=== PATIENT | female | born 1965 | race Caucasian/White ===

== ENCOUNTER → 2020-01-20 09:56 | Outpatient (BNVA) | payer OTHER, SELFPAY | PROVIDERS: PCP Internal Medicine; Referring Provider Internal Medicine; Visit Provider Internal Medicine | DX: Z86.73 Personal history of transient ischemic attack (TIA), and cerebral infarction without residual deficits (principal); Z51.81 Encounter for therapeutic drug level monitoring; Z79.01 Long term (current) use of anticoagulants | CPT/HCPCS: 85610 ==

== ENCOUNTER → 2020-02-17 09:45 | Outpatient (BNVA) | payer OTHER, SELFPAY | PROVIDERS: PCP Internal Medicine; Visit Provider Internal Medicine | DX: Z86.73 Personal history of transient ischemic attack (TIA), and cerebral infarction without residual deficits (principal); Z51.81 Encounter for therapeutic drug level monitoring; Z79.01 Long term (current) use of anticoagulants | CPT/HCPCS: 85610; 99211 ==

== ENCOUNTER → 2020-02-24 14:13 | Outpatient (BNVA) | payer OTHER, SELFPAY | PROVIDERS: PCP Internal Medicine; Referring Provider Internal Medicine; Visit Provider Orthopaedic Surgery | DX: M17.32 Unilateral post-traumatic osteoarthritis, left knee (principal) | CPT/HCPCS: 20610; 99202; J1100 ==

== ENCOUNTER → 2020-03-15 14:08 | Outpatient (BNVA) | payer OTHER, SELFPAY | PROVIDERS: PCP Internal Medicine; Visit Provider Internal Medicine | DX: Z86.73 Personal history of transient ischemic attack (TIA), and cerebral infarction without residual deficits (principal); Z51.81 Encounter for therapeutic drug level monitoring; Z79.01 Long term (current) use of anticoagulants | CPT/HCPCS: 85610; 99211 ==

== ENCOUNTER → 2020-04-12 10:18 | Outpatient (BNVA) | payer OTHER, SELFPAY | PROVIDERS: PCP Internal Medicine; Visit Provider Internal Medicine | DX: Z86.73 Personal history of transient ischemic attack (TIA), and cerebral infarction without residual deficits (principal); Z79.01 Long term (current) use of anticoagulants; Z51.81 Encounter for therapeutic drug level monitoring | CPT/HCPCS: 85610; 99211 ==

== ENCOUNTER → 2020-05-11 10:25 | Outpatient (BNVA) | payer OTHER, SELFPAY | PROVIDERS: PCP Internal Medicine; Visit Provider Internal Medicine | DX: Z86.73 Personal history of transient ischemic attack (TIA), and cerebral infarction without residual deficits (principal); Z51.81 Encounter for therapeutic drug level monitoring; Z79.01 Long term (current) use of anticoagulants | CPT/HCPCS: 85610; 99211 ==

== ENCOUNTER → 2020-06-08 10:47 | Outpatient (BNVA) | payer OTHER, SELFPAY | PROVIDERS: PCP Internal Medicine; Visit Provider Internal Medicine | DX: Z86.73 Personal history of transient ischemic attack (TIA), and cerebral infarction without residual deficits (principal); Z51.81 Encounter for therapeutic drug level monitoring; Z79.01 Long term (current) use of anticoagulants | CPT/HCPCS: 85610; 99211 ==

== ENCOUNTER 2020-06-28 09:39 | Outpatient (REF) | payer OTHER, SELFPAY ==
[2020-06-28 11:42] LABS: Estimated Average Glucose 120 mg/dL; Hemoglobin A1c % 5.8 %
[2020-06-28 12:02] LABS: Free T4 (Free Thyroxine) 1.04 ng/dL (0.71-1.85); Thyroid Stimulating Hormone 3.57 uIU/mL (0.32-4.0)
== END 2020-06-28 09:40 | disposition home or self-care (01) ==
LOC: HO.HMGCLDS 09:39
PROVIDERS: PCP Internal Medicine; Visit Provider Physician Assistant
DX: E03.9 Hypothyroidism, unspecified (principal); R73.01 Impaired fasting glucose
CPT/HCPCS: 36415; 83036; 84439; 84443

== ENCOUNTER → 2020-07-06 09:46 | Outpatient (BNVA) | payer OTHER, SELFPAY | PROVIDERS: PCP Internal Medicine; Visit Provider Internal Medicine | DX: Z86.73 Personal history of transient ischemic attack (TIA), and cerebral infarction without residual deficits (principal); Z51.81 Encounter for therapeutic drug level monitoring; Z79.01 Long term (current) use of anticoagulants | CPT/HCPCS: 85610; 99211 ==

== ENCOUNTER 2020-08-04 14:24 | Outpatient (REF) | payer OTHER, SELFPAY ==
--- NOTE | ~2020-08-04 | MM_ITS ---
EXAMINATION: MM SCREENING DIGITAL BREAST TOMOSYNTHESIS, BILATERAL CLINICAL INFORMATION: Screening. Asymptomatic. The lifetime risk of breast cancer based on the Tyrer-Cuzick Model is 10%. COMPARISON: Mammography: 07/01/2019, 05/08/2018, 08/03/2015 TECHNIQUE: Digital breast tomosynthesis is performed in both the craniocaudal and mediolateral oblique views along with computer-aided detection (CAD). Synthesized 2D images are generated from the tomosynthesis. FINDINGS: There are scattered areas of fibroglandular density (ACR BI-RADS breast composition Category b). There are no significant masses, abnormal calcifications, or other abnormalities. Parenchymal pattern is similar to prior studies. The axilla are unremarkable. Small dermal lesion again seen overlying posterior medial left breast. MM/MM tomosynthesis screening BI IMPRESSION: No mammographic evidence of malignancy. ASSESSMENT: BI-RADS 2: Benign RECOMMENDATION: Routine annual mammography screening. This patient's information was entered into a reminder system with a target due date for their next mammogram.
== END 2020-08-04 14:25 | disposition home or self-care (01) ==
LOC: HO.MAMMO 14:24
PROVIDERS: Visit Provider Internal Medicine
DX: Z12.31 Encounter for screening mammogram for malignant neoplasm of breast (principal); Z86.73 Personal history of transient ischemic attack (TIA), and cerebral infarction without residual deficits; Z51.81 Encounter for therapeutic drug level monitoring; Z79.01 Long term (current) use of anticoagulants
CPT/HCPCS: 77063; 77067; 85610; 99211

== ENCOUNTER → 2020-08-17 09:48 | Outpatient (BNVA) | payer OTHER, SELFPAY | PROVIDERS: PCP Internal Medicine; Visit Provider Internal Medicine | DX: Z86.73 Personal history of transient ischemic attack (TIA), and cerebral infarction without residual deficits (principal); Z51.81 Encounter for therapeutic drug level monitoring; Z79.01 Long term (current) use of anticoagulants | CPT/HCPCS: 85610; 99211 ==

== ENCOUNTER → 2020-08-24 09:58 | Outpatient (BNVA) | payer OTHER, SELFPAY | PROVIDERS: PCP Internal Medicine; Visit Provider Internal Medicine | DX: Z86.73 Personal history of transient ischemic attack (TIA), and cerebral infarction without residual deficits (principal); Z79.01 Long term (current) use of anticoagulants; Z51.81 Encounter for therapeutic drug level monitoring | CPT/HCPCS: 85610; 99211 ==

== ENCOUNTER → 2020-09-21 09:59 | Outpatient (BNVA) | payer OTHER, SELFPAY | PROVIDERS: PCP Internal Medicine; Visit Provider Internal Medicine | DX: Z86.73 Personal history of transient ischemic attack (TIA), and cerebral infarction without residual deficits (principal); Z51.81 Encounter for therapeutic drug level monitoring; Z79.01 Long term (current) use of anticoagulants | CPT/HCPCS: 85610; 99211 ==

== ENCOUNTER → 2020-10-19 09:51 | Outpatient (BNVA) | payer OTHER, SELFPAY | PROVIDERS: PCP Internal Medicine; Visit Provider Internal Medicine | DX: Z86.73 Personal history of transient ischemic attack (TIA), and cerebral infarction without residual deficits (principal); Z51.81 Encounter for therapeutic drug level monitoring; Z79.01 Long term (current) use of anticoagulants | CPT/HCPCS: 85610; 99211 ==

== ENCOUNTER → 2020-11-16 09:50 | Outpatient (BNVA) | payer OTHER, SELFPAY | PROVIDERS: PCP Internal Medicine; Visit Provider Internal Medicine | DX: Z86.73 Personal history of transient ischemic attack (TIA), and cerebral infarction without residual deficits (principal); Z51.81 Encounter for therapeutic drug level monitoring; Z79.01 Long term (current) use of anticoagulants | CPT/HCPCS: 85610; 99211 ==

== ENCOUNTER 2020-12-14 09:49 | Outpatient (REF) | payer OTHER, SELFPAY ==
[2020-12-14 12:39] LABS: Blood Urea Nitrogen 14 mg/dL (9-16); Estimated Glomerular Filt Rate > 60
== END 2020-12-14 09:50 | disposition home or self-care (01) ==
LOC: HO.LAB 09:49
PROVIDERS: Absent Provider Radiology Vascular & Interventional Radiology; PCP Internal Medicine; Visit Provider Internal Medicine
DX: R79.89 Other specified abnormal findings of blood chemistry (principal); R94.4 Abnormal results of kidney function studies; Z86.73 Personal history of transient ischemic attack (TIA), and cerebral infarction without residual deficits; Z51.81 Encounter for therapeutic drug level monitoring; Z79.01 Long term (current) use of anticoagulants
CPT/HCPCS: 36415; 82565; 84520; 85610; 99211

== ENCOUNTER → 2020-12-26 10:36 | Outpatient (BNVA) | payer OTHER, SELFPAY | PROVIDERS: PCP Internal Medicine; Visit Provider Internal Medicine | DX: Z86.73 Personal history of transient ischemic attack (TIA), and cerebral infarction without residual deficits (principal); Z51.81 Encounter for therapeutic drug level monitoring; Z79.01 Long term (current) use of anticoagulants | CPT/HCPCS: 85610; 99212 ==

== ENCOUNTER → 2020-12-28 10:04 | Outpatient (BNVA) | payer OTHER, SELFPAY | PROVIDERS: PCP Internal Medicine; Visit Provider Internal Medicine | DX: Z86.73 Personal history of transient ischemic attack (TIA), and cerebral infarction without residual deficits (principal); Z51.81 Encounter for therapeutic drug level monitoring; Z79.01 Long term (current) use of anticoagulants | CPT/HCPCS: 85610; 99211 ==

== ENCOUNTER → 2021-01-05 09:57 | Outpatient (BNVA) | payer OTHER, SELFPAY | PROVIDERS: PCP Internal Medicine; Visit Provider Internal Medicine | DX: Z86.73 Personal history of transient ischemic attack (TIA), and cerebral infarction without residual deficits (principal); Z51.81 Encounter for therapeutic drug level monitoring; Z79.01 Long term (current) use of anticoagulants | CPT/HCPCS: 85610; 99211 ==

== ENCOUNTER → 2021-01-18 10:03 | Outpatient (BNVA) | payer OTHER, SELFPAY | PROVIDERS: PCP Internal Medicine; Visit Provider Internal Medicine | DX: Z86.73 Personal history of transient ischemic attack (TIA), and cerebral infarction without residual deficits (principal); Z51.81 Encounter for therapeutic drug level monitoring; Z79.01 Long term (current) use of anticoagulants | CPT/HCPCS: 85610; 99211 ==

== ENCOUNTER → 2021-01-25 09:36 | Outpatient (BNVA) | payer OTHER, SELFPAY | PROVIDERS: PCP Internal Medicine; Visit Provider Internal Medicine | DX: Z86.73 Personal history of transient ischemic attack (TIA), and cerebral infarction without residual deficits (principal); Z51.81 Encounter for therapeutic drug level monitoring; Z79.01 Long term (current) use of anticoagulants | CPT/HCPCS: 85610; 99211 ==

== ENCOUNTER → 2021-02-01 09:57 | Outpatient (BNVA) | payer OTHER, SELFPAY | PROVIDERS: PCP Internal Medicine; Visit Provider Internal Medicine | DX: Z86.73 Personal history of transient ischemic attack (TIA), and cerebral infarction without residual deficits (principal); Z51.81 Encounter for therapeutic drug level monitoring; Z79.01 Long term (current) use of anticoagulants | CPT/HCPCS: 85610; 99211 ==

== ENCOUNTER → 2021-02-15 10:04 | Outpatient (BNVA) | payer OTHER, SELFPAY | PROVIDERS: PCP Internal Medicine; Visit Provider Internal Medicine | DX: Z86.73 Personal history of transient ischemic attack (TIA), and cerebral infarction without residual deficits (principal); Z51.81 Encounter for therapeutic drug level monitoring; Z79.01 Long term (current) use of anticoagulants | CPT/HCPCS: 85610; 99211 ==

== ENCOUNTER → 2021-02-22 10:19 | Outpatient (BNVA) | payer OTHER, SELFPAY | PROVIDERS: PCP Internal Medicine; Visit Provider Internal Medicine | DX: Z86.73 Personal history of transient ischemic attack (TIA), and cerebral infarction without residual deficits (principal); Z51.81 Encounter for therapeutic drug level monitoring; Z79.01 Long term (current) use of anticoagulants | CPT/HCPCS: 85610; 99211 ==

== ENCOUNTER → 2021-03-08 10:37 | Outpatient (BNVA) | payer OTHER, SELFPAY | PROVIDERS: PCP Internal Medicine; Visit Provider Internal Medicine | DX: Z86.73 Personal history of transient ischemic attack (TIA), and cerebral infarction without residual deficits (principal); Z51.81 Encounter for therapeutic drug level monitoring; Z79.01 Long term (current) use of anticoagulants | CPT/HCPCS: 85610; 99211 ==

== ENCOUNTER → 2021-03-29 09:48 | Outpatient (BNVA) | payer OTHER, SELFPAY | PROVIDERS: PCP Internal Medicine; Visit Provider Internal Medicine | DX: Z86.73 Personal history of transient ischemic attack (TIA), and cerebral infarction without residual deficits (principal); Z51.81 Encounter for therapeutic drug level monitoring; Z79.01 Long term (current) use of anticoagulants | CPT/HCPCS: 85610; 99211 ==

== ENCOUNTER → 2021-04-26 13:36 | Outpatient (BNVA) | payer OTHER, SELFPAY | PROVIDERS: PCP Internal Medicine; Visit Provider Internal Medicine | DX: Z86.73 Personal history of transient ischemic attack (TIA), and cerebral infarction without residual deficits (principal); Z51.81 Encounter for therapeutic drug level monitoring; Z79.01 Long term (current) use of anticoagulants | CPT/HCPCS: 85610; 99211 ==

== ENCOUNTER → 2021-05-24 09:50 | Outpatient (BNVA) | payer OTHER, SELFPAY | PROVIDERS: PCP Internal Medicine; Visit Provider Internal Medicine | DX: Z86.73 Personal history of transient ischemic attack (TIA), and cerebral infarction without residual deficits (principal); Z51.81 Encounter for therapeutic drug level monitoring; Z79.01 Long term (current) use of anticoagulants | CPT/HCPCS: 85610; 99211 ==

== ENCOUNTER 2021-05-24 11:21 | Emergency (ER) | payer OTHER, SELFPAY ==
--- NOTE | ~2021-05-24 | CT_ITS ---
EXAM: Noncontrast CT scan of the head and cervical spine. INDICATION: Pain with head injury and neck pain. Patient on warfarin. COMPARISON: Head CT 10/22/2015 TECHNIQUE: Axial slices were obtained from skull base to vertex and displayed. This was followed by helical, multislice, multidetector axial images from the occiput to the upper thorax. Coronal and sagittal reformats of the cervical spine in addition to coronal reformats of the head were obtained at the technologist workstation. DLP: 1276 mGy-cm FINDINGS: HEAD: There is no evidence of acute intracranial hemorrhage or territorial infarction. Evidence of old right MCA infarct appears stable. No abnormal mass effect or midline shift is appreciated. Chaves-white differentiation is well preserved. No extra-axial fluid collections. The ventricular system and cortical sulci are prominent, consistent with age-appropriate volume loss. There are areas of low density in the periventricular and subcortical white matter, most consistent with sequelae of microvascular ischemic change. The osseous structures and soft tissues are normal. There is mild to moderate calcifications of the cavernous internal carotid arteries. The visualized paranasal sinuses and mastoid air cells are well aerated. SPINE: The cervical spine is visualized in its entirety. There is straightening of the normal cervical lordosis. Alignment is otherwise unremarkable. Normal C1/C2 articulation. Cervical vertebral body heights and disc spaces are well-maintained. There are no significant degenerative changes of the cervical spine. Visualized lung apices are well aerated. CT/CT cervical spine wo con IMPRESSION: 1. No acute intracranial pathology. 2. Evidence of old right MCA infarct. 3. No fractures or dislocations of the cervical spine. This CT examination was performed using dose optimization techniques as appropriate, variously including the following: *Automated exposure control *Adjustment of mA and/or kV according to patient size (this includes techniques or standardized protocols for targeted exams where dose is matched to indication/reason for exam; i.e. extremities or head) *Use of iterative reconstruction technique
[2021-05-24 11:23] VITALS: BP 141/58; PULSE 77; RESP 16; TEMP 36.3; O2SAT 94; BMI 38.8
--- NOTE | 2021-05-24 12:27 | ED_ITS ---
HPI - Fall General Chief Complaint: Fall Stated Complaint: Fall/headache Time Seen by Provider: 05/24/21 12:06 Source: patient Mode of arrival: ambulatory Limitations: no limitations History of Present Illness HPI Narrative: 55-year-old female who presents emergency department for evaluation of a fall with headache, neck pain an on warfarin. Patient states that around 830 a.m. this morning she was taking shower. She got out of the shower and wrapped a towel around her. She states the towel fell over her legs and caused her to trip and fall. The patient does not remember if she hit her head or lost consciousness. The patient takes warfarin daily for stroke prevention. She went to her warfarin clinic today and her INR was 2.1. She told the provider at the clinic that she hit her head, had a headache, and she was referred to the emergency department for evaluation. Here in the emergency department she is complaining of a headache and neck pain. She states the headache is located in the front of her head, the headache is constant, throbbing, and 10/10. She denied nausea, vomiting, weakness. She has had no trouble thinking or speaking. She denied loss of bowel or bladder control. Patient also states that she tore the toenail off her right great toe and this was bleeding at home. The patient has been vaccinated for COVID-19 and she has received 3 Moderna vaccines. Related Data Home Medications Medication Instructions Recorded Confirmed citalopram PO 02/11/20 05/24/21 levothyroxine 50 mcg tablet 50 mcg PO DAILY 02/11/20 05/24/21 lisinopril 20 mg tablet 20 mg PO DAILY 02/11/20 05/24/21 simvastatin 40 mg tablet 40 mg PO DAILY 02/11/20 05/24/21 citalopram 40 mg tablet 40 mg PO DAILY 05/11/20 05/24/21 flu vac [id number] 36mos up(PF) ml IM 05/11/20 04/26/21 gabapentin 100 mg capsule 200 mg PO DAILY 05/11/20 05/24/21 simvastatin 20 mg tablet 20 mg PO DAILY 05/11/20 05/24/21 capsaicin 0.25 % topical cream appl TOPICAL 12/28/20 05/24/21 Previous Rx's Medication Instructions Recorded warfarin 2.5 mg tablet 2.5 mg PO DAILY #90 tab 01/21/20 Allergies Allergy/AdvReac Type Severity Reaction Status Date / Time Erythromycin Allergy Unknown UNKNOWN Verified 05/24/21 09:55 erythromycin base Allergy Unknown NAUSEA & Verified 05/24/21 09:55 [ERYTHROMYCIN BASE] VOMITING Review of Systems Verdana 4l Review of Systems: Yes all other systems are reviewed and Verdana 4d are negative [facility] Past Medical History [facility] Narrative: Past medical history: Depression, anxiety, stroke x2 with the last stroke when she was 42 years old (13 years prior). Social history: She denies tobacco, al cohol and drug use. She states that she lives with her sister Andree who is here in the emergency department with the patient. Medical History (Updated 05/24/21 @ 15:21 by Scottie Hernández MD) Post-traumatic osteoarthritis of left knee Unilateral primary osteoarthritis, left knee (~2014) Family History Family History Father No problems noted. Mother No problems noted. 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 Physical Exam Verdana 4l Vital Signs: Verdana 4d Verdana 4d Vital Signs: Verdana 4d Verdana 4Bd Last Vital Signs Verdana 4d [employer] Operator New 4d [employer] Operator New 4d Temp 97.3 F 05/24/21 11:23 Hob [employer] Operator New 4d Pulse 59 05/24/21 14:05 [employer] Operator New 4d Resp 18 05/24/21 14:05 BP 106/56 L 05/24/21 14:05 Pulse Ox 97 05/24/21 14:05 BMI result Body Mass Index 38.8 Const: Other: Awake, alert, female patient, very pleasant and cooperative, BMI of 38.9, does not appear to be in distress, answers all questions appropriately HENMT: Other: Head is normal cephalic and atraumatic, patient does have tenderness palpation of her samaritan areas bilaterally and along her frontal area of her scalp, there are no hematomas or other palpable tenderness on the rest of her scalp Ears: external ears normal General nose exam: Normal external nose present Face and sinus: Yes normal facial exam Mouth: Normal oral and palatal mucosa present Throat: Yes posterior oropharynx normal Eyes: General: appearance normal, both eyes and all related structures Pupils: Equal, round and reactive pupils present Neck: Other: Patient has tenderness palpation of her cervical spine and trapezius muscles bilaterally Neck: Yes normal visual inspection, Yes no lymphadenopathy and Yes trachea midline Chest: Chest palpation & inspection: normal inspection of the chest and normal palpation of entire chest wall Resp: Effort & Inspection: normal respiratory effort and able to speak in complete s entences Auscultation: clear to auscultation bilaterally Cardio: Rate: regular rate Rhythm: regular rhythm Heart sounds: S1 normal heart sound present, S2 normal heart sound present and no murmurs GI: Inspection: Yes normal to inspection Palpation (GI): Soft to palpation, nontender and no guarding Auscultation: normal bowel sounds : General: Yes no CVA tenderness Back/Spine/Pelvis: Back: no CVA tenderness Skin: General skin exam: no rashes or lesions noted Neuro: Cranial nerves: Yes CN's II-XII intact bilaterally and Yes Equal, round and reactive pupils present Cognition (Neuro): normal cognition Motor exam (neuro): 5/5 motor strength present throughout Extrem: Other: Patient has a C-shaped skin avulsion to the tip of the right great toe, the nail is intact, she has no tenderness palpation over her toes or her foot. Psych: Appearance: grossly normal Speech and movement: Normal speech and movement present Affect: normal affect Attitude: cooperative Thought process: Normal thought process present Thought content: Normal thought content present Course Course Course Narrative: 55-year-old female who takes warfarin for CVA prevention who presents emergency department for evaluation of headache and neck pain after trip and fall this morning. She did go to her warfarin clinic today and her INR was 2.1 and she was advised to go to the emergency department for evaluation of possible injuries from her fall pain. Initial vital signs revealed a blood pressure of 141/58 otherwise were unremarkable. Patient does have tenderness palpation of her frontal region of her scalp and temporal areas bilaterally. She also has cervical spine and trapezius muscle tenderness. I ordered a CBC, CMP, PT/INR, PTT, ESR, CT of the head and cervical spine. Cap patient's is headache will be treated Benadryl 50 mg IV, Reglan 10 mg IV and normal saline x1 L. the patient's right great toe was cleaned by the nursing staff and dressed with bacitracin and a sterile dressing was applied 1517: The patient's CT scan of the head and cervical spine revealed no acute abnormalities. The patient does have evidence an old right MCA stroke on a CT scan of the brain. The patient's laboratory evaluation was unremarkable, the patient's INR is therapeutic at 2.3. COVID-19 test was negative. The patient did get some improvement of her headache. The headache went from 10/10 to 4/10. She was ordered to get Tylenol 975 mg orally. Patient will be discharged home. She was advised to take Tylenol 975 mg every 4-6 hours as needed for pain and to follow-up with her PCP for re-evaluation. - Fall Lab Data Result diagrams: 05/24/21 12:52 05/24/21 12:53 Labs: Lab Results 05/24/21 05/24/21 05/24/21 Range/Units 12:52 12:52 12:53 WBC 10.8 (4.8-10.8) X10*3/uL RBC 4.63 (4.20-5.50) X10*6/uL Hgb 13.2 (12.0-16.0) g/dl Hct 42.5 (37.0-47.0) % MCV 91.8 (80.0-98.0) fL MCH 28.5 (27.0-33.0) pg MCHC 31.1 (31.0-35.0) g/dl RDW 15.0 (11.0-16.0) % Plt Count 303 (160-400) X10*3/uL MPV 10.3 (9.4-12.3) fL Immature Gran % (Auto) 0.4 (0.0-0.4) % Neut % (Auto) 72.6 (45-73) % Lymph % (Auto) 18.4 L (20-40) % [place] % (Auto) 7.2 (2-11) % Eos % (Auto) 1.2 (0-4) % Baso % (Auto) 0.2 (0-2) % Lymph # (Auto) 2.0 (1.2-4.9) X10*3/uL [place] # (Auto) 0.8 (0.1-1.2) X10*3/uL Eos # (Auto) 0.1 (0.0-0.4) X10*3/uL Baso # (Auto) 0.0 (0.0-0.2) X10*3/uL Abs Immat Gran (auto) 0.04 H (0.00-0.03) X10*3/uL Absolute Neuts (auto) 7.8 (2.0-8.3) x10*3/uL Absolute Nucleated RBC 0.000 (0.0-0.012) X10*3/uL Nucleated RBC % (auto) 0.0 (0.0-0.2) /100WBC ESR (0-20) MM/HR PT 26.3 H (9.9-13.0) SEC INR 2.3 H (0.9-1.1) APTT 47.7 H (24.1-38.0) SEC Sodium (135-145) mmol/L Potassium (3.3-5.1) mmol/L Chloride (96-108) mmol/L Carbon Dioxide (22-29) mmol/L Anion Gap (12-20) BUN (9-16) mg/dL Creatinine (0.5-1.4) mg/dL Estim Creat Clear Calc Estimated GFR Random Glucose (60-115) mg/dL Calcium (8.4-10.2) mg/dL Total Bilirubin (0.0-1.0) mg/dL AST (5-31) U/L ALT (0-31) U/L Alkaline Phosphatase (39-117) U/L Total Protein (6.5-8.0) g/dL Albumin (3.5-5.0) g/dL COVID-19 (CECILE) Negative (Negative) COVID-19 Clin Com See Note 05/24/21 05/24/21 Range/Units 12:53 12:53 WBC (4.8-10.8) X10*3/uL RBC (4.20-5.50) X10*6/uL Hgb (12.0-16.0) g/dl Hct (37.0-47.0) % MCV (80.0-98.0) fL MCH (27.0-33.0) pg MCHC (31.0-35.0) g/dl RDW (11.0-16.0) % Plt Count (160-400) X10*3/uL MPV (9.4-12.3) fL Immature Gran % (Auto) (0.0-0.4) % Neut % (Auto) (45-73) % Lymph % (Auto) (20-40) % [place] % (Auto) (2-11) % Eos % (Auto) (0-4) % Baso % (Auto) (0-2) % Lymph # (Auto) (1.2-4.9) X10*3/uL [place] # (Auto) (0.1-1.2) X10*3/uL Eos # (Auto) (0.0-0.4) X10*3/uL Baso # (Auto) (0.0-0.2) X10*3/uL Abs Immat Gran (auto) (0.00-0.03) X10*3/uL Absolute Neuts (auto) (2.0-8.3) x10*3/uL Absolute Nucleated RBC (0.0-0.012) X10*3/uL Nucleated RBC % (auto) (0.0-0.2) /100WBC ESR 31 H (0-20) MM/HR PT (9.9-13.0) SEC INR (0.9-1.1) APTT (24.1-38.0) SEC Sodium 142 (135-145) mmol/L Potassium 5.5 H (3.3-5.1) mmol/L Chloride 106 (96-108) mmol/L Carbon Dioxide 30 H (22-29) mmol/L Anion Gap 12 (12-20) BUN 17 H (9-16) mg/dL Creatinine 0.89 (0.5-1.4) mg/dL Estim Creat Clear Calc 72.3 Estimated GFR > 60 Random Glucose 104 (60-115) mg/dL Calcium 10.3 H (8.4-10.2) mg/dL Total Bilirubin 0.4 (0.0-1.0) mg/dL AST 18 (5-31) U/L ALT 23 (0-31) U/L Alkaline Phosphatase 105 (39-117) U/L Total Protein 7.2 (6.5-8.0) g/dL Albumin 4.2 (3.5-5.0) g/dL COVID-19 (CECILE) (Negative) COVID-19 Clin Com Discharge Plan Discharge Clinical Impression: Closed fracture of head, Abrasion of skin of right great toe Fall Qualifiers: Encounter type: initial encounter Qualified Code(s): W19.XXXA - Unspecified fall, initial encounter Headache Qualifiers: Headache type: unspecified Headache chronicity pattern: acute headache Intractability: not intractable Qualified Code(s): R51.9 - Headache, unspecified Patient Disposition: Home, Self-Care Instructions: Head Injury (ED) Additional Instructions: The CT scans of your head and neck were unremarkable. Your blood work was normal and your INR was therapeutic at 2.3. Your COVID-19 test was negative. Your headache may have been caused by your fall. Follow the head injury instructions. Take Tylenol (acetaminophen) 500 mg pills, 2 pills every 4 to 6 hours as needed for pain. Follow-up with your doctor in 2 days. Please return to the emergency department if your symptoms get worse or if you develop any symptoms that are concerning to you. Prescriptions: No Action Afluria Qd 2020-(3yr up)(PF) 60 mcg (15 mcg x 4)/0.5 mL syringe IM 0RF gabapentin 100 mg capsule 200 mg PO DAILY 0RF simvastatin 20 mg tablet 20 mg PO DAILY 0RF citalopram 40 mg tablet 40 mg PO DAILY 0RF warfarin 2.5 mg tablet 2.5 mg PO DAILY Qty: 90 0RF Protocol: Dose Management Condition: Friday (Week One) Dose/Route: 1.25 mg Instruction: 0.5 x 2.5 mg tablets Condition: Friday Dose/Route: 2.5 mg Instruction: 1 x 2.5 mg tablet Condition: Friday Dose/Route: 2.5 mg Instruction: 1 x 2.5 mg tablet Condition: Friday Dose/Route: 2.5 mg Instruction: 1 x 2.5 mg tablet Condition: Dose/Route: 2.5 mg Instruction: 1 x 2.5 mg tablet Condition: Friday Dose/Route: 2.5 mg Instruction: 1 x 2.5 mg tablet Condition: Friday Dose/Route: 2.5 mg Instruction: 1 x 2.5 mg tablet Condition: Friday (Week Two) Dose/Route: 1.25 mg Instruction: 0.5 x 2.5 mg tablets Condition: Friday Dose/Route: 2.5 mg Instruction: 1 x 2.5 mg tablet Condition: Friday Dose/Route: 2.5 mg Instruction: 1 x 2.5 mg tablet Condition: Friday Dose/Route: 2.5 mg Instruction: 1 x 2.5 mg tablet Condition: Dose/Route: 2.5 mg Instruction: 1 x 2.5 mg tablet Condition: Friday Dose/Route: 2.5 mg Instruction: 1 x 2.5 mg tablet Condition: Friday Dose/Route: 2.5 mg Instruction: 1 x 2.5 mg tablet Protocol Text: Adjustment Start Date: 05/24/21 INR Value: 2.1 INR Date: 05/24/21 Additional Instructions: INR is in low end of range no greens today then balance greens and reds in diet continue same dosing citalopram PO 0RF levothyroxine 50 mcg tablet 50 mcg PO DAILY 0RF lisinopril 20 mg tablet 20 mg PO DAILY 0RF simvastatin 40 mg tablet 40 mg PO DAILY 0RF capsaicin 0.25 % cream topical 0RF
[2021-05-24 12:58] LABS: MANUAL DIFF FLAG NO
[2021-05-24 13:03] LABS: Basophils Percent Auto 0.2 % (0-2); Eosinophils Absolute Auto 0.1 X10*3/uL (0.0-0.4); Eosinophils Percent Auto 1.2 % (0-4); Hematocrit 42.5 % (37.0-47.0); Hemoglobin 13.2 g/dl (12.0-16.0); Imm Gran Abs Auto 0.04 X10*3/uL (0.00-0.03); Imm Gran Pct Auto 0.4 % (0.0-0.4); Lymphocytes Percent Auto 18.4 % (20-40); Mean Corpuscular HGB Conc 31.1 g/dl (31.0-35.0); Mean Corpuscular Hemoglobin 28.5 pg (27.0-33.0); Mean Corpuscular Volume 91.8 fL (80.0-98.0); Mean Platelet Volume 10.3 fL (9.4-12.3); Monocytes Absolute Auto 0.8 X10*3/uL (0.1-1.2); Monocytes Percent Auto 7.2 % (2-11); Neutrophils Absolute Auto 7.8 x10*3/uL (2.0-8.3); Neutrophils Percent Auto 72.6 % (45-73); Platelet Count 303 X10*3/uL (160-400); Red Blood Count 4.63 X10*6/uL (4.20-5.50); White Blood Count 10.8 X10*3/uL (4.8-10.8)
[2021-05-24] MEDS: Metoclopramide HCl 10 MG/2 ML VIAL IVPUSH (13:03)
[2021-05-24] MEDS: diphenhydrAMINE HCL 50 MG/ML VIAL IVPUSH (13:03)
[2021-05-24] MEDS: 0.9 % Sodium Chloride 1,000 ML 999 ML IV (13:03)
[2021-05-24 13:09] VITALS: BP 119/59; PULSE 52; RESP 18; O2SAT 98
--- NOTE | 2021-05-24 13:10 | PC.NURSE ---
small avulsion left great toe cleansed and dressed
[2021-05-24 13:11] LABS: INTERNATIONAL NORM RATIO 2.3 (0.9-1.1); Prothrombin Time 26.3 SEC (9.9-13.0)
[2021-05-24 13:13] LABS: Partial Thromboplastin Time 47.7 SEC (24.1-38.0)
[2021-05-24 13:21] LABS: Alanine Aminotransferase 23 U/L (0-31); Albumin Level 4.2 g/dL (3.5-5.0); Alkaline Phosphatase 105 U/L (39-117); Anion Gap 12 (12-20); Aspartate Amino Transferase 18 U/L (5-31); Bilirubin Total 0.4 mg/dL (0.0-1.0); Blood Urea Nitrogen 17 mg/dL (9-16); Calcium 10.3 mg/dL (8.4-10.2); Carbon Dioxide 30 mmol/L (22-29); Chloride 106 mmol/L (96-108); Creatinine Clr Calc Pharmacy 72.3; Estimated Glomerular Filt Rate > 60; Glucose Random 104 mg/dL (60-115); Potassium 5.5 mmol/L (3.3-5.1); Sodium 142 mmol/L (135-145); Total Protein 7.2 g/dL (6.5-8.0)
[2021-05-24 13:40] LABS: Erythrocyte Sedimentation Rate 31 MM/HR (0-20)
[2021-05-24 13:45] LABS: COVID-19 Test Negative (Negative); IDNOW Serial# 55D5AD1C
[2021-05-24 14:05] VITALS: BP 106/56; PULSE 59; RESP 18; O2SAT 97
[2021-05-24 15:19] VITALS: BP 112/55; PULSE 55; RESP 18; TEMP 36.8; O2SAT 94
[2021-05-24] MEDS: Acetaminophen 325 MG TABLET 975 MG PO (15:27)
== END 2021-05-24 15:40 | disposition home or self-care (01) ==
PROVIDERS: Emergency Provider Emergency Medicine Emergency Medical Services; PCP Internal Medicine
DX: R51.9 Headache, unspecified (principal); S90.411A Abrasion, right great toe, initial encounter; W01.0XXA Fall on same level from slipping, tripping and stumbling without subsequent striking against object, initial encounter; Y93.E1 Activity, personal bathing and showering; Y92.031 Bathroom in apartment as the place of occurrence of the external cause; Y99.9 Unspecified external cause status; Z86.73 Personal history of transient ischemic attack (TIA), and cerebral infarction without residual deficits; Z79.01 Long term (current) use of anticoagulants; Z20.822 Contact with and (suspected) exposure to COVID-19
CPT/HCPCS: 36415; 70450; 72125; 80053; 85025; 85610; 85652; 85730; 87635; 96361; 96374; 96375; 99284; J1200; J2765

== ENCOUNTER → 2021-06-21 09:43 | Outpatient (BNVA) | payer OTHER, SELFPAY | PROVIDERS: PCP Internal Medicine; Visit Provider Internal Medicine | DX: Z86.73 Personal history of transient ischemic attack (TIA), and cerebral infarction without residual deficits (principal); Z51.81 Encounter for therapeutic drug level monitoring; Z79.01 Long term (current) use of anticoagulants | CPT/HCPCS: 85610; 99211 ==

== ENCOUNTER → 2021-07-19 09:05 | Outpatient (BNVA) | payer OTHER, SELFPAY | PROVIDERS: PCP Internal Medicine; Visit Provider Internal Medicine | DX: Z86.73 Personal history of transient ischemic attack (TIA), and cerebral infarction without residual deficits (principal); Z51.81 Encounter for therapeutic drug level monitoring; Z79.01 Long term (current) use of anticoagulants | CPT/HCPCS: 85610; 99211 ==

== ENCOUNTER 2021-08-07 09:12 | Outpatient (REF) | payer OTHER, SELFPAY ==
--- NOTE | ~2021-08-07 | MM_ITS ---
EXAMINATION: MM SCREENING DIGITAL BREAST TOMOSYNTHESIS, BILATERAL CLINICAL INFORMATION: Screening. Asymptomatic. The lifetime risk of breast cancer based on the Tyrer-Cuzick Model is 9%. COMPARISON: Mammography: 08/04/2020, 07/01/2019, 05/08/2018 TECHNIQUE: Digital breast tomosynthesis is performed in both the craniocaudal and mediolateral oblique views along with computer-aided detection (CAD). Synthesized 2D images are generated from the tomosynthesis. Additional right CC view is provided. FINDINGS: There are scattered areas of fibroglandular density (ACR BI-RADS breast composition Category b). There are no significant masses, abnormal calcifications, or other abnormalities. There is no developing density or architectural abnormality. Parenchymal pattern is similar to prior exams. The axilla are unremarkable. No significant changes. MM/MM tomosynthesis screening BI IMPRESSION: No mammographic evidence of malignancy. ASSESSMENT: BI-RADS 1: Negative RECOMMENDATION: Routine annual mammography screening. This patient's information was entered into a reminder system with a target due date for their next mammogram.
== END 2021-08-07 09:13 | disposition home or self-care (01) ==
LOC: HO.MAMMO 09:12
PROVIDERS: PCP Internal Medicine; Visit Provider Internal Medicine
DX: Z12.31 Encounter for screening mammogram for malignant neoplasm of breast (principal)
CPT/HCPCS: 77063; 77067

== ENCOUNTER → 2021-08-16 09:50 | Outpatient (BNVA) | payer OTHER, SELFPAY | PROVIDERS: PCP Internal Medicine; Visit Provider Internal Medicine | DX: Z86.73 Personal history of transient ischemic attack (TIA), and cerebral infarction without residual deficits (principal); Z79.01 Long term (current) use of anticoagulants; Z51.81 Encounter for therapeutic drug level monitoring | CPT/HCPCS: 85610; 99211 ==

== ENCOUNTER → 2021-09-07 10:40 | Outpatient (BNVA) | payer OTHER, SELFPAY | PROVIDERS: PCP Internal Medicine; Visit Provider Internal Medicine | DX: Z86.73 Personal history of transient ischemic attack (TIA), and cerebral infarction without residual deficits (principal); Z79.01 Long term (current) use of anticoagulants; Z51.81 Encounter for therapeutic drug level monitoring | CPT/HCPCS: 85610; 99211 ==

== ENCOUNTER 2021-09-14 07:43 | Day surgery (SDC) | payer OTHER, SELFPAY ==
[2021-09-10 14:09] VITALS: BMI 37.1
[2021-09-14 07:59] VITALS: BP 154/87; PULSE 81; RESP 18; TEMP 36.6; O2SAT 96
[2021-09-14] MEDS: Lactated Ringers 1,000 ML 50 ML IVCONT (08:43)
[2021-09-14 08:55] LABS: INTERNATIONAL NORM RATIO 1.1 (0.9-1.1); Prothrombin Time 12.6 SEC (9.9-13.0)
--- NOTE | 2021-09-14 09:11 | P.CONAN_ITS ---
[facility] Active Problems Active Problems: All Active Problems (Updated 09/10/21 @ 13:56 by Ashleigh Gonzalez RN) Current use of anticoagulant therapy (Acute) Past Medical History Medical History Anxiety and depression Arthritis Elevated cholesterol History of CVA (cerebrovascular accident) HTN (hypertension) Hypothyroidism On anticoagulant therapy KRYSTAL on CPAP Post-traumatic osteoarthritis of left knee Unilateral primary osteoarthritis, left knee (~2014) Family History Family History Father No problems noted. Mother No problems noted. 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 Allergies Allergy/AdvReac Type Severity Reaction Status Date / Time erythromycin base Allergy Unknown NAUSEA & Verified 09/10/21 13:57 [ERYTHROMYCIN BASE] VOMITING Active Medications: Current Medications Lactated Ringer's (Lr) 1,000 mls @ 50 mls/hr IVCONT .Q20H DOROTHY Last Admin: 09/14/21 08:43 Dose: 50 mls/hr Documented by: Home Medications Medication Instructions Recorded Confirmed Last Taken Type citalopram PO 02/11/20 09/07/21 Unknown History levothyroxine 50 mcg tablet 50 mcg PO DAILY 02/11/20 09/10/21 09/14/21 History lisinopril 20 mg tablet 20 mg PO DAILY 02/11/20 09/10/21 Unknown History citalopram 40 mg tablet 40 mg PO DAILY 05/11/20 09/10/21 09/14/21 History gabapentin 100 mg capsule 200 mg PO DAILY 05/11/20 09/10/21 Unknown History simvastatin 20 mg tablet 20 mg PO DAILY 05/11/20 09/10/21 Unknown History capsaicin 0.25 % topical cream appl TOPICAL 12/28/20 09/07/21 Unknown History alclometasone 0.05 % topical TOPICAL BID PRN 08/16/21 09/07/21 Unknown History ointment clotrimazole-betamethasone 1 appl TOPICAL 08/16/21 09/07/21 Unknown History %-0.05 % topical cream ketoconazole 2 % topical cream appl TOPICAL 08/16/21 09/07/21 Unknown History lorazepam 1 mg tablet 1 mg PO 08/16/21 09/07/21 Unknown History scopolamine base 1 mg over 3 days 1 patch TOPICAL Q3D 08/16/21 09/10/21 Unknown History transdermal patch cholecalciferol (vitamin D3) 25 25 mcg PO DAILY 09/10/21 09/10/21 Unknown History mcg (1,000 unit) tablet (Vitamin D3) Exam Exam Date and Time: September 14, 2021 0911 Height,Weight and Vital Signs: Height 5 ft 0.75 in Weight 88.451 kg Last Vital Signs Temp 98 F 09/14/21 07:59 Pulse 81 09/14/21 07:59 Resp 18 09/14/21 07:59 BP 154/87 H 09/14/21 07:59 Pulse Ox 96 09/14/21 07:59 Pertinent Lab Results Pertinent Lab Results: Laboratory Tests 09/14/21 08:44 PT 12.6 INR 1.1 Airway Mallampati Class: II Neck ROM: Full Loose/Missing/Broken Teeth: No Heart: RRR Lungs: CTA Assessment and Plan Assessment Anesthesia Assessment: Anesthesia Plan Discussed and Chart Reviewed Final Anesthetic Review History of Problems with Anesthesia: No NPO: Yes ASA Class: III Final Preanesthetic Review: Meds/Allgs Chart Reviewed, Consent Obtained/Reviewed and Anes Risks/Benef Reviewed Patient Risk: Intermediate Procedure Risk: Low Anesthetic Plan Anesthetic Plan: MAC: Disposition: Standard PACU
--- NOTE | 2021-09-14 09:52 | MHC.SHP ---
Pre-Procedural Eval Section A Date of Service: 09/14/21 Section B Chief Complaint: screening Details of Present Illness: see H&P no changes Relevant Family History (Specify if Yes): Yes Relevant Social History: None Present Medications: see Short Stay Collaborative assessment Medical History: No relevant PMH History of Previous Operations: No relevant previous surgery Allergies: Allergies Allergy/AdvReac Type Severity Reaction Status Date / Time erythromycin base Allergy Unknown NAUSEA & Verified 09/10/21 13:57 [ERYTHROMYCIN BASE] VOMITING Review of Systems Sugical H&P ROS: Negative: Constitution, Cardiovascular, Respiratory, Neurological, Psychiatric, Hem-Onc, Allergic/Immunologic, Gastrointestinal, Genitourinary, Musculoskeletal, Integumentary, Endocrine and Eyes/Ears/Nose/Throat Exam Surgical H&P Exam: Normal: HEENT, Normal: Heart, Normal: Lungs, Normal: Extremities, Normal: Abdomen, Normal: Skin and Normal: Neurological Plan I have reviewed the history and physical and performed a pertinent physical examination on my patient. No changes have occurred unless specified.
--- NOTE | 2021-09-14 09:53 | PM.OP ---
Brief Operative Note Date of Service: 09/14/21 Pre-op diagnosis: screening Post-op diagnosis: same Surgeon: Bran Melvin Anesthesia: MAC Was an Delivery Of Shopping News used for this Procedure?: No Estimated blood loss (mL): 0 Pathology: none sent Condition: stable Disposition: PACU
[2021-09-14 09:58] VITALS: BP 153/86; PULSE 102; RESP 22; TEMP 36.3; O2SAT 97
[2021-09-14 10:15] VITALS: BP 137/56; PULSE 88; RESP 16; O2SAT 95
--- NOTE | 2021-09-14 21:14 | OP_ITS ---
SURGEON: Bran Melvin MD INDICATIONS: Colon cancer screening and family history of colon polyps. PREOPERATIVE DIAGNOSIS: POSTOPERATIVE DIAGNOSIS: PROCEDURE PERFORMED: ESTIMATED BLOOD LOSS: COMPLICATIONS: ANESTHESIA: ASSISTANTS: SPECIMENS: PROCEDURE: Colonoscopy to the terminal ileum. MEDICATIONS: Monitored anesthesia care. DESCRIPTION OF PROCEDURE: History and physical performed. The risks, benefits of the procedure were explained to the patient. Informed consent was obtained. The patient was placed in left lateral decubitus position. A digital rectal exam was performed and was found to be normal. The Olympus pediatric video colonoscope was introduced into the rectum and advanced to the cecum without difficulty. The cecum was identified by transillumination, palpation, and identification of ileocecal valve. Examination was performed. The scope was removed. She tolerated the procedure well and was taken to recovery area in stable condition. FINDINGS: The terminal ileum was normal. The visualized colonic mucosa was within normal limits without evidence of masses or ulcers. The quality of prep was good. There was mild sigmoid diverticulosis. Retroflexed examination was normal. IMPRESSION: Normal screening colonoscopy. RECOMMENDATIONS: 1. Follow up as needed. 2. Repeat colonoscopy could be considered in 5 years because of family history of colon polyps. MD DAINA Tavares/KODY / [id number]
== END 2021-09-14 11:00 | disposition home or self-care (01) ==
PROVIDERS: Anesthesiology; PCP Internal Medicine; Visit Provider Internal Medicine Gastroenterology
PROC: 0DJD8ZZ Inspection of Lower Intestinal Tract, Via Natural or Artificial Opening Endoscopic (ICD-10-PCS; CPT 45378; principal; 2021-09-14 09:40)
DX: Z12.11 Encounter for screening for malignant neoplasm of colon (principal); Z83.71 Family history of colonic polyps; K57.30 Diverticulosis of large intestine without perforation or abscess without bleeding; E03.9 Hypothyroidism, unspecified; E78.00 Pure hypercholesterolemia, unspecified; K52.9 Noninfective gastroenteritis and colitis, unspecified; I10 Essential (primary) hypertension; I69.811 Memory deficit following other cerebrovascular disease; G47.33 Obstructive sleep apnea (adult) (pediatric); F32.A Depression, unspecified; Z99.89 Dependence on other enabling machines and devices; Z79.899 Other long term (current) drug therapy; Z79.01 Long term (current) use of anticoagulants; Z88.1 Allergy status to other antibiotic agents
CPT/HCPCS: G0105; 36415; 85610; J2765

== ENCOUNTER → 2021-09-18 08:30 | Outpatient (BNVA) | payer OTHER, SELFPAY | PROVIDERS: PCP Internal Medicine; Visit Provider Internal Medicine | DX: Z86.73 Personal history of transient ischemic attack (TIA), and cerebral infarction without residual deficits (principal); Z79.01 Long term (current) use of anticoagulants; Z51.81 Encounter for therapeutic drug level monitoring | CPT/HCPCS: 85610; 99211 ==

== ENCOUNTER → 2021-09-21 10:01 | Outpatient (BNVA) | payer OTHER, SELFPAY | PROVIDERS: PCP Internal Medicine; Visit Provider Internal Medicine | DX: Z86.73 Personal history of transient ischemic attack (TIA), and cerebral infarction without residual deficits (principal); Z79.01 Long term (current) use of anticoagulants; Z51.81 Encounter for therapeutic drug level monitoring | CPT/HCPCS: 85610; 99211 ==

== ENCOUNTER → 2021-10-11 08:30 | Outpatient (BNVA) | payer OTHER, SELFPAY | PROVIDERS: PCP Internal Medicine; Visit Provider Internal Medicine | DX: Z86.718 Personal history of other venous thrombosis and embolism (principal); Z79.01 Long term (current) use of anticoagulants; Z51.81 Encounter for therapeutic drug level monitoring | CPT/HCPCS: 85610; 99211 ==

== ENCOUNTER → 2021-11-08 09:20 | Outpatient (BNVA) | payer OTHER, SELFPAY | PROVIDERS: PCP Internal Medicine; Visit Provider Internal Medicine | DX: Z86.73 Personal history of transient ischemic attack (TIA), and cerebral infarction without residual deficits (principal); Z51.81 Encounter for therapeutic drug level monitoring; Z79.01 Long term (current) use of anticoagulants | CPT/HCPCS: 85610; 99211 ==

== ENCOUNTER 2021-11-14 17:31 | Emergency (ER) | payer OTHER, SELFPAY ==
--- NOTE | ~2021-11-14 | CT_ITS ---
EXAMINATION: CT HEAD WITHOUT CONTRAST CLINICAL INFORMATION: Evaluate for intracranial hemorrhage. COMPARISON: 05/24/2021 TECHNIQUE: Contiguous axial imaging was performed from the skull base to vertex without intravenous administration of contrast. This CT examination was performed using dose optimization techniques as appropriate, variously including the following: *Automated exposure control *Adjustment of mA and/or kV according to patient size (this includes techniques or standardized protocols for targeted exams where dose is matched to indication/reason for exam; i.e. extremities or head) *Use of iterative reconstruction technique DLP: 678 mGy-cm FINDINGS: There is no evidence of acute intracranial hemorrhage or territorial infarction. No abnormal mass effect or midline shift is seen. Chaves to white matter differentiation is well preserved. No extra-axial fluid collections are identified. The ventricles are normal in size. Chronic right frontal, parietal and temporal lobe infarcts redemonstrated, as is a small left parietal lobe infarct, and a small left cerebellar infarct. Patchy subcortical and periventricular white matter low-attenuation changes are stable and statistically related to chronic white matter small vessel ischemic disease. Cavernous carotid calcifications. The osseous structures and soft tissues are normal. The mastoid air cells and visualized portions of the paranasal sinuses are well aerated. CT/CT head/brain wo con IMPRESSION: No acute intracranial pathology. Chronic infarcts and moderate white matter small vessel ischemic changes redemonstrated.
[2021-11-14 17:45] VITALS: BP 126/58; PULSE 67; RESP 18; TEMP 36.7; O2SAT 95; BMI 38.2
[2021-11-15 02:52] VITALS: BP 116/60; PULSE 66; RESP 18; O2SAT 95
[2021-11-15 03:33] LABS: MANUAL DIFF FLAG NO
[2021-11-15 03:35] LABS: Basophils Percent Auto 0.3 % (0-2); Eosinophils Absolute Auto 0.2 X10*3/uL (0.0-0.4); Eosinophils Percent Auto 2.2 % (0-4); Hemoglobin 13.1 g/dl (12.0-16.0); Imm Gran Abs Auto 0.02 X10*3/uL (0.00-0.03); Imm Gran Pct Auto 0.2 % (0.0-0.4); Lymphocytes Absolute Auto 2.7 X10*3/uL (1.2-4.9); Lymphocytes Percent Auto 26.1 % (20-40); Mean Corpuscular Hemoglobin 28.1 pg (27.0-33.0); Mean Platelet Volume 10.3 fL (9.4-12.3); Monocytes Absolute Auto 0.9 X10*3/uL (0.1-1.2); Monocytes Percent Auto 8.3 % (2-11); Neutrophils Absolute Auto 6.6 x10*3/uL (2.0-8.3); Neutrophils Percent Auto 62.9 % (45-73); Platelet Count 288 X10*3/uL (160-400); Red Blood Count 4.66 X10*6/uL (4.20-5.50); Red Cell Distribution Width 15.1 % (11.0-16.0); White Blood Count 10.4 X10*3/uL (4.8-10.8)
[2021-11-15 03:48] LABS: COVID-19 Test Negative (Negative)
[2021-11-15 03:59] LABS: Anion Gap 13 (12-20); Blood Urea Nitrogen 16 mg/dL (9-16); Calcium 10.2 mg/dL (8.4-10.2); Carbon Dioxide 27 mmol/L (22-29); Chloride 103 mmol/L (96-108); Creatinine Clr Calc Pharmacy 71.6; Estimated Glomerular Filt Rate > 60; Glucose Random 117 mg/dL (60-115); Potassium 4.7 mmol/L (3.3-5.1); Sodium 138 mmol/L (135-145)
[2021-11-15] MEDS: 0.9 % Sodium Chloride 1,000 ML 999 ML IV (04:46)
[2021-11-15] MEDS: Metoclopramide HCl 10 MG/2 ML VIAL IVPUSH (04:47)
[2021-11-15] MEDS: diphenhydrAMINE HCL 50 MG/ML VIAL IVPUSH (04:47)
[2021-11-15] MEDS: Morphine Sulfate 4 MG/ML CARTRIDGE 2 MG IVPUSH (04:47)
--- NOTE | 2021-11-15 07:05 | ED.HA ---
HPI - Headache General Chief Complaint: Headache Stated Complaint: headaches Time Seen by Provider: 11/15/21 04:22 Source: patient Mode of arrival: ambulatory Limitations: no limitations History of Present Illness HPI Narrative: 56-year-old female who presents emergency department for evaluation headache, nausea and vomiting. Patient states that she developed a headache yesterday at 17:30 hours. The headache came on gradually. She describes the headache as a constant, throbbing sensation which is 10/10. The headache is located throughout her entire head. The patient had associated nausea with no vomiting. She states that she has weakness in her lower extremities secondary to her peripheral neuropathy she states this is unchanged she has no new weakness. Patient states that she has had at least 2 strokes in the past and she is currently taking warfarin for stroke prevention. She was concerned that her headache may be caused by a stroke therefore she came to the emergency department for evaluation. She denied fever, chills, rhinorrhea, sore throat, cough or chest pain, shortness of breath, abdominal pain. MD elicited complaint: headache Pertinent past history: coagulopathy (Warfarin) Onset (ago): day(s) (1) Time: 17:30 Onset description: gradually Location: diffuse Severity: severe Pain scale (0-10): 10 Quality & Timing: throbbing and constant Exacerbating factors: none Relieving factors: nothing Context: occurred at rest Associated symptoms: nausea Treatments prior to arrival: acetaminophen Related Data Home Medications Medication Instructions Recorded Confirmed levothyroxine 50 mcg tablet 50 mcg PO DAILY 02/11/20 09/18/21 lisinopril 20 mg tablet 20 mg PO DAILY 02/11/20 09/18/21 citalopram 40 mg tablet 40 mg PO DAILY 05/11/20 09/18/21 gabapentin 100 mg capsule 200 mg PO DAILY 05/11/20 09/18/21 simvastatin 20 mg tablet 20 mg PO DAILY 05/11/20 09/18/21 capsaicin 0.25 % topical cream appl topical 12/28/20 09/18/21 alclometasone 0.05 % topical topical BID PRN 08/16/21 09/18/21 ointment clotrimazole-betamethasone 1 appl topical 08/16/21 09/18/21 %-0.05 % topical cream ketoconazole 2 % topical cream appl topical 08/16/21 09/18/21 scopolamine base 1 mg over 3 days 1 patch topical Q3D 08/16/21 09/18/21 transdermal patch cholecalciferol (vitamin D3) 25 25 mcg PO DAILY 09/10/21 09/18/21 mcg (1,000 unit) tablet (Vitamin D3) simvastatin PO 09/18/21 09/18/21 Previous Rx's Medication Instructions Recorded warfarin 2.5 mg tablet 2.5 mg PO DAILY #90 tabs 01/21/20 metoclopramide HCl 10 mg tablet 10 mg PO Q6H PRN nausea and 11/15/21 (Reglan) vomiting #14 tabs Allergies Allergy/AdvReac Type Severity Reaction Status Date / Time erythromycin base Allergy Unknown NAUSEA & Verified 11/14/21 17:45 [ERYTHROMYCIN BASE] VOMITING Review of Systems Review of Systems: Yes all other systems are reviewed and are negative FOR[facility]LY [facility] Past Medical History Medical History Anxiety and depression Arthritis Elevated cholesterol History of CVA (cerebrovascular accident) HTN (hypertension) Hypothyroidism On anticoagulant therapy KRYSTAL on CPAP Post-traumatic osteoarthritis of left knee Unilateral primary osteoarthritis, left knee (~2014) Surgical History History of repair of anterior cruciate ligament of left knee Hx of colonoscopy Hx of left knee surgery Family History Family History Father No problems noted. Mother No problems noted. 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 Physical Exam Vital Signs: Vital Signs: Last Vital Signs Temp 98.0 F 11/14/21 17:45 Pulse 66 11/15/21 02:52 Resp 18 11/15/21 02:52 BP 116/60 11/15/21 02:52 Pulse Ox 95 11/15/21 02:52 O2 Del Method 11/15/21 02:52 BMI result Body Mass Index 38.2 Const: General: cooperative and no acute distress Orientation/consciousness: oriented to person and oriented to place Limitations: no limitations HEENT: Head: Yes normal to inspection, Yes normocephalic and Yes atraumatic Ears: external ears normal General nose exam: Normal external nose present Face and sinus: Yes normal facial exam Mouth: Normal oral and palatal mucosa present Throat: Yes posterior oropharynx normal Eyes: General: appearance normal, both eyes and all related structures Pupils: Equal, round and reactive pupils present Neck: Neck: Yes normal visual inspection, Yes no lymphadenopathy, Yes trachea midline and Yes supple Chest: Chest palpation & inspection: normal inspection of the chest and normal palpation of entire chest wall Resp: Effort & Inspection: normal respiratory effort and able to speak in complete sentences Auscultation: clear to auscultation bilaterally Cardio: Rate: regular rate Rhythm: regular rhythm Heart sounds: S1 normal heart sound present, S2 normal heart sound present and no murmurs GI: Inspection: Yes normal to inspection Palpation (GI): Soft to palpation, nontender and no guarding Auscultation: normal bowel sounds : General: Yes no CVA tenderness Back/Spine/Pelvis: Back: no CVA tenderness Skin: General skin exam: no rashes or lesions noted Neuro: General: oriented to person and oriented to place Cranial nerves: Yes CN's II-XII intact bilaterally and Yes Equal, round and reactive pupils present Cognition (Neuro): normal cognition Motor exam (neuro): 5/5 motor strength present throughout Extrem: General: Yes normal to inspection Psych: Appearance: grossly normal Speech and movement: Normal speech and movement present Affect: normal affect Attitude: cooperative Thought process: Normal thought process present Thought content: Normal thought content present Course Course Course Narrative: 56-year-old female who presents emergency department for evaluation of gradual onset diffuse headache which started yesterday at 17:30 hours. The patient's headache was severe and was 10/10. Patient has had several strokes in the past and she is on warfarin for stroke prevention. The patient's vital signs were unremarkable. Patient's neurologic exam was normal. Patient's laboratory evaluation included a CBC and BMP which were normal. CT scan of the brain without IV contrast is consistent with her old strokes, there is no acute bleeder acute stroke seen by the radiologist. The patient was treated with Reglan 10 mg, Benadryl 50 mg and morphine 2 mg IV. She also received normal saline IV x1 L. the patient states she had complete resolution of her headache. The patient was started on following regimen every 6 hours as needed for headache: Reglan 10 mg, Benadryl 50 mg, Tylenol 1000 mg. She was given printed and verbal instructions and discharged. MDM - Headache Lab Data Result diagrams: 11/15/21 03:29 11/15/21 03:29 Labs: Lab Results 11/15/21 11/15/21 11/15/21 Range/Units 03:29 03:29 03:29 WBC 10.4 (4.8-10.8) X10*3/uL RBC 4.66 (4.20-5.50) X10*6/uL Hgb 13.1 (12.0-16.0) g/dl Hct 41.0 (37.0-47.0) % MCV 88.0 (80.0-98.0) fL MCH 28.1 (27.0-33.0) pg MCHC 32.0 (31.0-35.0) g/dl RDW 15.1 (11.0-16.0) % Plt Count 288 (160-400) X10*3/uL MPV 10.3 (9.4-12.3) fL Immature Gran % (Auto) 0.2 (0.0-0.4) % Neut % (Auto) 62.9 (45-73) % Lymph % (Auto) 26.1 (20-40) % [place] % (Auto) 8.3 (2-11) % Eos % (Auto) 2.2 (0-4) % Baso % (Auto) 0.3 (0-2) % Lymph # (Auto) 2.7 (1.2-4.9) X10*3/uL [place] # (Auto) 0.9 (0.1-1.2) X10*3/uL Eos # (Auto) 0.2 (0.0-0.4) X10*3/uL Baso # (Auto) 0.0 (0.0-0.2) X10*3/uL Abs Immat Gran (auto) 0.02 (0.00-0.03) X10*3/uL Absolute Neuts (auto) 6.6 (2.0-8.3) x10*3/uL Absolute Nucleated RBC 0.000 (0.0-0.012) X10*3/uL Nucleated RBC % (auto) 0.0 (0.0-0.2) /100WBC Sodium 138 (135-145) mmol/L Potassium 4.7 (3.3-5.1) mmol/L Chloride 103 (96-108) mmol/L Carbon Dioxide 27 (22-29) mmol/L Anion Gap 13 (12-20) BUN 16 (9-16) mg/dL Creatinine 0.88 (0.5-1.4) mg/dL Estim Creat Clear Calc 71.6 Estimated GFR > 60 Random Glucose 117 H (60-115) mg/dL Calcium 10.2 (8.4-10.2) mg/dL COVID-19 (CECILE) Negative (Negative) COVID-19 Clin Com See Note Discharge Plan Discharge Clinical Impression: Headache Patient Disposition: Home, Self-Care Instructions: Acute Headache (ED) Additional Instructions: Your blood work was unremarkable. Your COVID-[address] The [address] scan of your brain without IV contrast is consistent with your old strokes. The radiologist did not see any new strokes or any bleeding in your brain which is reassuring. I want you to take the following 3 medications together every 6 hours as needed for headache, nausea or vomiting. Reglan (metoclopramide) in 10 mg, 1 pill Benadryl 25 mg, 2 pills Extra-strength Tylenol 500 mg pills, 2 pills After you take these medications, lie down in a dark quiet room and try to fall asleep. These medications will make you sleepy, do not drive or work after taking these medications. Follow-up with your doctor in 2 days. Please return to the emergency department if your symptoms get worse or if you develop any symptoms that are concerning to you. Prescriptions: New metoclopramide HCl [Reglan] 10 mg tablet 10 mg PO Q6H PRN (Reason: nausea and vomiting) Qty: 14 0RF No Action cholecalciferol (vitamin D3) [Vitamin D3] 25 mcg (1,000 unit) Tablet 25 mcg PO DAILY gabapentin 100 mg capsule 200 mg PO DAILY simvastatin 20 mg tablet 20 mg PO DAILY citalopram 40 mg tablet 40 mg PO DAILY warfarin 2.5 mg tablet 2.5 mg PO DAILY Qty: 90 0RF Protocol: Dose Management Condition: Friday (Week One) Dose/Route: 1.25 mg Instruction: 0.5 x 2.5 mg tablets Condition: Friday Dose/Route: 2.5 mg Instruction: 1 x 2.5 mg tablet Condition: Friday Dose/Route: 2.5 mg Instruction: 1 x 2.5 mg tablet Condition: Friday Dose/Route: 2.5 mg Instruction: 1 x 2.5 mg tablet Condition: Dose/Route: 2.5 mg Instruction: 1 x 2.5 mg tablet Condition: Friday Dose/Route: 2.5 mg Instruction: 1 x 2.5 mg tablet Condition: Friday Dose/Route: 2.5 mg Instruction: 1 x 2.5 mg tablet Condition: Friday (Week Two) Dose/Route: 1.25 mg Instruction: 0.5 x 2.5 mg tablets Condition: Friday Dose/Route: 2.5 mg Instruction: 1 x 2.5 mg tablet Condition: Friday Dose/Route: 2.5 mg Instruction: 1 x 2.5 mg tablet Condition: Friday Dose/Route: 2.5 mg Instruction: 1 x 2.5 mg tablet Condition: Dose/Route: 2.5 mg Instruction: 1 x 2.5 mg tablet Condition: Friday Dose/Route: 2.5 mg Instruction: 1 x 2.5 mg tablet Condition: Friday Dose/Route: 2.5 mg Instruction: 1 x 2.5 mg tablet Protocol Text: Adjustment Start Date: 11/08/21 INR Value: 2.4 INR Date: 11/08/21 Recheck Date: 12/06/21 Additional Instructions: cont reg dosing levothyroxine 50 mcg tablet 50 mcg PO DAILY lisinopril 20 mg tablet 20 mg PO DAILY capsaicin 0.25 % cream topical clotrimazole-betamethasone 1-0.05 % cream topical ketoconazole 2 % cream topical alclometasone 0.05 % ointment topical BID PRN scopolamine base 1 mg over 3 days patch 3 day 1 patch topical Q3D simvastatin PO Label Comments: pt states she takes 60mg daily
[2021-11-15 07:26] VITALS: BP 111/52; PULSE 66; RESP 18; O2SAT 98
== END 2021-11-15 07:29 | disposition home or self-care (01) ==
PROVIDERS: Emergency Provider Emergency Medicine Emergency Medical Services; PCP Internal Medicine
DX: R51.9 Headache, unspecified (principal); R06.02 Shortness of breath; Z79.899 Other long term (current) drug therapy; Z79.4 Long term (current) use of insulin; Z20.822 Contact with and (suspected) exposure to COVID-19
CPT/HCPCS: 70450; 80048; 85025; 87635; 96361; 96374; 96375; 99283; 99284; J1200; J2270; J2765

== ENCOUNTER → 2021-12-06 09:52 | Outpatient (BNVA) | payer OTHER, SELFPAY | PROVIDERS: PCP Internal Medicine; Visit Provider Internal Medicine | DX: Z86.73 Personal history of transient ischemic attack (TIA), and cerebral infarction without residual deficits (principal); Z79.01 Long term (current) use of anticoagulants | CPT/HCPCS: 85610; 99211 ==

== ENCOUNTER 2022-01-03 09:53 | Outpatient (REF) | payer OTHER, SELFPAY ==
[2022-01-03 10:40] LABS: Basophils Percent Auto 0.3 % (0-2); Eosinophils Absolute Auto 0.2 X10*3/uL (0.0-0.4); Eosinophils Percent Auto 1.9 % (0-4); Hematocrit 45.3 % (37.0-47.0); Hemoglobin 14.2 g/dl (12.0-16.0); Imm Gran Abs Auto 0.02 X10*3/uL (0.00-0.03); Imm Gran Pct Auto 0.2 % (0.0-0.4); Lymphocytes Absolute Auto 2.7 X10*3/uL (1.2-4.9); Lymphocytes Percent Auto 25.2 % (20-40); MANUAL DIFF FLAG SCAN; Mean Corpuscular HGB Conc 31.3 g/dl (31.0-35.0); Mean Corpuscular Hemoglobin 27.8 pg (27.0-33.0); Mean Corpuscular Volume 88.6 fL (80.0-98.0); Monocytes Absolute Auto 0.9 X10*3/uL (0.1-1.2); Monocytes Percent Auto 8.6 % (2-11); Neutrophils Absolute Auto 6.8 x10*3/uL (2.0-8.3); Neutrophils Percent Auto 63.8 % (45-73); PLT CLUMP 1; Red Blood Count 5.11 X10*6/uL (4.20-5.50); Red Cell Distribution Width 14.7 % (11.0-16.0); SCAN SMEAR FLAG 1
[2022-01-03 10:42] LABS: White Blood Count 10.7 X10*3/uL (4.8-10.8)
[2022-01-03 10:55] LABS: Estimated Average Glucose 120 mg/dL; Hemoglobin A1c % 5.8 %
[2022-01-03 11:24] LABS: Alanine Aminotransferase 21 U/L (0-31); Albumin Level 4.4 g/dL (3.5-5.0); Alkaline Phosphatase 129 U/L (39-117); Anion Gap 19 (12-20); Aspartate Amino Transferase 17 U/L (5-31); Bilirubin Total 0.4 mg/dL (0.0-1.0); Blood Urea Nitrogen 16 mg/dL (9-16); C Reactive Protein 0.63 mg/dL (< or = 0.50); Calcium 10.5 mg/dL (8.4-10.2); Carbon Dioxide 23 mmol/L (22-29); Chloride 105 mmol/L (96-108); Estimated Glomerular Filt Rate > 60; Glucose Random 118 mg/dL (60-115); Iron 63 mcg/dL (30-160); Percent Iron Saturation 17 % (15-50); Potassium 4.7 mmol/L (3.3-5.1); Sodium 142 mmol/L (135-145); Total Iron Binding Capacity 373 mcg/dL (228-428); Total Protein 7.8 g/dL (6.5-8.0); Unsaturated Iron Binding 310 ug/dL
[2022-01-03 11:28] LABS: Erythrocyte Sedimentation Rate 32 MM/HR (0-20)
[2022-01-03 11:39] LABS: Free T4 (Free Thyroxine) 1.21 ng/dL (0.71-1.85); Thyroid Stimulating Hormone 3.18 uIU/mL (0.32-4.0); Vitamin D 25-OH Total 63.5 ng/mL (>30)
[2022-01-03 12:14] LABS: Vitamin B12 1817 pg/mL (200-900)
[2022-01-03 12:20] LABS: Platelet Count 294 X10*3/uL (160-400); SLIDE REVIEW VERIFIED
== END 2022-01-03 09:54 | disposition home or self-care (01) ==
LOC: HO.LAB 09:53
PROVIDERS: PCP Internal Medicine; Visit Provider Physician Assistant
DX: Z86.73 Personal history of transient ischemic attack (TIA), and cerebral infarction without residual deficits (principal); R53.83 Other fatigue; Z51.81 Encounter for therapeutic drug level monitoring; Z79.01 Long term (current) use of anticoagulants
CPT/HCPCS: 36415; 80053; 82306; 82607; 82746; 83036; 83540; 84439; 84443; 85025; 85610; 85652; 86140; 99211

== ENCOUNTER 2022-01-13 13:51 | Emergency (ER) | payer OTHER, SELFPAY ==
[2022-01-13 16:31] VITALS: BP 133/58; PULSE 66; RESP 18; TEMP 35.8; O2SAT 99; BMI 38.8
[2022-01-13 16:57] LABS: Appearance Urine Cloudy; Color Urine Yellow; Glucose Urine UA Negative (Negative); Leukocyte Esterase Urine Large (3+) (Negative); Nitrite Urine Negative (Negative); PH 7.5 (5.0-9.0); UMIC TRIGGER UACC YES; Urine Blood Negative (Negative); Urine Ketones Negative (Negative); Urine Protein Negative (Neg-Trace)
[2022-01-13 17:12] LABS: Bacteria Urine 4+ (None Seen); Hyaline Casts Urine 0-2 /LPF (0-2); RBC Urine 0-2 /HPF (0-2); Squamous Epithelial Cell Urine 0-2 /HPF (0-2); UACC Culture Trigger YES; WBC Urine >50 /HPF (0-5)
--- NOTE | 2022-01-13 17:55 | ED_ITS ---
HPI - Female Genitourinary General Chief complaint: Urogenital-Female Stated complaint: Pain when urinating Time Seen by Provider: 01/13/22 17:52 Source: patient Mode of arrival: ambulatory History of Present Illness HPI Narrative: 56-year-old female with and presentation for pain in burning on urination without associated fever, chills. Patient is otherwise denying any shortness of breath, nausea, vomiting, diarrhea. Related Data Home Medications Medication Instructions Recorded Confirmed levothyroxine 50 mcg tablet 50 mcg PO DAILY 02/11/20 12/06/21 lisinopril 20 mg tablet 20 mg PO DAILY 02/11/20 12/06/21 citalopram 40 mg tablet 40 mg PO DAILY 05/11/20 12/06/21 gabapentin 100 mg capsule 200 mg PO DAILY 05/11/20 12/06/21 simvastatin 20 mg tablet 20 mg PO DAILY 05/11/20 12/06/21 capsaicin 0.25 % topical cream appl topical 12/28/20 12/06/21 alclometasone 0.05 % topical topical BID PRN 08/16/21 12/06/21 ointment clotrimazole-betamethasone 1 appl topical 08/16/21 12/06/21 %-0.05 % topical cream ketoconazole 2 % topical cream appl topical 08/16/21 12/06/21 scopolamine base 1 mg over 3 days 1 patch topical Q3D 08/16/21 12/06/21 transdermal patch cholecalciferol (vitamin D3) 25 25 mcg PO DAILY 09/10/21 12/06/21 mcg (1,000 unit) tablet (Vitamin D3) simvastatin 40 mg tablet 40 mg PO DAILY 12/06/21 12/06/21 Previous Rx's Medication Instructions Recorded warfarin 2.5 mg tablet 2.5 mg PO DAILY #90 tabs 01/21/20 metoclopramide HCl 10 mg tablet 10 mg PO Q6H PRN nausea and 11/15/21 (Reglan) vomiting #14 tabs cefdinir 300 mg capsule 300 mg PO Q12H 5 days #10 caps 01/13/22 Allergies Allergy/AdvReac Type Severity Reaction Status Date / Time erythromycin base Allergy Unknown NAUSEA & Verified 01/13/22 16:31 [ERYTHROMYCIN BASE] VOMITING Review of Systems Review of Systems: Pertinent positives and negatives as stated in HPI 10 point review of systems is otherwise negative. [facility] Past Medical History Source: nursing notes reviewed Medical History Anxiety and depression Arthritis Elevated cholesterol History of CVA (cerebrovascular accident) HTN (hypertension) Hypothyroidism On anticoagulant therapy KRYSTAL on CPAP Post-traumatic osteoarthritis of left knee Unilateral primary osteoarthritis, left knee (~2014) Surgical History History of repair of anterior cruciate ligament of left knee Hx of colonoscopy Hx of left knee surgery Family History Family History Father No problems noted. Mother No problems noted. 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 GENERAL: Well developed, well nourished, in no acute distress. HEAD: Normocephalic/atraumatic EYES: PERRLA, EOMI EARS: Ext canals without abnormality OROPHARYNX: no oral lesions noted, posterior pharynx clear LUNGS: Normal breath sounds. No adventitious sounds or accessory muscle use. SpO2<99> CARDIOVASCULAR: Regular rate and rhythm without noted murmurs ABDOMEN: Soft, non-tender, non-distended with bowel sounds. MUSCULOSKELETAL: No tenderness, deformities, or effusions noted on gross inspection. EXTREMITIES: No cyanosis, clubbing or edema. SKIN: Inspection of the skin reveals no rashes NEUROLOGIC: Alert and oriented x 4. Strength and sensation to light touch were grossly intact x 4. Course Course Course Narrative: 56-year-old female with history and clinical presentation consistent with UTI and on review of investigations is patient has findings consistent with cystitis. [facility] - Female Genitourinary Lab Data Labs: Lab Results 01/13/22 Range/Units 16:47 Urine Color Yellow Urine Appearance Cloudy Urine pH 7.5 (5.0-9.0) Ur Specific [place] 1.020 (1.005-1.025) Urine Protein Negative (Neg-Trace) mg/dL Urine Glucose (UA) Negative (Negative) mg/dL Urine Ketones Negative (Negative) mg/dL Urine Blood Negative (Negative) Urine Nitrite Negative (Negative) Ur Leukocyte Esterase Large (3+) H (Negative) Urine RBC 0-2 (0-2) /HPF Urine WBC >50 H (0-5) /HPF Ur Squamous Epith Cells 0-2 (0-2) /HPF Urine Bacteria 4+ (None Seen) Hyaline Casts 0-2 (0-2) /LPF Discharge Plan Discharge Clinical Impression: Cystitis Patient Disposition: Home, Self-Care Instructions: Urinary Tract Infection in Women (ED) Additional Instructions: 1. Resume all home medications. 2. Complete the entire course of antibiotics as ordered. 3. Follow-up with your primary care provider. Return to the ER for worsening symptoms. Prescriptions: New cefdinir 300 mg capsule 300 mg PO Q12H 5 Days Qty: 10 0RF No Action cholecalciferol (vitamin D3) [Vitamin D3] 25 mcg (1,000 unit) Tablet 25 mcg PO DAILY metoclopramide HCl [Reglan] 10 mg tablet 10 mg PO Q6H PRN (Reason: nausea and vomiting) Qty: 14 0RF gabapentin 100 mg capsule 200 mg PO DAILY simvastatin 20 mg tablet 20 mg PO DAILY citalopram 40 mg tablet 40 mg PO DAILY warfarin 2.5 mg tablet 2.5 mg PO DAILY Qty: 90 0RF Protocol: Dose Management Condition: Friday (Week One) Dose/Route: 1.25 mg Instruction: 0.5 x 2.5 mg tablets Condition: Friday Dose/Route: 2.5 mg Instruction: 1 x 2.5 mg tablet Condition: Friday Dose/Route: 2.5 mg Instruction: 1 x 2.5 mg tablet Condition: Friday Dose/Route: 2.5 mg Instruction: 1 x 2.5 mg tablet Condition: Dose/Route: 2.5 mg Instruction: 1 x 2.5 mg tablet Condition: Friday Dose/Route: 2.5 mg Instruction: 1 x 2.5 mg tablet Condition: Friday Dose/Route: 2.5 mg Instruction: 1 x 2.5 mg tablet Condition: Friday (Week Two) Dose/Route: 1.25 mg Instruction: 0.5 x 2.5 mg tablets Condition: Friday Dose/Route: 2.5 mg Instruction: 1 x 2.5 mg tablet Condition: Friday Dose/Route: 2.5 mg Instruction: 1 x 2.5 mg tablet Condition: Friday Dose/Route: 2.5 mg Instruction: 1 x 2.5 mg tablet Condition: Dose/Route: 2.5 mg Instruction: 1 x 2.5 mg tablet Condition: Friday Dose/Route: 2.5 mg Instruction: 1 x 2.5 mg tablet Condition: Friday Dose/Route: 2.5 mg Instruction: 1 x 2.5 mg tablet Protocol Text: Adjustment Start Date: 01/03/22 INR Value: 3.1 INR Date: 01/03/22 Recheck Date: 01/24/22 Additional Instructions: cont reg dosing eat dark greens to lower inr levothyroxine 50 mcg tablet 50 mcg PO DAILY lisinopril 20 mg tablet 20 mg PO DAILY capsaicin 0.25 % cream topical clotrimazole-betamethasone 1-0.05 % cream topical ketoconazole 2 % cream topical alclometasone 0.05 % ointment topical BID PRN scopolamine base 1 mg over 3 days patch 3 day 1 patch topical Q3D simvastatin 40 mg tablet 40 mg PO DAILY Referrals: Mustapha Bustos MD [Primary Care Provider] -
[2022-01-13] MEDS: Acetaminophen 325 MG TABLET 975 MG PO (18:10)
[2022-01-13] MEDS: Nitrofurantoin Monohyd/M-Cryst 100 MG CAPSULE PO (18:10)
== END 2022-01-13 19:31 | disposition home or self-care (01) ==
PROVIDERS: Emergency Provider Student in an Organized Health Care Education/Training Program; PCP Internal Medicine
DX: N30.90 Cystitis, unspecified without hematuria (principal); R30.0 Dysuria; Z79.899 Other long term (current) drug therapy
CPT/HCPCS: 81001; 87086; 99283

== ENCOUNTER 2022-01-24 10:05 | Outpatient (REF) | payer OTHER, SELFPAY ==
[2022-01-24 12:51] LABS: C Reactive Protein 0.32 mg/dL (< or = 0.50)
[2022-01-24 13:02] LABS: Erythrocyte Sedimentation Rate 27 MM/HR (0-20)
== END 2022-01-24 10:06 | disposition home or self-care (01) ==
LOC: HO.LAB 10:05
PROVIDERS: Absent Provider Physician Assistant; PCP Internal Medicine; Visit Provider Internal Medicine
DX: Z86.73 Personal history of transient ischemic attack (TIA), and cerebral infarction without residual deficits (principal); R53.83 Other fatigue; Z51.81 Encounter for therapeutic drug level monitoring; Z79.01 Long term (current) use of anticoagulants
CPT/HCPCS: 36415; 85610; 85652; 86140; 99211

== ENCOUNTER 2022-02-16 20:51 | Emergency (ER) | payer OTHER, SELFPAY ==
[2022-02-16 20:56] VITALS: BP 128/80; PULSE 87; RESP 20; TEMP 36.9; O2SAT 95; BMI 38.8
--- NOTE | 2022-02-16 21:40 | ED_ITS ---
HPI - URI/Sore Throat General Chief Complaint: Upper Respiratory Symptoms Stated Complaint: Covid + with Cough Time Seen by Provider: 02/16/22 20:52 Source: patient Mode of arrival: EMS Limitations: no limitations History of Present Illness HPI Narrative: 56-year-old female who presents emergency department for evaluation of cough and shortness of breath. Patient states that she became ill on 02/14/20 (4 days prior to evaluation). She states she developed a cough in was very fatigued. She took a home COVID test which was positive. She states that her sister also tested positive. The patient states that had 2 Moderna COVID vaccinations and a Moderna COVID booster vaccination. She did not get her 4th vaccination or her flu shot. She states that she has had hot and cold feelings at home but did not take her temperature. She has also had sweats. She states she has a cough which is nonproductive. She complains of chest tightness and points to her sternum when asked to localize the pain. States the pain is constant is 6/10 but is worse with movement and worse with coughing and breathing. She denied dyspnea on exertion. She states that this morning she had a coughing fit which did not stop. She states that she felt like she had to vomit and went into the bathroom but did not vomit. She continued to cough and her sister was worried about her coughing fit and called an ambulance. The patient states that a coughing fit resolved prior to the ambulance getting to her house. Patient's O2 saturation was 96% on room air and paramedics placed her on 2 L of oxygen via nasal cannula. Here in the emergency department patient's O2 saturation is 95% on room air. Patient's provider started on Zithromax Z-Wilian and Tessalon Perles. elicited complaint: cough and other (COVID-19 positive x4 days, home test) Onset (ago): day(s) (4) Consistency: intermittent Severity: moderate Description of mucous: other (Nonproductive) Able to tolerate fluids by mouth: Yes Exacerbating factors: nothing Relieving factors: nothing Context: sick contacts (Sisters positive for COVID-19) Associated symptoms: fever, chills and cough Treatments prior to arrival: acetaminophen Related Data Home Medications Medication Instructions Recorded Confirmed levothyroxine 50 mcg tablet 50 mcg PO DAILY 02/11/20 12/06/21 lisinopril 20 mg tablet 20 mg PO DAILY 02/11/20 12/06/21 citalopram 40 mg tablet 40 mg PO DAILY 05/11/20 12/06/21 gabapentin 100 mg capsule 200 mg PO DAILY 05/11/20 12/06/21 simvastatin 20 mg tablet 20 mg PO DAILY 05/11/20 12/06/21 capsaicin 0.25 % topical cream appl topical 12/28/20 12/06/21 alclometasone 0.05 % topical topical BID PRN 08/16/21 12/06/21 ointment clotrimazole-betamethasone 1 appl topical 08/16/21 12/06/21 %-0.05 % topical cream ketoconazole 2 % topical cream appl topical 08/16/21 12/06/21 scopolamine base 1 mg over 3 days 1 patch topical Q3D 08/16/21 12/06/21 transdermal patch cholecalciferol (vitamin D3) 25 25 mcg PO DAILY 09/10/21 12/06/21 mcg (1,000 unit) tablet (Vitamin D3) simvastatin 40 mg tablet 40 mg PO DAILY 12/06/21 12/06/21 Previous Rx's Medication Instructions Recorded warfarin 2.5 mg tablet 2.5 mg PO DAILY #90 tabs 01/21/20 metoclopramide HCl 10 mg tablet 10 mg PO Q6H PRN nausea and 11/15/21 (Reglan) vomiting #14 tabs cefdinir 300 mg capsule 300 mg PO Q12H 5 days #10 caps 01/13/22 Allergies Allergy/AdvReac Type Severity Reaction Status Date / Time erythromycin base Allergy Unknown NAUSEA & Verified 01/24/22 10:17 [ERYTHROMYCIN BASE] VOMITING Review of Systems Review of Systems: Yes all other systems are reviewed and are negative [facility] Past Medical History [facility] Narrative: Social history: She lives with her sister. She denies tobacco, alcohol and drug use. Medical History Anxiety and depression Arthritis Elevated cholesterol History of CVA (cerebrovascular accident) HTN (hypertension) Hypothyroidism On anticoagulant therapy KRYSTAL on CPAP Post-traumatic osteoarthritis of left knee Unilateral primary osteoarthritis, left knee (~2014) Surgical History History of repair of anterior cruciate ligament of left knee Hx of colonoscopy Hx of left knee surgery Family History Family History Father No problems noted. Mother No problems noted. 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 Physical Exam Vital Signs: Vital Signs: Last Vital Signs Temp 98.4 F 02/16/22 20:56 Pulse 87 02/16/22 20:56 Resp 20 02/16/22 20:56 BP 128/80 02/16/22 20:56 Pulse Ox 95 02/16/22 20:56 O2 Del Method 02/16/22 20:56 BMI result Body Mass Index 38.8 Const: General: cooperative and no acute distress Orientation/consciousness: oriented to person and oriented to place Limit ations: no limitations HEENT: Head: Yes normal to inspection, Yes normocephalic and Yes atraumatic Ears: external ears normal General nose exam: Normal external nose present Face and sinus: Yes normal facial exam Mouth: Normal oral and palatal mucosa present Throat: Yes posterior oropharynx normal Eyes: General: appearance normal, both eyes and all related structures Pupils: Equal, round and reactive pupils present Neck: Neck: Yes normal visual inspection, Yes no lymphadenopathy, Yes trachea midline and Yes supple Chest: Chest palpation & inspection: normal inspection of the chest and normal palpation of entire chest wall Resp: Effort & Inspection: normal respiratory effort and able to speak in complete sentences Auscultation: clear to auscultation bilaterally Cardio: Rate: regular rate Rhythm: regular rhythm Heart sounds: S1 normal heart sound present, S2 normal heart sound present and Murmur heart sound present systolic holo, II/ and at the right sternal border GI: Inspection: Yes normal to inspection Palpation (GI): Soft to palpation, nontender and no guarding Auscultation: normal bowel sounds : General: Yes no CVA tenderness Back/Spine/Pelvis: Back: no CVA tenderness Skin: General skin exam: no rashes or lesions noted Neuro: General: oriented to person and oriented to place Cranial nerves: Yes CN's II-XII intact bilaterally and Yes Equal, round and reactive pupils present Cognition (Neuro): normal cognition Motor exam (neuro): 5/5 motor strength present throughout Extrem: General: Yes normal to inspection Psych: Appearance: grossly normal Speech and movement: Normal speech and movement present Affect: normal affect Attitude: cooperative Thought process: Normal thought process present Thought content: Normal thought content present Course Course Course Narrative: 56-year-old female who presents emergency department for evaluation of severe coughing fit that occurred this evening prior to coming to the emergency department. The patient has been sick for approximately 4 days and tested positive for COVID-19 at home 4 days prior. On presentation to the emergency department her coughing fit is resolved and she states she is feeling better. She did complain of pleuritic chest pain but otherwise had no other complaints. The patient's vital signs were normal with an O2 saturation of 95% on room air. Lung exam was clear. The patient does have a heart murmur which is not new the patient states that she gets echocardiograms yearly. The patient has received 2 Moderna COVID-19 vaccinations and 1 booster shot. At this time given the medications that she is on and the fact that she has been sick for approximately 4 days, I do not think that Paxlovid would be appropriate for her. I did discuss this with her. This time I do not think that she has COVID pneumonia and she was discharged home. Discharge Plan Discharge Clinical Impression: COVID-19 virus infection, Cough Patient Disposition: Home, Self-Care Instructions: COVID-19 (Coronavirus Disease 2019) (ED) Additional Instructions: Your O2 saturation (the amount of oxygen your blood) was 95% on room air which is very reassuring. When you developed COVID 19 pneumonia we do not admit you to the hospital unless your O2 saturation is less than 88%. Continue taking medications as prescribed by your doctor. Follow-up with your doctor in 2 days. Please return to the emergency department if your symptoms get worse or if you develop any symptoms that are concerning to you. Prescriptions: No Action cholecalciferol (vitamin D3) [Vitamin D3] 25 mcg (1,000 unit) Tablet 25 mcg PO DAILY metoclopramide HCl [Reglan] 10 mg tablet 10 mg PO Q6H PRN (Reason: nausea and vomiting) Qty: 14 0RF cefdinir 300 mg capsule 300 mg PO Q12H 5 Days Qty: 10 0RF gabapentin 100 mg capsule 200 mg PO DAILY simvastatin 20 mg tablet 20 mg PO DAILY citalopram 40 mg tablet 40 mg PO DAILY warfarin 2.5 mg tablet 2.5 mg PO DAILY Qty: 90 0RF Protocol: Dose Management Condition: Friday (Week One) Dose/Route: 1.25 mg Instruction: 0.5 x 2.5 mg tablets Condition: Friday Dose/Route: 2.5 mg Instruction: 1 x 2.5 mg tablet Condition: Friday Dose/Route: 2.5 mg Instruction: 1 x 2.5 mg tablet Condition: Friday Dose/Route: 2.5 mg Instruction: 1 x 2.5 mg tablet Condition: Dose/Route: 2.5 mg Instruction: 1 x 2.5 mg tablet Condition: Friday Dose/Route: 2.5 mg Instruction: 1 x 2.5 mg tablet Condition: Friday Dose/Route: 2.5 mg Instruction: 1 x 2.5 mg tablet Condition: Friday (Week Two) Dose/Route: 1.25 mg Instruction: 0.5 x 2.5 mg tablets Condition: Friday Dose/Route: 2.5 mg Instruction: 1 x 2.5 mg tablet Condition: Friday Dose/Route: 2.5 mg Instruction: 1 x 2.5 mg tablet Condition: Friday Dose/Route: 2.5 mg Instruction: 1 x 2.5 mg tablet Condition: Dose/Route: 2.5 mg Instruction: 1 x 2.5 mg tablet Condition: Friday Dose/Route: 2.5 mg Instruction: 1 x 2.5 mg tablet Condition: Friday Dose/Route: 2.5 mg Instruction: 1 x 2.5 mg tablet Protocol Text: Adjustment Start Date: 01/24/22 INR Value: 2.2 INR Date: 01/24/22 Recheck Date: 02/21/22 Additional Instructions: cont reg dosing balance reds and greens call with any medication changes levothyroxine 50 mcg tablet 50 mcg PO DAILY lisinopril 20 mg tablet 20 mg PO DAILY capsaicin 0.25 % cream topical clotrimazole-betamethasone 1-0.05 % cream topical ketoconazole 2 % cream topical alclometasone 0.05 % ointment topical BID PRN scopolamine base 1 mg over 3 days patch 3 day 1 patch topical Q3D simvastatin 40 mg tablet 40 mg PO DAILY
--- OUTSIDE RECORDS SUMMARY | 2022-02-16 21:46 | XMS_ITS ---
:1965 Author Name Mustapha Bustos Care Team Providers Name Role Phone Mustapha Bustos Unavailable Unavailable PROBLEMS Type Condition ICD9-CM [id number] Onset Condition SNOMED Cod e Code Code Dates Status Problem Atherosclerosis of I70.203 Active 1 [id number] artery of both lower extremities Problem Neuropathy G62.9 Active 546749844 ALLERGIES Substance Reaction Event Type Date Status Tylenol Unknown Drug Allergy Sep, Active Biaxin pt gets sick Drug Allergy Sep, Active Azithromycin pt gets sick Drug Allergy Sep, Active Cortisone Unknown Drug Allergy Sep, Active Erythromycin pt gets sick Drug Allergy Sep, Active ENCOUNTERS Encounter Location Date [facility], [place] [address] Nov, [place] [address] Sep, [place] erosclerosis of artery [place] of both lower e xtremities [id number] I70.203 ; Tinea unguium B35.1 and Pain i n left toe(s) M79.[address] Jun, Gen eralized edema R60.1 ; [facility] [place] [facility]ros[facility] [place] artery [address] of both lower ex tremities I70.203 ; Tinea unguium B35.1 ; Pain in left toe(s) M79.675 ; Neurop athy G62.9 and Xerosis cuti s L85.[address] Dec, 2020 [place] [address] [facility] [address] Oct, [place] [address] [facility] Sep, 2020 Gen eralized edema R60.1 ; Jul[place] Atherosclerosis of artery [address] of both lower ex tremities I70.203 ; Tinea unguium B35.1 ; Pain in left toe(s) M79.675 and Neur opathy G62.9 IMMUNIZATIONS Vaccine Route Administration Date Status COVID-19 Moderna Vaccine Unknown August 17, 2020 Adminis tered SOCIAL HISTORY Qualifiers Date Never Smoker REASON FOR REFERRAL FUNCTIONAL STATUS PLAN OF CARE VITAL SIGNS Height 5 ft 1 in in 2021-09-26 Weight 189 lbs 2021-09-26 BMI 35.71 kg/m2 2021-09-26 Blood pressure systolic 120 mm Hg 2021-09-26 Blood pressure diastolic 84 mm Hg 2021-09-26 MEDICATIONS Medication Instructions Dosage Frequency Start End Duration Statu s Date Date Levothyroxine Orally Once a 1 tablet 24h 30 day(s) A ctive Sodium 50 MCG day in the morning on an empty stomach Warfarin Sodium Orally Once a 1 tablet 24h 30 day(s) Active 2.5 MG day Vitamin D3 Active zzzCompression . . . . Active Stockings 20-30mm Hg Citalopram Orally Once a 0.5 tablet 24h 30 day(s) Ac tive Hydrobromide 40 MG day Gabapentin 100 MG Orally Once a 1 capsule 24h 30 day (s) Active day Lisinopril 20 MG Orally Once a 1 tablet 24h 30 day(s ) Active day Simvastatin 20 MG Orally Once a 1 tablet 24h 30 day( s) Active day in the evening PROCEDURES Procedure Date Ordered Result Body Site TRIM SKIN LESIONS, TO September 26, 2021 TRIM SKIN LESIONS, TO July 18, 2021 DEBRIDE NAIL, -July 18, 2021 TRIM SKIN LESIONS, TO October 18, 2020 DEBRIDE NAIL, -October 18, 2020 TRIMMING DYSTROPHIC NAILS ANY # July 18, 2021 DEBRIDE NAIL, -September 26, 2021 TRIMMING DYSTROPHIC NAILS ANY # September 26, 2021 TRIMMING DYSTROPHIC NAILS ANY # October 18, 2020 RESULTS No Results REASON FOR VISIT Insurance Providers [facility] Patient Patient Patient Patient Patient Subscriber Subscriber Subscriber Group Insurance Plan Plan Plan Plan ID Relationship Address Phone Name Date of ID Name Date of No Type Insurance Insurance Insurance Coverage to Subscriber Address Phone Name Dates Medicare National [phone] Medicare self Yadira [id number] 15 [id number] Gov[facility] [address] [facility] [address] [place] [address] [facility] [phone] [employer] self [place] [id number] th Care Claims [address] th Care [facility] [address] [facility] [address] MEDICAL (GENERAL) HISTORY Type Description Date Medical History Anxiety Medical History Depression Medical History Headaches/Migraines Medical History High blood pressure Medical History Neuropathy Medical History Stroke Medical History thyroid Medical History Chicken pox Surgical History No know Surgical history
--- OUTSIDE RECORDS SUMMARY | 2022-02-16 21:46 | XMS_ITS ---
:1965 Author Care Team Providers Name Role Phone Mustapha Bustos Primary Care Provider Unavailable Allergies Code Code System Name Reaction Severity Status Onset RxNorm Azithromycin ? ? Active ? Medications Name Status Start Date Stop Date ? ? amoxicillin 875 mg-potassium clavulanate 125 mg tablet Active ? Not available Take 1 tablet every 12 hours by oral route for 7 days. benzonatate 200 mg capsule Active ? Not a vailable Take 1 capsule 3 times a day by oral route for 7 days. citalopram 20 mg tablet Completed ? 08/02/19 20 TAKE 1 TABLET BY MOUTH DAILY citalopram 40 mg tablet Active ? Not avai lable TAKE 1 TABLET BY MOUTH EVERY DAY clotrimazole-betamethasone 1 %-0.05 % topical cream Active ? Not available Coumadin Active ? Not available enoxaparin 80 mg/0.8 mL subcutaneous syringe Active ? Not available INJECT 1 PEN SUBCUTANEOUSLY TWICE A DAY FOR 5 DAYS gabapentin 100 mg capsule Active ? Not av ailable TAKE 2 CAPSULES BY MOUTH EVERY DAY gabapentin 300 mg capsule Completed ? 2019 Take 1 capsule every 24 hours by oral route. levothyroxine 25 mcg tablet Completed ? 01/19 1 po daily levothyroxine 50 mcg tablet Active ? Not available TAKE 1 TABLET BY MOUTH EVERY OTHER DAY, ALTERNATE WITH 1 + 1/2 TABLETS EVERY OTHER DAY NEEDS APPT & BLOODWORK FOR FURTHER REFILLS. lisinopril 20 mg tablet Active ? Not avai lable TAKE 1 TABLET BY MOUTH EVERY DAY NEEDS APPT FOR FURTHER REFILLS . CALL OFFICE lorazepam 1 mg tablet Active ? Not availa ble TAKE 1 TABLET BY MOUTH 1 HOUR BEFORE YOUR PROCEDURE ON 12/21/20 Medrol (Wilian) 4 mg tablets in a dose pack Active ? Not available Take 1 dose pk by oral route. neuropathy 1.0 (diclofenac 3 + doxepin 2.5 + gabapentin 3 + lidocaine 5) Active ? Not available APPLY 1-2 PUMPS (1-2 GRAMS) TO BOTH FEET TWICE DAILY scopolamine 1 mg over 3 days transdermal patch Active ? Not available simvastatin 20 mg tablet Active ? Not valerie ilable TAKE 1 TABLET BY MOUTH EVERY DAY simvastatin 40 mg tablet Active ? Not valerie ilable TAKE 1 TABLET BY MOUTH EVERY DAY warfarin 2.5 mg tablet Active ? Not avail able TAKE 1 TABLET BY MOUTH EVERY DAY AND TAKE 1/2 TABLET ON FRIDAY AND FRIDAY Notes: Some medications listed in Docu ment: #[id number] could not be added to this patient's chart. Please review this docu ment and add these medications to the patient's chart manually as needed. Problems Name Status Onset Date Source ? Hypothyroidism Active 12/29/2017 ? Anxiety Active 12/29/2017 ? Depressive Disorder Active 12/29/2017 ? Migraine Active 12/29/2017 ? Essential Hypertension Active 12/29/2017 ? Aortic Valve Stenosis Active 12/29/2017 ? Osteoarthritis of Knee Active 12/29/2017 ? Sleep Apnea Active 12/29/2017 ? Edema Active 12/29/2017 ? History of Cerebrovascular Accident Active 12/29/2017 ? Hypercholesterolemia Active 04/07/2018 ? Idiopathic Peripheral Neuropathy Active 07/08/2018 ? Impaired Fasting Glycemia Active 04/27/2019 ? Fatigue Active 11/13/2021 ? Covid-19 Active 02/15/2022 ? Procedures Date Name Performed by ? 04/25/2018 MAMMO, Screening, Digital, Bilateral [facility] [address] [place] [address] (Work Place) 07/08/2018 [place], Echocardiogram [facility] [address] [place] [address] (Work Place) Results Lab Results Date Name Specimen Result Interpretation Description Value Range Status Address ? 01/24/2022 ESR (Erythrocyte ? No observation ? ? ? [facility] Sedimentation Rate), recorded. Center (Medical Blood Records): [address] [facility] 01/03/2022 Hemoglobin a1C, QN, ? No observation ? ? ? [facility] Blood recorded. Center (Medical Records): [address] [facility] 06/28/2020 HbA1C (Hemoglobin ? No observation ? ? ? [facility] a1C), Blood recorded. Ce nter (Medical Records): [address] [facility] 06/28/2020 TSH + Free T4, Serum ? No observation ? ? ? [facility] recorded. [facility] (Medical Records): [address], [place] 07/02/2018 TSH + Free T4, Serum ? No observation ? ? ? [facility] recorded. [facility] : [address], [place] 01/29/2018 Vitamin B12, Quant, ? No observation ? ? ? [facility] Blood recorded. [facility] : [address], [place] 01/29/2018 Cbc ? No observation ? ? ? [facility] recorded. [facility] : [address], [place] 01/29/2018 TSH + Free T4, Serum ? No observation ? ? ? [facility] recorded. [facility] : [address], [place] 01/29/2018 Lipid Panel, Serum ? No observation ? ? ? [facility] recorded. [facility] : [address], [place] 01/29/2018 CMP, Serum or Plasma ? No observation ? ? ? [facility] recorded. [facility] : [address], [place] Past Encounters 05/23/2021 Depressive Disorder; Anxiety; Aortic Pamela ve Stenosis; Essential Hypertension; Hypercholesterolemia; Hypothyroidism; Atopic Dermatitis; Motion Sickness PEGGY [place]: [address] [place] [address], Ph. Social History Tobacco Smoking Status Never Smoker Vaccine List Vaccine Type COVID-19, mRNA, LNP-S, PF, 100 mcg/0.5 m L dose (Moderna) 08/17/2020 09/14/2020 04/16/2021 influenza, injectable, quadrivalent 02/02/2018?0.5 mL 03/16/2019 05/01/2020 04/16/2021 Tdap 0.5 mL 0.5 mL Plan of Care Reminders Provider Appointments None recorded. ? ? Lab None recorded. ? ? Referral None recorded. ? ? Procedures None recorded. ? ? Surgeries None recorded. ? ? Imaging None recorded. ? ? Vitals 06/19/2020 11:15AM FOLLOW UP 15 Height Weight BMI Blood Pressure 5 ft 0.75 in 186.9 lbs 35.6 kg/m2 120/82 mm[Hg] 08/02/2019 11:30AM FOLLOW UP 15 Height Weight BMI Blood Pressure 5 ft 0.75 in 191.1 lbs 36.4 kg/m2 130/80 mm[Hg] 04/28/2019 11:15AM FOLLOW UP 15 Height Weight BMI Blood Pressure 5 ft 0.75 in 196.7 lbs 37.5 kg/m2 120/80 mm[Hg] 07/08/2018 09:45AM ANNUAL EXAM Height Weight BMI Blood Pressure 5 ft 0.75 in 197.7 lbs 37.7 kg/m2 114/76 mm[Hg] 04/07/2018 09:30AM FOLLOW UP 15 Height Weight BMI Blood Pressure 5 ft 0.5 in 196.6 lbs 37.8 kg/m2 114/72 mm[Hg] 02/02/2018 10:15AM FOLLOW UP 15 Height Weight BMI Blood Pressure 5 ft 0.5 in 198.4 lbs 38.1 kg/m2 116/80 mm[Hg] 12/29/2017 11:45AM FOLLOW UP 15 Height Weight BMI Blood Pressure 5 ft 0.5 in 197 lbs 37.8 kg/m2 126/70 mm[Hg]
--- OUTSIDE RECORDS SUMMARY | 2022-02-16 21:46 | XMS_ITS ---
:1965 Author Organization [facility] Address [address] [place] [address] Care Team Providers Name Role Phone Bran Melvin Jr Unavailable Unavailable PROBLEMS Type Condition ICD9-CM Code [id number] Onset Condition SNOMED Code Code Dates Status Problem skilled nursing (current) Z79.01 Active 100475615 use of anticoagulants Problem Colon cancer Z12.11 Active 9964110 04 screening ALLERGIES Substance Reaction Event Type Date Status Erythromycin Unknown Drug Allergy August, Active ENCOUNTERS Encounter [place] Date Diagnosis [facility] [place] [facility] [place] [facility] August, Colon cancer sc reening RAJ Steven [id number] Z12.11 and FH: colon polyps Z83.71 [place] [address] August, [facility] [address] [place] [address] August, Colon ca ncer screening [facility] [address] RAJ Steven Z12.11 and skilled nursing [phone] (current) use of anticoagulants Z 79.01 [facility] [place] [address] [facility] Feb, RAJ Steven [phone] [place] [address] Dec, [facility] [address] [place] [address] Nov, Long ter m (current) use of [facility] [address] RAJ Steven anticoagul ants Z79.01 and [phone] Colon cancer scr eening Z12.[address] [place] [address] August, [facility] [address] [place] [address] [facility], [facility] [address] [place] [address] IMMUNIZATIONS Vaccine Route Administration Date Status Influenza Unknown Mar 07, 2021 Administered SOCIAL HISTORY Qualifiers Date Never Smoker REASON FOR REFERRAL FUNCTIONAL STATUS PLAN OF CARE Activity Details Future/Pending Procedure COLONOSCOPY 20210820 Future/Pending Procedure COLONOSCOPY [id number] VITAL SIGNS Weight 195 lbs 2021-08-20 Weight 187 lbs 2016-12-18 Height 60.75 in 2021-08-20 Height 60.75 in 2016-12-18 BMI 37.14 kg/m2 2021-08-20 BMI 35.62 kg/m2 2016-12-18 Heart Rate 64 /min 2016-12-18 Temperature 96.8 degrees Fahrenheit 2021-08-20 Blood pressure systolic 000 mm Hg 2021-08-20 Blood pressure diastolic 00 mm Hg 2021-08-20 MEDICATIONS Medication Instructions Dosage Frequency Start End Duration Statu s Date Date Simvastatin 40 MG Orally Once a 1 tablet 24h Active day in the evening Vitamin D-3 25 Orally Once a 1 capsule 24h 30 day(s) Active MCG (1000 UT) day Warfarin Sodium Orally Once a 1 tablet 24h A ctive 2.5 MG day Lisinopril 20 MG Orally Once a 1 tablet 24h Active day Levothyroxine Orally Once a 1 tablet 24h Act melody Sodium 50 MCG day on an empty stomach in the morning Citalopram Orally Once a 1 tablet 24h Active Hydrobromide 40 day MG PROCEDURES Procedure Date Ordered Result Body Site PATIENT NOT ELIG D/T ACTIVE DX HTN August 20, 2021 Pt scrn tbco id as non user August 20, 2021 DOC MEDS VERIFIED W/PT OR RE August 20, 2021 COLORECTAL CA SCREEN DOC REV August 20, 2021 DIAGNOSTIC COLONOSCOPY September 14, 2021 RESULTS Name Result Date Reference Range Prothrombin Time INR 2021-09-14 Prothrombin Time 12.6 9.9-13.0 INTERNATIONAL NORM RATIO 1.1 0.9-1.1 GI BIOPSY 2017-02-28 G.I. BIOPSY PROTHROMBIN TIME (PT, INR) 2017-02-28 INTERNATIONAL NORM. RATIO 1.2 SEE NO TE PROTHROMBIN TIME 14.0 10.2-12.9 REASON FOR VISIT screening, warfarin , Patient presents today for consultation, screening colonoscopy, COUMADIN REPLACEMENT, PATIENT PRESENTS TODAY FOR PRE-COLON, PRE- COLON, PRE-COLON, R/S OV, r/s o/v Insurance Providers [facility] Member Patient Patient Patient Patient Patient Subscriber Subscriber Subscriber Group Insurance Plan Plan Plan Plan ID Relationship Address Phone Name Date of ID Name Date of No Type Insurance Insurance Insurance Coverage to Subscriber Address Phone Name Dates MEDICARE [address] MEDICARE self MARJAN [id number] [place] [id number] [facility] [id number] [employer] [address] 866610-22 [employer] self MARJAN [id number] CARE [place] [address] CARE [facility] [address] [employer] [address] [employer] self MARJAN [id number] [facility] [id number] [facility] Plan [id number] MEDICAID [address] MEDICAID self MARJAN [id number] OF [facility] [id number] [address] [employer] [address] 866610-22 [employer] self MARJAN [id number] CARE [place] [address] [facility]ANCE [address]
--- OUTSIDE RECORDS SUMMARY | 2022-02-16 21:46 | XMS_ITS | Continuity of Care Document ---
:1965 Author Organization [facility] Address [address] [place] [address]- Care Team Providers Name Role Phone Juli QUAN Mustapha Nguyễn Primary Care Physician [place] [facility] [place] Date(s): 05/05/20 - 05/05/[address] [address]- Discharge Disposition: A-D/C Home Attending Physician: Oskar Garcia DO Admitting Physician: Oskar Garcia DO Referring Physician: Not on Staff, Referring MD Allergies, Adverse Reactions, Alerts Substance Reaction Severity Status erythromycin Active Results Radiology Reports Exam Date Time Procedure Performing Provider Status 05/05/20 3:01 PM Chest Portable Daphney Driver; Trini (Verif ied) Notes:(Chest Portable) Reason For Exam: Shortness of BreathRESULT: Chest Portable Chest Portable Hx of Present Illness: pt yelling out I need Andree; Reason: Shortness of Breath; Clinical Question(s): CHF COMPARISON: None. FINDINGS: LINES AND TUBES: None. LUNGS AND PLEURA: No pneumothorax. No pleural effusion. The lungs are clear. Pulmonary vascularity is normal. HEART, MEDIASTINUM AND PAKO: Heart is normal in size. Normal mediastinal silhouette. BONES AND SOFT TISSUES: Multilevel degenerative changes involve the spine. No acute osseous abnormality. IMPRESSION: No acute abnormality. WSN: [id number] Ordering Physician: Yusra Alford Dictated By: Alli Olmedo MD Dictated Date/Time: 05/05/20 3:05 pm Reviewed By: Alli Olmedo MD Signed By: Alli Olmedo MD Signed Date/Time: 05/05/20 3:05 pm Transcribed By: ASHANTI Transcribed Date/Time: 05/05/20 3:04 pm Vital Signs Most recent to oldest 1 2 3 [Reference Range]: Oxygen Saturation [94-100 %] 98 % 96 % 97 % (05/05/20 5:17 PM) (05/05/20 4:32 PM) (05/05/20 2:2 9 PM) Pulse Rate [55-90 bpm] 67 bpm 63 bpm 90 bpm (05/05/20 5:17 PM) (05/05/20 4:32 PM) (05/05/20 1:3 0 PM) Blood Pressure [90-138/55-84 mm 112/54 mm Hg 119/63 mm Hg 147/69 mm Hg Hg] (05/05/20 5:17 PM) (05/05/20 4:32 PM) *H* (05/05/20 1:30 PM ) Respiratory Rate [16-30 br/min] 18 br/min 21 br/min 20 br/min (05/05/20 5:17 PM) (05/05/20 4:32 PM) (05/05/20 1:3 0 PM) Temperature [96.8-100.4 DegF] 97.3 DegF 98.0 DegF (05/05/20 4:32 PM) (05/05/20 1:30 PM) Mode of Delivery (Oxygen) Room air Room air Room a ir (05/05/20 5:17 PM) (05/05/20 4:32 PM) (05/05/20 1:3 0 PM) Blood pressure sites Arm, left (05/05/20 4:32 PM) Temperature Route Oral Oral (05/05/20 4:32 PM) (05/05/20 1:30 PM)
[2022-02-16 21:58] VITALS: O2SAT 98
--- NOTE | 2022-02-16 22:01 | PC.NURSE ---
Discharge instructions provided to pt. Pt verbalizes understanding.
== END 2022-02-16 22:06 | disposition home or self-care (01) ==
PROVIDERS: Emergency Provider Emergency Medicine Emergency Medical Services; PCP Internal Medicine
DX: U07.1 COVID-19 (principal); R05.9 Cough, unspecified; R50.9 Fever, unspecified
CPT/HCPCS: 99282; 99284

== ENCOUNTER 2022-02-21 09:43 | Outpatient (REF) | payer OTHER, SELFPAY ==
[2022-02-21 10:30] LABS: MANUAL DIFF FLAG NO
[2022-02-21 10:56] LABS: Basophils Percent Auto 0.2 % (0-2); Eosinophils Absolute Auto 0.1 X10*3/uL (0.0-0.4); Eosinophils Percent Auto 0.5 % (0-4); Hematocrit 44.6 % (37.0-47.0); Imm Gran Abs Auto 0.06 X10*3/uL (0.00-0.03); Imm Gran Pct Auto 0.6 % (0.0-0.4); Lymphocytes Absolute Auto 2.4 X10*3/uL (1.2-4.9); Lymphocytes Percent Auto 26.3 % (20-40); Mean Corpuscular HGB Conc 31.4 g/dl (31.0-35.0); Mean Corpuscular Hemoglobin 28.2 pg (27.0-33.0); Mean Corpuscular Volume 89.7 fL (80.0-98.0); Mean Platelet Volume 10.5 fL (9.4-12.3); Monocytes Absolute Auto 0.7 X10*3/uL (0.1-1.2); Monocytes Percent Auto 7.2 % (2-11); Neutrophils Percent Auto 65.2 % (45-73); Platelet Count 407 X10*3/uL (160-400); Red Blood Count 4.97 X10*6/uL (4.20-5.50); Red Cell Distribution Width 14.5 % (11.0-16.0); White Blood Count 9.3 X10*3/uL (4.8-10.8)
== END 2022-02-21 09:44 | disposition home or self-care (01) ==
LOC: HO.LAB 09:43
PROVIDERS: PCP Internal Medicine; Visit Provider Internal Medicine
DX: Z86.73 Personal history of transient ischemic attack (TIA), and cerebral infarction without residual deficits (principal); N39.3 Stress incontinence (female) (male); U07.1 COVID-19; Z51.81 Encounter for therapeutic drug level monitoring; Z79.01 Long term (current) use of anticoagulants
CPT/HCPCS: 36415; 85025; 85610; 99211

== ENCOUNTER → 2022-03-04 09:28 | Outpatient (BNVA) | payer OTHER, SELFPAY | PROVIDERS: PCP Internal Medicine; Visit Provider Internal Medicine | DX: Z86.73 Personal history of transient ischemic attack (TIA), and cerebral infarction without residual deficits (principal); Z79.01 Long term (current) use of anticoagulants; Z51.81 Encounter for therapeutic drug level monitoring | CPT/HCPCS: 85610; 99211 ==

== ENCOUNTER → 2022-04-01 09:14 | Outpatient (BNVA) | payer OTHER, SELFPAY | PROVIDERS: PCP Internal Medicine; Visit Provider Internal Medicine | DX: Z86.73 Personal history of transient ischemic attack (TIA), and cerebral infarction without residual deficits (principal); Z79.01 Long term (current) use of anticoagulants; Z51.81 Encounter for therapeutic drug level monitoring | CPT/HCPCS: 85610; 99211 ==

== ENCOUNTER → 2022-04-29 09:44 | Outpatient (BNVA) | payer OTHER, SELFPAY | PROVIDERS: PCP Internal Medicine; Visit Provider Internal Medicine | DX: Z86.73 Personal history of transient ischemic attack (TIA), and cerebral infarction without residual deficits (principal); Z79.01 Long term (current) use of anticoagulants; Z51.81 Encounter for therapeutic drug level monitoring | CPT/HCPCS: 85610; 99211 ==

== ENCOUNTER 2022-05-12 19:58 | Emergency (ER) | payer OTHER, SELFPAY ==
--- NOTE | ~2022-05-12 | XR_ITS ---
EXAMINATION: XR CHEST CLINICAL INFORMATION: Shortness of breath COMPARISON: Chest x-ray 05/18/2012 TECHNIQUE: Frontal portable view of the chest was obtained. 2036 hours FINDINGS: No significant abnormality is noted involving the heart, lungs, mediastinum, bony thorax or soft tissues. XR/XR chest 1V IMPRESSION: Unremarkable examination.
[2022-05-12 20:06] VITALS: BP 112/55; BP 130/92; PULSE 100; PULSE 130; RESP 16; TEMP 37.1; O2SAT 95; BMI 37.8
--- NOTE | 2022-05-12 20:11 | ED.SOB ---
HPI - SOB/Dyspnea General Chief Complaint: Upper Respiratory Symptoms Stated Complaint: SOB Time Seen by Provider: 05/12/22 20:07 Source: patient Mode of arrival: ambulatory Limitations: no limitations History of Present Illness HPI Narrative: Patient with history of CVA on Coumadin came by ambulance for increased shortness of breath and cough for last 5 days on arrival patient was saturating 95% at room air patient's sister had cold symptoms few days ago COVID test was negative patient feel tired and weak no nausea no vomiting no chest pain feels short of breath and congested. Patient had stroke years ago had dysarthria which is back to normal now patient is on Coumadin for factor 5 laden deficiency no chest pain no palpitation Related Data Home Medications Medication Instructions Recorded Confirmed levothyroxine 50 mcg tablet 50 mcg PO DAILY 02/11/20 04/29/22 lisinopril 20 mg tablet 20 mg PO DAILY 02/11/20 04/29/22 citalopram 40 mg tablet 40 mg PO DAILY 05/11/20 04/29/22 gabapentin 100 mg capsule 200 mg PO DAILY 05/11/20 04/29/22 simvastatin 20 mg tablet 20 mg PO DAILY 05/11/20 04/29/22 scopolamine base 1 mg over 3 days 1 patch topical Q3D 08/16/21 04/29/22 transdermal patch cholecalciferol (vitamin D3) 25 25 mcg PO DAILY 09/10/21 04/29/22 mcg (1,000 unit) tablet (Vitamin D3) simvastatin 40 mg tablet 40 mg PO DAILY 12/06/21 04/29/22 benzonatate 200 mg capsule 200 mg PO TID 02/21/22 04/29/22 Previous Rx's Medication Instructions Recorded warfarin 2.5 mg tablet 2.5 mg PO DAILY #90 tabs 01/21/20 metoclopramide HCl 10 mg tablet 10 mg PO Q6H PRN nausea and 11/15/21 (Reglan) vomiting #14 tabs benzonatate 200 mg capsule 200 mg PO TID PRN cough #30 caps 05/12/22 Allergies Allergy/AdvReac Type Severity Reaction Status Date / Time erythromycin base Allergy Unknown NAUSEA & Verified 04/29/22 10:01 [ERYTHROMYCIN BASE] VOMITING Review of Systems Review of Systems: Yes all other systems are reviewed and are negative [facility] Past Medical History Medical History (Updated 05/13/22 @ 00:01 by Background Dathomas) Anxiety and depression Arthritis Elevated cholesterol Factor 5 Leiden mutation, heterozygous History of CVA (cerebrovascular accident) HTN (hypertension) Hypothyroidism On anticoagulant therapy KRYSTAL on CPAP Post-traumatic osteoarthritis of left knee Unilateral primary osteoarthritis, left knee (~2014) Surgical History History of repair of anterior cruciate ligament of left knee Hx of colonoscopy Hx of left knee surgery Family History Family History Father No problems noted. Mother No problems noted. 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 Oriented X3. No acute distress. Eyes: PERRLA, No Nystagmus ENT: Pharynx normal. Oral Mucosa moist Neck: Normal inspection. Neck supple. CVS: Normal heart rate and rhythm. Pulses normal. Respiratory: No respiratory distress. Equal air entry bilateral, no wheezing/rales/rhonchi Abdomen: Soft and nontender. Bowel sounds are present, no mass palpable, no CVA tenderness Skin: Skin warm and dry. Normal skin color. Normal skin turgor. Extremities: No lower extremity edema. No calf tenderness Neuro: Oriented X 3. No motor deficit. No sensory deficit.No cerebellar signs , cranial nerves II-XII intact Medications Administered Discontinued Medications Generic Name Dose Route Start Last Admin Trade Name Freq PRN Reason Stop Dose Admin Benzonatate 200 mg 05/12/22 22:23 05/12/22 22:26 Benzonatate 100 Mg Capsule PO 05/12/22 22:24 200 mg ONCE ONE Administration Medical Decision Making Medical Decision Making MDM Narrative: Patient with dry cough likely viral URI chest x-ray negative lethargic for last 2 days on gabapentin likely the cause for lethargy no signs of sepsis discharge patient home on symptomatic treatment advised to drink plenty of fluids have Iva Mccoy patient is alert awake at the time of discharge Lab Data [facility] Lab Attestation statement: I reviewed the patient's lab results. 05/12/22 20:25 05/12/22 20:25 Labs: Lab Results 05/12/22 05/12/22 05/12/22 Range/Units 20:25 20:25 20:25 WBC 11.9 H (4.8-10.8) X10*3/uL RBC 4.67 (4.20-5.50) X10*6/uL Hgb 13.1 (12.0-16.0) g/dl Hct 41.1 (37.0-47.0) % MCV 88.0 (80.0-98.0) fL MCH 28.1 (27.0-33.0) pg MCHC 31.9 (31.0-35.0) g/dl RDW 14.4 (11.0-16.0) % Plt Count 289 D (160-400) X10*3/uL MPV 9.7 (9.4-12.3) fL Immature Gran % (Auto) 0.3 (0.0-0.4) % Neut % (Auto) 75.0 H (45-73) % Lymph % (Auto) 16.3 L (20-40) % [place] % (Auto) 7.2 (2-11) % Eos % (Auto) 0.9 (0-4) % Baso % (Auto) 0.3 (0-2) % Lymph # (Auto) 2.0 (1.2-4.9) X10*3/uL [place] # (Auto) 0.9 (0.1-1.2) X10*3/uL Eos # (Auto) 0.1 (0.0-0.4) X10*3/uL Baso # (Auto) 0.0 (0.0-0.2) X10*3/uL Abs Immat Gran (auto) 0.04 H (0.00-0.03) X10*3/uL Absolute Neuts (auto) 8.9 H (2.0-8.3) x10*3/uL Absolute Nucleated RBC 0.000 (0.0-0.012) X10*3/uL Nucleated RBC % (auto) 0.0 (0.0-0.2) /100WBC PT (10.0-13.1) SEC INR (0.9-1.1) VBG pH (7.32-7.43) VBG pCO2 mmHg VBG pO2 mmHg VBG HCO3 (22-26) mmol/L VBG O2 Saturation % VBG Base Excess mmol/L Sodium 137 (135-145) mmol/L Potassium 4.3 (3.3-5.1) mmol/L Chloride 102 (96-108) mmol/L Carbon Dioxide 23 (22-29) mmol/L Anion Gap 16 (12-20) BUN 14 (9-16) mg/dL Creatinine 1.01 (0.5-1.4) mg/dL Estim Creat Clear Calc 62.1 Estimated GFR 57 Random Glucose 229 H (60-115) mg/dL Lactic Acid (0.5-2.0) mmol/L Calcium 9.9 (8.4-10.2) mg/dL Total Bilirubin 0.3 (0.0-1.0) mg/dL AST 19 (5-31) U/L ALT 17 (0-31) U/L Alkaline Phosphatase 87 (39-117) U/L Troponin I High Sens (<3.5-17.0) ng/L B-Natriuretic Peptide (<100) pg/mL Total Protein 6.7 (6.5-8.0) g/dL Albumin 3.8 (3.5-5.0) g/dL TSH 2.01 (0.32-4.0) uIU/mL Influenza Type A (PCR) NEGATIVE (Negative) Influenza Type B (PCR) NEGATIVE (Negative) RSV RNA Qual (PCR) NEGATIVE (Negative) SARS-CoV-2 RNA (RT-PCR) NEGATIVE (Negative) 05/12/22 05/12/22 05/12/22 Range/Units 20:25 20:25 20:28 WBC (4.8-10.8) X10*3/uL RBC (4.20-5.50) X10*6/uL Hgb (12.0-16.0) g/dl Hct (37.0-47.0) % MCV (80.0-98.0) fL MCH (27.0-33.0) pg MCHC (31.0-35.0) g/dl RDW (11.0-16.0) % Plt Count (160-400) X10*3/uL MPV (9.4-12.3) fL Immature Gran % (Auto) (0.0-0.4) % Neut % (Auto) (45-73) % Lymph % (Auto) (20-40) % [place] % (Auto) (2-11) % Eos % (Auto) (0-4) % Baso % (Auto) (0-2) % Lymph # (Auto) (1.2-4.9) X10*3/uL [place] # (Auto) (0.1-1.2) X10*3/uL Eos # (Auto) (0.0-0.4) X10*3/uL Baso # (Auto) (0.0-0.2) X10*3/uL Abs Immat Gran (auto) (0.00-0.03) X10*3/uL Absolute Neuts (auto) (2.0-8.3) x10*3/uL Absolute Nucleated RBC (0.0-0.012) X10*3/uL Nucleated RBC % (auto) (0.0-0.2) /100WBC PT (10.0-13.1) SEC INR (0.9-1.1) VBG pH (7.32-7.43) VBG pCO2 mmHg VBG pO2 mmHg VBG HCO3 (22-26) mmol/L VBG O2 Saturation % VBG Base Excess mmol/L Sodium (135-145) mmol/L Potassium (3.3-5.1) mmol/L Chloride (96-108) mmol/L Carbon Dioxide (22-29) mmol/L Anion Gap (12-20) BUN (9-16) mg/dL Creatinine (0.5-1.4) mg/dL Estim Creat Clear Calc Estimated GFR Random Glucose (60-115) mg/dL Lactic Acid 1.6 (0.5-2.0) mmol/L Calcium (8.4-10.2) mg/dL Total Bilirubin (0.0-1.0) mg/dL AST (5-31) U/L ALT (0-31) U/L Alkaline Phosphatase (39-117) U/L Troponin I High Sens 4.5 (<3.5-17.0) ng/L B-Natriuretic Peptide < 10 (<100) pg/mL Total Protein (6.5-8.0) g/dL Albumin (3.5-5.0) g/dL TSH (0.32-4.0) uIU/mL Influenza Type A (PCR) (Negative) Influenza Type B (PCR) (Negative) RSV RNA Qual (PCR) (Negative) SARS-CoV-2 RNA (RT-PCR) (Negative) 05/12/22 05/12/22 Range/Units 21:56 22:00 WBC (4.8-10.8) X10*3/uL RBC (4.20-5.50) X10*6/uL Hgb (12.0-16.0) g/dl Hct (37.0-47.0) % MCV (80.0-98.0) fL MCH (27.0-33.0) pg MCHC (31.0-35.0) g/dl RDW (11.0-16.0) % Plt Count (160-400) X10*3/uL MPV (9.4-12.3) fL Immature Gran % (Auto) (0.0-0.4) % Neut % (Auto) (45-73) % Lymph % (Auto) (20-40) % [place] % (Auto) (2-11) % Eos % (Auto) (0-4) % Baso % (Auto) (0-2) % Lymph # (Auto) (1.2-4.9) X10*3/uL [place] # (Auto) (0.1-1.2) X10*3/uL Eos # (Auto) (0.0-0.4) X10*3/uL Baso # (Auto) (0.0-0.2) X10*3/uL Abs Immat Gran (auto) (0.00-0.03) X10*3/uL Absolute Neuts (auto) (2.0-8.3) x10*3/uL Absolute Nucleated RBC (0.0-0.012) X10*3/uL Nucleated RBC % (auto) (0.0-0.2) /100WBC PT 33.3 H (10.0-13.1) SEC INR 2.8 H (0.9-1.1) VBG pH 7.43 (7.32-7.43) VBG pCO2 43 mmHg VBG pO2 41 mmHg VBG HCO3 29 H (22-26) mmol/L VBG O2 Saturation 66.0 % VBG Base Excess 4.5 mmol/L Sodium (135-145) mmol/L Potassium (3.3-5.1) mmol/L Chloride (96-108) mmol/L Carbon Dioxide (22-29) mmol/L Anion Gap (12-20) BUN (9-16) mg/dL Creatinine (0.5-1.4) mg/dL Estim Creat Clear Calc Estimated GFR Random Glucose (60-115) mg/dL Lactic Acid (0.5-2.0) mmol/L Calcium (8.4-10.2) mg/dL Total Bilirubin (0.0-1.0) mg/dL AST (5-31) U/L ALT (0-31) U/L Alkaline Phosphatase (39-117) U/L Troponin I High Sens (<3.5-17.0) ng/L B-Natriuretic Peptide (<100) pg/mL Total Protein (6.5-8.0) g/dL Albumin (3.5-5.0) g/dL TSH (0.32-4.0) uIU/mL Influenza Type A (PCR) (Negative) Influenza Type B (PCR) (Negative) RSV RNA Qual (PCR) (Negative) SARS-CoV-2 RNA (RT-PCR) (Negative) Independent Interpretation I performed an independent interpretation of an: EKG Interpretation: Normal sinus rhythm heart rate 93 beats per minute normal interval normal axis no acute ST wave changes no acute ischemia Discharge Plan Discharge Clinical Impression: Upper respiratory infection Patient Disposition: Home, Self-Care Instructions: Upper Respiratory Infection (ED) Additional Instructions: Drink plenty of fluids Hold gabapentin if you too sleepy Follow-up with PCP if not better Cough drops as prescribed Prescriptions: New benzonatate 200 mg capsule 200 mg PO TID PRN (Reason: cough) Qty: 30 0RF No Action cholecalciferol (vitamin D3) [Vitamin D3] 25 mcg (1,000 unit) Tablet 25 mcg PO DAILY metoclopramide HCl [Reglan] 10 mg tablet 10 mg PO Q6H PRN (Reason: nausea and vomiting) Qty: 14 0RF gabapentin 100 mg capsule 200 mg PO DAILY simvastatin 20 mg tablet 20 mg PO DAILY citalopram 40 mg tablet 40 mg PO DAILY warfarin 2.5 mg tablet 2.5 mg PO DAILY Qty: 90 0RF Protocol: Dose Management Condition: Friday (Week One) Dose/Route: 1.25 mg Instruction: 0.5 x 2.5 mg tablets Condition: Friday Dose/Route: 2.5 mg Instruction: 1 x 2.5 mg tablet Condition: Friday Dose/Route: 2.5 mg Instruction: 1 x 2.5 mg tablet Condition: Friday Dose/Route: 2.5 mg Instruction: 1 x 2.5 mg tablet Condition: Dose/Route: 2.5 mg Instruction: 1 x 2.5 mg tablet Condition: Friday Dose/Route: 2.5 mg Instruction: 1 x 2.5 mg tablet Condition: Friday Dose/Route: 2.5 mg Instruction: 1 x 2.5 mg tablet Condition: Friday (Week Two) Dose/Route: 1.25 mg Instruction: 0.5 x 2.5 mg tablets Condition: Friday Dose/Route: 2.5 mg Instruction: 1 x 2.5 mg tablet Condition: Friday Dose/Route: 2.5 mg Instruction: 1 x 2.5 mg tablet Condition: Friday Dose/Route: 2.5 mg Instruction: 1 x 2.5 mg tablet Condition: Dose/Route: 2.5 mg Instruction: 1 x 2.5 mg tablet Condition: Friday Dose/Route: 2.5 mg Instruction: 1 x 2.5 mg tablet Condition: Friday Dose/Route: 2.5 mg Instruction: 1 x 2.5 mg tablet Protocol Text: Adjustment Start Date: Friday04/29/22 INR Value: Pending INR Date: 04/29/22 Recheck Date: 05/27/22 Additional Instructions: INR is in range continue same dosing balance greens and reds in diet levothyroxine 50 mcg tablet 50 mcg PO DAILY lisinopril 20 mg tablet 20 mg PO DAILY scopolamine base 1 mg over 3 days patch 3 day 1 patch topical Q3D simvastatin 40 mg tablet 40 mg PO DAILY benzonatate 200 mg capsule 200 mg PO TID Interventions: ED Discharge Assessment Last Done: 05/12/22 23:04 Discharge Date/Time: 05/12/22 23:05
[2022-05-12 20:12] VITALS: PULSE 98
--- NOTE | 2022-05-12 20:13 | ECG_ITS ---
Test Reason : SOB Blood Pressure : / mmHG Vent. Rate : 093 BPM Atrial Rate : 093 BPM P-R Int : 136 ms QRS Dur : 084 ms QT Int : 350 ms P-R-T Axes : 035 080 016 degrees QTc Int : 435 ms Artifact in tracing Normal sinus rhythm Likely Normal ECG When compared with ECG of 26-JAN-2014 07:11, Vent. rate has increased BY 35 BPM Referred By: Dionicio Bhatia Electronically Signed By:JERI BOSE
[2022-05-12 20:33] LABS: Basophils Percent Auto 0.3 % (0-2); Eosinophils Absolute Auto 0.1 X10*3/uL (0.0-0.4); Eosinophils Percent Auto 0.9 % (0-4); Hematocrit 41.1 % (37.0-47.0); Hemoglobin 13.1 g/dl (12.0-16.0); Imm Gran Abs Auto 0.04 X10*3/uL (0.00-0.03); Imm Gran Pct Auto 0.3 % (0.0-0.4); Lymphocytes Percent Auto 16.3 % (20-40); MANUAL DIFF FLAG NO; Mean Corpuscular HGB Conc 31.9 g/dl (31.0-35.0); Mean Corpuscular Hemoglobin 28.1 pg (27.0-33.0); Mean Platelet Volume 9.7 fL (9.4-12.3); Monocytes Absolute Auto 0.9 X10*3/uL (0.1-1.2); Monocytes Percent Auto 7.2 % (2-11); Neutrophils Absolute Auto 8.9 x10*3/uL (2.0-8.3); Platelet Count 289 X10*3/uL (160-400); Red Blood Count 4.67 X10*6/uL (4.20-5.50); Red Cell Distribution Width 14.4 % (11.0-16.0); White Blood Count 11.9 X10*3/uL (4.8-10.8)
--- OUTSIDE RECORDS SUMMARY | 2022-05-12 20:40 | XMS_ITS ---
:1965 Author Name Mustapha Bustos Care Team Providers Name Role Phone Mustapha Bustos Unavailable Unavailable PROBLEMS Type Condition ICD9-CM SSN52-KA Onset Condition SNOMED Cod e Code Code Dates Status Problem Atherosclerosis of I70.203 Active 1 [id number] artery of both lower extremities Problem Neuropathy G62.9 Active 256992021 ALLERGIES Substance Reaction Event Type Date Status Tylenol Unknown Drug Allergy Sep, Active Biaxin pt gets sick Drug Allergy Sep, Active Azithromycin pt gets sick Drug Allergy Sep, Active Cortisone Unknown Drug Allergy Sep, Active Erythromycin pt gets sick Drug Allergy Sep, Active ENCOUNTERS Encounter [facility] [address] [facility], [place] [address] Nov, [place] [address] Sep, [place] erosclerosis of artery [place] of both lower e xtremities [address] I70.203 ; Tinea unguium B35.1 and Pain i n left toe(s) M79.[address] Jun, Gen eralized edema R60.1 ; [facility] [place] Atheros[facility] [place] artery [address] of both lower ex tremities I70.203 ; Tinea unguium B35.1 ; Pain in left toe(s) M79.675 ; Neurop athy G62.9 and Xerosis cuti s L85.[address] Dec, 2020 [place] [address] [facility] [address] Oct, [place] [address] [facility] Sep, 2020 Gen eralized edema R60.1 ; Julio [place] Atherosclerosis of artery [address] of both lower ex tremities I70.203 ; [...] No Results REASON FOR VISIT Insurance Providers [facility] Patient Patient Patient Patient Patient Subscriber Subscriber Subscriber Group Insurance Plan Plan Plan Plan ID Relationship Address Phone Name Date of ID Name Date of No Type Insurance Insurance Insurance Coverage to Subscriber Address Phone Name Dates Medicare National [id number] Medicare self Yad[place] [id number] [facility] [address] [place] [address] [employer] [facility] [phone] [employer] self [place] [id number] th Care Claims [address] th Care [facility] [address] [facility] [address] MEDICAL (GENERAL) HISTORY Type Description Date Medical History Anxiety Medical History Depression Medical History Headaches/Migraines Medical History High blood pressure Medical History Neuropathy Medical History Stroke Medical History thyroid Medical History Chicken pox Surgical History No know Surgical history
--- OUTSIDE RECORDS SUMMARY | 2022-05-12 20:40 | XMS_ITS ---
:1965 Author Organization [facility] Address [address] [place] [address] Care Team Providers Name Role Phone Bran Melvin Jr Unavailable Unavailable PROBLEMS ALLERGIES ENCOUNTERS IMMUNIZATIONS SOCIAL HISTORY REASON FOR REFERRAL FUNCTIONAL STATUS PLAN OF CARE VITAL SIGNS MEDICATIONS PROCEDURES RESULTS REASON FOR VISIT Insurance Providers
[2022-05-12 20:48] LABS: Lactic Acid 1.6 mmol/L (0.5-2.0)
[2022-05-12 20:52] LABS: Alanine Aminotransferase 17 U/L (0-31); Albumin Level 3.8 g/dL (3.5-5.0); Alkaline Phosphatase 87 U/L (39-117); Anion Gap 16 (12-20); Aspartate Amino Transferase 19 U/L (5-31); Bilirubin Total 0.3 mg/dL (0.0-1.0); Blood Urea Nitrogen 14 mg/dL (9-16); Calcium 9.9 mg/dL (8.4-10.2); Carbon Dioxide 23 mmol/L (22-29); Chloride 102 mmol/L (96-108); Creatinine Clr Calc Pharmacy 62.1; Estimated Glomerular Filt Rate 57; Glucose Random 229 mg/dL (60-115); Potassium 4.3 mmol/L (3.3-5.1); Sodium 137 mmol/L (135-145); Total Protein 6.7 g/dL (6.5-8.0)
[2022-05-12 21:00] LABS: Troponin-I High Sensitivity 4.5 ng/L (<3.5-17.0)
[2022-05-12 21:06] LABS: B Type Natriuretic Peptide < 10 pg/mL (<100)
[2022-05-12 21:20] LABS: Influenza A PCR NEGATIVE (Negative); Influenza B PCR NEGATIVE (Negative); Resp Syncy Virus RNA Qual PCR NEGATIVE (Negative); SARS COV2 PCR INHOUSE NEGATIVE (Negative)
[2022-05-12 21:43] VITALS: O2SAT 94
[2022-05-12 22:10] LABS: INTERNATIONAL NORM RATIO 2.8 (0.9-1.1); Prothrombin Time 33.3 SEC (10.0-13.1)
[2022-05-12 22:22] LABS: VBG Base Excess 4.5 mmol/L; VBG HCO3 29 mmol/L (22-26); VBG pCO2 43 mmHg; VBG pH 7.43 (7.32-7.43); VBG pO2 41 mmHg
[2022-05-12 22:24] LABS: Venous Blood Gas Refer to POC result
[2022-05-12] MEDS: Benzonatate 100 MG CAPSULE 200 MG PO (22:26)
[2022-05-12 22:42] LABS: Thyroid Stimulating Hormone 2.01 uIU/mL (0.32-4.0)
== END 2022-05-12 23:05 | disposition home or self-care (01) ==
PROVIDERS: Emergency Provider Internal Medicine; PCP Internal Medicine
DX: J06.9 Acute upper respiratory infection, unspecified (principal); R06.02 Shortness of breath; Z20.822 Contact with and (suspected) exposure to COVID-19; Z20.828 Contact with and (suspected) exposure to other viral communicable diseases; Z79.899 Other long term (current) drug therapy
CPT/HCPCS: 0241U; 36415; 71045; 80053; 82803; 83605; 83880; 84443; 84484; 85025; 85610; 93005; 99285

== ENCOUNTER → 2022-05-27 09:32 | Outpatient (BNVA) | payer OTHER, SELFPAY | PROVIDERS: PCP Internal Medicine; Visit Provider Internal Medicine | DX: Z86.73 Personal history of transient ischemic attack (TIA), and cerebral infarction without residual deficits (principal); Z79.01 Long term (current) use of anticoagulants; Z51.81 Encounter for therapeutic drug level monitoring | CPT/HCPCS: 85610; 99211 ==

== ENCOUNTER → 2022-06-24 10:22 | Outpatient (BNVA) | payer OTHER, SELFPAY | PROVIDERS: PCP Internal Medicine; Visit Provider Internal Medicine | DX: Z86.73 Personal history of transient ischemic attack (TIA), and cerebral infarction without residual deficits (principal); Z79.01 Long term (current) use of anticoagulants; Z51.81 Encounter for therapeutic drug level monitoring | CPT/HCPCS: 85610; 99211 ==

== ENCOUNTER → 2022-07-22 09:45 | Outpatient (BNVA) | payer OTHER, SELFPAY | PROVIDERS: PCP Internal Medicine; Visit Provider Internal Medicine | DX: Z86.73 Personal history of transient ischemic attack (TIA), and cerebral infarction without residual deficits (principal); Z79.01 Long term (current) use of anticoagulants; Z51.81 Encounter for therapeutic drug level monitoring | CPT/HCPCS: 85610; 99211 ==

== ENCOUNTER 2022-08-19 09:41 | Outpatient (REF) | payer OTHER, SELFPAY ==
[2022-08-19 10:28] LABS: MANUAL DIFF FLAG NO
[2022-08-19 10:39] LABS: Basophils Percent Auto 0.2 % (0-2); Eosinophils Absolute Auto 0.5 X10*3/uL (0.0-0.4); Eosinophils Percent Auto 5.4 % (0-4); Hematocrit 43.9 % (37.0-47.0); Hemoglobin 13.9 g/dl (12.0-16.0); Imm Gran Abs Auto 0.02 X10*3/uL (0.00-0.03); Imm Gran Pct Auto 0.2 % (0.0-0.4); Lymphocytes Absolute Auto 2.1 X10*3/uL (1.2-4.9); Lymphocytes Percent Auto 24.3 % (20-40); Mean Corpuscular HGB Conc 31.7 g/dl (31.0-35.0); Mean Corpuscular Volume 91.6 fL (80.0-98.0); Mean Platelet Volume 10.9 fL (9.4-12.3); Monocytes Absolute Auto 0.9 X10*3/uL (0.1-1.2); Monocytes Percent Auto 9.8 % (2-11); Neutrophils Absolute Auto 5.2 x10*3/uL (2.0-8.3); Neutrophils Percent Auto 60.1 % (45-73); Platelet Count 311 X10*3/uL (160-400); Red Blood Count 4.79 X10*6/uL (4.20-5.50); Red Cell Distribution Width 14.8 % (11.0-16.0); White Blood Count 8.7 X10*3/uL (4.8-10.8)
[2022-08-19 12:43] LABS: Estimated Average Glucose 123 mg/dL; Hemoglobin A1c % 5.9 %
[2022-08-19 12:59] LABS: Alanine Aminotransferase 20 U/L (0-31); Albumin Level 4.2 g/dL (3.5-5.0); Alkaline Phosphatase 112 U/L (39-117); Anion Gap 11 (12-20); Aspartate Amino Transferase 16 U/L (5-31); Bilirubin Total 0.3 mg/dL (0.0-1.0); Blood Urea Nitrogen 17 mg/dL (9-16); Calcium 10.6 mg/dL (8.4-10.2); Carbon Dioxide 28 mmol/L (22-29); Chloride 107 mmol/L (96-108); Estimated Glomerular Filt Rate > 60; Glucose Random 91 mg/dL (60-115); Iron 74 mcg/dL (30-160); Percent Iron Saturation 25 % (15-50); Sodium 142 mmol/L (135-145); Total Iron Binding Capacity 291 mcg/dL (228-428); Unsaturated Iron Binding 217 ug/dL
[2022-08-19 13:03] LABS: Ferritin 45 ng/mL (10-250); Folate 7.2 ng/mL (> or = 4.0); TSH reflex Free T4 1.67 uIU/mL (0.32-4.0); Vitamin B12 1663 pg/mL (200-900)
== END 2022-08-19 09:42 | disposition home or self-care (01) ==
LOC: HO.LAB 09:41
PROVIDERS: Visit Provider Physician Assistant
DX: R53.83 Other fatigue (principal); Z20.2 Contact with and (suspected) exposure to infections with a predominantly sexual mode of transmission; Z86.73 Personal history of transient ischemic attack (TIA), and cerebral infarction without residual deficits; Z51.81 Encounter for therapeutic drug level monitoring; Z79.01 Long term (current) use of anticoagulants
CPT/HCPCS: 36415; 80053; 82306; 82607; 82728; 82746; 83036; 83540; 84443; 85025; 85610; 99211

== ENCOUNTER 2022-09-05 14:49 | Outpatient (REF) | payer OTHER, SELFPAY ==
--- NOTE | ~2022-09-05 | MM_ITS ---
EXAMINATION: MM SCREENING DIGITAL BREAST TOMOSYNTHESIS, BILATERAL CLINICAL INFORMATION: Screening. Asymptomatic. The lifetime risk of breast cancer based on the Tyrer-Cuzick Model is 9.4%. COMPARISON: Mammography: August 07, 2021 and studies dating back to August 03, 2015 TECHNIQUE: Digital breast tomosynthesis is performed in both the craniocaudal and mediolateral oblique views along with computer-aided detection (CAD). Synthesized 2D images are generated from the tomosynthesis. FINDINGS: There are scattered areas of fibroglandular density (ACR BI-RADS breast composition Category b). There are no significant masses, abnormal calcifications, or other abnormalities. MM/MM tomosynthesis screening BI IMPRESSION: No significant changes from prior exam. ASSESSMENT: BI-RADS 1: Negative RECOMMENDATION: Routine annual mammography screening. This patient's information was entered into a reminder system with a target due date for their next mammogram.
== END 2022-09-05 14:50 | disposition home or self-care (01) ==
LOC: HO.MAMMO 14:49
PROVIDERS: PCP Internal Medicine; Visit Provider Internal Medicine
DX: Z12.31 Encounter for screening mammogram for malignant neoplasm of breast (principal)
CPT/HCPCS: 77063; 77067

== ENCOUNTER → 2022-09-09 09:38 | Outpatient (BNVA) | payer OTHER, SELFPAY | PROVIDERS: PCP Internal Medicine; Visit Provider Internal Medicine | DX: Z86.73 Personal history of transient ischemic attack (TIA), and cerebral infarction without residual deficits (principal); Z79.01 Long term (current) use of anticoagulants; Z51.81 Encounter for therapeutic drug level monitoring | CPT/HCPCS: 85610; 99211 ==

== ENCOUNTER 2022-09-26 20:50 | Emergency (ER) | payer OTHER, SELFPAY ==
--- NOTE | ~2022-09-26 | CT_ITS ---
EXAMINATION: CT HEAD WITHOUT CONTRAST CLINICAL INFORMATION: New onset severe headache. On blood thinners. COMPARISON: 11/07/2021 TECHNIQUE: Contiguous axial imaging was performed from the skull base to vertex without intravenous contrast. This CT examination was performed using dose optimization techniques as appropriate, variously including the following: * Automated exposure control * Adjustment of mA and/or kV according to patient size (this includes techniques or standardized protocols for targeted exams where dose is matched to indication/reason for exam; i.e. extremities or head) Use of iterative reconstruction technique DLP: 624 mGy-cm. FINDINGS: There is no evidence of acute intracranial hemorrhage or territorial infarction. No abnormal mass effect or midline shift is seen. Chaves to white matter differentiation is well preserved. No extra-axial fluid collections are identified. No hydrocephalus. Proportional prominence of the ventricles and sulcal spaces is consistent with mild volume loss. Patchy periventricular and deep white matter hypoattenuation is consistent with mild small vessel ischemic changes. Chronic right-sided encephalomalacia. The osseous structures and soft tissues are normal. The mastoid air cells and visualized portions of the paranasal sinuses are well aerated. CT/CT head/brain wo IV con IMPRESSION: No acute intracranial pathology. Chronic volume loss with small vessel ischemic change.
[2022-09-26 21:43] VITALS: BP 104/53; PULSE 58; RESP 16; TEMP 36.6; O2SAT 96; BMI 37.3
[2022-09-26 23:30] VITALS: BP 98/51; PULSE 57; RESP 16; TEMP 36.6; O2SAT 95
--- NOTE | 2022-09-26 23:55 | ED_ITS ---
HPI - Headache General Chief Complaint: Headache Stated Complaint: Severe Migraine Time Seen by Provider: 09/26/22 23:43 Source: patient Mode of arrival: ambulatory Limitations: no limitations History of Present Illness HPI Narrative: Patient comes to the emergency room complaining of a headache.. Patient states that she has had history of migraines in the past but this time it is a bit different, the migraine is more in the front and the back. Patient takes warfarin. She denies any trauma. Related Data Home Medications Medication Instructions Recorded Confirmed levothyroxine 50 mcg tablet 50 mcg PO DAILY 02/11/20 06/24/22 lisinopril 20 mg tablet 20 mg PO DAILY 02/11/20 06/24/22 citalopram 40 mg tablet 40 mg PO DAILY 05/11/20 06/24/22 gabapentin 100 mg capsule 200 mg PO DAILY 05/11/20 06/24/22 simvastatin 20 mg tablet 20 mg PO DAILY 05/11/20 06/24/22 scopolamine base 1 mg over 3 days 1 patch topical Q3D 08/16/21 06/24/22 transdermal patch cholecalciferol (vitamin D3) 25 25 mcg PO DAILY 09/10/21 06/24/22 mcg (1,000 unit) tablet (Vitamin D3) simvastatin 40 mg tablet 40 mg PO DAILY 12/06/21 06/24/22 clobetasol 0.05 % topical cream g topical 05/27/22 06/24/22 Previous Rx's Medication Instructions Recorded warfarin 2.5 mg tablet 2.5 mg PO DAILY #90 tabs 01/21/20 metoclopramide HCl 10 mg tablet 10 mg PO Q6H PRN nausea and 11/15/21 (Reglan) vomiting #14 tabs sumatriptan succinate 50 mg tablet 50 mg PO Q2-4H PRN migraine 09/27/22 headache #7 tabs Allergies Allergy/AdvReac Type Severity Reaction Status Date / Time erythromycin base Allergy Unknown Nausea and Verified 09/09/22 09:38 [ERYTHROMYCIN BASE] Vomiting Review of Systems Review of Systems: Constitutional : No Weight loss, No Fever, No Chills, No Night Sweats, No Fatig ue, No Malaise ENT/Mouth : No Hearing loss, No Ear Pain, No Nasal Congestion, No Sinus Pain, No Hoarseness, No sore throat, No Rhinorrhea, No Swallowing Difficulty Eyes: No Eye Pain, No Swelling, No Redness, No Foreign Body, No Discharge, No Vision Changes Cardiovascular : No Chest Pain, No SOB, No Dyspnea on Exertion, No Orthopnea, No Edema, No Palpitations Respiratory : No Cough, No Sputum, No Wheezing, No Smoke Exposure, No Dyspnea Gastrointestinal : No Nausea, No Vomiting, No Diarrhea, No Constipation, No abdominal Pain, No Hematochezia, No Melena Genitourinary : no irregular bleeding, No Dysuria, No Urinary Frequency, No Hematuria, No Urinary Incontinence, No Urgency, No Flank Pain, No Urinary Flow Changes, No Hesitancy Musculoskeletal : No joint pain, No Myalgias, No Joint Swelling Skin : No Skin Lesions, No rash Neuro : No Weakness, No Numbness, No Paresthesias, No Loss of Consciousness, No Dizziness, complaining of Headache Psych : No Anxiety/Panic, No Depression, No SI/HI/AH/VH, No Social Issues, Heme/Lymph: No Bruising, No Bleeding,No Lymphadenopathy Endocrine : No Polyuria, No Polydipsia, No Temperature Intolerance [facility] Past Medical History Medical History Anxiety and depression Arthritis Elevated cholesterol Factor 5 Leiden mutation, heterozygous History of CVA (cerebrovascular accident) HTN (hypertension) Hypothyroidism On anticoagulant therapy KRYSTAL on CPAP Post-traumatic osteoarthritis of left knee Unilateral primary osteoarthritis, left knee (~2014) Surgical History History of repair of anterior cruciate ligament of left knee Hx of colonoscopy Hx of left knee surgery Family History Family History Father No problems noted. Mother No problems noted. 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 Oriented X3. No acute distress. Eyes: Pupils equal, round and reactive to light. ENT: Pharynx normal. Neck: Normal inspection. Neck supple. No lymph nodes noted. No crepitus CVS: Normal heart rate and rhythm. Pulses normal. Normal S1 and S2 Respiratory: No respiratory distress. Breath sounds normal. No Wheezing. No rales Abdomen: Soft and nontender. No rigidity. No distention. Skin: Skin warm and dry. Normal skin color. Normal skin turgor. Extremities: No lower extremity edema. No Lacerations. No Rash Neuro: Oriented X 3. No motor deficit. No sensory deficit. Moving all extremities. No slurred speech. CN 2 through 12 grossly intact Psych: calm, cooperative, normal affect Medications Administered Discontinued Medications Generic Name Dose Route Start Last Admin Trade Name Freq PRN Reason Stop Dose Admin Diphenhydramine HCl 25 mg 09/26/22 23:49 09/27/22 00:31 Diphenhydramine Hcl 50 Mg/Ml Vial IVPUSH 09/26/22 23:50 25 mg ONCE ONE Administration Sodium Chloride 1,000 mls @ 999 mls/hr 09/26/22 23:49 09/27/22 01:51 Ns IVCONT 09/27/22 00:49 Infused .Q1H1M ONE Infusion Metoclopramide HCl 10 mg 09/26/22 23:49 09/27/22 00:31 Metoclopramide Hcl 10 Mg/2 Ml Vial IVPUSH 09/26/22 23:50 10 mg ONCE ONE Administration Morphine Sulfate 4 mg 09/26/22 23:49 09/27/22 00:31 Morphine Sulfate 4 Mg/Ml Cartridge IVPUSH 09/26/22 23:50 4 mg ONCE ONE Administration Protocol Medical Decision Making Medical Decision Making [facility] Narrative: My interpretation of CT scan, no intracranial bleed -patient feeling much better, headache nearly resolved Radiology Impression Discussion of test interpretation with radiology: I have reviewed the radiologist's reading. Radiologist Impression: FINDINGS: There is no evidence of acute intracranial hemorrhage or territorial infarction. No abnormal mass effect or midline shift is seen. Chaves to white matter differentiation is well preserved. No extra-axial fluid collections are identified. No hydrocephalus. Proportional prominence of the ventricles and sulcal spaces is consistent with mild volume loss. Patchy periventricular and deep white matter hypoattenuation is consistent with mild small vessel ischemic changes. Chronic right-sided encephalomalacia. The osseous structures and soft tissues are normal. The mastoid air cells and visualized portions of the paranasal sinuses are well aerated. ? CT/CT head/brain wo IV con IMPRESSION: No acute intracranial pathology. Chronic volume loss with small vessel ischemic change. Discharge Plan Discharge Clinical Impression: Migraine Patient Disposition: Home, Self-Care Instructions: Migraine Headache (ED) Additional Instructions: Please follow-up with your primary care physician tomorrow. If you have any worsening or new symptoms, please return to the emergency room or call 911 Prescriptions: New sumatriptan succinate 50 mg tablet 50 mg PO Q2-4H PRN (Reason: migraine headache) Qty: 7 0RF Rx Instructions: do not exceed 4 doses per 24 hrs No Action cholecalciferol (vitamin D3) [Vitamin D3] 25 mcg (1,000 unit) Tablet 25 mcg PO DAILY metoclopramide HCl [Reglan] 10 mg tablet 10 mg PO Q6H PRN (Reason: nausea and vomiting) Qty: 14 0RF gabapentin 100 mg capsule 200 mg PO DAILY simvastatin 20 mg tablet 20 mg PO DAILY citalopram 40 mg tablet 40 mg PO DAILY warfarin 2.5 mg tablet 2.5 mg PO DAILY Qty: 90 0RF Protocol: Dose Management Condition: Friday (Week One) Dose/Route: 1.25 mg Instruction: 0.5 x 2.5 mg tablets Condition: Friday Dose/Route: 2.5 mg Instruction: 1 x 2.5 mg tablet Condition: Friday Dose/Route: 2.5 mg Instruction: 1 x 2.5 mg tablet Condition: Friday Dose/Route: 2.5 mg Instruction: 1 x 2.5 mg tablet Condition: Dose/Route: 2.5 mg Instruction: 1 x 2.5 mg tablet Condition: Friday Dose/Route: 2.5 mg Instruction: 1 x 2.5 mg tablet Condition: Friday Dose/Route: 2.5 mg Instruction: 1 x 2.5 mg tablet Condition: Friday (Week Two) Dose/Route: 1.25 mg Instruction: 0.5 x 2.5 mg tablets Condition: Friday Dose/Route: 2.5 mg Instruction: 1 x 2.5 mg tablet Condition: Friday Dose/Route: 2.5 mg Instruction: 1 x 2.5 mg tablet Condition: Friday Dose/Route: 2.5 mg Instruction: 1 x 2.5 mg tablet Condition: Dose/Route: 2.5 mg Instruction: 1 x 2.5 mg tablet Condition: Friday Dose/Route: 2.5 mg Instruction: 1 x 2.5 mg tablet Condition: Friday Dose/Route: 2.5 mg Instruction: 1 x 2.5 mg tablet Protocol Text: Adjustment Start Date: Friday09/09/22 INR Value: 2.6 INR Date: 09/09/22 Recheck Date: 10/07/22 levothyroxine 50 mcg tablet 50 mcg PO DAILY lisinopril 20 mg tablet 20 mg PO DAILY scopolamine base 1 mg over 3 days patch 3 day 1 patch topical Q3D simvastatin 40 mg tablet 40 mg PO DAILY clobetasol 0.05 % cream topical
[2022-09-27] MEDS: diphenhydrAMINE HCL 50 MG/ML VIAL 25 MG IVPUSH (00:31)
[2022-09-27] MEDS: 0.9 % Sodium Chloride 1,000 ML 999 ML IVCONT (00:31)
[2022-09-27] MEDS: Morphine Sulfate 4 MG/ML CARTRIDGE IVPUSH (00:31)
[2022-09-27] MEDS: Metoclopramide HCl 10 MG/2 ML VIAL IVPUSH (00:31)
[2022-09-27 00:41] VITALS: BP 119/56; PULSE 62; RESP 17; O2SAT 96
== END 2022-09-27 02:54 | disposition home or self-care (01) ==
PROVIDERS: Emergency Provider Emergency Medicine; PCP Internal Medicine
DX: G43.909 Migraine, unspecified, not intractable, without status migrainosus (principal); I10 Essential (primary) hypertension; E78.5 Hyperlipidemia, unspecified; Z79.01 Long term (current) use of anticoagulants; Z79.899 Other long term (current) drug therapy
CPT/HCPCS: 70450; 96361; 96374; 96375; 99283; 99284; J1200; J2270; J2765

== ENCOUNTER → 2022-10-07 09:39 | Outpatient (BNVA) | payer OTHER, SELFPAY | PROVIDERS: PCP Internal Medicine; Visit Provider Internal Medicine | DX: Z86.73 Personal history of transient ischemic attack (TIA), and cerebral infarction without residual deficits (principal); Z79.01 Long term (current) use of anticoagulants; Z51.81 Encounter for therapeutic drug level monitoring | CPT/HCPCS: 85610; 99211 ==

== ENCOUNTER → 2022-10-21 10:11 | Outpatient (BNVA) | payer OTHER, SELFPAY | PROVIDERS: PCP Internal Medicine; Visit Provider Internal Medicine | DX: Z86.73 Personal history of transient ischemic attack (TIA), and cerebral infarction without residual deficits (principal); Z79.01 Long term (current) use of anticoagulants; Z51.81 Encounter for therapeutic drug level monitoring | CPT/HCPCS: 85610; 99211 ==

== ENCOUNTER 2022-11-05 09:56 | Outpatient (AMB) | payer OTHER, SELFPAY ==
--- NOTE | 2022-11-05 10:02 | MHC.OFFVISCO ---
Intake Intake Visit Reasons: Anticoagulation Allergies erythromycin base [ERYTHROMYCIN BASE] Allergy (Unknown, Verified 11/05/22 09:58) Nausea and Vomiting Medication List - Last Reconciled 11/05/22 by Clemencia Morales RN cholecalciferol (vitamin D3) (Vitamin D3) 25 mcg PO DAILY citalopram 40 mg PO DAILY clobetasol 0.05% grams topical gabapentin 200 mg PO DAILY levothyroxine 50 mcg PO DAILY lisinopril 20 mg PO DAILY metoclopramide HCl (Reglan) 10 mg PO Q6H PRN simvastatin 20 mg PO DAILY simvastatin 40 mg PO DAILY sumatriptan succinate 50 mg PO Q2-4H PRN warfarin 2.5 mg See Protocol PO DAILY Nursing Note INR: 2.3- in therapeutic range Medications and supplements reviewed- no changes No changes in health, diet, medications, or supplements, Denies any signs and symptoms of bleeding or bruising or clotting. Bleeding, bruising, clotting discussed Nutritional guidance given Dose: 2.5mg x 6, 1.25mg x 1 F/U INR: pt req 4 weeks Patient verbalizes understanding of instructions given Anti-Coag Initial Assessment Social Hx Patient Tobacco Use Status: Never used Tobacco alcohol intake: never Alcohol intake frequency: does not drink Coding Level of Care Code Est Patient Level 1 Diagnoses Current use of anticoagulant therapy Z79.01 Results AMB INR Fingerstick AMB INR Fingerstick 2.3 Last Edit by Clemencia Morales RN on 11/05/22 10:03 Assessment & Plan Assessment & Plan (1) Current use of anticoagulant therapy: Code(s): Z79.01 - intermission 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
[2022-11-05 10:03] LABS: ~PT, ~INR - Anti Coag Clinic 2.3 (0.9-1.1)
== END 2022-11-05 10:06 | disposition home or self-care (01) ==
LOC: HO.ACS 09:56
PROVIDERS: PCP Internal Medicine; Visit Provider Internal Medicine
DX: Z79.01 Long term (current) use of anticoagulants (principal)

== ENCOUNTER → 2022-11-05 09:56 | Outpatient (BNVA) | payer OTHER, SELFPAY | PROVIDERS: PCP Internal Medicine; Visit Provider Internal Medicine | DX: Z86.73 Personal history of transient ischemic attack (TIA), and cerebral infarction without residual deficits (principal); Z79.01 Long term (current) use of anticoagulants; Z51.81 Encounter for therapeutic drug level monitoring | CPT/HCPCS: 85610; 99211 ==

== ENCOUNTER 2022-12-02 10:05 | Outpatient (AMB) | payer OTHER, SELFPAY ==
--- NOTE | 2022-12-02 10:18 | MHC.OFFVISCO ---
Intake Intake Visit Reasons: Anticoagulation Allergies erythromycin base [ERYTHROMYCIN BASE] Allergy (Unknown, Verified 12/02/22 10:06) Nausea and Vomiting Medication List - Last Reconciled 12/02/22 by Alexsandra Brar RN cholecalciferol (vitamin D3) (Vitamin D3) 25 mcg PO DAILY citalopram 40 mg PO DAILY clobetasol 0.05% grams topical gabapentin 200 mg PO DAILY levothyroxine 50 mcg PO DAILY lisinopril 20 mg PO DAILY metoclopramide HCl (Reglan) 10 mg PO Q6H PRN simvastatin 20 mg PO DAILY simvastatin 40 mg PO DAILY sumatriptan succinate 50 mg PO Q2-4H PRN warfarin 2.5 mg See Protocol PO DAILY Nursing Note INR: 2.5 in therapeutic range Medications and supplements reviewed No changes in health, diet, medications, or supplements, Denies any signs and symptoms of bleeding or bruising or clotting. Bleeding, bruising, clotting discussed Nutritional guidance given Dose: 1.25MG X 1 DAY/ 2.5MG X 6 DAYS F/U INR: 1 MONTH Patient verbalizes understanding of instructions given Anti-Coag Initial Assessment Social Hx Patient Tobacco Use Status: Never used Tobacco alcohol intake: never Alcohol intake frequency: does not drink Coding Level of Care Code Est Patient Level 1 Diagnoses Current use of anticoagulant therapy Z79.01 Results AMB INR Fingerstick AMB INR Fingerstick 2.5 Last Edit by Alexsandra Brar RN on 12/02/22 10:14 MANUAL ENTRY INTERFACE FAILURE Assessment & Plan Assessment & Plan (1) Current use of anticoagulant therapy: Code(s): Z79.01 - [facility] (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
[2022-12-02 10:21] LABS: Prothrombin Time Whole Bld POC 29.6 sec (11.1-13.5); ~PT, ~INR - Anti Coag Clinic 2.5 (0.9-1.1)
== END 2022-12-02 10:28 | disposition home or self-care (01) ==
LOC: HO.ACS 10:05
PROVIDERS: PCP Internal Medicine; Visit Provider Internal Medicine
DX: Z79.01 Long term (current) use of anticoagulants (principal)

== ENCOUNTER → 2022-12-02 10:05 | Outpatient (BNVA) | payer OTHER, SELFPAY | PROVIDERS: PCP Internal Medicine; Visit Provider Internal Medicine | DX: I69.30 Unspecified sequelae of cerebral infarction (principal); Z79.01 Long term (current) use of anticoagulants; Z51.81 Encounter for therapeutic drug level monitoring | CPT/HCPCS: 85610; 99211 ==

== ENCOUNTER 2022-12-30 09:42 | Outpatient (AMB) | payer OTHER, SELFPAY ==
--- NOTE | 2022-12-30 10:09 | MHC.OFFVISCO ---
Intake Intake Visit Reasons: Anticoagulation Allergies erythromycin base [ERYTHROMYCIN BASE] Allergy (Unknown, Verified 12/30/22 10:04) Nausea and Vomiting Medication List - Last Reconciled 12/30/22 by Clemencia Morales RN cholecalciferol (vitamin D3) (Vitamin D3) 25 mcg PO DAILY citalopram 40 mg PO DAILY clobetasol 0.05% grams topical gabapentin 200 mg PO DAILY levothyroxine 50 mcg PO DAILY lisinopril 20 mg PO DAILY metoclopramide HCl (Reglan) 10 mg PO Q6H PRN simvastatin 20 mg PO DAILY simvastatin 40 mg PO DAILY sumatriptan succinate 50 mg PO Q2-4H PRN warfarin 2.5 mg See Protocol PO DAILY Nursing Note INR: 2.4- in therapeutic range Medications and supplements reviewed- no changes No changes in health, diet, medications, or supplements, Denies any signs and symptoms of bleeding or bruising or clotting. Bleeding, bruising, clotting discussed Nutritional guidance given Dose: 2.5mg x 6, 1.25mg x 1 F/U INR: 4 weeks Patient verbalizes understanding of instructions given pt wearing mask- states exposed to covid over day weekend, asymptomatic at present Anti-Coag Initial Assessment Social Hx Patient Tobacco Use Status: Never used Tobacco alcohol intake: never Alcohol intake frequency: does not drink Coding Level of Care Code Est Patient Level 1 Diagnoses Current use of anticoagulant therapy Z79.01 Results AMB INR Fingerstick AMB INR Fingerstick 2.4 Last Edit by Clemencia Morales RN on 12/30/22 10:11 Assessment & Plan Assessment & Plan (1) Current use of anticoagulant therapy: Code(s): Z79.01 - manager long term care (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
[2022-12-30 10:19] LABS: Prothrombin Time Whole Bld POC 29.3 sec (11.1-13.5); ~PT, ~INR - Anti Coag Clinic 2.4 (0.9-1.1)
== END 2022-12-30 10:23 | disposition home or self-care (01) ==
LOC: HO.ACS 09:42
PROVIDERS: PCP Internal Medicine; Visit Provider Internal Medicine
DX: Z79.01 Long term (current) use of anticoagulants (principal)

== ENCOUNTER → 2022-12-30 09:42 | Outpatient (BNVA) | payer OTHER, SELFPAY | PROVIDERS: PCP Internal Medicine; Visit Provider Internal Medicine | DX: Z86.73 Personal history of transient ischemic attack (TIA), and cerebral infarction without residual deficits (principal); Z79.01 Long term (current) use of anticoagulants; Z51.81 Encounter for therapeutic drug level monitoring | CPT/HCPCS: 85610; 99211 ==

== ENCOUNTER 2023-01-28 09:28 | Outpatient (AMB) | payer OTHER, SELFPAY ==
--- NOTE | 2023-01-28 09:59 | MHC.OFFVISCO ---
Intake Intake Visit Reasons: Anticoagulation Allergies erythromycin base [ERYTHROMYCIN BASE] Allergy (Unknown, Verified 01/28/23 09:50) Nausea and Vomiting Medication List - Last Reconciled 01/28/23 by Daniela Valenzuela RN cholecalciferol (vitamin D3) (Vitamin D3) 25 mcg PO DAILY citalopram 40 mg PO DAILY clobetasol 0.05% grams topical gabapentin 200 mg PO DAILY levothyroxine 50 mcg PO DAILY lisinopril 20 mg PO DAILY metoclopramide HCl (Reglan) 10 mg PO Q6H PRN simvastatin 20 mg PO DAILY simvastatin 40 mg PO DAILY sumatriptan succinate 50 mg PO Q2-4H PRN warfarin 2.5 mg See Protocol PO DAILY Nursing Note Amb to ACS slowly using cane amb very slowly, sts left knee really hurting sts she had a cortisone injection about a month ago it has been swollen since denies any bruising to the area, sts she is seeing ortho today pain 10/10 and not taking tylenol a lot, sts it only feels better when she is off it Medications and supplements reviewed No other changes in health, diet, medications, or supplements Denies any unusual signs and symptoms of bruising, bleeding Denies any new Chest pain, SOB, or clotting INR: 1.9 below therapeutic range Nutritional guidance given: no greens today then balance greens and reds in diet Dose: increase dose today to 3.75mg then resume usual dosing; 1.25mg on Sundays and 2.5mg all other days F/U INR: 2 weeks Patient verbalizes understanding of instructions given with accurate read back/ teach back of dosing, gentle reminder to keep us informed of med changes, injections and immunizations Anti-Coag Initial Assessment Social Hx Patient Tobacco Use Status: Never used Tobacco alcohol intake: never Alcohol intake frequency: does not drink Questionnaires HAS-BLED Does the patient had uncontrolled Hypertension?: No Does the patient have renal disease?: No Does the patient have liver disease?: No Does the patient have a history of stroke?: Yes Has the patient had major bleeding or predisposition to bleeding?: No Does the patient have labile INRs?: No Is the patient on medications that gives them a predisposition to bleeding?: Yes Does the patient use alcohol?: No HAS-BLED Score: 2 CHADSVASC Age: <65 Gender: Female Does the patient have a history of CHF?: No Does the patient have a history of Hypertension?: Yes Does the patient have a history of Stroke/TIA/Thromboembolism?: Yes Does the patient have a history of Vascular Disease (prior VA, PAD or aortic plaque)?: Yes Does the patient have a history of Diabetes?: No CHADS VACS Score: 5 Yuan Prediction Score Rsk VTE Active Cancer: No Previous VTE, excluding superficial vein thrombosis: No Reduced mobility: Yes Already known Thrombophilic Condition: Yes With-in last month Trauma and/or Surgery: No Elderly 70 year or older: No Heart and/or Respiratory Failure: Yes Acute Myocardial infarction and/or Ischemic Stroke: Yes Acute Infection and/or Rheumatologic Disorder: No Obesity (BMI 30 or greater): Yes Ongoing Hormonal Treatment: No Score: 9 Yuan Score less than 4; Low Risk of VTE Yuan Score 4 or greater; High Risk of VTE Coding Level of Care Code Est Patient Level 1 Diagnoses Current use of anticoagulant therapy Z79.01 Time Spent (min) 15 Results AMB INR Fingerstick AMB INR Fingerstick 1.9 Last Edit by Daniela Valenzuela RN on 01/28/23 09:57 interface failure Assessment & Plan Assessment & Plan (1) Current use of anticoagulant therapy: Code(s): 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
== END 2023-01-28 10:16 | disposition home or self-care (01) ==
LOC: HO.ACS 09:28
PROVIDERS: PCP Internal Medicine; Visit Provider Internal Medicine
DX: Z79.01 Long term (current) use of anticoagulants (principal)

== ENCOUNTER → 2023-01-28 09:28 | Outpatient (BNVA) | payer OTHER, SELFPAY | PROVIDERS: PCP Internal Medicine; Visit Provider Internal Medicine | DX: Z86.73 Personal history of transient ischemic attack (TIA), and cerebral infarction without residual deficits (principal); Z79.01 Long term (current) use of anticoagulants; Z51.81 Encounter for therapeutic drug level monitoring | CPT/HCPCS: 85610; 99211 ==

== ENCOUNTER 2023-01-28 15:39 | Emergency (ER) | payer OTHER, SELFPAY ==
[2023-01-28 15:57] VITALS: BP 132/60; PULSE 68; RESP 18; TEMP 36.7; O2SAT 92
[2023-01-28 16:02] VITALS: BP 130/90; PULSE 76; O2SAT 94; BMI 38.8
--- NOTE | 2023-01-28 16:10 | PC.NURSE ---
a&ox3, vss. pt biba after trying to get out of car and falling on pavement. +headstrike, +thinners, -LOC. pt verbalizes no headache/dizziness/lightheadedness prior to fall. only complaint from pt at this time is 5/10 bilateral knee pain d/t pt falling on knees onto pavement. pt has hx of anxiety and states she is feeling anxious at this time. pt has sister bedside for support. pt currently resting comfortably in stretcher in no apparent distress.
--- NOTE | 2023-01-28 16:21 | ED_ITS ---
HPI - Fall General Chief Complaint: Fall Stated Complaint: Fall from standing,+thinners, hit face, lac on lip Time Seen by Provider: 01/28/23 16:00 Source: patient and EMS Mode of arrival: EMS Limitations: no limitations History of Present Illness HPI Narrative: Patient is a 57-year-old female who presents to the emergency department via EMS for evaluation after mechanical trip and fall. She states while getting out of the car today she was utilizing her cane but her foot caught the door frame and she subsequently fell forward striking her face onto the pavement. She denies loss of consciousness. Her sister was nearby going to unlock the house and she turned around immediately when she heard the fall and patient was stating ?call 911?. She is anticoagulated with Coumadin due to history of stroke, she reports outpatient INR today of 1.9. She has lacerations to the upper lip, bleeding currently controlled. Reporting left lateral neck pain. Endorsing acute on chronic left knee pain. Denies any precipitating symptoms, headache, dizziness, lightheadedness, vision changes, facial pain, loose dentition, chest pain, shortness of breath, abdominal pain, numbness or tingling of the extremities Related Data Home Medications Medication Instructions Recorded Confirmed levothyroxine 50 mcg tablet 50 mcg PO DAILY 02/11/20 01/29/23 lisinopril 20 mg tablet 20 mg PO DAILY 02/11/20 01/29/23 citalopram 40 mg tablet 40 mg PO DAILY 05/11/20 01/29/23 gabapentin 100 mg capsule 200 mg PO BEDTIME 05/11/20 01/29/23 simvastatin 20 mg tablet 20 mg PO BEDTIME 05/11/20 01/29/23 cholecalciferol (vitamin D3) 25 25 mcg PO DAILY 09/10/21 01/29/23 mcg (1,000 unit) tablet (Vitamin D3) simvastatin 40 mg tablet 40 mg PO BEDTIME 12/06/21 01/29/23 clotrimazole-betamethasone 1 1 appl topical BID 01/28/23 01/29/23 %-0.05 % topical cream warfarin 2.5 mg tablet 2.5 mg PO .COMPLEX 01/29/23 01/29/23 Previous Rx's Medication Instructions Recorded sumatriptan succinate 50 mg tablet 50 mg PO Q2-4H PRN migraine 09/27/22 headache #7 tabs walker #1 ea 01/29/23 Allergies Allergy/AdvReac Type Severity Reaction Status Date / Time erythromycin base Allergy Unknown Nausea and Verified 01/29/23 13:31 [ERYTHROMYCIN BASE] Vomiting Review of Systems 2 Review of Systems: Yes all other systems are reviewed and are negative [facility] Past Medical History Attestation statement: The following information was validated with the patient. Source: old records reviewed Medical History Factor 5 Leiden mutation, heterozygous Arthritis KRYSTAL on CPAP Anxiety and depression History of CVA (cerebrovascular accident) Hypothyroidism Elevated cholesterol HTN (hypertension) On anticoagulant therapy Post-traumatic osteoarthritis of left knee Unilateral primary osteoarthritis, left knee (~2014) Surgical History Hx of left knee surgery History of repair of anterior cruciate ligament of left knee Hx of colonoscopy Family History Family History Father No problems noted. Mother No problems noted. 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 No acute distress.?Normal affect. Head: Normocephalic, atraumatic Eyes: Pupils equal, round and reactive to light.? EOMI. No nystagmus. ENT: Pharynx normal.??Dentition normal. Neck: Normal inspection.? Neck supple.? No midline cervical spine tenderness, step-offs, deformities. Mild tenderness upon palpation of the left SCM.? CVS: Heart sounds normal. Normal heart rate and rhythm.? Pulses normal.?? Respiratory: No respiratory distress.? Lung sounds clear to auscultation bilaterally?? Abdomen: Soft and non-tender. Normoactive bowel sounds. No pulsatile mass.?? Skin: Skin warm and dry.? Normal skin color.? Superficial abrasions to the bilateral knees, no active bleeding. 2 ).5cm linear lacerations beneath the right knee there, edges well approximated, no active bleeding. To abrasions to the vermilion border of the upper lip no active bleeding Extremities: Chronic left lower extremity 2+ pitting edema. Bilateral knee effusions. Decreased AROM to the left knee. Full AROM to the right knee. 2+ DP/PT pulse bilaterally.? No calf ttp? Neuro: Moves all extremities spontaneously. Sensation intact bilaterally. CN II- XII intact. No focal neuro deficits. Course Reevaluation(s) Reevaluation #1: CT of the head without acute intracranial pathology, CT of the cervical spine and facial bones without acute fracture, dislocation, subluxation. Lacerations to the upper lip were extensively cleansed and irrigated with saline, repaired with Steri-Strips in tolerated procedure well. CBC reveals a mild leukocytosis of 12.2 with left shift, she is without any infectious symptoms; URI, cough, shortness of breath, GI/ symptoms. Will obtain urinalysis to exclude. INR below goal, she already has orders from outpatient Coumadin clinic for dosage titration and follow-up. BMP is overall unremarkable. Time: 18:58 Reevaluation #2: Urinalysis with 1+ leukocyte esterase, WBC, 2+ urine bacteria with squamous epithelial cell also present, she is asymptomatic, suspect likely urogenital contamination. Culture was sent, at this time do not recommend treatment with antibiotic. She was able to ambulate to the bathroom with staff assistance. Both her and her sister who provides care for her expressed their concerns about her to be able to go home safely getting in and out of the car and in and out of the house with just a cane. I discussed with them case management/physical therapy evaluation to which they are both agreeable. Med reconciliation will be completed. And she is placed under physician observation at this time so that assessment can occur. She is in no apparent distress. Respirations are regular even nonlabored. Time: 20:05 Reevaluation #3: At this time observation will be continued, patient common cooperative no acute distress uneventful night. Pending PT and case management. Medications Administered Generic Name Dose Route Start Last Admin Trade Name Alia PRN Reason Stop Dose Admin Atorvastatin Calcium 10 mg 01/28/23 22:45 01/28/23 22:56 Atorvastatin Calcium 10 Mg Tablet PO 10 mg BEDTIME DOROTHY Administration Atorvastatin Calcium 20 mg 01/28/23 22:45 01/28/23 22:56 Atorvastatin Calcium 20 Mg Tablet PO 20 mg BEDTIME DOROTHY Administration Escitalopram Oxalate 20 mg 01/29/23 09:00 01/29/23 08:01 Escitalopram Oxalate 20 Mg Tablet PO 20 mg DAILY DOROTHY Administration Gabapentin 200 mg 01/28/23 22:45 01/28/23 22:56 Gabapentin 100 Mg Capsule PO 200 mg BEDTIME DOROTHY Administration Levothyroxine Sodium 50 mcg 01/29/23 06:00 01/29/23 06:10 Levothyroxine Sodium 50 Mcg Tablet PO 50 mcg DAILY@0600 DOROTHY Administration Lisinopril 20 mg 01/29/23 09:00 01/29/23 08:01 Lisinopril 20 Mg Tablet PO 20 mg DAILY DOROTHY Administration Protocol Nystatin/Triamcinolone Acetonide 1 appl 01/29/23 09:00 01/29/23 09:46 Nystatin/Triamcinolone Cream 15 Gm Tube TOPICAL 1 appl BID DOROTHY Administration Vitamin D 25 mcg 01/29/23 09:00 01/29/23 08:01 Cholecalciferol (Vitamin D3) 25 Mcg Tablet PO 25 mcg DAILY DOROTHY Administration Discontinued Medications Generic Name Dose Route Start Last Admin Trade Name Alia PRN Reason Stop Dose Admin Acetaminophen 975 mg 01/28/23 18:03 01/28/23 18:24 Acetaminophen 325 Mg Tablet PO 01/28/23 18:04 975 mg ONCE ONE Administration Warfarin Sodium 3.75 mg 01/28/23 22:45 01/28/23 22:55 Warfarin Sodium 1.25 Mg Halftab PO 01/28/23 22:46 3.75 mg ONCE ONE Administration Medical Decision Making Medical Decision Making [facility] Narrative: Patient is a 57-year-old female past medical history of factor 5 mutation, arthritis, obstructive sleep apnea on CPAP, anxiety, depression, history of CVA on Coumadin, hypothyroidism, hyperlipidemia, hypertension presenting to emergency department via EMS for evaluation after mechanical fall from standing with head strike no loss of consciousness. She has no focal neurological deficits upon examination. Lacerations as per physical exam will require additional cleansing, discussed repair of upper lip, may be amenable to repair with Steri-Strips as per patient's preference, should she not have any active bleeding. Abrasions to the vermilion border left be amenable to any suture repair. Plan to obtain CT of the head and cervical spine to exclude ICH, SDH, fracture, or traumatic subluxation. In addition will obtain XR of the left knee to exclude fracture dislocation. All extremities are neurovascularly intact distally. Basic labs to be obtained. Case management and physical therapy evaluated the patient, recommendations: Home with VNA services and a walker, patient being discharged home with family Differential Diagnosis Differential Diagnoses: The differential diagnosis associated with the presentation includes (As noted above) Admission/Observation Consideration of admission/observation: Escalation of care including admission/observation considered (See course narrative for further detail) Lab Data MDM Lab Attestation statement: I reviewed the patient's lab results. 01/28/23 18:12 01/28/23 18:12 Labs: Lab Results 01/28/23 01/28/23 01/29/23 Range/Units 18:12 19:21 07:47 WBC 12.2 H (4.8-10.8) X10*3/uL RBC 4.95 (4.20-5.50) X10*6/uL Hgb 13.9 (12.0-16.0) g/dl Hct 44.1 (37.0-47.0) % MCV 89.1 (80.0-98.0) fL MCH 28.1 (27.0-33.0) pg MCHC 31.5 (31.0-35.0) g/dl RDW 14.8 (11.0-16.0) % Plt Count 310 (160-400) X10*3/uL MPV 10.4 (9.4-12.3) fL Immature Gran % (Auto) 0.2 (0.0-0.4) % Neut % (Auto) 80.9 H (45-73) % Lymph % (Auto) 12.5 L (20-40) % Faulk % (Auto) 5.6 (2-11) % Eos % (Auto) 0.6 (0-4) % Baso % (Auto) 0.2 (0-2) % Lymph # (Auto) 1.5 (1.2-4.9) X10*3/uL Faulk # (Auto) 0.7 (0.1-1.2) X10*3/uL Eos # (Auto) 0.1 (0.0-0.4) X10*3/uL Baso # (Auto) 0.0 (0.0-0.2) X10*3/uL Abs Immat Gran (auto) 0.03 (0.00-0.03) X10*3/uL Absolute Neuts (auto) 9.8 H (2.0-8.3) x10*3/uL Absolute Nucleated RBC 0.000 (0.0-0.012) X10*3/uL Nucleated RBC % (auto) 0.0 (0.0-0.2) /100WBC PT 23.3 H 26.8 H (11.1-13.3) SEC INR 1.9 H 2.2 H (0.9-1.1) Sodium 140 (135-145) mmol/L Potassium 4.9 D (3.3-5.1) mmol/L Chloride 103 (96-108) mmol/L Carbon Dioxide 24 (22-29) mmol/L Anion Gap 18 (12-20) BUN 14 (9-16) mg/dL Creatinine 0.84 (0.5-1.4) mg/dL Estim Creat Clear Calc 74.8 Estimated GFR > 60 Random Glucose 110 (60-115) mg/dL Calcium 11.2 H (8.4-10.2) mg/dL Urine Color Yellow Urine Appearance Clear Urine pH 6.0 (5.0-9.0) Ur Specific Moore 1.020 (1.005-1.025) Urine Protein Negative (Neg-Trace) mg/dL Urine Glucose (UA) Negative (Negative) mg/dL Urine Ketones Trace (Negative) mg/dL Urine Blood Negative (Negative) Urine Nitrite Negative (Negative) Ur Leukocyte Esterase Small (1+) H (Negative) Urine RBC 3-5 H (0-2) /HPF Urine WBC 0-5 (0-5) /HPF Ur Squamous Epith Cells 6-10 (0-2) /HPF Urine Bacteria 2+ (None Seen) Hyaline Casts 0-2 (0-2) /LPF Independent Interpretation I performed an independent interpretation of an: Plain X-Ray (I personally interpreted x-ray imaging of the left knee, agree with radiologist impression, no acute fracture/ dislocation.) Radiology Impression Discussion of test interpretation with radiology: I have reviewed the radiologist's reading. Radiologist Impression: XR/XR knee LT 4V IMPRESSION: Tricompartment arthritis and small joint effusion. No fracture or dislocation. Postsurgical changes from ACL repair. CT/CT head/brain wo IV con IMPRESSION: No acute intracranial findings. Old infarcts similar to previous exams. CT/CT facial bones wo IV con IMPRESSION: No nasal bone fracture seen. CT/CT cervical spine wo IV con IMPRESSION: No fracture or dislocation. Fleischner guidelines were followed. Independent Historian Clinical information obtained from an independent historian. History obtained from or confirmed by: EMS and Other (Sister present at bedside who confirms history) External Record Review External record reviewed: Outpatient record and Prior outpatient labs Discharge Plan Discharge Clinical Impression: Acute head injury without loss of consciousness, Fall Patient Disposition: Home, Self-Care Instructions: Fall Prevention (ED) Prescriptions: New (DME) walker Misc See Rx Instructions .Route Qty: 1 0RF Rx Instructions: As directed No Action cholecalciferol (vitamin D3) [Vitamin D3] 25 mcg (1,000 unit) Tablet 25 mcg PO DAILY sumatriptan succinate 50 mg tablet 50 mg PO Q2-4H PRN (Reason: migraine headache) Qty: 7 0RF Rx Instructions: do not exceed 4 doses per 24 hrs clotrimazole-betamethasone 1-0.05 % cream 1 appl topical BID warfarin 2.5 mg tablet 2.5 mg PO .COMPLEX Protocol: Dose Management Condition: Friday (Week One) Dose/Route: 1.25 mg Instruction: 0.5 x 2.5 mg tablets Condition: Friday Dose/Route: 2.5 mg Instruction: 1 x 2.5 mg tablet Condition: Friday Dose/Route: 3.75 mg Instruction: 1.5 x 2.5 mg tablets Condition: Friday Dose/Route: 2.5 mg Instruction: 1 x 2.5 mg tablet Condition: Dose/Route: 2.5 mg Instruction: 1 x 2.5 mg tablet Condition: Friday Dose/Route: 2.5 mg Instruction: 1 x 2.5 mg tablet Condition: Friday Dose/Route: 2.5 mg Instruction: 1 x 2.5 mg tablet Condition: Friday (Week Two) Dose/Route: 1.25 mg Instruction: 0.5 x 2.5 mg tablets Condition: Friday Dose/Route: 2.5 mg Instruction: 1 x 2.5 mg tablet Condition: Friday Dose/Route: 2.5 mg Instruction: 1 x 2.5 mg tablet Condition: Friday Dose/Route: 2.5 mg Instruction: 1 x 2.5 mg tablet Condition: Dose/Route: 2.5 mg Instruction: 1 x 2.5 mg tablet Condition: Friday Dose/Route: 2.5 mg Instruction: 1 x 2.5 mg tablet Condition: Friday Dose/Route: 2.5 mg Instruction: 1 x 2.5 mg tablet Protocol Text: Adjustment Start Date: Friday01/29/23 INR Value: 2.2 INR Date: 01/29/23 Recheck Date: 02/05/23 Additional Instructions: KEEP EATING A MIX OF FRUITS AND VEGETABLES, IF YOUR TAKING MORE TYLENOL THAN USUAL MAKE SURE TO EAT A FEW EXTRA GREENS DURING THE WEEK Rx Instructions: 2.5 mg orally 1.25 NG SUN/ 2.5MG X 6 DAYS; gabapentin 100 mg capsule 200 mg PO BEDTIME simvastatin 20 mg tablet 20 mg PO BEDTIME citalopram 40 mg tablet 40 mg PO DAILY levothyroxine 50 mcg tablet 50 mcg PO DAILY lisinopril 20 mg tablet 20 mg PO DAILY simvastatin 40 mg tablet 40 mg PO BEDTIME Referrals: Maurizio NGUYEN [Outside]
--- NOTE | 2023-01-28 16:42 | PC.NURSE ---
pt currently being taken to xray.
--- NOTE | 2023-01-28 18:25 | PC.NURSE ---
pt c/o 5/10 headache and anxiety at this time. provider aware. medication administered per provider order. will reassess pain level shortly. family bedside for support.
[2023-01-28 18:29] LABS: Anion Gap 18 (12-20); Blood Urea Nitrogen 14 mg/dL (9-16); Calcium 11.2 mg/dL (8.4-10.2); Carbon Dioxide 24 mmol/L (22-29); Chloride 103 mmol/L (96-108); Creatinine Clr Calc Pharmacy 74.8; Estimated Glomerular Filt Rate > 60; Glucose Random 110 mg/dL (60-115); Potassium 4.9 mmol/L (3.3-5.1); Sodium 140 mmol/L (135-145)
--- NOTE | 2023-01-28 19:21 | PC.NURSE ---
pt able to ambulate w/ walker w/ advertising assistant w/o difficulty. tech obtained urine and sent to lab.
--- NOTE | 2023-01-28 20:08 | PC.NURSE ---
pt verbalizing pain level for headache decreased since medication administration. pt resting comfortably in stretcher in no apparent distress. pt and pt's sister currently speaking w/ pt about plan for future. pt and her sister currently concerned about ambulation/performing daily activities w/o difficulty at home. pt requesting walker to take home because she does not feel comfortable ambulating on her own. pt and family member aware of current plan at this time.
--- NOTE | 2023-01-28 20:19 | PC.NURSE ---
pt currently speaking w/ pharmacy about home medications.
--- NOTE | 2023-01-28 20:22 | PHA.MEDREC ---
Pharmacy Consult ? Medication Reconciliation Pharmacy has completed the medication reconciliation. Patient and patient's sister confirmed medications. Warfarin is scheduled to be one time dose 3.75 mg then back to normal schedule 2.5 mg except 1.25 mg on Friday. Rosaura Gerber, PharmD
[2023-01-28 20:43] VITALS: BP 105/47; PULSE 85; RESP 18; TEMP 36.6; O2SAT 95
[2023-01-28 21:49] VITALS: BP 120/60; PULSE 75; RESP 15; TEMP 36.1; O2SAT 95
[2023-01-28 22:00] VITALS: RESP 18
[2023-01-29] VITALS (7 sets, daily range): BP systolic 103–120; BP diastolic 50–62; PULSE 60–84; RESP 18–20; TEMP 36–36.7; O2SAT 94–96
--- NOTE | 2023-01-29 07:20 | PC.NURSE ---
Physical therapy with pt at this time. Diet order placed.
--- NOTE | 2023-01-29 08:03 | PC.NURSE ---
PT/INR drawn and sent. Medicated with AM meds. States facial pain 5/10. Steri strips intact, mod swelling noted
--- NOTE | 2023-01-29 11:16 | MHC.EDTECH ---
Assisted pt to and from bathroom with walker.
--- NOTE | 2023-01-29 13:10 | MHC.CM.ED ---
Received case management consult overnight. Patient came to the ER after a fall. Work up negative except for a facial lac. Physical therapy eval completed. Home therapy and a front wheeled walker are recommended. Patient is active with [facility]. T/W spoke with Erin at [facility]. They will authorize referral for VNA for longterm and physical therapy. Met with patient in regards to discharge planning. Patient lives with her sister, uses a cane for mobility and had no services prior to coming to the hospital. PCP verified. Patient states her sister has a copy of her HCP and will attempt to obtain a copy. Patient received 3 Moderna vaccines. Patient agreeable to referral to [facility]. Referral made via [facility]. Patient's sister, Andree came to bedside. Above information was explained. Paper Rx for front wheeled walker given to Andree. Andree will go to [facility], obtain walker and return to transport patient home. Patient, Andree, Dania BROWN and iTffanie WOODS aware. Continue to monitor for d/c needs.
--- NOTE | 2023-01-29 13:47 | MHC.EDTECH ---
Assited pt to and from bathroom w/shyann
== END 2023-01-29 17:08 | disposition home or self-care (01) ==
PROVIDERS: Nurse Practitioner Family; Emergency Provider Emergency Medicine
DX: S09.90XA Unspecified injury of head, initial encounter (principal); R26.2 Difficulty in walking, not elsewhere classified; R51.9 Headache, unspecified; M54.2 Cervicalgia; M25.562 Pain in left knee; W01.0XXA Fall on same level from slipping, tripping and stumbling without subsequent striking against object, initial encounter; Y93.9 Activity, unspecified; Y92.9 Unspecified place or not applicable; Y99.9 Unspecified external cause status; Z79.899 Other long term (current) drug therapy; Z79.01 Long term (current) use of anticoagulants
CPT/HCPCS: 36415; 70450; 70486; 72125; 73564; 80048; 81001; 85025; 85610; 87086; 97162; 99285

== ENCOUNTER → 2023-01-29 13:31 | Outpatient (BNVA) | payer OTHER, SELFPAY | PROVIDERS: Visit Provider Internal Medicine ==

== ENCOUNTER 2023-02-06 10:02 | Emergency (ER) | payer OTHER, SELFPAY ==
--- NOTE | ~2023-02-06 | CT_ITS ---
EXAMINATION: CT HEAD WITHOUT CONTRAST CLINICAL INFORMATION: Fall, head strike, loss of consciousness COMPARISON: 01/28/2023 TECHNIQUE: Contiguous axial imaging was performed from the skull base to vertex without intravenous administration of contrast. This CT examination was performed using dose optimization techniques as appropriate, variously including the following: *Automated exposure control *Adjustment of mA and/or kV according to patient size (this includes techniques or standardized protocols for targeted exams where dose is matched to indication/reason for exam; i.e. extremities or head) *Use of iterative reconstruction technique DLP: 590 mGy-cm FINDINGS: CT examination of the brain shows age-related involutional changes with prominence of the ventricles and sulci. Periventricular white matter hypodensities are evident, likely on the basis of chronic microvascular ischemic disease. Old large right frontoparietal and small left parietal infarct with encephalomalacia are unchanged. Probable old left cerebellar infarct is also unchanged in appearance. No acute hemorrhage, mass effect or shift is evident. The orbits and bony calvarium are intact. The paranasal sinuses and mastoid air cells are well pneumatized and clear. CT/CT head/brain wo IV con IMPRESSION: No significant change since 02/06/2023, includin. Age-related involutional changes and microvascular disease. 2. No acute hemorrhage, mass effect or shift. 3. No acute intracranial pathology. 4. No change in old bilateral parietal and left cerebellar infarcts.
--- NOTE | ~2023-02-06 | XR_ITS ---
EXAMINATION: XR CHEST 2 VIEW CLINICAL INFORMATION: Syncope COMPARISON: 05/12/2022 TECHNIQUE: PA and lateral views of the chest obtained. FINDINGS: The lungs are clear. There are no pleural effusions. The cardiomediastinal silhouette is normal. XR/XR chest 2V IMPRESSION: No acute cardiopulmonary disease.
--- NOTE | ~2023-02-06 | CT_ITS ---
EXAMINATION: CT CERVICAL SPINE WITHOUT CONTRAST CLINICAL INFORMATION: Neck pain, trauma. Head strike, loss of consciousness COMPARISON: Cervical spine CT of 01/28/2023 TECHNIQUE: Multiple helical unenhanced images were acquired through the cervical spine. Multiplanar computer reformatted images were acquired from the dataset in the sagittal and coronal plane. This CT examination was performed using dose optimization techniques as appropriate, variously including the following: *Automated exposure control *Adjustment of mA and/or kV according to patient size (this includes techniques or standardized protocols for targeted exams where dose is matched to indication/reason for exam; i.e. extremities or head) *Use of iterative reconstruction technique DLP: 374 mGy-cm FINDINGS: CT examination of the cervical spine shows no prevertebral soft tissue swelling. Vertebral body height and alignment are maintained. No acute fracture or subluxation is evident. The odontoid process, cervicothoracic and cervical medullary junctions are normal. There are no suspicious bone lesions. Review of individual intervertebral levels shows degenerative changes at the C1 dens articulation, as on the prior examination. No cervical mass or adenopathy is detected. Bilateral stylohyoid calcifications are noted, which can be a cause of neck pain or dysphagia. CT/CT cervical spine wo IV con IMPRESSION: 1. No acute cervical spine fracture or subluxation. No significant change since 01/28/2023 Fleischner guidelines were followed.
--- NOTE | 2023-02-06 10:16 | ED.GENADULT ---
HPI - General Adult General Chief complaint: Fall Stated complaint: FALL IN SHOWER,+LOC,+THIN,NO RECOLL Time Seen by Provider: 02/06/23 10:15 Source: patient, family (patient's sister) and EMS Mode of arrival: EMS Limitations: no limitations History of Present Illness HPI narrative: Patient is a 57 year old assigned female at with a history of stroke (on anti-coagulant medication), anxiety, HTN, and HLD presenting to the emergency department today after a fall. Patient states that she fell in the shower and does not remember what happened. Patient's sister states that the patient finished in the shower, got dizzy, and passed out, hitting her head in the shower. Patient's sister states that if the patient is medically cleared, she is not capable of comfortably caring for her at home. Patient denies any dizziness, lightheadedness, abdominal pain, nausea, vomiting, fever, chills, blurry vision, double vision, loss of vision, chest pain, difficulty breathing, shortness of breath, back pain, night sweats, pain with urination, increased urinary frequency, increased urinary urgency, blood in her urine or stool, bowel incontinence, bladder incontinence, bowel retention, bladder retention, or any other complaints at this time. Onset (ago): minute(s) Relieving factors: none Exacerbating factors: none Associated symptoms: syncope Treatments prior to arrival: none Related Data Home Medications Medication Instructions Recorded Confirmed levothyroxine 50 mcg tablet 50 mcg PO DAILY 02/11/20 01/29/23 lisinopril 20 mg tablet 20 mg PO DAILY 02/11/20 01/29/23 citalopram 40 mg tablet 40 mg PO DAILY 05/11/20 01/29/23 gabapentin 100 mg capsule 200 mg PO BEDTIME 05/11/20 01/29/23 simvastatin 20 mg tablet 20 mg PO BEDTIME 05/11/20 01/29/23 cholecalciferol (vitamin D3) 25 25 mcg PO DAILY 09/10/21 01/29/23 mcg (1,000 unit) tablet (Vitamin D3) simvastatin 40 mg tablet 40 mg PO BEDTIME 12/06/21 01/29/23 clotrimazole-betamethasone 1 1 appl topical BID 01/28/23 01/29/23 %-0.05 % topical cream warfarin 2.5 mg tablet 2.5 mg PO .COMPLEX 01/29/23 01/29/23 Previous Rx's Medication Instructions Recorded sumatriptan succinate 50 mg tablet 50 mg PO Q2-4H PRN migraine 09/27/22 headache #7 tabs walker #1 ea 01/29/23 Allergies Allergy/AdvReac Type Severity Reaction Status Date / Time erythromycin base Allergy Unknown Nausea and Verified 01/29/23 13:31 [ERYTHROMYCIN BASE] Vomiting Review of Systems Constitutional: Constitutional: Reports no additional constitutional complaints, Denies chills, Denies fever(s) and Denies night sweats Eyes: Eyes: Reports no additional eye complaints, Denies blurry vision, Denies change in vision, Denies diplopia, Denies eye discharge, Denies loss of vision and Denies eye pain ENT: Denies dizziness Cardiovascular: Cardiovascular: Reports no additional cardiovascular complaints, Denies chest pain, Reports syncope, Denies lightheadedness, Denies Loss of Consciousness and Denies dyspnea Respiratory: Respiratory: Reports no additional respiratory complaints and Denies dyspnea Gastrointestinal: Gastrointestinal: Reports no additional gastrointestinal complaints, Denies abdominal pain, Denies melena, Denies hematochezia, Denies change in bowel habits and Denies change in stool character Genitourinary: Genitourinary: Denies hematuria, Denies urinary frequency, Denies dysuria, Denies urinary incontinence, Denies urinary hesitancy and Denies urinary urgency Musculoskeletal: Musculoskeletal: Reports no additional musculoskeletal complaints, Denies numbness and Denies tingling Neurologic: Denies dizziness, Reports syncope, Denies loss of vision, Denies numbness and Denies tingling Psychiatric: Psychiatric: Reports no additional psychiatric complaints Endocrine: Endocrine: Reports no additional endocrine complaints Hematologic/Lymphatic: Hematologic/Lymphatic: Reports no additional hematologic/lymphatic complaints Allergic/Immunologic: Allergic/Immunologic: Reports no additional allergic/immunologic complaints PMFSH Past Medical History Attestation statement: The following information was validated with the patient. (all information validated with the patient's sister) Source: old records reviewed, obtained from family (patient's sister provided additional history and confirmed the history provided by the patient.) and nursing notes reviewed Medical History Factor 5 Leiden mutation, heterozygous Arthritis KRYSTAL on CPAP Anxiety and depression History of CVA (cerebrovascular accident) Hypothyroidism Elevated cholesterol HTN (hypertension) On anticoagulant therapy Post-traumatic osteoarthritis of left knee Unilateral primary osteoarthritis, left knee (~2014) Surgical History Hx of left knee surgery History of repair of anterior cruciate ligament of left knee Hx of colonoscopy Family History Family History Father No problems noted. Mother No problems noted. 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 Physical Exam ED Vital Signs: Vital Signs - 24 hr 02/06/23 10:18 02/06/23 10:49 02/06/23 11:57 Temperature 98.1 F Pulse Rate 75 66 88 Respiratory Rate 16 11 L 19 Blood Pressure 100/44 L 101/54 L 129/60 Pulse Oximetry 94 94 97 Oxygen Delivery Method Room Air Room Air Room Air 02/06/23 12:18 Temperature Pulse Rate 63 Respiratory Rate 16 Blood Pressure 124/60 Pulse Oximetry 97 Oxygen Delivery Method Room Air BMI result Body Mass Index 39.7 Const General: cooperative, no acute distress, alert and awake Nutritional Appearance: well nourished Orientation/consciousness: patient oriented x3 Limitations: no limitations [facility] Head: Yes normal to inspection and Yes atraumatic Ears: hearing grossly normal bilaterally and external ears normal General nose exam: Normal external nose present, no nasal discharge noted and no epistaxis Face and sinus: Yes normal facial exam, No abrasion and No laceration Mouth: Normal oral and palatal mucosa present, no drooling and no muffled voice Eyes General: appearance normal, both eyes and all related structures Periorbital: periorbital findings normal Eyelids: Yes eyelids normal Conjunctivae: conjunctivae normal Pupils: Equal, round and reactive pupils present EOM: EOMs intact bilaterally Neck Neck: Yes normal visual inspection, Yes full ROM and Yes no lymphadenopathy Chest Chest palpation & inspection: normal inspection of the chest Resp Effort & Inspection: normal respiratory effort and able to speak in complete sentences Auscultation: clear to auscultation bilaterally Cardio Rate: regular rate Rhythm: regular rhythm GI Inspection: Yes normal to inspection Palpation (GI): Soft to palpation, not firm, nontender and no guarding Neuro General: patient oriented x3 and moves all extremities Cranial nerves: Yes Equal, round and reactive pupils present Cognition (Neuro): normal cognition Motor exam (neuro): 5/5 motor strength present throughout Sensory Exam: Normal double simultaneous stimulation for sensation Coordination: [id number] test normal Extrem General: Yes normal to inspection, Yes full ROM and Yes capillary refill normal Psych Appearance: grossly normal Mental Status: mental status grossly normal Affect: normal affect Attitude: cooperative Thought process: Normal thought process present Thought content: Normal thought content present Insight: Good insight present (Psych) Medications Administered Discontinued Medications Generic Name Dose Route Start Last Admin Trade Name Freq PRN Reason Stop Dose Admin Sodium Chloride 1,000 mls @ 999 mls/hr 02/06/23 10:45 02/06/23 12:30 Ns IV 02/06/23 11:45 Infused .Q1H1M DOROTHY Infusion Medical Decision Making Medical Decision Making [facility] Narrative: Patient is a 57 year old assigned female at with a history of HTN and CVA presenting to the emergency department today after a fall. Patient's physical exam was as noted in the physical exam portion of this note. Patient's blood work was unremarkable. Patient's EKG was unremarkable. Patient's chest x-ray, head CT, and c-spine CTs showed no acute process. The patient's blood pressure was on the lower side of normal at 100 systolic throughout her time in the emergency department. This was without her taking her daily dose of lisinopril. I am suspicious that the patient's fall today was secondary to orthostatic hypotesnion. Patient was given IV fluid. I recommended the patient half her dose of lisinopril. I explained my physical exam findings as well as all test results to the patient and the patient's sister. I answered all questions asked by the patient and the patient's sister. Patient's sister initially expressed that she didn't feel safe taking the patient home however, the patient's parents demanded the patient be released to go home. Patient agreeable to go home and believes to be safe. I stressed the importance of the patient taking the rest of her medication as prescribed. I stressed the importance of the patient following up with her primary care provider. I stressed the importance of the patient returning to the emergency department immediately if her symptoms were to worsen or if she were to develop any dizziness, shortness of breath, difficulty breathing, chest pain, blurry vision, loss of vision, nausea, vomiting, abdominal pain, fever, chills, back pain, or any other complaints. Patient, the patient's sister, and the patient's parents verbalized agreement and understanding with this treatment plan and discharge. Differential Diagnosis Differential Diagnoses: The differential diagnosis associated with the presentation includes Hypotension Orthostatic hypotension Fall Syncope Admission/Observation Consideration of admission/observation: Escalation of care including admission/observation considered Patient would have been admitted to the hospital had her work up had any findings where hospital admission was appropriate and her clinical presentation warranted hospital admission. Lab Data MDM Lab Attestation statement: I reviewed the patient's lab results. My interpretation of these studies and their corresponding values is that they are grossly normal. 02/06/23 10:34 02/06/23 10:34 Labs: Lab Results 02/06/23 02/06/23 Range/Units 10:34 12:17 WBC 11.4 H (4.8-10.8) X10*3/uL RBC 4.74 (4.20-5.50) X10*6/uL Hgb 13.5 (12.0-16.0) g/dl Hct 42.4 (37.0-47.0) % MCV 89.5 (80.0-98.0) fL MCH 28.5 (27.0-33.0) pg MCHC 31.8 (31.0-35.0) g/dl RDW 14.7 (11.0-16.0) % Plt Count 304 (160-400) X10*3/uL MPV 10.3 (9.4-12.3) fL Immature Gran % (Auto) 0.4 (0.0-0.4) % Neut % (Auto) 74.1 H (45-73) % Lymph % (Auto) 17.1 L (20-40) % Ulster % (Auto) 6.4 (2-11) % Eos % (Auto) 1.8 (0-4) % Baso % (Auto) 0.2 (0-2) % Lymph # (Auto) 2.0 (1.2-4.9) X10*3/uL [place]ster # (Auto) 0.7 (0.1-1.2) X10*3/uL Eos # (Auto) 0.2 (0.0-0.4) X10*3/uL Baso # (Auto) 0.0 (0.0-0.2) X10*3/uL Abs Immat Gran (auto) 0.04 H (0.00-0.03) X10*3/uL Absolute Neuts (auto) 8.5 H (2.0-8.3) x10*3/uL Absolute Nucleated RBC 0.000 (0.0-0.012) X10*3/uL Nucleated RBC % (auto) 0.0 (0.0-0.2) /100WBC PT 24.6 H (11.1-13.3) SEC INR 2.0 H (0.9-1.1) APTT 36.1 (26.0-36.4) SEC Sodium 139 (135-145) mmol/L Potassium 4.6 (3.3-5.1) mmol/L Chloride 106 (96-108) mmol/L Carbon Dioxide 26 (22-29) mmol/L Anion Gap 12 (12-20) BUN 16 (9-16) mg/dL Creatinine 0.85 (0.5-1.4) mg/dL Estim Creat Clear Calc 74.8 Estimated GFR > 60 Random Glucose 137 H (60-115) mg/dL Calcium 11.0 H (8.4-10.2) mg/dL Magnesium 2.0 (1.6-2.6) mg/dL Total Bilirubin 0.3 (0.0-1.0) mg/dL AST 16 (5-31) U/L ALT 15 (0-31) U/L Alkaline Phosphatase 90 (39-117) U/L Troponin I High Sens < 2.7 (<3.5-17.0) ng/L Total Protein 7.4 (6.5-8.0) g/dL Albumin 4.2 (3.5-5.0) g/dL COVID-19 (CECILE) Negative (Negative) COVID-19 Clin Com See Note Influenza Type A (PCR) NEGATIVE (Negative) Influenza Type B (PCR) NEGATIVE (Negative) RSV RNA Qual (PCR) NEGATIVE (Negative) SARS-CoV-2 RNA (RT-PCR) NEGATIVE (Negative) Independent Interpretation I performed an independent interpretation of an: EKG, Plain X-Ray and CT Scan Interpretation: My interpretation is in agreement with the radiologist's impression of these imaging studies. EXAMINATION: CT CERVICAL SPINE WITHOUT CONTRAST CLINICAL INFORMATION: Neck pain, trauma. Head strike, loss of consciousness COMPARISON: Cervical spine CT of 01/28/2023 TECHNIQUE: Multiple helical unenhanced images were acquired through the cervical spine. Multiplanar computer reformatted images were acquired from the dataset in the sagittal and coronal plane. This CT examination was performed using dose optimization techniques as appropriate, variously including the following: *Automated exposure control *Adjustment of mA and/or kV according to patient size (this includes techniques or standardized protocols for targeted exams where dose is matched to indication/reason for exam; i.e. extremities or head) *Use of iterative reconstruction technique DLP: 374 mGy-cm FINDINGS: CT examination of the cervical spine shows no prevertebral soft tissue swelling. Vertebral body height and alignment are maintained. No acute fracture or subluxation is evident. The odontoid process, cervicothoracic and cervical medullary junctions are normal. There are no suspicious bone lesions. Review of individual intervertebral levels shows degenerative changes at the C1 dens articulation, as on the prior examination. No cervical mass or adenopathy is detected. Bilateral stylohyoid calcifications are noted, which can be a cause of neck pain or dysphagia. CT/CT cervical spine wo IV con IMPRESSION: 1. No acute cervical spine fracture or subluxation. No significant change since 01/28/2023 Fleischner guidelines were followed. Dictated By: Tony Zuñiga MD Signed By: Electronically signed by Tony Zuñiga MD 02/06/23 1138 EXAMINATION: CT HEAD WITHOUT CONTRAST CLINICAL INFORMATION: Fall, head strike, loss of consciousness COMPARISON: 01/28/2023 TECHNIQUE: Contiguous axial imaging was performed from the skull base to vertex without intravenous administration of contrast. This CT examination was performed using dose optimization techniques as appropriate, variously including the following: *Automated exposure control *Adjustment of mA and/or kV according to patient size (this includes techniques or standardized protocols for targeted exams where dose is matched to indication/reason for exam; i.e. extremities or head) *Use of iterative reconstruction technique DLP: 590 mGy-cm FINDINGS: CT examination of the brain shows age-related involutional changes with prominence of the ventricles and sulci. Periventricular white matter hypodensities are evident, likely on the basis of chronic microvascular ischemic disease. Old large right frontoparietal and small left parietal infarct with encephalomalacia are unchanged. Probable old left cerebellar infarct is also unchanged in appearance. No acute hemorrhage, mass effect or shift is evident. The orbits and bony calvarium are intact. The paranasal sinuses and mastoid air cells are well pneumatized and clear. CT/CT head/brain wo IV con IMPRESSION: No significant change since 02/06/2023, includin. Age-related involutional changes and microvascular disease. 2. No acute hemorrhage, mass effect or shift. 3. No acute intracranial pathology. 4. No change in old bilateral parietal and left cerebellar infarcts. Dictated By: Tony Zuñiga MD Signed By: Electronically signed by Tony Zuñiga MD 02/06/23 1133 EXAMINATION: XR CHEST 2 VIEW CLINICAL INFORMATION: Syncope COMPARISON: 05/12/2022 TECHNIQUE: PA and lateral views of the chest obtained. FINDINGS: The lungs are clear. There are no pleural effusions. The cardiomediastinal silhouette is normal. XR/XR chest 2V IMPRESSION: No acute cardiopulmonary disease. Dictated By: Tony Zuñiga MD Signed By: Electronically signed by Tony Zuñiga MD 02/06/23 1127 Vent. Rate: 072 BPM Atrial Rate: 072 BPM P-R Int: 144 ms QRS Dur: 072 ms QT Int: 328 ms P-R-T Axes: 029 073 041 degrees QTc Int: 359 ms Poor data quality Normal sinus rhythm Low voltage QRS Borderline ECG When compared with ECG of 12-MAY-2022 20:28, T wave inversion no longer evident in Inferior leads QT has shortened Electronically Signed By:ANN BARRIGA MD Dictated By: Medardo Barriga MD Signed By: Electronically signed by Medardo Barriga MD 02/06/23 1314 Radiology Impression Discussion of test interpretation with radiology: I have reviewed the radiologist's reading. Independent Historian Clinical information obtained from an independent historian. History obtained from or confirmed by: Parent (patient's parents provided additional history and confirmed the history provided by the patient and the patient's sister), EMS (EMS provided additional history and confirmed the history provided by the patient.) and Other (patient's sister provided additional history and confirmed the history provided by the patient and EMS) Discharge Plan Discharge Clinical Impression: Fall, Hypotension Patient Disposition: Home, Self-Care Instructions: Hypotension (ED), Fall Prevention (ED) Additional Instructions: DECREASE your LISINOPRIL to 10mg once a day (1/2 tablet). Follow up with your primary care provider. Return to the emergency department immediately if your symptoms worsen or if you develop any dizziness, shortness of breath, difficulty breathing, chest pain, blurry vision, loss of vision, nausea, vomiting, abdominal pain, fever, chills, back pain, or any other complaints. Prescriptions: No Action cholecalciferol (vitamin D3) [Vitamin D3] 25 mcg (1,000 unit) Tablet 25 mcg PO DAILY sumatriptan succinate 50 mg tablet 50 mg PO Q2-4H PRN (Reason: migraine headache) Qty: 7 0RF Rx Instructions: do not exceed 4 doses per 24 hrs clotrimazole-betamethasone 1-0.05 % cream 1 appl topical BID (DME) walker Misc See Rx Instructions .Route Qty: 1 0RF Rx Instructions: As directed warfarin 2.5 mg tablet 2.5 mg PO .COMPLEX Protocol: Dose Management Condition: Friday (Week One) Dose/Route: 1.25 mg Instruction: 0.5 x 2.5 mg tablets Condition: Friday Dose/Route: 2.5 mg Instruction: 1 x 2.5 mg tablet Condition: Friday Dose/Route: 3.75 mg Instruction: 1.5 x 2.5 mg tablets Condition: Friday Dose/Route: 2.5 mg Instruction: 1 x 2.5 mg tablet Condition: Dose/Route: 2.5 mg Instruction: 1 x 2.5 mg tablet Condition: Friday Dose/Route: 2.5 mg Instruction: 1 x 2.5 mg tablet Condition: Friday Dose/Route: 2.5 mg Instruction: 1 x 2.5 mg tablet Condition: Friday (Week Two) Dose/Route: 1.25 mg Instruction: 0.5 x 2.5 mg tablets Condition: Friday Dose/Route: 2.5 mg Instruction: 1 x 2.5 mg tablet Condition: Friday Dose/Route: 2.5 mg Instruction: 1 x 2.5 mg tablet Condition: Friday Dose/Route: 2.5 mg Instruction: 1 x 2.5 mg tablet Condition: Dose/Route: 2.5 mg Instruction: 1 x 2.5 mg tablet Condition: Friday Dose/Route: 2.5 mg Instruction: 1 x 2.5 mg tablet Condition: Friday Dose/Route: 2.5 mg Instruction: 1 x 2.5 mg tablet Protocol Text: Adjustment Start Date: Friday01/29/23 INR Value: 2.2 INR Date: 01/29/23 Recheck Date: 02/05/23 Additional Instructions: KEEP EATING A MIX OF FRUITS AND VEGETABLES, IF YOUR TAKING MORE TYLENOL THAN USUAL MAKE SURE TO EAT A FEW EXTRA GREENS DURING THE WEEK Rx Instructions: 2.5 mg orally 1.25 NG SUN/ 2.5MG X 6 DAYS; gabapentin 100 mg capsule 200 mg PO BEDTIME simvastatin 20 mg tablet 20 mg PO BEDTIME citalopram 40 mg tablet 40 mg PO DAILY levothyroxine 50 mcg tablet 50 mcg PO DAILY lisinopril 20 mg tablet 20 mg PO DAILY simvastatin 40 mg tablet 40 mg PO BEDTIME Referrals: Mustapha Bustos MD [Primary Care Provider] - Print Language: Kiswahili
[2023-02-06 10:18] VITALS: BP 100/44; BP 116/59; PULSE 75; PULSE 77; RESP 16; TEMP 36.7; O2SAT 94; O2SAT 96; BMI 39.7
--- NOTE | 2023-02-06 10:18 | ECG_ITS ---
Test Reason : fall Blood Pressure : / mmHG Vent. Rate : 072 BPM Atrial Rate : 072 BPM P-R Int : 144 ms QRS Dur : 072 ms QT Int : 328 ms P-R-T Axes : 029 073 041 degrees QTc Int : 359 ms Poor data quality Normal sinus rhythm Low voltage QRS Borderline ECG When compared with ECG of 12-MAY-2022 20:28, T wave inversion no longer evident in Inferior leads QT has shortened Referred By: Annie Connolly Electronically Signed By:ANN BARRIGA MD
[2023-02-06 10:39] LABS: MANUAL DIFF FLAG NO
--- NOTE | 2023-02-06 10:39 | PC.NURSE ---
pt BIBA from home after a fall. mechanism of fall is unclear as sister witnessed fall - awaiting sisters arrival. per EMS, pt fell in the shower, +HS, +thinners, +LOC. pt recently fell last week, was seen at a hospital but unsure which one. according to sister, pt has had increased confusion and memory impairment since last fall. pt ambulated at [facility] with a walker, occasionally a wheelchair if going long distance. pt A&Ox4. skin PWD, some erythema noted to the lower extremities. plan for imaging and pblood work, PT/CM once work up completed.
[2023-02-06 10:40] LABS: Basophils Percent Auto 0.2 % (0-2); Eosinophils Absolute Auto 0.2 X10*3/uL (0.0-0.4); Eosinophils Percent Auto 1.8 % (0-4); Hematocrit 42.4 % (37.0-47.0); Hemoglobin 13.5 g/dl (12.0-16.0); Imm Gran Abs Auto 0.04 X10*3/uL (0.00-0.03); Imm Gran Pct Auto 0.4 % (0.0-0.4); Lymphocytes Percent Auto 17.1 % (20-40); Mean Corpuscular HGB Conc 31.8 g/dl (31.0-35.0); Mean Corpuscular Hemoglobin 28.5 pg (27.0-33.0); Mean Corpuscular Volume 89.5 fL (80.0-98.0); Mean Platelet Volume 10.3 fL (9.4-12.3); Monocytes Absolute Auto 0.7 X10*3/uL (0.1-1.2); Monocytes Percent Auto 6.4 % (2-11); Neutrophils Absolute Auto 8.5 x10*3/uL (2.0-8.3); Neutrophils Percent Auto 74.1 % (45-73); Platelet Count 304 X10*3/uL (160-400); Red Blood Count 4.74 X10*6/uL (4.20-5.50); Red Cell Distribution Width 14.7 % (11.0-16.0); White Blood Count 11.4 X10*3/uL (4.8-10.8)
[2023-02-06] MEDS: 0.9 % Sodium Chloride 1,000 ML 999 ML IV (10:48)
[2023-02-06 10:49] VITALS: BP 101/54; PULSE 66; RESP 11; O2SAT 94
[2023-02-06 10:49] LABS: Prothrombin Time 24.6 SEC (11.1-13.3)
[2023-02-06 10:52] LABS: Partial Thromboplastin Time 36.1 SEC (26.0-36.4)
[2023-02-06 10:54] LABS: Alanine Aminotransferase 15 U/L (0-31); Albumin Level 4.2 g/dL (3.5-5.0); Alkaline Phosphatase 90 U/L (39-117); Anion Gap 12 (12-20); Aspartate Amino Transferase 16 U/L (5-31); Bilirubin Total 0.3 mg/dL (0.0-1.0); Blood Urea Nitrogen 16 mg/dL (9-16); Carbon Dioxide 26 mmol/L (22-29); Chloride 106 mmol/L (96-108); Creatinine Clr Calc Pharmacy 74.8; Estimated Glomerular Filt Rate > 60; Glucose Random 137 mg/dL (60-115); Potassium 4.6 mmol/L (3.3-5.1); Sodium 139 mmol/L (135-145); Total Protein 7.4 g/dL (6.5-8.0)
[2023-02-06 10:59] LABS: Troponin-I High Sensitivity < 2.7 ng/L (<3.5-17.0)
[2023-02-06 11:32] LABS: Influenza A PCR NEGATIVE (Negative); Influenza B PCR NEGATIVE (Negative); Resp Syncy Virus RNA Qual PCR NEGATIVE (Negative); SARS COV2 PCR INHOUSE NEGATIVE (Negative)
[2023-02-06 11:57] VITALS: BP 129/60; PULSE 88; RESP 19; O2SAT 97
[2023-02-06 12:18] VITALS: BP 124/60; PULSE 63; RESP 16; O2SAT 97
[2023-02-06 12:49] LABS: COVID-19 Test Negative (Negative); IDNOW Serial# 6674DD1D
--- NOTE | 2023-02-06 14:06 | MHC.CM.ED ---
Received case management consult from Annie WOODS. Patient came to the ER after a fall in the shower. Work up essentially negative. Physical therapy eval completed. Home therapy is recommended. Patient and family requested to be d/c'd prior to being seen by CM. Patient is already active with Maurizio SCHULTZA. [facility] made aware of ER visit and d/c. Continue to monitor for d/c needs.
== END 2023-02-06 15:12 | disposition home or self-care (01) ==
PROVIDERS: Physician Assistant Medical; Emergency Provider Emergency Medicine Emergency Medical Services; PCP Internal Medicine
DX: I95.9 Hypotension, unspecified (principal); Z91.81 History of falling; Z20.822 Contact with and (suspected) exposure to COVID-19; Z20.828 Contact with and (suspected) exposure to other viral communicable diseases; I10 Essential (primary) hypertension; E78.5 Hyperlipidemia, unspecified; Z86.73 Personal history of transient ischemic attack (TIA), and cerebral infarction without residual deficits; Z79.01 Long term (current) use of anticoagulants; Z79.899 Other long term (current) drug therapy
CPT/HCPCS: 0241U; 36415; 70450; 71046; 72125; 80053; 83735; 84484; 85025; 85610; 85730; 87635; 93005; 96360; 96361; 97161; 99284; 99285

== ENCOUNTER → 2023-02-20 12:04 | Outpatient (BNVA) | payer OTHER, SELFPAY | PROVIDERS: PCP Internal Medicine; Visit Provider Internal Medicine ==

== ENCOUNTER → 2023-03-06 10:43 | Outpatient (BNVA) | payer OTHER, SELFPAY | PROVIDERS: PCP Internal Medicine; Visit Provider Internal Medicine ==

== ENCOUNTER → 2023-03-12 14:19 | Outpatient (BNVA) | payer OTHER, SELFPAY | PROVIDERS: PCP Internal Medicine; Visit Provider Internal Medicine ==

== ENCOUNTER → 2023-03-20 11:18 | Outpatient (BNVA) | payer OTHER, SELFPAY | PROVIDERS: PCP Internal Medicine; Visit Provider Internal Medicine ==

== ENCOUNTER 2023-03-31 10:26 | Outpatient (AMB) | payer OTHER, SELFPAY ==
[2023-03-31 10:35] LABS: Prothrombin Time Whole Bld POC 32.4 sec (11.1-13.5); ~PT, ~INR - Anti Coag Clinic 2.7 (0.9-1.1)
--- NOTE | 2023-03-31 10:40 | MHC.OFFVISCO ---
Intake Intake Visit Reasons: Anticoagulation Allergies erythromycin base [ERYTHROMYCIN BASE] Allergy (Unknown, Verified 03/31/23 10:28) Nausea and Vomiting Medication List - Last Reconciled 03/31/23 by Alexsandra Brar RN cholecalciferol (vitamin D3) (Vitamin D3) 25 mcg PO DAILY citalopram 40 mg PO DAILY clotrimazole-betamethasone 1-0.05 % 1 appl topical BID diazepam 2 mg PO TID PRN gabapentin 200 mg PO BEDTIME levothyroxine 50 mcg PO DAILY lisinopril 10 mg PO DAILY simvastatin 20 mg PO BEDTIME simvastatin 40 mg PO BEDTIME sumatriptan succinate 50 mg PO Q2-4H PRN walker As directed warfarin See Protocol 2.5 mg orally 1.25 NG SUN/ 2.5MG X 6 DAYS; Nursing Note INR: 2.7 in therapeutic range Medications and supplements reviewed REOVERED FROM MECHANICAL FALL - AMBULATING WITH WALKER WITH STEADY GAIT, ENC TO KEEP UP EXERCISES TODAY Denies any signs and symptoms of bleeding or bruising or clotting. Bleeding, bruising, clotting discussed Nutritional guidance given Dose: 1.25MG X 1 DAY/ 2.5MG X 6 DAYS F/U INR: 2 WEEKS Patient verbalizes understanding of instructions given Anti-Coag Initial Assessment Social Hx Patient Tobacco Use Status: Never used Tobacco alcohol intake: never Alcohol intake frequency: does not drink Coding Level of Care Code Est Patient Level 1 Diagnoses Current use of anticoagulant therapy Z79.01 Assessment & Plan Assessment & Plan (1) Current use of anticoagulant therapy: Code(s): Z79.01 - [facility] (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
== END 2023-03-31 10:43 | disposition home or self-care (01) ==
LOC: HO.ACS 10:26
PROVIDERS: PCP Internal Medicine; Visit Provider Internal Medicine
DX: Z79.01 Long term (current) use of anticoagulants (principal)

== ENCOUNTER → 2023-03-31 10:26 | Outpatient (BNVA) | payer OTHER, SELFPAY | PROVIDERS: PCP Internal Medicine; Visit Provider Internal Medicine | DX: Z86.73 Personal history of transient ischemic attack (TIA), and cerebral infarction without residual deficits (principal); Z79.01 Long term (current) use of anticoagulants; Z51.81 Encounter for therapeutic drug level monitoring | CPT/HCPCS: 85610; 99211 ==

== ENCOUNTER 2023-04-07 08:52 | Outpatient (REF) | payer OTHER, SELFPAY ==
[2023-04-07 11:32] LABS: MANUAL DIFF FLAG NO
[2023-04-07 11:42] LABS: Basophils Percent Auto 0.5 % (0-2); Eosinophils Absolute Auto 0.4 X10*3/uL (0.0-0.4); Eosinophils Percent Auto 5.5 % (0-4); Hematocrit 42.7 % (37.0-47.0); Imm Gran Abs Auto 0.03 X10*3/uL (0.00-0.03); Imm Gran Pct Auto 0.4 % (0.0-0.4); Lymphocytes Absolute Auto 2.2 X10*3/uL (1.2-4.9); Lymphocytes Percent Auto 27.4 % (20-40); Mean Corpuscular HGB Conc 30.4 g/dl (31.0-35.0); Mean Corpuscular Hemoglobin 28.1 pg (27.0-33.0); Mean Corpuscular Volume 92.2 fL (80.0-98.0); Mean Platelet Volume 11.7 fL (9.4-12.3); Monocytes Absolute Auto 0.7 X10*3/uL (0.1-1.2); Monocytes Percent Auto 9.4 % (2-11); Neutrophils Absolute Auto 4.5 x10*3/uL (2.0-8.3); Neutrophils Percent Auto 56.8 % (45-73); Platelet Count 308 X10*3/uL (160-400); Red Blood Count 4.63 X10*6/uL (4.20-5.50); White Blood Count 7.8 X10*3/uL (4.8-10.8)
[2023-04-07 12:26] LABS: Alanine Aminotransferase 14 U/L (0-31); Alkaline Phosphatase 88 U/L (39-117); Anion Gap 11 (12-20); Aspartate Amino Transferase 16 U/L (5-31); Bilirubin Total 0.3 mg/dL (0.0-1.0); Blood Urea Nitrogen 13 mg/dL (9-16); Calcium 10.2 mg/dL (8.4-10.2); Carbon Dioxide 28 mmol/L (22-29); Chloride 107 mmol/L (96-108); Cholesterol 188 mg/dL (<200); Estimated Glomerular Filt Rate > 60; Glucose Random 101 mg/dL (60-115); HDL Cholesterol 49 mg/dL (>40); LDL Cholesterol Calculated 118 mg/dL (<100); Potassium 4.5 mmol/L (3.3-5.1); Sodium 141 mmol/L (135-145); Total Protein 7.1 g/dL (6.5-8.0); Triglycerides 109 mg/dL (<150)
[2023-04-07 12:46] LABS: Free T4 (Free Thyroxine) 0.95 ng/dL (0.71-1.85); Thyroid Stimulating Hormone 3.27 uIU/mL (0.32-4.0)
== END 2023-04-07 08:53 | disposition home or self-care (01) ==
LOC: HO.HMGCLDS 08:52
PROVIDERS: PCP Internal Medicine; Visit Provider Physician Assistant
DX: E03.8 Other specified hypothyroidism (principal); I10 Essential (primary) hypertension
CPT/HCPCS: 36415; 80053; 80061; 84439; 84443; 85025

== ENCOUNTER 2023-04-17 10:19 | Outpatient (AMB) | payer OTHER, SELFPAY ==
--- NOTE | 2023-04-17 10:28 | MHC.OFFVISCO ---
Intake Intake Visit Reasons: Anticoagulation Allergies erythromycin base [ERYTHROMYCIN BASE] Allergy (Unknown, Verified 04/17/23 10:23) Nausea and Vomiting Medication List - Last Reconciled 04/17/23 by Clemencia Morales RN cholecalciferol (vitamin D3) (Vitamin D3) 25 mcg PO DAILY citalopram 40 mg PO DAILY clotrimazole-betamethasone 1-0.05 % 1 appl topical BID diazepam 2 mg PO TID PRN gabapentin 200 mg PO BEDTIME levothyroxine 50 mcg PO DAILY lisinopril 10 mg PO DAILY simvastatin 20 mg PO BEDTIME simvastatin 40 mg PO BEDTIME sumatriptan succinate 50 mg PO Q2-4H PRN walker As directed warfarin See Protocol 2.5 mg orally 1.25 NG SUN/ 2.5MG X 6 DAYS; Nursing Note INR: 2.2- in therapeutic range of 2-3 Medications and supplements reviewed- no changes No changes in health, diet, medications, or supplements, Denies any signs and symptoms of bleeding or bruising or clotting. Bleeding, bruising, clotting discussed Nutritional guidance given Dose: 2.5mg x 6, 1.25mg x 1 F/U INR: pt req 4 weeks Patient verbalizes understanding of instructions given pt amb with walker Anti-Coag Initial Assessment Social Hx Patient Tobacco Use Status: Never used Tobacco alcohol intake: never Alcohol intake frequency: does not drink Coding Level of Care Code Est Patient Level 1 Diagnoses Current use of anticoagulant therapy Z79.01 Assessment & Plan Assessment & Plan (1) Current use of anticoagulant therapy: Code(s): Z79.01 - [facility] (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
[2023-04-17 10:29] LABS: Prothrombin Time Whole Bld POC 26.8 sec (11.1-13.5); ~PT, ~INR - Anti Coag Clinic 2.2 (0.9-1.1)
== END 2023-04-17 10:33 | disposition home or self-care (01) ==
LOC: HO.ACS 10:19
PROVIDERS: PCP Internal Medicine; Visit Provider Internal Medicine
DX: Z79.01 Long term (current) use of anticoagulants (principal)

== ENCOUNTER → 2023-04-17 10:19 | Outpatient (BNVA) | payer OTHER, SELFPAY | PROVIDERS: PCP Internal Medicine; Visit Provider Internal Medicine | DX: Z86.73 Personal history of transient ischemic attack (TIA), and cerebral infarction without residual deficits (principal); Z51.81 Encounter for therapeutic drug level monitoring; Z79.01 Long term (current) use of anticoagulants | CPT/HCPCS: 85610; 99211 ==

== ENCOUNTER 2023-05-12 09:28 | Outpatient (AMB) | payer OTHER, SELFPAY ==
--- NOTE | 2023-05-12 09:42 | MHC.OFFVISCO ---
Intake Intake Visit Reasons: Anticoagulation Allergies erythromycin base [ERYTHROMYCIN BASE] Allergy (Unknown, Verified 05/12/23 09:36) Nausea and Vomiting Medication List - Last Reconciled 05/12/23 by Clemencia Morales RN cholecalciferol (vitamin D3) (Vitamin D3) 25 mcg PO DAILY citalopram 40 mg PO DAILY clotrimazole-betamethasone 1-0.05 % 1 appl topical BID diazepam 2 mg PO TID PRN gabapentin 200 mg PO BEDTIME levothyroxine 50 mcg PO DAILY lisinopril 10 mg PO DAILY simvastatin 20 mg PO BEDTIME simvastatin 40 mg PO BEDTIME sumatriptan succinate 50 mg PO Q2-4H PRN walker As directed warfarin See Protocol 2.5 mg orally 1.25 NG SUN/ 2.5MG X 6 DAYS; Nursing Note INR: 2.5- in therapeutic range of 2-3 Medications and supplements reviewed- no changes, although pt states thyroid med alt 50mcg with 25mcg daily for approx 2 years No changes in health, diet, medications, or supplements, Denies any signs and symptoms of bleeding or bruising or clotting. 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
[2023-05-12 09:44] LABS: Prothrombin Time Whole Bld POC 30.1 sec (11.1-13.5); ~PT, ~INR - Anti Coag Clinic 2.5 (0.9-1.1)
== END 2023-05-12 09:48 | disposition home or self-care (01) ==
LOC: HO.ACS 09:28
PROVIDERS: PCP Internal Medicine; Visit Provider Internal Medicine
DX: Z79.01 Long term (current) use of anticoagulants (principal)

== ENCOUNTER → 2023-05-12 09:28 | Outpatient (BNVA) | payer OTHER, SELFPAY | PROVIDERS: PCP Internal Medicine; Visit Provider Internal Medicine | DX: Z86.73 Personal history of transient ischemic attack (TIA), and cerebral infarction without residual deficits (principal); Z79.01 Long term (current) use of anticoagulants; Z51.81 Encounter for therapeutic drug level monitoring | CPT/HCPCS: 85610; 99211 ==

== ENCOUNTER 2023-06-10 09:55 | Outpatient (AMB) | payer OTHER, SELFPAY ==
[2023-06-10 10:02] LABS: Prothrombin Time Whole Bld POC 20.9 sec (11.1-13.5); ~PT, ~INR - Anti Coag Clinic 1.7 (0.9-1.1)
--- NOTE | 2023-06-10 10:09 | MHC.OFFVISCO ---
Intake Intake Visit Reasons: Anticoagulation Allergies erythromycin base [ERYTHROMYCIN BASE] Allergy (Unknown, Verified 06/10/23 09:57) Nausea and Vomiting Medication List - Last Reconciled 06/10/23 by Daniela Orellana, RN cholecalciferol (vitamin D3) (Vitamin D3) 25 mcg PO DAILY citalopram 40 mg PO DAILY clotrimazole-betamethasone 1-0.05 % 1 appl topical BID diazepam 2 mg PO TID PRN gabapentin 200 mg PO BEDTIME levothyroxine 50 mcg PO DAILY lisinopril 10 mg PO DAILY simvastatin 20 mg PO BEDTIME simvastatin 40 mg PO BEDTIME sumatriptan succinate 50 mg PO Q2-4H PRN walker As directed warfarin See Protocol 2.5 mg orally 1.25 NG SUN/ 2.5MG X 6 DAYS; Nursing Note INR: 1.7 out of therapeutic range of 2-3 Pt denies missing a dose or any excessive greens Medications and supplements reviewed No changes in health, diet, medications, or supplements, Denies any signs and symptoms of bleeding or bruising or clotting. 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
== END 2023-06-10 10:15 | disposition home or self-care (01) ==
LOC: HO.ACS 09:55
PROVIDERS: PCP Internal Medicine; Visit Provider Internal Medicine
DX: Z79.01 Long term (current) use of anticoagulants (principal)

== ENCOUNTER → 2023-06-10 09:55 | Outpatient (BNVA) | payer OTHER, SELFPAY | PROVIDERS: PCP Internal Medicine; Visit Provider Internal Medicine | DX: Z86.73 Personal history of transient ischemic attack (TIA), and cerebral infarction without residual deficits (principal); Z79.01 Long term (current) use of anticoagulants; Z51.81 Encounter for therapeutic drug level monitoring | CPT/HCPCS: 85610; 99211 ==

== ENCOUNTER 2023-06-24 09:53 | Outpatient (AMB) | payer OTHER, SELFPAY ==
[2023-06-24 10:12] LABS: Prothrombin Time Whole Bld POC 17.8 sec (11.1-13.5); ~PT, ~INR - Anti Coag Clinic 1.5 (0.9-1.1)
--- NOTE | 2023-06-24 10:18 | MHC.OFFVISCO ---
Intake Intake Visit Reasons: Anticoagulation Allergies erythromycin base [ERYTHROMYCIN BASE] Allergy (Unknown, Verified 06/24/23 10:07) Nausea and Vomiting Medication List - Last Reconciled 06/24/23 by Daniela Orellana, RN cholecalciferol (vitamin D3) (Vitamin D3) 25 mcg PO DAILY citalopram 40 mg PO DAILY clotrimazole-betamethasone 1-0.05 % 1 appl topical BID diazepam 2 mg PO TID PRN gabapentin 200 mg PO BEDTIME levothyroxine 50 mcg PO DAILY lisinopril 10 mg PO DAILY simvastatin 20 mg PO BEDTIME simvastatin 40 mg PO BEDTIME sumatriptan succinate 50 mg PO Q2-4H PRN walker As directed warfarin See Protocol 2.5 mg orally 1.25 NG SUN/ 2.5MG X 6 DAYS; Nursing Note INR 1.5?out of therapeutic range of 2-3 Medications and supplements reviewed Patient status: no changes Medications or supplements: no changes Diet: no changes Denies any signs and symptoms of bleeding or clotting or unusual bruising Bleeding, bruising, clotting discussed, understands to go to ER if any concern for clotting or any S/S of stroke. Nutritional guidance given: no greens today or tomorrow Dose: 5mg today (2.5mg), then continue 2.5mg daily (weekly increase by 1.25mg) F/U INR Date : 10 days (07/03)?? Patient verbalizing understanding of instructions given. 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
== END 2023-06-24 10:34 | disposition home or self-care (01) ==
LOC: HO.ACS 09:53
PROVIDERS: PCP Internal Medicine; Visit Provider Internal Medicine
DX: Z79.01 Long term (current) use of anticoagulants (principal)

== ENCOUNTER → 2023-06-24 09:53 | Outpatient (BNVA) | payer OTHER, SELFPAY | PROVIDERS: PCP Internal Medicine; Visit Provider Internal Medicine | DX: Z86.73 Personal history of transient ischemic attack (TIA), and cerebral infarction without residual deficits (principal); Z79.01 Long term (current) use of anticoagulants; Z51.81 Encounter for therapeutic drug level monitoring | CPT/HCPCS: 85610; 99211 ==

== ENCOUNTER 2023-07-04 09:47 | Outpatient (AMB) | payer OTHER, SELFPAY ==
[2023-07-04 09:52] LABS: Prothrombin Time Whole Bld POC 26.3 sec (11.1-13.5); ~PT, ~INR - Anti Coag Clinic 2.2 (0.9-1.1)
--- NOTE | 2023-07-04 10:01 | MHC.OFFVISCO ---
Intake Intake Visit Reasons: Anticoagulation Allergies erythromycin base [ERYTHROMYCIN BASE] Allergy (Unknown, Verified 07/04/23 09:48) Nausea and Vomiting Medication List - Last Reconciled 07/04/23 by Daniela Orellana, RN cholecalciferol (vitamin D3) (Vitamin D3) 25 mcg PO DAILY citalopram 40 mg PO DAILY clotrimazole-betamethasone 1-0.05 % 1 appl topical BID diazepam 2 mg PO TID PRN gabapentin 200 mg PO BEDTIME levothyroxine 50 mcg PO DAILY lisinopril 10 mg PO DAILY simvastatin 20 mg PO BEDTIME simvastatin 40 mg PO BEDTIME sumatriptan succinate 50 mg PO Q2-4H PRN walker As directed warfarin See Protocol 2.5 mg orally 1.25 NG SUN/ 2.5MG X 6 DAYS; Nursing Note INR: 2.2 in therapeutic range of 2-3 Medications and supplements reviewed, no changes No changes in health, diet, medications, or supplements, Denies any signs and symptoms of bleeding or bruising or clotting. Bleeding, bruising, clotting discussed Nutritional guidance given, continue to balance reds and greens Dose: 2.5mg daily F/U INR: 1 week Will review instructions for bridging to lovenox on next visit for scheduled Left Knee Replacement on 07/17/23 Patient verbalizes understanding of instructions given Anti-Coag Initial Assessment Social Hx Patient Tobacco Use Status: Never used Tobacco alcohol intake: never Alcohol intake frequency: does not drink Coding Level of Care Code Est Patient Level 1 Diagnoses Current use of anticoagulant therapy Z79.01 Assessment & Plan Assessment & Plan (1) Current use of anticoagulant therapy: Code(s): Z79.01 - [facility] (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
== END 2023-07-04 10:12 | disposition home or self-care (01) ==
LOC: HO.ACS 09:47
PROVIDERS: PCP Internal Medicine; Visit Provider Internal Medicine
DX: Z79.01 Long term (current) use of anticoagulants (principal)

== ENCOUNTER → 2023-07-04 09:47 | Outpatient (BNVA) | payer OTHER, SELFPAY | PROVIDERS: PCP Internal Medicine; Visit Provider Internal Medicine | DX: Z86.73 Personal history of transient ischemic attack (TIA), and cerebral infarction without residual deficits (principal); Z79.01 Long term (current) use of anticoagulants; Z51.81 Encounter for therapeutic drug level monitoring | CPT/HCPCS: 85610; 99211 ==

== ENCOUNTER 2023-07-18 09:44 | Outpatient (AMB) | payer OTHER, SELFPAY ==
--- NOTE | 2023-07-18 09:51 | MHC.OFFVISCO ---
Intake Intake Visit Reasons: Anticoagulation Allergies erythromycin base [ERYTHROMYCIN BASE] Allergy (Unknown, Verified 07/18/23 09:48) Nausea and Vomiting Medication List - Last Reconciled 07/18/23 by Alexsandra Brar RN cholecalciferol (vitamin D3) (Vitamin D3) 25 mcg PO DAILY citalopram 40 mg PO DAILY clotrimazole-betamethasone 1-0.05 % 1 appl topical BID diazepam 2 mg PO TID PRN gabapentin 200 mg PO BEDTIME levothyroxine 50 mcg PO DAILY lisinopril 10 mg PO DAILY simvastatin 20 mg PO BEDTIME simvastatin 40 mg PO BEDTIME sumatriptan succinate 50 mg PO Q2-4H PRN walker As directed warfarin See Protocol 2.5 mg orally 1.25 NG SUN/ 2.5MG X 6 DAYS; Nursing Note PT has dental appt august to determine day of multiple extractions most likely multiple day warfarin hold with lovenox bridge will plan per dentist and md recommendations INR: 2.3 in therapeutic range Medications and supplements reviewed No changes in health, diet, medications, or supplements, Denies any signs and symptoms of bleeding or bruising or clotting. Bleeding, bruising, clotting discussed Nutritional guidance given - review food list weekly, eat a mix of fruits and vegetables Dose: keep same dose 2.5mg daily F/U INR: 3 weeks Patient verbalizes understanding of instructions given Anti-Coag Initial Assessment Social Hx Patient Tobacco Use Status: Never used Tobacco alcohol intake: never Alcohol intake frequency: does not drink Coding Level of Care Code Est Patient Level 1 Diagnoses Current use of anticoagulant therapy Z79.01 Results AMB INR Fingerstick AMB INR Fingerstick 2.3 Last Edit by Alexsandra Brar RN on 07/18/23 09:57 MANUAL ENTRY Assessment & Plan Assessment & Plan (1) Current use of anticoagulant therapy: Code(s): 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
[2023-07-18 10:29] LABS: Prothrombin Time Whole Bld POC 27.3 sec (11.1-13.5); ~PT, ~INR - Anti Coag Clinic 2.3 (0.9-1.1)
== END 2023-07-18 10:07 | disposition home or self-care (01) ==
LOC: HO.ACS 09:44
PROVIDERS: PCP Internal Medicine; Visit Provider Internal Medicine
DX: Z79.01 Long term (current) use of anticoagulants (principal)

== ENCOUNTER → 2023-07-18 09:44 | Outpatient (BNVA) | payer OTHER, SELFPAY | PROVIDERS: PCP Internal Medicine; Visit Provider Internal Medicine | DX: Z86.73 Personal history of transient ischemic attack (TIA), and cerebral infarction without residual deficits (principal); Z79.01 Long term (current) use of anticoagulants; Z51.81 Encounter for therapeutic drug level monitoring | CPT/HCPCS: 85610; 99211 ==

== ENCOUNTER 2023-07-21 17:53 | Emergency (ER) | payer OTHER, SELFPAY ==
--- NOTE | ~2023-07-21 | CT_ITS ---
EXAMINATION: CT HEAD WITHOUT CONTRAST CLINICAL INFORMATION: Left-sided headaches. COMPARISON: Head CT dated 02/06/2023. TECHNIQUE: Contiguous axial imaging was performed from the skullbase to vertex without intravenous administration of contrast. This CT examination was performed using dose optimization techniques as appropriate, variously including the following: *Automated exposure control *Adjustment of mA and/or kV according to patient size (this includes techniques or standardized protocols for targeted exams where dose is matched to indication/reason for exam; i.e. extremities or head) *Use of iterative reconstruction technique DLP: 681 mGy-cm. FINDINGS: Chronic encephalomalacia is again visible in the right frontoparietal lobes from a presumed chronic infarct. Regional volume loss evident with mild ex vacuo dilatation of the right greater than left lateral ventricles. Focal encephalomalacia and fissural prominence is again visualized in the lateral aspect of the left cerebellar hemisphere. Focal areas of encephalomalacia again visible in the posterior right temporal lobe and high left parietal lobe. There is no evidence of acute intracranial hemorrhage or territorial infarction. No abnormal mass effect or midline shift is seen. No extra-axial fluid collections are identified. There are no imaging findings of hydrocephalus. Chronic white matter microangiopathy remains unchanged. The soft tissues are normal. No acute osseous abnormality is seen. The mastoid air cells are well aerated. Mild left maxillary sinus mucosal thickening noted. Significant rightward nasal septal deviation and prominent nasal septal spurring again visible with distortion of the right-sided turbinates. CT/CT head/brain wo IV con IMPRESSION: No acute intracranial hemorrhage or territorial infarction. Chronic encephalomalacia in the right MCA vascular territory involving the frontoparietal lobes. Multiple small areas of gliosis and encephalomalacia unchanged in the left parietal lobe, right temporal lobe, and left cerebellar hemisphere. Chronic white matter microangiopathy and diffuse brain parenchymal volume loss.
[2023-07-21 17:58] VITALS: BP 131/57; PULSE 52; RESP 16; TEMP 36.6; O2SAT 97; BMI 38.4
[2023-07-21 18:56] VITALS: BP 130/58; PULSE 56; RESP 19; TEMP 36.6; O2SAT 97
--- NOTE | 2023-07-21 19:16 | ED.HA ---
HPI - Headache General Chief Complaint: Headache Stated Complaint: migraine hx of stroke Time Seen by Provider: 07/21/23 18:36 Source: patient and family Mode of arrival: ambulatory History of Present Illness HPI Narrative: 57-year-old female on current chronic anticoagulation with warfarin, INR was 1.3 on Friday, comes in with typical migraine onset and progression severe at the left side of the head without associated nausea/dizziness/photosensitivity or auditory sensitivity. Patient states that she took a Fioricet and although it has improved her symptoms she still has a bad headache. Patient uses a walker at baseline. Related Data Home Medications Medication Instructions Recorded Confirmed citalopram 40 mg tablet 40 mg PO DAILY 05/11/20 07/18/23 gabapentin 100 mg capsule 200 mg PO BEDTIME 05/11/20 07/18/23 simvastatin 20 mg tablet 20 mg PO BEDTIME 05/11/20 07/18/23 cholecalciferol (vitamin D3) 25 25 mcg PO DAILY 09/10/21 07/18/23 mcg (1,000 unit) tablet (Vitamin D3) simvastatin 40 mg tablet 40 mg PO BEDTIME 12/06/21 07/18/23 clotrimazole-betamethasone 1 1 appl topical BID 01/28/23 07/18/23 %-0.05 % topical cream warfarin 2.5 mg tablet 2.5 mg PO .COMPLEX 01/29/23 07/18/23 diazepam 2 mg tablet 2 mg PO TID PRN 03/31/23 07/18/23 lisinopril 20 mg tablet 10 mg PO DAILY 03/31/23 07/18/23 levothyroxine 50 mcg tablet 50 mcg PO DAILY 05/12/23 07/18/23 Previous Rx's Medication Instructions Recorded sumatriptan succinate 50 mg tablet 50 mg PO Q2-4H PRN migraine 09/27/22 headache #7 tabs walker #1 ea 01/29/23 Allergies Allergy/AdvReac Type Severity Reaction Status Date / Time erythromycin base Allergy Unknown Nausea and Verified 07/21/23 18:06 [ERYTHROMYCIN BASE] Vomiting Review of Systems Review of Systems: Pertinent positives and negatives as stated in HPI PMFSH Past Medical History Source: nursing notes reviewed Medical History Factor 5 Leiden mutation, heterozygous Arthritis KRYSTAL on CPAP Anxiety and depression History of CVA (cerebrovascular accident) Hypothyroidism Elevated cholesterol HTN (hypertension) On anticoagulant therapy Post-traumatic osteoarthritis of left knee Unilateral primary osteoarthritis, left knee (~2014) Surgical History Hx of left knee surgery History of repair of anterior cruciate ligament of left knee Hx of colonoscopy Family History Family History Father No problems noted. Mother No problems noted. 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 GENERAL: Well developed, well nourished, in no acute distress. HEAD: Normocephalic/atraumatic EYES: PERRLA, EOMI EARS: Ext canals without abnormality NOSE: Nares patent bilateral OROPHARYNX: no oral lesions noted, posterior pharynx clear NECK: Supple, no adenopathy LUNGS: Normal breath sounds. No adventitious sounds or accessory muscle use. SpO2<97> CARDIOVASCULAR: Regular rate and rhythm without noted murmurs ABDOMEN: Soft, non-tender, non-distended with bowel sounds. MUSCULOSKELETAL: No tenderness, deformities, or effusions noted on gross inspection. EXTREMITIES: No cyanosis, clubbing or edema. SKIN: Inspection of the skin reveals no rashes NEUROLOGIC: Alert and oriented x 4. Strength and sensation to light touch were grossly intact x 4, no facial asymmetry, no pronator drift, cranial nerves 2-12 are grossly intact. Medications Administered Discontinued Medications Generic Name Dose Route Start Last Admin Trade Name Freq PRN Reason Stop Dose Admin Acetaminophen 975 mg 04/01/24 19:21 07/21/23 19:42 Acetaminophen 325 Mg Tablet PO 07/21/23 19:22 975 mg ONCE ONE Administration Ibuprofen 400 mg 07/21/23 19:21 07/21/23 19:43 Ibuprofen 400 Mg Tablet PO 07/21/23 19:22 400 mg ONCE ONE Administration Medical Decision Making Medical Decision Making MDM Narrative: 57-year-old female with history and clinical presentation, DDX: Doubt intracranial bleed but will proceed with CT of the head, patient is otherwise nonfocal, possible viral illness or urinary tract infection. Provided patient with combination analgesics. I reviewed all investigations and urinalysis is negative for UTI or hematuria, INR is therapeutic at 2.0, viral testing for COVID-19 and influenza are negative and CT scan does not demonstrate any evidence to suggest intracranial hemorrhage or mass effect. Patient is otherwise discharged I instructed to continue with her home medications as needed and supplement with Tylenol. She is also strongly encouraged to follow-up with Dr. Jean. Differential Diagnosis Differential Diagnoses: The differential diagnosis associated with the presentation includes Please see the discussion above Admission/Observation Consideration of admission/observation: Escalation of care including admission/observation considered Please see the discussion above Lab Data MDM Lab Attestation statement: I reviewed the patient's lab results. Please see the discussion above Labs: Lab Results 07/21/23 07/21/23 Range/Units 19:14 19:57 PT 24.9 H (11.1-13.3) SEC INR 2.0 H (0.9-1.1) Urine Color Yellow Urine Appearance Clear Urine pH 6.5 (5.0-9.0) Ur Specific [place] 1.015 (1.005-1.025) Urine Protein Negative (Neg-Trace) mg/dL Urine Glucose (UA) Negative (Negative) mg/dL Urine Ketones Negative (Negative) mg/dL Urine Blood Negative (Negative) Urine Nitrite Negative (Negative) Ur Leukocyte Esterase Negative (Negative) COVID-19 (CECILE) Negative (Negative) COVID-19 Clin Com See Note Influenza Type A (OSMIN) Negative (Negative) Influenza Type B (OSMIN) Negative (Negative) Influenza A & B Note See Note Radiology Impression Discussion of test interpretation with radiology: I have reviewed the radiologist's reading. Radiologist Impression: Please see the discussion above External Record Review External record reviewed: Outpatient record, Prior outpatient labs and Prior outpatient radiology Critical Care Time Critical Care Time Critical Care Time: Yes Total Critical Care Time: 30 Attestation: I personally attest to this time spent taking care of the patient. Discharge Plan Discharge Clinical Impression: Migraine Patient Disposition: Home, Self-Care Instructions: Migraine Headache (ED) Additional Instructions: 1. Resume all home medications as prescribed. Recommend supplementing the Fioricet with Tylenol, just be mindful to not exceed 4000 mg within 24 hours. 2. Please follow-up with your primary care doctor as well as Dr. Jean. Return to the ER for any worsening symptoms. Prescriptions: No Action cholecalciferol (vitamin D3) [Vitamin D3] 25 mcg (1,000 unit) Tablet 25 mcg PO DAILY sumatriptan succinate 50 mg tablet 50 mg PO Q2-4H PRN (Reason: migraine headache) Qty: 7 0RF Rx Instructions: do not exceed 4 doses per 24 hrs clotrimazole-betamethasone 1-0.05 % cream 1 appl topical BID (DME) walker Misc See Rx Instructions .Route Qty: 1 0RF Rx Instructions: As directed warfarin 2.5 mg tablet 2.5 mg PO .COMPLEX Protocol: Dose Management Condition: Friday (Week One) Dose/Route: 2.5 mg Instruction: 1 x 2.5 mg tablet Condition: Friday Dose/Route: 2.5 mg Instruction: 1 x 2.5 mg tablet Condition: Friday Dose/Route: 2.5 mg Instruction: 1 x 2.5 mg tablet Condition: Friday Dose/Route: 2.5 mg Instruction: 1 x 2.5 mg tablet Condition: Dose/Route: 2.5 mg Instruction: 1 x 2.5 mg tablet Condition: Friday Dose/Route: 2.5 mg Instruction: 1 x 2.5 mg tablet Condition: Friday Dose/Route: 2.5 mg Instruction: 1 x 2.5 mg tablet Condition: Friday (Week Two) Dose/Route: 2.5 mg Instruction: 1 x 2.5 mg tablet Condition: Friday Dose/Route: 2.5 mg Instruction: 1 x 2.5 mg tablet Condition: Friday Dose/Route: 2.5 mg Instruction: 1 x 2.5 mg tablet Condition: Friday Dose/Route: 2.5 mg Instruction: 1 x 2.5 mg tablet Condition: Dose/Route: 2.5 mg Instruction: 1 x 2.5 mg tablet Condition: Friday Dose/Route: 2.5 mg Instruction: 1 x 2.5 mg tablet Condition: Friday Dose/Route: 2.5 mg Instruction: 1 x 2.5 mg tablet Protocol Text: Adjustment Start Date: Friday07/18/23 INR Value: 2.2 INR Date: 07/04/23 Recheck Date: 08/08/23 Additional Instructions: REVIEW FOOD LIST WEEKLY, EAT A MIX OF FRUITS AND VEGETABLES Rx Instructions: 2.5 mg orally 1.25 NG SUN/ 2.5MG X 6 DAYS; gabapentin 100 mg capsule 200 mg PO BEDTIME simvastatin 20 mg tablet 20 mg PO BEDTIME citalopram 40 mg tablet 40 mg PO DAILY lisinopril 20 mg tablet 10 mg PO DAILY Patient Comments: pt states her dose was decreased per PCP levothyroxine 50 mcg tablet 50 mcg PO DAILY Rx Instructions: pt states alt 50mcg with 25mcg daily simvastatin 40 mg tablet 40 mg PO BEDTIME diazepam 2 mg tablet 2 mg PO TID PRN Referrals: Mustapha Bustos MD [Primary Care Provider] -
[2023-07-21 19:35] LABS: COVID-19 Test Negative (Negative); IDNOW Serial# 08D9AD1C; IDNOW Serial# 152EDE1D; Influenza A Negative (Negative); Influenza B2 Negative (Negative)
[2023-07-21 19:42] LABS: Prothrombin Time 24.9 SEC (11.1-13.3)
[2023-07-21] MEDS: Acetaminophen 325 MG TABLET 975 MG PO (19:42)
[2023-07-21] MEDS: Ibuprofen 400 MG TABLET PO (19:43)
[2023-07-21 20:09] LABS: Appearance Urine Clear; Color Urine Yellow; Glucose Urine UA Negative (Negative); Leukocyte Esterase Urine Negative (Negative); Nitrite Urine Negative (Negative); PH 6.5 (5.0-9.0); Specific Gravity - Urine 1.015 (1.005-1.025); Urine Blood Negative (Negative); Urine Ketones Negative (Negative); Urine Protein Negative (Neg-Trace)
[2023-07-21 20:51] VITALS: BP 130/58; PULSE 56; RESP 19; TEMP 36.6
== END 2023-07-21 20:54 | disposition home or self-care (01) ==
PROVIDERS: Emergency Provider Student in an Organized Health Care Education/Training Program; PCP Internal Medicine
DX: G43.909 Migraine, unspecified, not intractable, without status migrainosus (principal); Z79.01 Long term (current) use of anticoagulants; Z79.899 Other long term (current) drug therapy; Z11.52 Encounter for screening for COVID-19
CPT/HCPCS: 70450; 81003; 85610; 87502; 87635; 99284

== ENCOUNTER 2023-08-08 09:23 | Outpatient (AMB) | payer OTHER, SELFPAY ==
[2023-08-08 09:58] LABS: Prothrombin Time Whole Bld POC 24.6 sec (11.1-13.5)
--- NOTE | 2023-08-08 10:03 | MHC.OFFVISCO ---
Intake Intake Visit Reasons: Anticoagulation Allergies erythromycin base [ERYTHROMYCIN BASE] Allergy (Unknown, Verified 08/08/23 09:54) Nausea and Vomiting Medication List - Last Reconciled 08/08/23 by Daniela Orellana RN cholecalciferol (vitamin D3) (Vitamin D3) 25 mcg PO DAILY citalopram 40 mg PO DAILY clotrimazole-betamethasone 1-0.05 % 1 appl topical BID diazepam 2 mg PO TID PRN gabapentin 200 mg PO BEDTIME levothyroxine 50 mcg PO DAILY lisinopril 10 mg PO DAILY simvastatin 20 mg PO BEDTIME simvastatin 40 mg PO BEDTIME sumatriptan succinate 50 mg PO Q2-4H PRN walker As directed warfarin See Protocol 2.5 mg orally 1.25 NG SUN/ 2.5MG X 6 DAYS; Nursing Note INR: 2.0 in therapeutic range 2-3 Medications and supplements reviewed: no changes No changes in health, diet, medications, or supplements, Denies any signs and symptoms of bleeding or bruising or clotting. Bleeding, bruising, clotting discussed Nutritional guidance given to review the food list and have a serving of foods from the red side. Pt sates she will have celery and peanut butter today. Dose: 2.5mg daily F/U INR: 1 month Patient verbalizes understanding of instructions given Anti-Coag Initial Assessment Social Hx Patient Tobacco Use Status: Never used Tobacco alcohol intake: never Alcohol intake frequency: does not drink Coding Level of Care Code Est Patient Level 1 Diagnoses Current use of anticoagulant therapy Z79.01 Assessment & Plan Assessment & Plan (1) Current use of anticoagulant therapy: Code(s): Z79.01 - FDC (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
== END 2023-08-08 10:05 | disposition home or self-care (01) ==
LOC: HO.ACS 09:23
PROVIDERS: PCP Internal Medicine; Visit Provider Internal Medicine
DX: Z79.01 Long term (current) use of anticoagulants (principal)

== ENCOUNTER → 2023-08-08 09:23 | Outpatient (BNVA) | payer OTHER, SELFPAY | PROVIDERS: PCP Internal Medicine; Visit Provider Internal Medicine | DX: Z86.73 Personal history of transient ischemic attack (TIA), and cerebral infarction without residual deficits (principal); Z79.01 Long term (current) use of anticoagulants; Z51.81 Encounter for therapeutic drug level monitoring | CPT/HCPCS: 85610; 99211 ==

== ENCOUNTER 2023-08-30 15:02 | Emergency (ER) | payer OTHER, SELFPAY ==
--- NOTE | ~2023-08-30 | XR_ITS ---
EXAMINATION: XR KNEE, LEFT CLINICAL INFORMATION: Fall onto left knee COMPARISON: Left knee radiographs 01/28/2023. TECHNIQUE: AP and lateral views of the left knee. FINDINGS: No evidence of acute fracture or malalignment. Redemonstrated postoperative appearance from ascending reconstruction. At least mild tricompartmental osteophytes, worst in the medial femorotibial compartment, with tricompartmental osteophytosis and mild medial compartment joint space narrowing. Evaluation joint space is limited in the absence of weightbearing views. Tiny quadriceps and patellar insertional enthesophytes. Unchanged small suprapatellar joint effusion. Soft tissues unremarkable. XR/XR knee LT 2V IMPRESSION: 1. No evidence of acute fracture or malalignment of the left knee. 2. At least mild tricompartmental left knee osteoarthritis, similar to 01/28/2023.
--- NOTE | ~2023-08-30 | XR_ITS ---
EXAMINATION: XR SHOULDER, LEFT CLINICAL INFORMATION: Fall on to left shoulder COMPARISON: None available. TECHNIQUE: AP external rotation, Grashey, and scapular Y views of the left shoulder. FINDINGS: No evidence of acute fracture or malalignment. Glenohumeral joint space is well-preserved. Acromioclavicular joint is unremarkable. Coracoclavicular distance is normal. Soft tissues are unremarkable. XR/XR shoulder LT min 2V IMPRESSION: No evidence of acute fracture or malalignment of the left shoulder.
--- NOTE | 2023-08-30 16:00 | ED_ITS ---
HPI - Fall General Chief Complaint: Fall Stated Complaint: fell 5/10 left shoulder and knee pain Time Seen by Provider: 08/30/23 17:47 Source: patient and family Mode of arrival: ambulatory Limitations: no limitations History of Present Illness HPI Narrative: 58-year-old female motor presents emergency department accompanied with her sister, for evaluation after a fall. She reports she was trying to sleep under a chair yesterday when the chair slipped and she fell to the floor. She hit her life-alert button and EMS came and helped her off the floor. She declined to transfer to the ED yesterday but began having increased left shoulder and knee pain beginning last night and worse today. Denies headstrike or LOC reports that she is on warfarin. She reports decreased range of motion of shoulder and knee secondary to pain but denies any paresthesias, weakness, or change in her range of motion. She states she walks with a walker at baseline Pertinent positives and negatives discussed in HPI Related Data Home Medications ?Medication ?Instructions ?Recorded ?Confirmed citalopram 40 mg tablet 40 mg PO DAILY 05/11/20 08/08/23 gabapentin 100 mg capsule 200 mg PO BEDTIME 05/11/20 08/08/23 simvastatin 20 mg tablet 20 mg PO BEDTIME 05/11/20 08/08/23 cholecalciferol (vitamin D3) 25 25 mcg PO DAILY 09/10/21 08/08/23 mcg (1,000 unit) tablet (Vitamin D3) simvastatin 40 mg tablet 40 mg PO BEDTIME 12/06/21 08/08/23 clotrimazole-betamethasone 1 1 appl topical BID 01/28/23 08/08/23 %-0.05 % topical cream warfarin 2.5 mg tablet 2.5 mg PO .COMPLEX 01/29/23 08/08/23 diazepam 2 mg tablet 2 mg PO TID PRN 03/31/23 08/08/23 lisinopril 20 mg tablet 10 mg PO DAILY 03/31/23 08/08/23 levothyroxine 50 mcg tablet 50 mcg PO DAILY 05/12/23 08/08/23 Previous Rx's ?Medication ?Instructions ?Recorded sumatriptan succinate 50 mg tablet 50 mg PO Q2-4H PRN migraine 09/27/22 headache #7 tabs walker #1 ea 01/29/23 Allergies Allergy/AdvReac Type Severity Reaction Status Date / Time erythromycin base Allergy Unknown Nausea and Verified 08/30/23 16:03 [ERYTHROMYCIN BASE] Vomiting Review of Systems Review of Systems: Yes all other systems are reviewed and are negative FOR[facility]LY [facility] Past Medical History Medical History Factor 5 Leiden mutation, heterozygous Arthritis KRYSTAL on CPAP Anxiety and depression History of CVA (cerebrovascular accident) Hypothyroidism Elevated cholesterol HTN (hypertension) On anticoagulant therapy Post-traumatic osteoarthritis of left knee Unilateral primary osteoarthritis, left knee (~2014) Surgical History Hx of left knee surgery History of repair of anterior cruciate ligament of left knee Hx of colonoscopy Family History Family History Father No problems noted. Mother No problems noted. 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 GENERAL APPEARANCE: A&0 x 4, generally well appearing, no acute distress HENMT: Normal to inspection, atraumatic, face symmetrical. Normal external ears, nose, and oropharynx clear. EYE: PERRLA, EOM intact, structures appear normal NECK: Supple without stiffness or restricted ROM. HEART: Normal rate and regular rhythm, normal S1/S2, no M/R/G LUNGS: LS CTA, moving air well. Able to speak in complete sentences. No crackles, wheezes, or rhonchi auscultated BACK: No CVAT, no obvious deformity EXTREMITIES: Decreased range of motion of left knee and shoulder. TTP posterior shoulder and anterior knee. Normal capillary refill. NEUROLOGICAL: Alert and oriented, moving all 4 extremities with equal strength. CN not formally tested but appearing grossly intact. Observed to ambulate with normal gait. Cognition normal SKIN: Warm and dry without any lesions, rash, or visible sores Medical Decision Making Medical Decision Making MDM Narrative: Old records reviewed for previous imaging, lab studies, ECGs, and notes. Patient was assessed the emergency department with no acute distress or toxicity noted. X-rays left shoulder and knee completed showing no evidence of acute fractures or dislocations. Radiologist remarks on mild tricompartmental left knee osteoarthritis, unchanged compared to previous x-ray without evidence of acute fracture or malalignment of your shoulder patient educated to rest and apply ice to shoulder and to rest, compress, and elevate left knee in addition to using ice and [id number] Tylenol for pain. Patient is safe for discharge at this time with plan for awii-[id number] Tylenol for fever/discomfort with dosing as per packaging. HPI, PE, diagnostics, and plan discussed with patient and family with no unanswered questions at this time. Strict return precautions given to return to the emergency department with new, worsening, or concerning emergent symptoms. Recommended to follow-up with there primary care provider in 24-48 hours for further treatment and management. Differential Diagnosis Differential Diagnoses: The differential diagnosis associated with the presentation includes But not limited to strain, sprain, fracture, dislocation, contusion Independent Interpretation I performed an independent interpretation of an: Plain X-Ray Independent Historian Clinical information obtained from an independent historian. History obtained from or confirmed by: Other Sister Prescription Management I considered prescription management with: Pain Medication Narcotic pain medication was considered, however; was deemed necessary based complaining problem and increased risk of addiction Chronic Conditions Patient?s care impacted by: Hypertension Discharge Plan Discharge Clinical Impression: Fall, Contusion of left shoulder, Contusion of knee, left Patient Disposition: Home, Self-Care Instructions: Contusion in Adults (ED), Musculoskeletal Pain (ED), Knee Pain (ED), Fall Prevention (ED), Shoulder Pain (ED) Additional Instructions: Your seen in the emergency department for evaluation after a fall. Your xrays showed no evidence of knee or shoulder fracture and your symptoms are consistent with a contusion, otherwise known as a bruise. You are safe for discharge at this time with plan for management of fever or discomfort with [id number] Tylenol and/or NSAID such as ibuprofen or naproxen with dosing as per packaging. Please return to the emergency department with new, worsening, or concerning emergent symptoms. Recommended to follow-up with your primary care provider in 24-48 hours for further treatment and management. Thank you for choosing [facility]. Prescriptions: No Action cholecalciferol (vitamin D3) [Vitamin D3] 25 mcg (1,000 unit) Tablet 25 mcg PO DAILY sumatriptan succinate 50 mg tablet 50 mg PO Q2-4H PRN (Reason: migraine headache) Qty: 7 0RF Rx Instructions: do not exceed 4 doses per 24 hrs clotrimazole-betamethasone 1-0.05 % cream 1 appl topical BID (DME) walker Misc See Rx Instructions .Route Qty: 1 0RF Rx Instructions: As directed warfarin 2.5 mg tablet 2.5 mg PO .COMPLEX Protocol: Dose Management Condition: Friday (Week One) Dose/Route: 2.5 mg Instruction: 1 x 2.5 mg tablet Condition: Friday Dose/Route: 2.5 mg Instruction: 1 x 2.5 mg tablet Condition: Friday Dose/Route: 2.5 mg Instruction: 1 x 2.5 mg tablet Condition: Friday Dose/Route: 2.5 mg Instruction: 1 x 2.5 mg tablet Condition: Dose/Route: 2.5 mg Instruction: 1 x 2.5 mg tablet Condition: Friday Dose/Route: 2.5 mg Instruction: 1 x 2.5 mg tablet Condition: Friday Dose/Route: 2.5 mg Instruction: 1 x 2.5 mg tablet Condition: Friday (Week Two) Dose/Route: 2.5 mg Instruction: 1 x 2.5 mg tablet Condition: Friday Dose/Route: 2.5 mg Instruction: 1 x 2.5 mg tablet Condition: Friday Dose/Route: 2.5 mg Instruction: 1 x 2.5 mg tablet Condition: Friday Dose/Route: 2.5 mg Instruction: 1 x 2.5 mg tablet Condition: Dose/Route: 2.5 mg Instruction: 1 x 2.5 mg tablet Condition: Friday Dose/Route: 2.5 mg Instruction: 1 x 2.5 mg tablet Condition: Friday Dose/Route: 2.5 mg Instruction: 1 x 2.5 mg tablet Protocol Text: Adjustment Start Date: Friday08/08/23 INR Value: 2.0 INR Date: 08/08/23 Recheck Date: 09/07/23 Rx Instructions: 2.5 mg orally 1.25 NG SUN/ 2.5MG X 6 DAYS; gabapentin 100 mg capsule 200 mg PO BEDTIME simvastatin 20 mg tablet 20 mg PO BEDTIME citalopram 40 mg tablet 40 mg PO DAILY lisinopril 20 mg tablet 10 mg PO DAILY Patient Comments: pt states her dose was decreased per PCP levothyroxine 50 mcg tablet 50 mcg PO DAILY Rx Instructions: pt states alt 50mcg with 25mcg daily simvastatin 40 mg tablet 40 mg PO BEDTIME diazepam 2 mg tablet 2 mg PO TID PRN Referrals: Mustapha Bustos MD [Primary Care Provider] - Interventions: ED Discharge Assessment Last Done: 08/30/23 19:20 Discharge Date/Time: 08/30/23 19:21 Print Language: Serbian
[2023-08-30 16:01] VITALS: BP 136/67; PULSE 75; RESP 18; TEMP 36.7; O2SAT 94; BMI 37.2
[2023-08-30 18:47] VITALS: BP 114/57; PULSE 62; RESP 19; TEMP 36.8; O2SAT 99
[2023-08-30 19:20] VITALS: BP 114/57; PULSE 62; RESP 19; TEMP 36.8; O2SAT 99
--- NOTE | 2023-08-30 19:20 | PC.NURSE ---
THIS NURSE DID NOT SEE THE PATIENT, PT WAS SEEN AND DISCHARGED BY THE PROVIDER.
== END 2023-08-30 19:21 | disposition home or self-care (01) ==
PROVIDERS: Emergency Provider Emergency Medicine; PCP Internal Medicine
DX: S40.012A Contusion of left shoulder, initial encounter (principal); S80.02XA Contusion of left knee, initial encounter; W07.XXXA Fall from chair, initial encounter; Y93.9 Activity, unspecified; Y92.9 Unspecified place or not applicable; Y99.9 Unspecified external cause status; M25.512 Pain in left shoulder; M25.562 Pain in left knee
CPT/HCPCS: 73030; 73560; 99282; 99283

== ENCOUNTER 2023-09-01 10:13 | Outpatient (AMB) | payer OTHER, SELFPAY ==
--- NOTE | 2023-09-01 10:21 | MHC.OFFVISCO ---
Intake Intake Visit Reasons: Anticoagulation Allergies erythromycin base [ERYTHROMYCIN BASE] Allergy (Unknown, Verified 09/01/23 10:15) Nausea and Vomiting Medication List - Last Reconciled 09/01/23 by Clemencia Morales RN cholecalciferol (vitamin D3) (Vitamin D3) 25 mcg PO DAILY citalopram 40 mg PO DAILY clotrimazole-betamethasone 1-0.05 % 1 appl topical BID diazepam 2 mg PO TID PRN gabapentin 200 mg PO BEDTIME levothyroxine 50 mcg PO DAILY lisinopril 10 mg PO DAILY simvastatin 20 mg PO BEDTIME simvastatin 40 mg PO BEDTIME sumatriptan succinate 50 mg PO Q2-4H PRN walker As directed warfarin See Protocol 2.5 mg orally 1.25 NG SUN/ 2.5MG X 6 DAYS; Nursing Note INR: 2.8- in therapeutic range of 2-3 Medications and supplements reviewed- no changes, taking tylenol prn shoulder pain and knee pain No changes in health, diet, medications, or supplements, Denies any signs and symptoms of bleeding or bruising or clotting. Bleeding, bruising, clotting discussed Nutritional guidance given Dose: 2.5mg x 7 F/U INR: pt req 3 week f/u Patient verbalizes understanding of instructions given Anti-Coag Initial Assessment Social Hx Patient Tobacco Use Status: Never used Tobacco alcohol intake: never Alcohol intake frequency: does not drink Coding Level of Care Code Est Patient Level 1 Diagnoses Current use of anticoagulant therapy Z79.01 Assessment & Plan Assessment & Plan (1) Current use of anticoagulant therapy: Code(s): Z79.01 - intermediate manager (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
[2023-09-01 10:22] LABS: Prothrombin Time Whole Bld POC 33.7 sec (11.1-13.5); ~PT, ~INR - Anti Coag Clinic 2.8 (0.9-1.1)
== END 2023-09-01 10:31 | disposition home or self-care (01) ==
LOC: HO.ACS 10:13
PROVIDERS: PCP Internal Medicine; Visit Provider Internal Medicine
DX: Z79.01 Long term (current) use of anticoagulants (principal)

== ENCOUNTER → 2023-09-01 10:13 | Outpatient (BNVA) | payer OTHER, SELFPAY | PROVIDERS: PCP Internal Medicine; Visit Provider Internal Medicine | DX: Z86.73 Personal history of transient ischemic attack (TIA), and cerebral infarction without residual deficits (principal) | CPT/HCPCS: 85610; 99211 ==

== ENCOUNTER 2023-09-17 15:06 | Outpatient (REF) | payer OTHER, SELFPAY | END 2023-09-17 15:07 | disposition home or self-care (01) | LOC: HO.MAMMO 15:06 | PROVIDERS: PCP Internal Medicine; Visit Provider Internal Medicine | DX: Z13.89 Encounter for screening for other disorder (principal) ==

== ENCOUNTER 2023-09-22 10:03 | Outpatient (AMB) | payer OTHER, SELFPAY ==
[2023-09-22 10:30] LABS: Prothrombin Time Whole Bld POC 40.9 sec (11.1-13.5); ~PT, ~INR - Anti Coag Clinic 3.4 (0.9-1.1)
--- NOTE | 2023-09-22 10:55 | MHC.OFFVISCO ---
Intake Intake Visit Reasons: Anticoagulation Allergies erythromycin base [ERYTHROMYCIN BASE] Allergy (Unknown, Verified 09/22/23 10:16) Nausea and Vomiting Medication List - Last Reconciled 09/22/23 by Alexsandra Brar RN amoxicillin 875 mg PO BID [id number]-wjyqncbjfqffg-[id number] 50-325-40 mg 1 tab PO TID PRN chlorhexidine gluconate 0.12% PO cholecalciferol (vitamin D3) (Vitamin D3) 25 mcg PO DAILY citalopram 40 mg PO DAILY clotrimazole-betamethasone 1-0.05 % 1 appl topical BID diazepam 2 mg PO TID PRN gabapentin 200 mg PO BEDTIME levothyroxine 50 mcg PO DAILY lisinopril 10 mg PO DAILY simvastatin 20 mg PO BEDTIME simvastatin 40 mg PO BEDTIME sumatriptan succinate 50 mg PO Q2-4H PRN tramadol 50 mg PO Q6H PRN triazolam mg PO walker As directed warfarin See Protocol 2.5 mg orally 1.25 NG SUN/ 2.5MG X 6 DAYS; Nursing Note INR 3.4 out of therapeutic range Medications and supplements reviewed Patient status: taking tramdol s/p fall for shoulder and knee pain - getting better- md dowell this friday to have 6 dental extractions will be on antbx starting 10/30/23 most likely to hold warfarin 5 days and bridge with lovenox - sanchez discuss with PCP plan of care Medications or supplements: gabapentin on hold while on tramadol; Diet: good Denies any signs and symptoms of bleeding or clotting or unusual bruising Bleeding, bruising, clotting discussed Nutritional guidance given: increase greens while taking tramadol by 1 serving per week Dose: 1.25mg today then resume usual dose 2.5 mg daily F/U INR Date : 2 weeks due to tramadol ?? Patient and sisiter verbalizing understanding of instructions given. Anti-Coag Initial Assessment Social Hx Patient Tobacco Use Status: Never used Tobacco alcohol intake: never Alcohol intake frequency: does not drink Coding Level of Care Code Est Patient Level 1 Diagnoses Current use of anticoagulant therapy Z79.01 Assessment & Plan Assessment & Plan (1) Current use of anticoagulant therapy: Code(s): Z79.01 - shelter (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 Medications: On Hold sumatriptan succinate Hold Comment: ON FIOROCET FOR MIGRAINES 50 mg PO Q2-4H PRN 7 tabs 0RF migraine headache
== END 2023-09-22 10:59 | disposition home or self-care (01) ==
LOC: HO.ACS 10:03
PROVIDERS: PCP Internal Medicine; Visit Provider Internal Medicine
DX: Z79.01 Long term (current) use of anticoagulants (principal)

== ENCOUNTER → 2023-09-22 10:03 | Outpatient (BNVA) | payer OTHER, SELFPAY | PROVIDERS: PCP Internal Medicine; Visit Provider Internal Medicine | DX: Z86.73 Personal history of transient ischemic attack (TIA), and cerebral infarction without residual deficits (principal); Z79.01 Long term (current) use of anticoagulants; Z51.81 Encounter for therapeutic drug level monitoring | CPT/HCPCS: 85610; 99211 ==

== ENCOUNTER 2023-10-06 09:20 | Outpatient (AMB) | payer OTHER, SELFPAY ==
[2023-10-06 09:37] LABS: Prothrombin Time Whole Bld POC 50.4 sec (11.1-13.5); ~PT, ~INR - Anti Coag Clinic 4.2 (0.9-1.1)
--- NOTE | 2023-10-06 16:10 | MHC.OFFVISCO ---
Intake Intake Visit Reasons: Anticoagulation Allergies erythromycin base [ERYTHROMYCIN BASE] Allergy (Unknown, Verified 09/22/23 10:16) Nausea and Vomiting Medication List - Last Reconciled 10/06/23 by Alexsandra Brar RN amoxicillin 875 mg PO BID efelxpsxxz-bpwxglipqkcob-xlgq 50-325-40 mg 1 tab PO TID PRN chlorhexidine gluconate 0.12% PO cholecalciferol (vitamin D3) (Vitamin D3) 25 mcg PO DAILY citalopram 40 mg PO DAILY clotrimazole-betamethasone 1-0.05 % 1 appl topical BID diazepam 2 mg PO TID PRN enoxaparin mg subcut gabapentin 200 mg PO BEDTIME levothyroxine 50 mcg PO DAILY lisinopril 10 mg PO DAILY simvastatin 20 mg PO BEDTIME simvastatin 40 mg PO BEDTIME sumatriptan succinate 50 mg PO Q2-4H PRN tramadol 50 mg PO Q6H PRN triazolam mg PO walker As directed warfarin See Protocol 2.5 mg orally 1.25 NG SUN/ 2.5MG X 6 DAYS; Nursing Note INR 4.2 out of therapeutic range Medications and supplements reviewed Patient status: left shoulder pain s/p fall several weeks ago, to have f/u appt regarding pain taking tyelnol q 8 hours , may have an MRI and or physicl therapy in the future, Medications or supplements: occ tamadol prn pain - may take at hs for better pain control and sleep, may also try topical pain relief Diet: good , Denies any signs and symptoms of bleeding or clotting or unusual bruising Bleeding, bruising, clotting discussed Nutritional guidance given: greens today, chavez greens lower INR more than raw greens, eat an extra serving of greens when taking more tylenol Dose: decrease weekly dose of warfarin due to tylenol 1.25mg x 2 days/ 2.5mg x 5 days F/U INR Date : 10 days ?? Patient verbalizing understanding of instructions given. Anti-Coag Initial Assessment Social Hx Patient Tobacco Use Status: Never used Tobacco alcohol intake: never Alcohol intake frequency: does not drink Coding Level of Care Code Est Patient Level 1 Diagnoses Current use of anticoagulant therapy Z79.01 Assessment & Plan Assessment & Plan (1) Current use of anticoagulant therapy: Code(s): Z79.01 - long term acute care registered nurse (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 Medications: On Hold enoxaparin Hold Comment: FOR OCTOBER 2023 See Protocol subcut
== END 2023-10-06 10:14 | disposition home or self-care (01) ==
LOC: HO.ACS 09:20
PROVIDERS: PCP Internal Medicine; Visit Provider Internal Medicine
DX: Z79.01 Long term (current) use of anticoagulants (principal)

== ENCOUNTER → 2023-10-06 09:20 | Outpatient (BNVA) | payer OTHER, SELFPAY | PROVIDERS: PCP Internal Medicine; Visit Provider Internal Medicine | DX: Z86.73 Personal history of transient ischemic attack (TIA), and cerebral infarction without residual deficits (principal); Z79.01 Long term (current) use of anticoagulants; Z51.81 Encounter for therapeutic drug level monitoring | CPT/HCPCS: 85610; 99211 ==

== ENCOUNTER 2023-10-17 09:41 | Outpatient (AMB) | payer OTHER, SELFPAY ==
--- NOTE | 2023-10-17 09:59 | MHC.OFFVISCO ---
Intake Intake Visit Reasons: Anticoagulation Allergies erythromycin base [ERYTHROMYCIN BASE] Allergy (Unknown, Verified 10/17/23 09:50) Nausea and Vomiting Medication List - Last Reconciled 10/17/23 by Daniela Orellana RN amoxicillin 875 mg PO BID chvufmvavo-alpvztwiktxfu-hdpf 50-325-40 mg 1 tab PO TID PRN chlorhexidine gluconate 0.12% PO cholecalciferol (vitamin D3) (Vitamin D3) 25 mcg PO DAILY citalopram 40 mg PO DAILY clotrimazole-betamethasone 1-0.05 % 1 appl topical BID diazepam 2 mg PO TID PRN enoxaparin mg See Protocol subcut gabapentin 200 mg PO BEDTIME levothyroxine 50 mcg PO DAILY lisinopril 10 mg PO DAILY simvastatin 20 mg PO BEDTIME simvastatin 40 mg PO BEDTIME sumatriptan succinate 50 mg PO Q2-4H PRN tramadol 50 mg PO Q6H PRN triazolam mg PO walker As directed warfarin See Protocol 2.5 mg orally 1.25 NG SUN/ 2.5MG X 6 DAYS; Nursing Note INR: 2.1 in therapeutic range of 2-3 Medications and supplements reviewed No changes in health, diet, medications, or supplements, Denies any signs and symptoms of bleeding or bruising or clotting. Bleeding, bruising, clotting discussed Nutritional guidance given to balance greens and reds Dose: weekly dose decreased to 2.5mg X 6 days and 1.25mg X 1 day F/U INR: 2 weeks Patient verbalizes understanding of instructions given At next appt will review instructions for INR hold/lovenox for upcoming tooth extractions on 11/12 Anti-Coag Initial Assessment Social Hx Patient Tobacco Use Status: Never used Tobacco alcohol intake: never Alcohol intake frequency: does not drink Coding Diagnoses Current use of anticoagulant therapy Z79.01 Results AMB INR Fingerstick AMB INR Fingerstick 2.1 Last Edit by Daniela Orellana RN on 10/17/23 10:02 interface delay Assessment & Plan Assessment & Plan (1) Current use of anticoagulant therapy: Code(s): Z79.01 - snf (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
[2023-10-17 10:06] LABS: Prothrombin Time Whole Bld POC 25.7 sec (11.1-13.5); ~PT, ~INR - Anti Coag Clinic 2.1 (0.9-1.1)
--- NOTE | 2023-10-17 10:15 | MHC.OFFVISCO ---
Intake Intake Visit Reasons: Anticoagulation Allergies erythromycin base [ERYTHROMYCIN BASE] Allergy (Unknown, Verified 10/17/23 09:50) Nausea and Vomiting Medication List - Last Reconciled 10/17/23 by Daniela Orellana RN amoxicillin 875 mg PO BID cijzqfgjcv-etcyprwmeoitz-xxbq 50-325-40 mg 1 tab PO TID PRN chlorhexidine gluconate 0.12% PO cholecalciferol (vitamin D3) (Vitamin D3) 25 mcg PO DAILY citalopram 40 mg PO DAILY clotrimazole-betamethasone 1-0.05 % 1 appl topical BID diazepam 2 mg PO TID PRN enoxaparin mg See Protocol subcut gabapentin 200 mg PO BEDTIME levothyroxine 50 mcg PO DAILY lisinopril 10 mg PO DAILY simvastatin 20 mg PO BEDTIME simvastatin 40 mg PO BEDTIME sumatriptan succinate 50 mg PO Q2-4H PRN tramadol 50 mg PO Q6H PRN triazolam mg PO walker As directed warfarin See Protocol 2.5 mg orally 1.25 NG SUN/ 2.5MG X 6 DAYS; Nursing Note INR: 2.1 in therapeutic range of 2-3 Medications and supplements reviewed No changes in health, diet, medications, or supplements, Denies any signs and symptoms of bleeding or bruising or clotting. Bleeding, bruising, clotting discussed Nutritional guidance given to balance greens and reds Dose: weekly dose decreased to 2.5mg X 6 days and 1.25mg X 1 day F/U INR: 2 weeks Patient verbalizes understanding of instructions given At next appt will review instructions for INR hold/lovenox for upcoming tooth extractions on 11/12 Anti-Coag Initial Assessment Social Hx Patient Tobacco Use Status: Never used Tobacco alcohol intake: never Alcohol intake frequency: does not drink Coding Level of Care Code Est Patient Level 1 Diagnoses Current use of anticoagulant therapy Z79.01 Results AMB INR Fingerstick AMB INR Fingerstick 2.1 Last Edit by Daniela Orellana RN on 10/17/23 10:02 interface delay Assessment & Plan Assessment & Plan (1) Current use of anticoagulant therapy: Code(s): 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
== END 2023-10-17 10:23 | disposition home or self-care (01) ==
LOC: HO.ACS 09:41
PROVIDERS: PCP Internal Medicine; Visit Provider Internal Medicine
DX: Z79.01 Long term (current) use of anticoagulants (principal)

== ENCOUNTER → 2023-10-17 09:41 | Outpatient (BNVA) | payer OTHER, SELFPAY | PROVIDERS: PCP Internal Medicine; Visit Provider Internal Medicine | DX: Z86.73 Personal history of transient ischemic attack (TIA), and cerebral infarction without residual deficits (principal); Z79.01 Long term (current) use of anticoagulants; Z51.81 Encounter for therapeutic drug level monitoring | CPT/HCPCS: 85610; 99211 ==

== ENCOUNTER 2023-10-31 09:45 | Outpatient (AMB) | payer OTHER, SELFPAY ==
[2023-10-31 10:03] LABS: Prothrombin Time Whole Bld POC 28.3 sec (11.1-13.5); ~PT, ~INR - Anti Coag Clinic 2.4 (0.9-1.1)
--- NOTE | 2023-10-31 10:19 | MHC.OFFVISCO ---
Intake Intake Visit Reasons: Anticoagulation Allergies erythromycin base [ERYTHROMYCIN BASE] Allergy (Unknown, Verified 10/31/23 09:54) Nausea and Vomiting Medication List - Last Reconciled 10/31/23 by Alexsandra Brar RN amoxicillin 875 mg PO BID mhhstycgxr-cyqiyyjzowcbg-trdh 50-325-40 mg 1 tab PO TID PRN chlorhexidine gluconate 0.12% PO cholecalciferol (vitamin D3) (Vitamin D3) 25 mcg PO DAILY citalopram 40 mg PO DAILY clotrimazole-betamethasone 1-0.05 % 1 appl topical BID diazepam 2 mg PO TID PRN enoxaparin mg See Protocol subcut gabapentin 200 mg PO BEDTIME levothyroxine 50 mcg PO DAILY lisinopril 10 mg PO DAILY simvastatin 20 mg PO BEDTIME simvastatin 40 mg PO BEDTIME sumatriptan succinate 50 mg PO Q2-4H PRN tramadol 50 mg PO Q6H PRN triazolam mg PO walker As directed warfarin See Protocol 2.5 mg orally 1.25 NG SUN/ 2.5MG X 6 DAYS; Nursing Note INR: 2.4 in therapeutic range Medications and supplements reviewed Planning for 6 dental extractions holding 4 days : 2 days prior, day of and day after- INR needs to be 2.0 or less , lovenox orders per Dr Bustos and oral surgeon Denies any signs and symptoms of bleeding or bruising or clotting. Bleeding, bruising, clotting discussed Nutritional guidance given - cont to eat a mix of fruits and vegetables, eat greens especially 11/08/23 prior 11/10/23 appt Dose: keep same for now 1.25mg wed/ 2.5mg x 6 days F/U INR: 11/10/23 for INR chk prior warfarin / lovenox hold - lovenox oerders pending INR - may need 11/12/23 INR if elevated pt seeing PCP today and will give him note refarding lovenox orders - will f/u call this afternoon Patient verbalizes understanding of instructions given Anti-Coag Initial Assessment Social Hx Patient Tobacco Use Status: Never used Tobacco alcohol intake: never Alcohol intake frequency: does not drink Coding Level of Care Code Est Patient Level 1 Diagnoses Current use of anticoagulant therapy Z79.01 Results AMB INR Fingerstick AMB INR Fingerstick 2.4 Last Edit by Alexsandra Brar RN on 10/31/23 10:06 manual entry delayed interfacing Assessment & Plan Assessment & Plan (1) Current use of anticoagulant therapy: Code(s): 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
== END 2023-10-31 10:25 | disposition home or self-care (01) ==
LOC: HO.ACS 09:45
PROVIDERS: PCP Internal Medicine; Visit Provider Internal Medicine
DX: Z79.01 Long term (current) use of anticoagulants (principal)

== ENCOUNTER → 2023-10-31 09:45 | Outpatient (BNVA) | payer OTHER, SELFPAY | PROVIDERS: PCP Internal Medicine; Visit Provider Internal Medicine | DX: Z86.73 Personal history of transient ischemic attack (TIA), and cerebral infarction without residual deficits (principal); Z79.01 Long term (current) use of anticoagulants; Z51.81 Encounter for therapeutic drug level monitoring | CPT/HCPCS: 85610; 99211 ==

== ENCOUNTER 2023-11-10 09:33 | Outpatient (AMB) | payer OTHER, SELFPAY ==
--- NOTE | 2023-11-10 10:30 | MHC.OFFVISCO ---
Intake Intake Visit Reasons: Anticoagulation Allergies erythromycin base [ERYTHROMYCIN BASE] Allergy (Unknown, Verified 11/10/23 10:04) Nausea and Vomiting Medication List - Last Reconciled 11/10/23 by Alexsandra Brar RN amoxicillin 875 mg PO BID amehpawylz-xiowqyyojgwls-zook 50-325-40 mg 1 tab PO TID PRN chlorhexidine gluconate 0.12% PO cholecalciferol (vitamin D3) (Vitamin D3) 25 mcg PO DAILY citalopram 40 mg PO DAILY clotrimazole-betamethasone 1-0.05 % 1 appl topical BID diazepam 2 mg PO TID PRN enoxaparin mg See Protocol subcut gabapentin 200 mg PO BEDTIME levothyroxine 50 mcg PO DAILY lisinopril 10 mg PO DAILY simvastatin 20 mg PO BEDTIME simvastatin 40 mg PO BEDTIME sumatriptan succinate 50 mg PO Q2-4H PRN tramadol 50 mg PO Q6H PRN triazolam mg PO walker As directed warfarin See Protocol 2.5 mg orally 1.25 NG SUN/ 2.5MG X 6 DAYS; Nursing Note INR: 2.4 in therapeutic range Medications and supplements reviewed No changes in health, diet, medications, or supplements, Denies any signs and symptoms of bleeding or bruising or clotting. Bleeding, bruising, clotting discussed Nutritional guidance given Dose: Last dose of warfarin today then: Hold 2 days prior , day of and day after per oral surgeon Resume warfarin 5mg x 1 day/ 2.5mg all other days and lovenox 11/15/23 bid per PCP orders pt to only eat or drink cool or cold fluids x 4 days, no carbonation or straws, apply cold wet compress if bleeding and hold cold salt water in mouth no swishing while bleeding, no bending over or straining if bleeding and to call oral surgeon. F/U INR: 11/17/23 Patient verbalizes understanding of instructions given Anti-Coag Initial Assessment Social Hx Patient Tobacco Use Status: Never used Tobacco alcohol intake: never Alcohol intake frequency: does not drink Coding Level of Care Code Est Patient Level 1 Diagnoses Current use of anticoagulant therapy Z79.01 Results AMB INR Fingerstick AMB INR Fingerstick 2.4 Last Edit by Alexsandra Brar RN on 11/10/23 10:19 MANUAL Assessment & Plan Assessment & Plan (1) Current use of anticoagulant therapy: Code(s): Z79.01 - senior care (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
[2023-11-10 11:34] LABS: Prothrombin Time Whole Bld POC 28.2 sec (11.1-13.5); ~PT, ~INR - Anti Coag Clinic 2.4 (0.9-1.1)
== END 2023-11-10 10:54 | disposition home or self-care (01) ==
LOC: HO.ACS 09:33
PROVIDERS: PCP Internal Medicine; Visit Provider Internal Medicine
DX: Z79.01 Long term (current) use of anticoagulants (principal)

== ENCOUNTER → 2023-11-10 09:33 | Outpatient (BNVA) | payer OTHER, SELFPAY | PROVIDERS: PCP Internal Medicine; Visit Provider Internal Medicine | DX: Z86.73 Personal history of transient ischemic attack (TIA), and cerebral infarction without residual deficits (principal); Z79.01 Long term (current) use of anticoagulants; Z51.81 Encounter for therapeutic drug level monitoring | CPT/HCPCS: 85610; 99211 ==

== ENCOUNTER 2023-11-17 09:52 | Outpatient (AMB) | payer OTHER, SELFPAY ==
--- NOTE | 2023-11-17 11:04 | MHC.OFFVISCO ---
Intake Intake Visit Reasons: Anticoagulation Allergies erythromycin base [ERYTHROMYCIN BASE] Allergy (Unknown, Verified 11/17/23 10:46) Nausea and Vomiting Medication List - Last Reconciled 11/17/23 by Alexsandra Brar RN amoxicillin 875 mg PO BID vsasydnean-cevfgclkqdcdg-dzmy 50-325-40 mg 1 tab PO TID PRN chlorhexidine gluconate 0.12% PO cholecalciferol (vitamin D3) (Vitamin D3) 25 mcg PO DAILY citalopram 40 mg PO DAILY clotrimazole-betamethasone 1-0.05 % 1 appl topical BID diazepam 2 mg PO TID PRN enoxaparin mg See Protocol subcut gabapentin 200 mg PO BEDTIME hydrocodone-acetaminophen 5-325 mg tabs PO levothyroxine 50 mcg PO DAILY lisinopril 10 mg PO DAILY simvastatin 20 mg PO BEDTIME simvastatin 40 mg PO BEDTIME sumatriptan succinate 50 mg PO Q2-4H PRN tramadol 50 mg PO Q6H PRN triazolam mg PO walker As directed warfarin See Protocol 2.5 mg orally 1.25 NG SUN/ 2.5MG X 6 DAYS; Nursing Note pt came to appt with sister, INR 1.4 out of therapeutic range Medications and supplements reviewed Patient status: S/P 6 DENTAL EXTRACTIONS 10/14/23- JUST RESUMED WARFARIN 10/16/23 Medications or supplements: Pt has 1 more day of antbx left , took generic vicodin x 1 day, prn tyelnol Diet: soft cool foods x 1 week Denies any signs and symptoms of bleeding or clotting or unusual bruising or complications post extraction Bleeding, bruising, clotting discussed Nutritional guidance given: avoid all greens until INR therapeutic Dose: 5mg today, 2.5mg fri and recheck INR and lovenox per md orders F/U INR Date: 11/20/23? Patient and sister verbalizing understanding of instructions given. t/c to PCP for lovenox refill with update on pt status and plan of care spoke with STEPHANIE Robles to convey msg to PCP - she stated their computers are down and will do the best they can Anti-Coag Initial Assessment Social Hx Patient Tobacco Use Status: Never used Tobacco alcohol intake: never Alcohol intake frequency: does not drink Coding Level of Care Code Est Patient Level 1 Diagnoses Current use of anticoagulant therapy Z79.01 Results AMB INR Fingerstick AMB INR Fingerstick 1.4 Last Edit by Alexsandra Brar RN on 11/17/23 10:57 manual entry Assessment & Plan Assessment & Plan (1) Current use of anticoagulant therapy: Code(s): Z79.01 - senior care (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
[2023-11-17 11:23] LABS: Prothrombin Time Whole Bld POC 16.4 sec (11.1-13.5); ~PT, ~INR - Anti Coag Clinic 1.4 (0.9-1.1)
== END 2023-11-17 11:13 | disposition home or self-care (01) ==
PROVIDERS: PCP Internal Medicine; Visit Provider Internal Medicine
DX: Z79.01 Long term (current) use of anticoagulants (principal)

== ENCOUNTER → 2023-11-17 09:52 | Outpatient (BNVA) | payer OTHER, SELFPAY | PROVIDERS: PCP Internal Medicine; Visit Provider Internal Medicine | DX: Z86.73 Personal history of transient ischemic attack (TIA), and cerebral infarction without residual deficits (principal); Z79.01 Long term (current) use of anticoagulants; Z51.81 Encounter for therapeutic drug level monitoring | CPT/HCPCS: 85610; 99211 ==

== ENCOUNTER 2023-11-20 13:49 | Outpatient (AMB) | payer OTHER, SELFPAY ==
--- NOTE | 2023-11-20 13:56 | MHC.OFFVISCO ---
Intake Intake Visit Reasons: Anticoagulation Allergies erythromycin base [ERYTHROMYCIN BASE] Allergy (Unknown, Verified 11/20/23 13:50) Nausea and Vomiting Medication List - Last Reconciled 11/20/23 by Clemencai Morales RN soybyxhyoi-fvamubmarlitm-nvfk 50-325-40 mg 1 tab PO TID PRN chlorhexidine gluconate 0.12% PO cholecalciferol (vitamin D3) (Vitamin D3) 25 mcg PO DAILY citalopram 40 mg PO DAILY clotrimazole-betamethasone 1-0.05 % 1 appl topical BID diazepam 2 mg PO TID PRN enoxaparin mg See Protocol subcut gabapentin 200 mg PO BEDTIME hydrocodone-acetaminophen 5-325 mg tabs PO levothyroxine 50 mcg PO DAILY lisinopril 10 mg PO DAILY simvastatin 20 mg PO BEDTIME simvastatin 40 mg PO BEDTIME sumatriptan succinate 50 mg PO Q2-4H PRN tramadol 50 mg PO Q6H PRN triazolam mg PO walker As directed warfarin See Protocol 2.5 mg orally 1.25 NG SUN/ 2.5MG X 6 DAYS; Nursing Note INR: 2.1- in therapeutic range of 2-3 Medications and supplements reviewed- pt finished antibiotic amoxicillin yesterday pt denies pain, not taking analgesics No changes in health, diet, medications, or supplements, Denies any signs and symptoms of bleeding or bruising or clotting. Bleeding, bruising, clotting discussed - pt denies any bleeding Nutritional guidance given Dose: 2.5mg x 7 F/U INR: fri11/26/23 Patient verbalizes understanding of instructions given pt to acs acompanied by sister, andreas with mikala. pt s/p dental extractions x 5- held warfarin with lovenox bridge pt here for poc inr check on fri11/17/23 which was 1.4. pt states took one lovenox on and 2 on fri and none today. 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
[2023-11-20 14:04] LABS: Prothrombin Time Whole Bld POC 24.6 sec (11.1-13.5); ~PT, ~INR - Anti Coag Clinic 2.1 (0.9-1.1)
== END 2023-11-20 14:11 | disposition home or self-care (01) ==
LOC: HO.ACS 13:49
PROVIDERS: PCP Internal Medicine; Visit Provider Internal Medicine
DX: Z79.01 Long term (current) use of anticoagulants (principal)

== ENCOUNTER → 2023-11-20 13:49 | Outpatient (BNVA) | payer OTHER, SELFPAY | PROVIDERS: PCP Internal Medicine; Visit Provider Internal Medicine | DX: Z86.73 Personal history of transient ischemic attack (TIA), and cerebral infarction without residual deficits (principal); Z79.01 Long term (current) use of anticoagulants; Z51.81 Encounter for therapeutic drug level monitoring | CPT/HCPCS: 85610; 99211 ==

== ENCOUNTER 2023-11-27 11:07 | Outpatient (AMB) | payer OTHER, SELFPAY ==
--- NOTE | 2023-11-27 11:07 | MHC.OFFVISCO ---
Intake Intake Visit Reasons: Anticoagulation Allergies erythromycin base [ERYTHROMYCIN BASE] Allergy (Unknown, Verified 11/27/23 11:11) Nausea and Vomiting Medication List - Last Reconciled 11/27/23 by Daniela Orellana RN gyhcnnchsv-wfkqpojfgsewq-vjcn 50-325-40 mg 1 tab PO TID PRN chlorhexidine gluconate 0.12% PO cholecalciferol (vitamin D3) (Vitamin D3) 25 mcg PO DAILY citalopram 40 mg PO DAILY clotrimazole-betamethasone 1-0.05 % 1 appl topical BID diazepam 2 mg PO TID PRN gabapentin 200 mg PO BEDTIME hydrocodone-acetaminophen 5-325 mg tabs PO levothyroxine 50 mcg PO DAILY lisinopril 10 mg PO DAILY simvastatin 20 mg PO BEDTIME simvastatin 40 mg PO BEDTIME sumatriptan succinate 50 mg PO Q2-4H PRN tramadol 50 mg PO Q6H PRN triazolam mg PO walker As directed warfarin See Protocol 2.5 mg orally 1.25 NG SUN/ 2.5MG X 6 DAYS; Nursing Note Pt to ACS with use of walker INR: 2.7 in therapeutic range of 2-3 Medications and supplements reviewed No changes in health, diet, medications, or supplements, Denies any signs and symptoms of bleeding or bruising or clotting. Bleeding, bruising, clotting discussed Nutritional guidance given to continue to balance reds and greens Dose: 2.5mg X 7 days F/U INR: 2 weeks Patient verbalizes understanding of instructions given Anti-Coag Initial Assessment Social Hx Patient Tobacco Use Status: Never used Tobacco alcohol intake: never Alcohol intake frequency: does not drink Coding Level of Care Code Est Patient Level 1 Diagnoses Current use of anticoagulant therapy Z79.01 Results AMB INR Fingerstick AMB INR Fingerstick 2.7 Last Edit by Daniela Orellana RN on 11/27/23 11:16 interface delay Assessment & Plan Assessment & Plan (1) Current use of anticoagulant therapy: Code(s): 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
[2023-11-27 11:16] LABS: Prothrombin Time Whole Bld POC 32.1 sec (11.1-13.5); ~PT, ~INR - Anti Coag Clinic 2.7 (0.9-1.1)
== END 2023-11-27 11:25 | disposition home or self-care (01) ==
LOC: HO.ACS 11:07
PROVIDERS: PCP Internal Medicine; Visit Provider Internal Medicine
DX: Z79.01 Long term (current) use of anticoagulants (principal)

== ENCOUNTER → 2023-11-27 11:07 | Outpatient (BNVA) | payer OTHER, SELFPAY | PROVIDERS: PCP Internal Medicine; Visit Provider Internal Medicine | DX: Z86.73 Personal history of transient ischemic attack (TIA), and cerebral infarction without residual deficits (principal) | CPT/HCPCS: 85610; 99211 ==

== ENCOUNTER 2023-12-12 14:25 | Outpatient (AMB) | payer OTHER, SELFPAY ==
[2023-12-12 14:42] LABS: Prothrombin Time Whole Bld POC 39.9 sec (11.1-13.5); ~PT, ~INR - Anti Coag Clinic 3.3 (0.9-1.1)
--- NOTE | 2023-12-12 14:51 | MHC.OFFVISCO ---
Intake Intake Visit Reasons: Anticoagulation Allergies erythromycin base [ERYTHROMYCIN BASE] Allergy (Unknown, Verified 12/12/23 14:35) Nausea and Vomiting Medication List - Last Reconciled 12/12/23 by Alexsandra Brar RN yhguotkfsu-sbyqafrywkscz-yggx 50-325-40 mg 1 tab PO TID PRN chlorhexidine gluconate 0.12% PO cholecalciferol (vitamin D3) (Vitamin D3) 25 mcg PO DAILY citalopram 40 mg PO DAILY clotrimazole-betamethasone 1-0.05 % 1 appl topical BID diazepam 2 mg PO TID PRN gabapentin 200 mg PO BEDTIME hydrocodone-acetaminophen 5-325 mg tabs PO levothyroxine 50 mcg PO DAILY lisinopril 10 mg PO DAILY lorazepam 1 mg PO TID simvastatin 20 mg PO BEDTIME simvastatin 40 mg PO BEDTIME sumatriptan succinate 50 mg PO Q2-4H PRN tramadol 50 mg PO Q6H PRN triazolam mg PO walker As directed warfarin See Protocol 2.5 mg orally 1.25 NG SUN/ 2.5MG X 6 DAYS; Nursing Note INR 3.3??out of therapeutic range Medications and supplements reviewed Patient status: pt healed from dental extractions-able to eat solid foods without difficulty, she states she notices a hole in her gum - she was advised to call oral surgeon. no fever or bleeding or pain. waiting for an appt for her dentures She is going for an MRI today of her shoulder that she fell on 4 months ago due to on going pain no surgery date for knee yet Medications or supplements: no changes - just lorazapam prn for the MRi Diet: good, may not have had enough greens Denies any signs and symptoms of bleeding or clotting or unusual bruising Bleeding, bruising, clotting discussed Nutritional guidance given: review food list and make sure to eat weekly greens Dose: decrease slightly to a previous dose of 1.25mg x 1 day/ 2.5mg x 6 days F/U INR Date: 2 weeks ?? Patient verbalizing understanding of instructions given. Anti-Coag Initial Assessment Social Hx Patient Tobacco Use Status: Never used Tobacco alcohol intake: never Alcohol intake frequency: does not drink Coding Level of Care Code Est Patient Level 1 Diagnoses Current use of anticoagulant therapy Z79.01 Results AMB INR Fingerstick AMB INR Fingerstick 3.3 Last Edit by Alexsandra Brar RN on 12/12/23 14:45 manual entry Assessment & Plan Assessment & Plan (1) Current use of anticoagulant therapy: Code(s): Z79.01 - skilled nursing (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
== END 2023-12-12 15:00 | disposition home or self-care (01) ==
LOC: HO.ACS 14:25
PROVIDERS: PCP Internal Medicine; Visit Provider Internal Medicine
DX: Z79.01 Long term (current) use of anticoagulants (principal)

== ENCOUNTER 2023-12-12 14:54 | Outpatient (REF) | payer OTHER, SELFPAY ==
--- NOTE | ~2023-12-12 | MR_ITS ---
EXAMINATION: MR SHOULDER WITHOUT CONTRAST, LEFT CLINICAL INFORMATION: Left shoulder pain. Decreased range of motion. COMPARISON: Left shoulder radiographs dated 08/30/2023. TECHNIQUE: MRI of the shoulder without contrast was performed on a high-field scanner. FINDINGS: ROTATOR CUFF: Moderate supraspinatus and infraspinatus tendinosis. Irregular articular surface partial tearing involving the entirety of the supraspinatus tendon with extension into the anterior aspect of the infraspinatus tendon measuring up to 2.9 x 2.0 cm (AP by ML). There appear to be thin bursal surface tendon fibers remaining intact. Mild subscapularis tendinosis with distal articular surface partial tearing measuring up to 1.8 cm in ML dimension. Intact teres minor tendon. Mild supraspinatus muscle atrophy. BICEPS: Intact. CORACOACROMIAL ARCH: The undersurface of the acromion is curved with no subacromial spur. Euxs-sr-kbcteumh acromioclavicular osteoarthritis. Trace fluid within the subacromial subdeltoid bursa, which could indicate an occult, full thickness component to the rotator cuff tendon tear or indicate mild bursitis. LABRUM/CAPSULE: Finding the periphery of the posterosuperior labrum. Intact inferior joint capsule. GLENOHUMERAL JOINT/MARROW: Degenerative cystic change at the greater tuberosity adjacent to the supraspinatus and infraspinatus tendon insertion. Minimal articular cartilage signal heterogeneity. No acute osseous injury. Small glenohumeral joint effusion. MR/MR shoulder LT wo con IMPRESSION: 1. Moderate supraspinatus and infraspinatus tendinosis with irregular articular surface partial tearing involving the entirety of the supraspinatus tendon with extension into the anterior aspect of the infraspinatus tendon. There appear to be thin bursal surface tendon fibers remaining intact. Mild supraspinatus muscle atrophy. 2. Mild subscapularis tendinosis with distal articular surface partial tearing measuring 1.8 cm in ML dimension. 3. Ecqb-mk-qioodixw acromioclavicular osteoarthritis. Trace fluid within the subacromial subdeltoid bursa, which could indicate an occult, full thickness component to the rotator cuff tendon tear or indicate mild bursitis. 1. Degenerative tearing at the periphery of the posterior superior labrum. 2. Minimal glenohumeral arthrosis. Small joint effusion. Electronically signed by: Khai Ried MD 12/16/2023 12:38 PM EDT
== END 2023-12-12 14:55 | disposition home or self-care (01) ==
LOC: HO.MRI 14:54
PROVIDERS: PCP Internal Medicine; Visit Provider Internal Medicine
DX: M75.102 Unspecified rotator cuff tear or rupture of left shoulder, not specified as traumatic (principal); Z86.73 Personal history of transient ischemic attack (TIA), and cerebral infarction without residual deficits; Z51.81 Encounter for therapeutic drug level monitoring; Z79.01 Long term (current) use of anticoagulants
CPT/HCPCS: 73221; 85610; 99211

== ENCOUNTER 2023-12-26 14:05 | Outpatient (AMB) | payer OTHER, SELFPAY ==
[2023-12-26 14:12] LABS: Prothrombin Time Whole Bld POC 40.3 sec (11.1-13.5); ~PT, ~INR - Anti Coag Clinic 3.4 (0.9-1.1)
--- NOTE | 2023-12-26 14:24 | MHC.OFFVISCO ---
Intake Intake Visit Reasons: Anticoagulation Allergies erythromycin base [ERYTHROMYCIN BASE] Allergy (Unknown, Verified 12/26/23 14:07) Nausea and Vomiting Medication List - Last Reconciled 12/26/23 by Yadira Laureano RN bomkytlnpc-rmoquzjsofmjk-zzvw 50-325-40 mg 1 tab PO TID PRN chlorhexidine gluconate 0.12% PO cholecalciferol (vitamin D3) (Vitamin D3) 25 mcg PO DAILY citalopram 40 mg PO DAILY clotrimazole-betamethasone 1-0.05 % 1 appl topical BID diazepam 2 mg PO TID PRN gabapentin 200 mg PO BEDTIME hydrocodone-acetaminophen 5-325 mg tabs PO levothyroxine 50 mcg PO DAILY lisinopril 10 mg PO DAILY lorazepam 1 mg PO TID simvastatin 20 mg PO BEDTIME simvastatin 40 mg PO BEDTIME sumatriptan succinate 50 mg PO Q2-4H PRN tramadol 50 mg PO Q6H PRN triazolam mg PO walker As directed warfarin See Protocol 2.5 mg orally 1.25 NG SUN/ 2.5MG X 6 DAYS; Nursing Note NO CP,SOB,DIET/MED CHANGES,FALLS OR SX OF BLEEDING. HOLD WARFARIN TODAY THEN RESUME PRESENT DOSING AND FOLLOW-UP IN 2 WEEKS. GOOD UNDERSTANDING OF DOSING INSTR. Anti-Coag Initial Assessment Social Hx Patient Tobacco Use Status: Never used Tobacco alcohol intake: never Alcohol intake frequency: does not drink Coding Level of Care Code Est Patient Level 1 Diagnoses Current use of anticoagulant therapy Z79.01 Assessment & Plan Assessment & Plan (1) Current use of anticoagulant therapy: Code(s): Z79.01 - emt intermediate (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
== END 2023-12-26 14:25 | disposition home or self-care (01) ==
LOC: HO.ACS 14:05
PROVIDERS: PCP Internal Medicine; Visit Provider Internal Medicine
DX: Z79.01 Long term (current) use of anticoagulants (principal)

== ENCOUNTER → 2023-12-26 14:05 | Outpatient (BNVA) | payer OTHER, SELFPAY | PROVIDERS: PCP Internal Medicine; Visit Provider Internal Medicine | DX: Z86.73 Personal history of transient ischemic attack (TIA), and cerebral infarction without residual deficits (principal); Z79.01 Long term (current) use of anticoagulants; Z51.81 Encounter for therapeutic drug level monitoring | CPT/HCPCS: 85610; 99211 ==

== ENCOUNTER 2024-01-04 15:29 | Emergency (ER) | payer OTHER, SELFPAY ==
[2024-01-04] VITALS (7 sets, daily range): BP systolic 115–160; BP diastolic 50–110; PULSE 55–71; RESP 16; TEMP 36.4–36.6; O2SAT 94–98; BMI 39.1
--- NOTE | ~2024-01-04 | CT_ITS ---
EXAM: CT HEAD WITHOUT CONTRAST CT CERVICAL SPINE INDICATION: fall, head strike, on coumadin TECHNIQUE: A noncontrast CT scan was performed from the skull base to the vertex. A noncontrast CT scan of the cervical spine was performed from the base of the skull through T1 at 2.5 mm and 0.625 mm collimation. Coronal and sagittal reformats were obtained at the acquisition workstation. This CT examination was performed using dose optimization techniques as appropriate, variously including the following: * Automated exposure control * Adjustment of mA and/or kV according to patient size (this includes techniques or standardized protocols for targeted exams where dose is matched to indication/reason for exam; i.e. extremities or head) * Use of iterative reconstruction technique Dose length product is 2178 mGy-cm. COMPARISON: CT head 07/21/2023 FINDINGS: Head: No evidence of acute intracranial hemorrhage or edematous territorial infarction. No abnormal extra-axial fluid collection is not defined. Redemonstrated is chronic encephalomalacia in the right frontoparietal lobe, presumably related to chronic infarct. There is associated ex vacuo dilatation of the right lateral ventricle. Redemonstrated is focal encephalomalacia in the lateral aspect the left cerebellar hemisphere, the left parietal lobe. No abnormal mass effect or midline shift is seen. Chaves to white matter differentiation is well preserved. Cerebral volume loss and chronic deep white matter microangiopathy is redemonstrated. No acute calvarial fracture.. Paranasal sinuses and mastoid air cells are well-aerated. Cervical Spine: The atlantooccipital and atlantoaxial articulations remain well aligned. Straightening of the normal cervical lordosis. Otherwise, there is anatomic alignment of the vertebral bodies and posterior elements. No evidence of acute fracture or subluxation. Vertebral body heights are maintained. There is a small chronic corticated ossification inferior to the atlantodens articulation mild C7-T1 disc space narrowing. The bony canal is well maintained. No prevertebral soft tissue swelling. The paraspinal soft tissues are unremarkable. No suspicious thyroid findings. The visualized lung apices are clear. CT/CT cervical spine wo IV con IMPRESSION: CT head: No evidence of acute intracranial hemorrhage or edematous type infarction. Chronic encephalomalacia in the right frontoparietal lobe, and additional small chronic foci of infarctions, unchanged from the prior CT of 07/21/2023. Additional chronic changes redemonstrated. CT cervical spine: No CT evidence of acute cervical spine fracture or malalignment. Electronically signed by: Fredy Reyse MD 01/04/2024 06:56 PM EDT
--- NOTE | ~2024-01-04 | CT_ITS ---
EXAMINATION: CT CHEST, ABDOMEN AND PELVIS WITH CONTRAST CLINICAL INFORMATION: fall with chest trauma, abd trauma and low back pain COMPARISON: No pertinent prior studies are available for comparison. TECHNIQUE: Multidetector volumetric imaging was performed from the thoracic inlet through the pubic symphysis following administration of 85 mL of Omnipaque 350. Sagittal and coronal reformatted images were obtained on the technologist's workstation. This CT examination was performed using dose optimization techniques as appropriate, variously including the following: *Automated exposure control *Adjustment of mA and/or kV according to patient size (this includes techniques or standardized protocols for targeted exams where dose is matched to indication/reason for exam; i.e. extremities or head) *Use of iterative reconstruction technique DLP: 311 mGy-cm FINDINGS: CHEST: Lung: The lungs are clear without focal opacity or nodule. Mediastinum: The mediastinum is normal. The central vascular structures are unremarkable. No hilar or mediastinal lymphadenopathy. Coronary Artery Calcium: Mild Pericardium/Pleura: No significant effusion. No pleural mass or thickening. Chest Wall/Axilla: Unremarkable ABDOMEN/PELVIS: Peritoneal Space: No significant free air or free fluid identified. Liver, Gallbladder, Biliary Tree: The liver is normal in size, shape, and attenuation. No focal hepatic lesion or biliary ductal dilatation is present. The gallbladder is unremarkable with no evidence of radiopaque gallstones, gallbladder wall thickening, or obvious pericholecystic inflammatory changes. Pancreas: Unremarkable Spleen: Unremarkable Adrenal Glands: Unremarkable Kidneys and Ureters: The kidneys are normal in size, shape, and attenuation aside from atrophy and scarring at the left lower pole. A single 3 mm stone is present in a lower pole calyx with no overlying cortex. A benign left mid to lower 2.2 cm Bosniak class I renal cyst is noted which requires no additional imaging or follow up. No solid renal masses are seen. No hydronephrosis, hydroureter, or additional calculi seen. No perinephric stranding. Bladder: Unremarkable Gastrointestinal Tract: A small hiatal hernia is present. There is colonic diverticulosis without diverticulitis. There is marked fatty infiltration of the ileocecal valve. The small and large bowel are otherwise unremarkable. The appendix is unremarkable. Abdominal Wall: No significant hernia is appreciated. Lymph Nodes: No lymphadenopathy. Vascular: Calcific atherosclerotic changes are present in the aorta and iliofemoral vessels. There is the left renal vein is retroaortic no evidence of an abdominal aortic aneurysm.. The IVC appears unremarkable. PELVIC VISCERA: The uterus and adnexa are unremarkable aside for the presence of some uterine fibroids the largest measuring 2.3 cm at the left cornu. No free fluid present in the cul-de-sac. OSSEUS STRUCTURES: Minimal degenerative changes are noted in the spine. No bony destructive lesions are seen. CT/CT abdomen pelvis w IV con IMPRESSION: 1. No evidence of a traumatic injury in the chest, abdomen or pelvis. 2. Incidental note made of coronary calcifications, small hiatal hernia, left renal scarring and nonobstructing left renal calculus, colonic diverticulosis without diverticulitis and uterine fibroids. Fleischner guidelines were followed. Electronically signed by: Laron Cannon MD 01/04/2024 06:26 PM EDT
[2024-01-04 15:59] LABS: MANUAL DIFF FLAG NO
[2024-01-04 16:01] LABS: Basophils Percent Auto 0.1 % (0-2); Eosinophils Percent Auto 0.2 % (0-4); Hematocrit 41.3 % (37.0-47.0); Hemoglobin 13.1 g/dl (12.0-16.0); Imm Gran Abs Auto 0.09 X10*3/uL (0.00-0.03); Imm Gran Pct Auto 0.7 % (0.0-0.4); Lymphocytes Percent Auto 16.4 % (20-40); Mean Corpuscular HGB Conc 31.7 g/dl (31.0-35.0); Mean Corpuscular Hemoglobin 28.3 pg (27.0-33.0); Mean Corpuscular Volume 89.2 fL (80.0-98.0); Mean Platelet Volume 10.7 fL (9.4-12.3); Monocytes Absolute Auto 1.1 X10*3/uL (0.1-1.2); Monocytes Percent Auto 8.7 % (2-11); Neutrophils Absolute Auto 9.1 x10*3/uL (2.0-8.3); Neutrophils Percent Auto 73.9 % (45-73); Platelet Count 303 X10*3/uL (160-400); Red Blood Count 4.63 X10*6/uL (4.20-5.50); Red Cell Distribution Width 14.6 % (11.0-16.0); White Blood Count 12.2 X10*3/uL (4.8-10.8)
[2024-01-04 16:10] LABS: INTERNATIONAL NORM RATIO 2.4 (0.9-1.1); Prothrombin Time 29.1 SEC (11.1-13.3)
--- NOTE | 2024-01-04 16:16 | PC.NURSE ---
patient arrives VIA EMS from home after sustaining mechanical fall, patient states she went to run the shower and reached to open the window and she slipped on water and fell and hit the side of her head, endorses being on blood thinners at home but denies LOC. patient currently complaining of discomfort from Ccollar however denies any pain anywhere else. has some swelling to BLE but states they are at her baseline currently, equal strength bilaterally in lower extremities. patient alert and oriented and answering questions appropriately. awaiting CT scan a this time 18g PIV placed in LAC by this RN, plan of care is ongoing
[2024-01-04 16:27] LABS: Alanine Aminotransferase 19 U/L (0-31); Albumin Level 4.1 g/dL (3.5-5.0); Alkaline Phosphatase 113 U/L (39-117); Anion Gap 13 (12-20); Aspartate Amino Transferase 13 U/L (5-31); Bilirubin Total 0.3 mg/dL (0.0-1.0); Blood Urea Nitrogen 18 mg/dL (9-16); Calcium 10.4 mg/dL (8.4-10.2); Carbon Dioxide 27 mmol/L (22-29); Chloride 106 mmol/L (96-108); Creatinine Clr Calc Pharmacy 71.6; Estimated Glomerular Filt Rate > 60; Glucose Random 94 mg/dL (60-115); Sodium 141 mmol/L (135-145); Total Protein 7.1 g/dL (6.5-8.0)
--- NOTE | 2024-01-04 16:55 | ED.GENADULT ---
HPI - General Adult General Chief complaint: Fall Stated complaint: Fell in the shower,head pain Time Seen by Provider: 01/04/24 16:54 Source: patient Mode of arrival: ambulatory Limitations: no limitations History of Present Illness ED Provider: Chapo KENNEDY HPI narrative: This is a 58-year-old female history of KRYSTAL on CPAP, factor 5 Leiden mutation, arthritis, CVA, hypertension, hyperlipidemia, hypothyroid, osteoarthritis, on anticoagulation presenting to the emergency department with complaints of lower back pain, headache, neck pain status post fall in the shower. Patient reports she went to close the window she lost her footing, and fell back hitting the back of her head, no loss of consciousness. She was able to get up by herself however since she fell she has been experiencing some discomfort worse with movement better at rest. Denies saddle anesthesias, urinary/bowel incontinence/retention, fevers, chills, chest pain, shortness breath, nausea, vomiting, abdominal pain, headache, vision changes, dizziness and weakness GCS-15 NIHSS-0 Related Data Home Medications ?Medication ?Instructions ?Recorded ?Confirmed citalopram 40 mg tablet 40 mg PO DAILY 05/11/20 12/12/23 gabapentin 100 mg capsule 200 mg PO BEDTIME 05/11/20 12/12/23 simvastatin 20 mg tablet 20 mg PO BEDTIME 05/11/20 12/12/23 cholecalciferol (vitamin D3) 25 25 mcg PO DAILY 09/10/21 12/12/23 mcg (1,000 unit) tablet (Vitamin D3) simvastatin 40 mg tablet 40 mg PO BEDTIME 12/06/21 12/12/23 clotrimazole-betamethasone 1 1 appl topical BID 01/28/23 12/12/23 %-0.05 % topical cream warfarin 2.5 mg tablet 2.5 mg PO .COMPLEX 01/29/23 12/26/23 diazepam 2 mg tablet 2 mg PO TID PRN 03/31/23 12/12/23 lisinopril 20 mg tablet 10 mg PO DAILY 03/31/23 12/12/23 levothyroxine 50 mcg tablet 50 mcg PO DAILY 05/12/23 12/12/23 hfkcfqjjip-defgvleiwlryw-avmjsdvl 1 tab PO TID PRN 09/22/23 12/12/23 50 mg-325 mg-40 mg tablet chlorhexidine gluconate 0.12 % PO 09/22/23 12/12/23 mouthwash tramadol 50 mg tablet 50 mg PO Q6H PRN 09/22/23 12/12/23 triazolam 0.25 mg tablet mg PO 09/22/23 12/12/23 hydrocodone 5 mg-acetaminophen 325 tab PO 11/17/23 12/12/23 mg tablet lorazepam 1 mg tablet 1 mg PO TID 12/12/23 12/12/23 Previous Rx's ?Medication ?Instructions ?Recorded sumatriptan succinate 50 mg tablet 50 mg PO Q2-4H PRN migraine 09/27/22 headache #7 tabs walker #1 ea 01/29/23 acetaminophen 325 mg capsule 325 mg PO Q4H PRN pain #30 caps 01/04/24 (Tylenol) Allergies Allergy/AdvReac Type Severity Reaction Status Date / Time erythromycin base Allergy Unknown Nausea and Verified 01/04/24 15:45 [ERYTHROMYCIN BASE] Vomiting Review of Systems Review of Systems: Yes all other systems are reviewed and are negative PMFSH Past Medical History Attestation statement: The following information was validated with the patient. Source: old records reviewed and nursing notes reviewed Medical History CVA (cerebral vascular accident) Factor 5 Leiden mutation, heterozygous Arthritis KRYSTAL on CPAP Anxiety and depression History of CVA (cerebrovascular accident) Hypothyroidism Elevated cholesterol HTN (hypertension) On anticoagulant therapy Post-traumatic osteoarthritis of left knee Unilateral primary osteoarthritis, left knee (~2014) Surgical History Hx of left knee surgery History of repair of anterior cruciate ligament of left knee Hx of colonoscopy Family History Family History Father No problems noted. Mother No problems noted. 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 Oriented X3.? No acute distress.? Head: Normocephalic, small hematoma to the right temporal region of head. No laceration Neck: Paraspinous muscle discomfort in the cervical region bilaterally, no midline pain. Patient in cervical collar. Eyes: Pupils equal, round and reactive to light.? CVS: Normal heart rate and rhythm.? Pulses normal.? Respiratory: No respiratory distress.? Breath sounds normal.? Abdomen: Soft and nontender.? Skin: Skin warm and dry.? Normal skin color.? Normal skin turgor.? Extremities: No lower extremity edema.? No calf ttp. 5/5 strength to bilateral upper and lower extremities. 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 Negative Romberg and pronator drift. Back: lumbar paraspinous muscle ttp on exam no midline pain. Neuro: Oriented X 3.? No motor deficit.? No sensory deficit. CN 2-12 intact . No saddle anesthesia Course Reevaluation(s) Reevaluation #1: CBC with slight leukocytosis 12.2 no left shift this is likely reactive secondary to fall. Chemistry no acute findings needing intervention. I did add on a troponin to initial labs and an EKG although I do not suspect ACS or dysrhythmia. This is likely mechanical. Patient's coags PT 29.1, INR 2.4 will make her aware of this. Imaging still pending and orthostatic vitals Time: 17:08 Reevaluation #2: No evidence of traumatic injury and chest, abdomen or pelvis incidental note of coronary calcification small hiatal hernia and left renal scarring and nonobstructing left renal calculi colonic diverticulosis without diverticulitis noted. CT head no signs of acute intracranial hemorrhage or edematous territorial infarction chronic encephalomalacia in the right frontal parietal lobe and additional small chronic foci of infarction unchanged from prior CT scan. No evidence of acute cervical spine fracture malalignment. As long as orthostatic vital signs are negative patient to be discharged home. Will clear C-spine at this time Time: 19:02 Medications Administered Discontinued Medications Generic Name Dose Route Start Last Admin Trade Name Alia PRN Reason Stop Dose Admin Acetaminophen 650 mg 01/04/24 17:22 01/04/24 18:20 Acetaminophen 325 Mg Tablet PO 01/04/24 17:23 650 mg ONCE ONE Administration Iohexol 100 ml 01/04/24 18:04 01/04/24 18:04 Iohexol 350 Mg/Ml 100 Ml Infus..Btl IV 01/04/24 18:05 85 ml ONCE ONE Administration Medical Decision Making Medical Decision Making [facility] Narrative: 5701 58-year-old female presents status post slip and fall in the shower with head strike no loss of consciousness. Anticoagulated. Complaining of headache, neck pain, low back pain. Physical exam small hematoma on the right temporal region of head. Cervical paraspinous muscle spasms throughout all cervical spine and lumbar paraspinous discomfort on palpation. No midline pain. No focal neuro deficits. NIH stroke scale 0, GCS 15 Will rule out traumatic injury to head, neck, chest, abdomen or pelvis. No signs of cord compression, cauda equina, intracranial hemorrhage, stroke, posterior stroke. I would will rule out metabolic derangements although unlikely. Plan labs, imaging Differential Diagnosis Differential Diagnoses: The differential diagnosis associated with the presentation includes Will rule out traumatic injury to head, neck, chest, abdomen or pelvis. No signs of cord compression, cauda equina, intracranial hemorrhage, stroke, posterior stroke. I would will rule out metabolic derangements although unlikely. Admission/Observation Consideration of admission/observation: Escalation of care including admission/observation considered possible Lab Data [facility] Lab Attestation statement: I reviewed the patient's lab results. 01/04/24 15:53 01/04/24 15:53 Labs: Lab Results 01/04/24 Range/Units 15:53 WBC 12.2 H (4.8-10.8) X10*3/uL RBC 4.63 (4.20-5.50) X10*6/uL Hgb 13.1 (12.0-16.0) g/dl Hct 41.3 (37.0-47.0) % MCV 89.2 (80.0-98.0) fL MCH 28.3 (27.0-33.0) pg MCHC 31.7 (31.0-35.0) g/dl RDW 14.6 (11.0-16.0) % Plt Count 303 (160-400) X10*3/uL MPV 10.7 (9.4-12.3) fL Immature Gran % (Auto) 0.7 H (0.0-0.4) % Neut % (Auto) 73.9 H (45-73) % Lymph % (Auto) 16.4 L (20-40) % Jerome % (Auto) 8.7 (2-11) % Eos % (Auto) 0.2 (0-4) % Baso % (Auto) 0.1 (0-2) % Lymph # (Auto) 2.0 (1.2-4.9) X10*3/uL Jerome # (Auto) 1.1 (0.1-1.2) X10*3/uL Eos # (Auto) 0.0 (0.0-0.4) X10*3/uL Baso # (Auto) 0.0 (0.0-0.2) X10*3/uL Abs Immat Gran (auto) 0.09 H (0.00-0.03) X10*3/uL Absolute Neuts (auto) 9.1 H (2.0-8.3) x10*3/uL Absolute Nucleated RBC 0.000 (0.0-0.012) X10*3/uL Nucleated RBC % (auto) 0.0 (0.0-0.2) /100WBC PT 29.1 H (11.1-13.3) SEC INR 2.4 H (0.9-1.1) Sodium 141 (135-145) mmol/L Potassium 5.0 (3.3-5.1) mmol/L Chloride 106 (96-108) mmol/L Carbon Dioxide 27 (22-29) mmol/L Anion Gap 13 (12-20) BUN 18 H (9-16) mg/dL Creatinine 0.87 (0.5-1.4) mg/dL Estim Creat Clear Calc 71.6 Estimated GFR > 60 Random Glucose 94 (60-115) mg/dL Calcium 10.4 H (8.4-10.2) mg/dL Total Bilirubin 0.3 (0.0-1.0) mg/dL AST 13 (5-31) U/L ALT 19 (0-31) U/L Alkaline Phosphatase 113 (39-117) U/L Troponin I High Sens < 2.7 (<3.5-17.0) ng/L Total Protein 7.1 (6.5-8.0) g/dL Albumin 4.1 (3.5-5.0) g/dL Independent Interpretation I performed an independent interpretation of an: EKG (Vent. Rate : 055 BPM Atrial Rate : 055 BPM P-R Int : 148 ms QRS Dur : 082 ms QT Int : 400 ms P-R-T Axes : 050 071 025 degrees QTc Int : 382 ms Sinus bradycardia Low voltage QRS Borderline ECG When compared with ECG of 06-FEB-2023 10:31, No significant change was found ) and CT Scan (CT/CT chest w IV con IMPRESSION: 1. No evidence of a traumatic injury in the chest, abdomen or pelvis. 2. Incidental note made of coronary calcifications, small hiatal hernia, left renal scarring and nonobstructing left renal calculus, colonic diverticulosis without diverticulitis and uterine fi) Interpretation: CT/CT cervical spine wo IV con IMPRESSION: CT head: No evidence of acute intracranial hemorrhage or edematous type infarction. Chronic encephalomalacia in the right frontoparietal lobe, and additional small chronic foci of infarctions, unchanged from the prior CT of 07/21/2023. Additional chronic changes redemonstrated. CT cervical spine: No CT evidence of acute cervical spine fracture or malalignment. CT/CT abdomen pelvis w IV con IMPRESSION: 1. No evidence of a traumatic injury in the chest, abdomen or pelvis. 2. Incidental note made of coronary calcifications, small hiatal hernia, left renal scarring and nonobstructing left renal calculus, colonic diverticulosis without diverticulitis and uterine fibroids. Radiology Impression Discussion of test interpretation with radiology: I have reviewed the radiologist's reading. External Record Review External record reviewed: Inpatient record, Office record, Outpatient record, Prior outpatient labs, Prior outpatient radiology, Primary care record and Outside ED record Chronic Conditions Patient?s care impacted by: Other (factor 5, obesity, krystal ) Critical Care Time Critical Care Time Critical Care Time: No Discharge Plan Discharge Clinical Impression: Concussion without loss of consciousness, Hematoma, Lower back pain Patient Disposition: Home, Self-Care Instructions: Concussion (ED), Back Pain (ED) Additional Instructions: Take your medications as prescribed. If you were prescribed antibiotics today, it is important that you take your medication to their entirety, do not skip any doses, do not finish them early. Follow-up with your primary care provider this week. Return to the emergency department with new or worsening symptoms. Such as fevers, chills, chest pain, shortness of breath, nausea, vomiting, dizziness, headache, vision changes, lethargy In case of emergency call 911 CT/CT chest & abdomen pelvis w IV con IMPRESSION: 1. No evidence of a traumatic injury in the chest, abdomen or pelvis. 2. Incidental note made of coronary calcifications, small hiatal hernia, left renal scarring and nonobstructing left renal calculus, colonic diverticulosis without diverticulitis and uterine fibroids. Fleischner guidelines were followed. CT/CT head/brain wo IV con IMPRESSION: CT head: No evidence of acute intracranial hemorrhage or edematous type infarction. Chronic encephalomalacia in the right frontoparietal lobe, and additional small chronic foci of infarctions, unchanged from the prior CT of 07/21/2023. Additional chronic changes redemonstrated. CT cervical spine: No CT evidence of acute cervical spine fracture or malalignment. Prescriptions: New acetaminophen [Tylenol] 325 mg capsule 325 mg PO Q4H PRN (Reason: pain) Qty: 30 0RF No Action cholecalciferol (vitamin D3) [Vitamin D3] 25 mcg (1,000 unit) Tablet 25 mcg PO DAILY sumatriptan succinate 50 mg tablet 50 mg PO Q2-4H PRN (Reason: migraine headache) Qty: 7 0RF Rx Instructions: do not exceed 4 doses per 24 hrs clotrimazole-betamethasone 1-0.05 % cream 1 appl topical BID (DME[facility] See Rx Instructions .Route Qty: 1 0RF Rx Instructions: As directed warfarin 2.5 mg tablet 2.5 mg PO .COMPLEX Protocol: Dose Management Condition: Friday (Week One) Dose/Route: 2.5 mg Instruction: 1 x 2.5 mg tablet Condition: Friday Dose/Route: 2.5 mg Instruction: 1 x 2.5 mg tablet Condition: Friday Dose/Route: 2.5 mg Instruction: 1 x 2.5 mg tablet Condition: Friday Dose/Route: 2.5 mg Instruction: 1 x 2.5 mg tablet Condition: Dose/Route: 2.5 mg Instruction: 1 x 2.5 mg tablet Condition: Friday Dose/Route: 0 mg Instruction: 0 tablets Condition: Friday Dose/Route: 2.5 mg Instruction: 1 x 2.5 mg tablet Condition: Friday (Week Two) Dose/Route: 2.5 mg Instruction: 1 x 2.5 mg tablet Condition: Friday Dose/Route: 2.5 mg Instruction: 1 x 2.5 mg tablet Condition: Friday Dose/Route: 2.5 mg Instruction: 1 x 2.5 mg tablet Condition: Friday Dose/Route: 2.5 mg Instruction: 1 x 2.5 mg tablet Condition: Dose/Route: 2.5 mg Instruction: 1 x 2.5 mg tablet Condition: Friday Dose/Route: 1.25 mg Instruction: 0.5 x 2.5 mg tablets Condition: Friday Dose/Route: 2.5 mg Instruction: 1 x 2.5 mg tablet Protocol Text: Adjustment Start Date: Friday12/26/23 INR Value: 3.4 INR Date: 12/26/23 Recheck Date: 01/09/24 Rx Instructions: 2.5 mg orally 1.25 NG SUN/ 2.5MG X 6 DAYS; gabapentin 100 mg capsule 200 mg PO BEDTIME simvastatin 20 mg tablet 20 mg PO BEDTIME citalopram 40 mg tablet 40 mg PO DAILY lisinopril 20 mg tablet 10 mg PO DAILY Patient Comments: pt states her dose was decreased per PCP levothyroxine 50 mcg tablet 50 mcg PO DAILY Rx Instructions: pt states alt 50mcg with 25mcg daily simvastatin 40 mg tablet 40 mg PO BEDTIME hydrocodone-acetaminophen 5-325 mg tablet PO lorazepam 1 mg tablet 1 mg PO TID diazepam 2 mg tablet 2 mg PO TID PRN tramadol 50 mg tablet 50 mg PO Q6H PRN triazolam 0.25 mg tablet PO fcixhbgxlx-axpkkyizfvznf-cnjj 50-325-40 mg tablet 1 tab PO TID PRN chlorhexidine gluconate 0.12 % mouthwash PO Referrals: Mustapha Bustos MD [Primary Care Provider] - 2 days Print Language: Romanian
--- NOTE | 2024-01-04 17:07 | ECG_ITS ---
Test Reason : FALL Blood Pressure : / mmHG Vent. Rate : 055 BPM Atrial Rate : 055 BPM P-R Int : 148 ms QRS Dur : 082 ms QT Int : 400 ms P-R-T Axes : 050 071 025 degrees QTc Int : 382 ms Sinus bradycardia Low voltage QRS Borderline ECG When compared with ECG of 06-FEB-2023 10:31, No significant change was found Referred By: Ovi Wilson Electronically Signed By:DEVONTE CAPUTO
[2024-01-04 17:44] LABS: Troponin-I High Sensitivity < 2.7 ng/L (<3.5-17.0)
[2024-01-04] MEDS: iohexoL 350 MG/ML 100 ML INFUS..BTL IV (18:04)
[2024-01-04] MEDS: Acetaminophen 325 MG TABLET 650 MG PO (18:20)
== END 2024-01-04 19:42 | disposition home or self-care (01) ==
PROVIDERS: Physician Assistant; Emergency Provider Emergency Medicine Emergency Medical Services; PCP Internal Medicine
DX: S06.0X0A Concussion without loss of consciousness, initial encounter (principal); S00.03XA Contusion of scalp, initial encounter; M54.2 Cervicalgia; R51.9 Headache, unspecified; M54.50 Low back pain, unspecified; R10.2 Pelvic and perineal pain; R00.1 Bradycardia, unspecified; M54.6 Pain in thoracic spine; W18.2XXA Fall in (into) shower or empty bathtub, initial encounter; Y93.E1 Activity, personal bathing and showering; Y92.002 Bathroom of unspecified non-institutional (private) residence as the place of occurrence of the external cause; Y99.8 Other external cause status; Z79.899 Other long term (current) drug therapy
CPT/HCPCS: 36415; 70450; 71260; 72125; 74177; 80053; 84484; 85025; 85610; 93005; 99284; Q9967

== ENCOUNTER 2024-01-09 13:47 | Outpatient (AMB) | payer OTHER, SELFPAY ==
[2024-01-09 13:59] LABS: Prothrombin Time Whole Bld POC 36.9 sec (11.1-13.5); ~PT, ~INR - Anti Coag Clinic 3.1 (0.9-1.1)
--- NOTE | 2024-01-09 14:06 | MHC.OFFVISCO ---
Intake Intake Visit Reasons: Anticoagulation Allergies erythromycin base [ERYTHROMYCIN BASE] Allergy (Unknown, Verified 01/09/24 13:52) Nausea and Vomiting Medication List - Last Reconciled 01/09/24 by Daniela Orellana, RN acetaminophen (Tylenol) 325 mg PO Q4H PRN zajcgiphkf-latreujvshlpj-kqxo 50-325-40 mg 1 tab PO TID PRN chlorhexidine gluconate 0.12% PO cholecalciferol (vitamin D3) (Vitamin D3) 25 mcg PO DAILY citalopram 40 mg PO DAILY clotrimazole-betamethasone 1-0.05 % 1 appl topical BID diazepam 2 mg PO TID PRN gabapentin 200 mg PO BEDTIME hydrocodone-acetaminophen 5-325 mg tabs PO levothyroxine 50 mcg PO DAILY lisinopril 10 mg PO DAILY lorazepam 1 mg PO TID simvastatin 20 mg PO BEDTIME simvastatin 40 mg PO BEDTIME sumatriptan succinate 50 mg PO Q2-4H PRN tramadol 50 mg PO Q6H PRN triazolam mg PO walker As directed warfarin See Protocol 2.5 mg orally 1.25 NG SUN/ 2.5MG X 6 DAYS; Nursing Note INR: 3.1 in therapeutic range of 2-3 States she was in the ER on 01/04/24 for a fall where she hit her head. NO brain bleed. Was discharged with diagnosis of concussion into her sister's care. Medications and supplements reviewed: no changes in meds No other changes in health, diet, or supplements, Denies any signs and symptoms of bleeding or bruising or clotting. Bleeding, bruising, clotting discussed Nutritional guidance given to have a serving of greens today. Pt states she will have broccoli Dose: 2.5mg X 6 days and 1.25mg X 1 day F/U INR: 2 weeks Patient verbalizes understanding of instructions given Anti-Coag Initial Assessment Social Hx Patient Tobacco Use Status: Never used Tobacco alcohol intake: never Alcohol intake frequency: does not drink Coding Level of Care Code Est Patient Level 1 Diagnoses Current use of anticoagulant therapy Z79.01 Assessment & Plan Assessment & Plan (1) Current use of anticoagulant therapy: Code(s): Z79.01 - snf (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
== END 2024-01-09 14:11 | disposition home or self-care (01) ==
LOC: HO.ACS 13:47
PROVIDERS: PCP Internal Medicine; Visit Provider Internal Medicine
DX: Z79.01 Long term (current) use of anticoagulants (principal)

== ENCOUNTER → 2024-01-09 13:47 | Outpatient (BNVA) | payer OTHER, SELFPAY | PROVIDERS: PCP Internal Medicine; Visit Provider Internal Medicine | DX: Z86.73 Personal history of transient ischemic attack (TIA), and cerebral infarction without residual deficits (principal); Z79.01 Long term (current) use of anticoagulants; Z51.81 Encounter for therapeutic drug level monitoring | CPT/HCPCS: 85610; 99211 ==

== ENCOUNTER 2024-01-23 10:00 | Outpatient (AMB) | payer OTHER, SELFPAY ==
--- NOTE | 2024-01-23 10:24 | MHC.OFFVISCO ---
Intake Intake Visit Reasons: Anticoagulation Allergies erythromycin base [ERYTHROMYCIN BASE] Allergy (Unknown, Verified 01/23/24 10:14) Nausea and Vomiting Medication List - Last Reconciled 01/23/24 by Yadira Laureano RN acetaminophen (Tylenol) 325 mg PO Q4H PRN mubfbojwpy-srrgapfvqexkz-qxep 50-325-40 mg 1 tab PO TID PRN chlorhexidine gluconate 0.12% PO cholecalciferol (vitamin D3) (Vitamin D3) 25 mcg PO DAILY citalopram 40 mg PO DAILY clotrimazole-betamethasone 1-0.05 % 1 appl topical BID diazepam 2 mg PO TID PRN gabapentin 200 mg PO BEDTIME hydrocodone-acetaminophen 5-325 mg tabs PO levothyroxine 50 mcg PO DAILY lisinopril 10 mg PO DAILY lorazepam 1 mg PO TID simvastatin 20 mg PO BEDTIME simvastatin 40 mg PO BEDTIME sumatriptan succinate 50 mg PO Q2-4H PRN tramadol 50 mg PO Q6H PRN triazolam mg PO walker As directed warfarin See Protocol 2.5 mg orally 1.25 NG SUN/ 2.5MG X 6 DAYS; Nursing Note NO CP,SOB,DIET/MED CHANGES,FALLS OR SX OF BLEEDING. BOOST SLIGHTLY TODAY THEN RESUME USUAL DOSE AND FOLLOW-UP IN 2 WEEKS. GOOD UNDERSTANDING OF DOSING INSTR. 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
[2024-01-23 14:40] LABS: Prothrombin Time Whole Bld POC 22.9 sec (11.1-13.5); ~PT, ~INR - Anti Coag Clinic 1.9 (0.9-1.1)
== END 2024-01-23 10:31 | disposition home or self-care (01) ==
LOC: HO.ACS 10:00
PROVIDERS: PCP Internal Medicine; Visit Provider Internal Medicine
DX: Z79.01 Long term (current) use of anticoagulants (principal)

== ENCOUNTER → 2024-01-23 10:00 | Outpatient (BNVA) | payer OTHER, SELFPAY | PROVIDERS: PCP Internal Medicine; Visit Provider Internal Medicine | DX: Z86.73 Personal history of transient ischemic attack (TIA), and cerebral infarction without residual deficits (principal); Z79.01 Long term (current) use of anticoagulants; Z51.81 Encounter for therapeutic drug level monitoring | CPT/HCPCS: 85610; 99211 ==

== ENCOUNTER 2024-02-06 10:37 | Outpatient (AMB) | payer OTHER, SELFPAY ==
[2024-02-06 10:49] LABS: Prothrombin Time Whole Bld POC 34.4 sec (11.1-13.5); ~PT, ~INR - Anti Coag Clinic 2.9 (0.9-1.1)
--- NOTE | 2024-02-06 10:56 | MHC.OFFVISCO ---
Intake Intake Visit Reasons: Anticoagulation Allergies erythromycin base [ERYTHROMYCIN BASE] Allergy (Unknown, Verified 01/23/24 10:14) Nausea and Vomiting Nursing Note INR: 2.9 in therapeutic range Medications and supplements reviewed Going to physical therapy for torn rotator cuff, once shoulder better will plan for knee replacement Denies any signs and symptoms of bleeding or bruising or clotting. Bleeding, bruising, clotting discussed Nutritional guidance given - EAT A MIX OF FRUITS AND VEGETABLES Dose: RESUME USUAL DOSE 1.25MG / 2.5MG X 6 DAYS F/U INR: 3 WEEKS Patient verbalizes understanding of instructions given Anti-Coag Initial Assessment Social Hx Patient Tobacco Use Status: Never used Tobacco alcohol intake: never Alcohol intake frequency: does not drink Coding Level of Care Code Est Patient Level 1 Diagnoses Current use of anticoagulant therapy Z79.01 Results AMB INR Fingerstick AMB INR Fingerstick 2.9 Last Edit by Alexsandra Brar RN on 02/06/24 10:51 MANUAL ENTRY Assessment & Plan Assessment & Plan (1) Current use of anticoagulant therapy: Code(s): Z79.01 - [facility] (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
== END 2024-02-06 10:59 | disposition home or self-care (01) ==
LOC: HO.ACS 10:37
PROVIDERS: PCP Internal Medicine; Visit Provider Internal Medicine
DX: Z79.01 Long term (current) use of anticoagulants (principal)

== ENCOUNTER → 2024-02-06 10:37 | Outpatient (BNVA) | payer OTHER, SELFPAY | PROVIDERS: PCP Internal Medicine; Visit Provider Internal Medicine | DX: Z86.73 Personal history of transient ischemic attack (TIA), and cerebral infarction without residual deficits (principal); Z79.01 Long term (current) use of anticoagulants; Z51.81 Encounter for therapeutic drug level monitoring | CPT/HCPCS: 85610; 99211 ==

== ENCOUNTER 2024-02-27 10:21 | Outpatient (AMB) | payer OTHER, SELFPAY ==
[2024-02-27 10:54] LABS: Prothrombin Time Whole Bld POC 32.7 sec (11.1-13.5); ~PT, ~INR - Anti Coag Clinic 2.7 (0.9-1.1)
--- NOTE | 2024-02-27 11:00 | MHC.OFFVISCO ---
Intake Intake Visit Reasons: Anticoagulation Allergies erythromycin base [ERYTHROMYCIN BASE] Allergy (Unknown, Verified 02/27/24 10:46) Nausea and Vomiting Medication List - Last Reconciled 02/27/24 by Daniela Valenzuela RN acetaminophen (Tylenol) 325 mg PO Q4H PRN niparcfonu-vasbvtleqyqao-ieas 50-325-40 mg 1 tab PO TID PRN cholecalciferol (vitamin D3) (Vitamin D3) 25 mcg PO DAILY citalopram 40 mg PO DAILY clotrimazole-betamethasone 1-0.05 % 1 appl topical BID diazepam 2 mg PO TID PRN gabapentin 200 mg PO BEDTIME levothyroxine 50 mcg PO DAILY lisinopril 10 mg PO DAILY lorazepam 1 mg PO TID simvastatin 20 mg PO BEDTIME simvastatin 40 mg PO BEDTIME sumatriptan succinate 50 mg PO Q2-4H PRN triazolam mg PO walker As directed warfarin See Protocol 2.5 mg orally 1.25 NG SUN/ 2.5MG X 6 DAYS; Nursing Note Amb to [facility] using walker, sts she fell last year and is waiting for ok to ohave knee done, recent rotator cuff tear and has been doing PT no surgery Medications and supplements reviewed and EMAR updated No other changes in health, diet, medications, or supplements, Denies any signs and symptoms of bleeding, bruising, or clotting. Bleeding, bruising, clotting discussed INR 2.7 in therapeutic range Dose: continue usual dosing 1.25mg x 1 day and 2.5mg x 6 days balance diet and be consistent, be aware of the thanksgiving reds F/U INR: 4 weeks Patient verbalizes understanding of instructions given Anti-Coag Initial Assessment Social Hx Patient Tobacco Use Status: Never used Tobacco alcohol intake: never Alcohol intake frequency: does not drink Coding Level of Care Code Est Patient Level 1 Diagnoses Current use of anticoagulant therapy Z79.01 Time Spent (min) 15 Assessment & Plan Assessment & Plan (1) Current use of anticoagulant therapy: Code(s): Z79.01 - half-way (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
== END 2024-02-27 11:06 | disposition home or self-care (01) ==
LOC: HO.ACS 10:21
PROVIDERS: PCP Internal Medicine; Visit Provider Internal Medicine
DX: Z79.01 Long term (current) use of anticoagulants (principal)

== ENCOUNTER → 2024-02-27 10:21 | Outpatient (BNVA) | payer OTHER, SELFPAY | PROVIDERS: PCP Internal Medicine; Visit Provider Internal Medicine | DX: Z86.73 Personal history of transient ischemic attack (TIA), and cerebral infarction without residual deficits (principal); Z79.01 Long term (current) use of anticoagulants; Z51.81 Encounter for therapeutic drug level monitoring | CPT/HCPCS: 85610; 99211 ==

== ENCOUNTER 2024-03-24 09:29 | Outpatient (AMB) | payer OTHER, SELFPAY ==
--- NOTE | 2024-03-24 09:34 | MHC.OFFVISCO ---
Intake Intake Visit Reasons: Anticoagulation Allergies erythromycin base [ERYTHROMYCIN BASE] Allergy (Unknown, Verified 03/24/24 09:29) Nausea and Vomiting Medication List - Last Reconciled 03/24/24 by Clemencia Morales RN acetaminophen (Tylenol) 325 mg PO Q4H PRN xwmjadyhvz-ghaiweriucfwr-qlsc 50-325-40 mg 1 tab PO TID PRN cholecalciferol (vitamin D3) (Vitamin D3) 25 mcg PO DAILY citalopram 40 mg PO DAILY clotrimazole-betamethasone 1-0.05 % 1 appl topical BID diazepam 2 mg PO TID PRN gabapentin 200 mg PO BEDTIME levothyroxine 50 mcg PO DAILY lisinopril 10 mg PO DAILY lorazepam 1 mg PO TID simvastatin 20 mg PO BEDTIME simvastatin 40 mg PO BEDTIME sumatriptan succinate 50 mg PO Q2-4H PRN triazolam mg PO walker As directed warfarin See Protocol 2.5 mg orally 1.25 NG SUN/ 2.5MG X 6 DAYS; Nursing Note INR: 2.7- in therapeutic range of 2-3 Medications and supplements reviewed- no changes No changes in health, diet, medications, or supplements, Denies any signs and symptoms of bleeding or bruising or clotting. Bleeding, bruising, clotting discussed Nutritional guidance given Dose: 2.5mg x 6, 1.25mg x 1 F/U INR: 4 weeks Patient verbalizes understanding of instructions given Anti-Coag Initial Assessment Social Hx Patient Tobacco Use Status: Never used Tobacco alcohol intake: never Alcohol intake frequency: does not drink Questionnaires HAS-BLED Does the patient had uncontrolled Hypertension?: No Does the patient have renal disease?: No Does the patient have liver disease?: No Does the patient have a history of stroke?: Yes Has the patient had major bleeding or predisposition to bleeding?: No Does the patient have labile INRs?: No Is the patient over 65 years of age?: No Is the patient on medications that gives them a predisposition to bleeding?: Yes Does the patient use alcohol?: No HAS-BLED Score: 2 CHADSVASC Age: <65 Gender: Female Does the patient have a history of CHF?: No Does the patient have a history of Hypertension?: Yes Does the patient have a history of Stroke/TIA/Thromboembolism?: Yes Does the patient have a history of Vascular Disease (prior HI, PAD or aortic plaque)?: Yes Does the patient have a history of Diabetes?: No CHADS VACS Score: 5 Yuan Prediction Score Rsk VTE Active Cancer: No Previous VTE, excluding superficial vein thrombosis: No Reduced mobility: Yes Already known Thrombophilic Condition: No With-in last month Trauma and/or Surgery: No Elderly 70 year or older: No Heart and/or Respiratory Failure: No Acute Myocardial infarction and/or Ischemic Stroke: Yes Acute Infection and/or Rheumatologic Disorder: No Obesity (BMI 30 or greater): Yes Ongoing Hormonal Treatment: No Score: 5 Yuan Score less than 4; Low Risk of VTE Yuan Score 4 or greater; High Risk of VTE Coding Level of Care Code Est Patient Level 1 Diagnoses Current use of anticoagulant therapy Z79.01 Results AMB INR Fingerstick AMB INR Fingerstick 2.7 Last Edit by Clemencia Morales RN on 03/24/24 09:36 interface delay Assessment & Plan Assessment & Plan (1) Current use of anticoagulant therapy: Code(s): 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
[2024-03-24 09:35] LABS: ~PT, ~INR - Anti Coag Clinic 2.7 (0.9-1.1)
--- OUTSIDE RECORDS SUMMARY | 2024-03-30 17:10 | XMS_ITS ---
Author Organization [facility] Address [address] [place] [id number] Care Team Providers Care Contracting Executive Name Role Phone Juli PEARCE, Mustapha Primary Care Provider Asha Vail [phone] Encounters Encounter Location Date Provider Diagnosis [address] [address] 09/26/2023 Asha Rehman Plan Of Treatment Next Appt Details Provider Name:Asha sparks, 05/04/2024 02:45:00 PM, [address] [place], [address], Progress Notes * Yadira MENDOZADOB:[birth year] (58 yo F)Acc No.[id number]:09/26/2023 Progress Note Patient:?LORENEYadira JONAS Provider:?Asha Rehman DPM :1965???Age:58 Y???Sex:Female D ate:09/26/2023 Address:[address] [place], [place] [id number] Pcp:Mustapha Bustos MD Subjective: * Chief Complaints: * ??? * Medical History:? Objective: * Vitals:? Assessment: Plan: * Treatment: * Images: * The named appointment provid er may or may not be the originator of this progress note, and it is not deemed complete until electronically signed by the appointment provider. Sign off status: Pending * Provider:?Asha Rehman DPM Date:?10/2023 Generated for Renée styles/Ramos/Bon on:?03/30/2024 05:10 PM EST
--- OUTSIDE RECORDS SUMMARY | 2024-03-30 17:10 | XMS_ITS | Patient Health Record ---
Author Organization [facility] Address [address] [place] [address] Care Team Providers Care Coding Compliance Auditor Name Role Phone Mustapha Bustos MD Primary Care Provider Asha Vail Unavailable [phone] Allergies Allergen (clinical drug ingredient) Drug/Non Drug Allergy documented on EMR Reaction Allergy Type Onset Date Status Biaxin pt gets sick Drug Allergy Acti ve acetaminophen Tylenol Unknown Drug Allergy Act melody azithromycin Azithromycin pt gets sick Drug Allergy Active cortisone Cortisone Unknown Drug Allergy Active erythromycin Erythromycin pt gets sick Drug Allergy Active Reason For Referral No Information Medications Medication SIG (Take, Route, Frequency, Duration) Notes Start Date End Date Status Simvastatin 20 MG 1 tablet in the even ing Orally Once a day for 30 day(s) Active Citalopram Hydrobromide 40 MG 0.5 tablet Orally Once a day for 30 day(s) Active Gabapentin 100 MG 1 capsule Orally Onc e a day for 30 day(s) Active Vitamin D3 Active Lisinopril 10 MG 1 tablet Orally Once a day for 30 days Active zzzCompression Stockings 20-30mm Hg . . . for . Active Warfarin Sodium 2.5 MG 1 tablet Orally O nce a day for 30 day(s) Active Levothyroxine Sodium 50 MCG 1 tablet in the morning on an empty stomach Orally Once a day for 30 day(s) Active SUMAtriptan 20 MG/ACT 1 spray at onset o f headache in one nostril may repeat after 2 hours as needed Nasally Once a day PRn Active Compression Stockings 20-30mm Hg 1 pair With zippers daily for 30 days Active Immunizations Vaccine Route Administration Date Status Comme nts COVID-19 Moderna Vaccine Unknown 08/17/2020 Administered Second Dose: 05/ 27/21 Social History Tobacco Use: Social History Observation Description Date Details (start date - stop date) Never Smoker NA - NA Tobacco Use/Smoking Question Answer Notes Are you a: nonsmoker Additional Findings: Tobacco Non-User Current no n-smoker Alcohol Screen Question Answer Notes Did you have a drink containing alcohol in the p ast year? No Points 0 Interpretation Negative Tobacco use other than smoking: Question Answer Notes Are you an other tobacco user? No Problems Problem Type SNOMED Code ICD Code Onset Dates Problem Status W/U Status Risk Notes Problem [id number] Neuropathy (G62.9) Active confirmed Problem [id number] Atherosclerosi s of artery of both lower extremities (I70.203) Active confirmed Vital Signs Height 5ft in 02/06/2024 Weight 190 lbs 02/06/2024 BMI 37.1 kg/m2 02/06/2024 Encounters Encounter Location Date Provider Diagnosis [address] [address] 07/11/2023 Asha Perica Atherosclerosis of artery of both lower extremities I70.203 ; Generalized edema R60.1 ; Tinea unguium B35.1 ; Pain in left toe(s) M79.675 and Neuropathy G62.[address] [address] 11/24/2023 Asha Perica Generalized edema R60.1 ; Tinea unguium B35.1 ; Atherosclerosis of artery of both lower extremities I70.203 ; Pain in left toe(s) M79.675 and Neuropathy G62.[address] [address] 02/06/2024 Asha Perica Generalized edema R60.1 ; Tinea unguium B35.1 ; Atherosclerosis of artery of both lower extremities I70.203 ; Pain in left toe(s) M79.675 and [facility]uropathy G62.9 [facility] [address] [address] 04/29/2023 Asha Perica [facility] [address] [place] [address] 06/02/2023 Asha Perica [facility] [address] [address] 09/25/2023 Asha Rehman Assessments Encounter Date Diagnosis (ICD Code) Assessment Notes Treatment Notes Treatment Clinical Notes Section Notes 07/11/2023 Generalized edema (ICD-10 - R60.1) 07/11/2023 Atherosclerosis of artery of both lower extremities (ICD-10 - I70.203) 11/24/2023 Generalized edema (ICD-10 - R60.1) 11/24/2023 Tinea unguium (ICD-10 - B35.1) 02/06/2024 Generalized edema (ICD-10 - R60.1) 02/06/2024 Tinea unguium (ICD-10 - B35.1) 11/24/2023 Atherosclerosis of artery of both lower extremities (ICD-10 - I70.203) 07/11/2023 Tinea unguium (ICD-10 - B35.1) 07/11/2023 Pain in left toe(s) (ICD-10 - M79.675) 11/24/2023 Pain in left toe(s) (ICD-10 - M79.675) 02/06/2024 Atherosclerosis of artery of both lower extremities (ICD-10 - I70.203) 02/06/2024 Pain in left toe(s) (ICD-10 - M79.675) 11/24/2023 Neuropathy (ICD-10 - G62.9) 07/11/2023 Neuropathy (ICD-10 - G62.9) 02/06/2024 Neuropathy (ICD-10 - G62.9) Plan Of Treatment Next Appt Details Provider Name:Asha sparks, 05/04/2024 02:45:00 PM, [address] [place] [address], [phone], Insurance Providers Payer Name Payer Address Payer Phone Subscriber Number Group Number Insured Name Patient Relationship to Insured Coverage Start Date Coverage End Date [facility] [employer] Claims [address] [place] [id number] Yadira Mena Self - patient is the insured Medical (General) History Medical History History ICD Code Anxiety Depression Headaches/Migraines High blood pressure Neuropathy Stroke thyroid Chicken pox Periadonal Disease Rotator cuff tear Surgical History Surgery Date(Month/Year) 5 teeth extraction 11/13/23
--- OUTSIDE RECORDS SUMMARY | 2024-03-30 17:10 | XMS_ITS ---
Author Organization [facility] Address [address] [facility] [address] Care Team Providers Care Director Workforce Management Name Role Phone Juli PEARCE, Mustapha Primary Care Provider Asha Vail Unavailable [phone] Allergies Allergen (clinical drug ingredient) Drug/Non Drug Allergy documented on EMR Reaction Allergy Type Onset Date Status Biaxin pt gets sick Drug Allergy Acti ve acetaminophen Tylenol Unknown Drug Allergy Act melody azithromycin Azithromycin pt gets sick Drug Allergy Active cortisone Cortisone Unknown Drug Allergy Active erythromycin Erythromycin pt gets sick Drug Allergy Active REASON FOR VISIT At Risk Footcare, Painful Nail(s) aggrevated by shoes and causing difficulty standing/walking. Medications Medication SIG (Take, Route, Frequency, Duration) Notes Start Date End Date Status Lisinopril 10 MG 1 tablet Orally Once a day for 30 days Active zzzCompression Stockings 20-30mm Hg . . . for . Active Warfarin Sodium 2.5 MG 1 tablet Orally O nce a day for 30 day(s) Active Levothyroxine Sodium 50 MCG 1 tablet in the morning on an empty stomach Orally Once a day for 30 day(s) Active Compression Stockings 20-30mm Hg 1 pair With zippers daily for 30 days Active Simvastatin 20 MG 1 tablet in the even ing Orally Once a day for 30 day(s) Active Citalopram Hydrobromide 40 MG 0.5 tablet Orally Once a day for 30 day(s) Active Gabapentin 100 MG 1 capsule Orally Onc e a day for 30 day(s) Active Vitamin D3 Active SUMAtriptan 20 MG/ACT 1 spray at onset o f headache in one nostril may repeat after 2 hours as needed Nasally Once a day PRn Active Social History Tobacco Use: Social History Observation [...] Are you an other tobacco user? No Vital Signs Height 5ft in 02/06/2024 Weight 190 lbs 02/06/2024 BMI 37.1 kg/m2 02/06/2024 Encounters Encounter Location Date Provider Diagnosis [facility] [address] [place] [address] 02/06/2024 Asha Rehman Generalized edema R6 0.1 ; Tinea unguium B35.1 ; Atherosclerosis of artery of both lower extremities I70.203 ; Pain in left toe(s) M79.675 and Neuropathy G62.9 Assessments Encounter Date Diagnosis (ICD Code) Assessment Notes Treatment Notes Treatment Clinical Notes Section Notes 02/06/2024 Generalized edema (ICD-10 - R60.1) 02/06/2024 Tinea unguium (ICD-10 - B35.1) 02/06/2024 Atherosclerosis of artery of both lower extremities (ICD-10 - I70.203) 02/06/2024 Pain in left toe(s) (ICD-10 - M79.675) 02/06/2024 Neuropathy (ICD-10 - G62.9) Plan Of Treatment Next Appt Details Follow Up: 2 Months, Reason: Provider Name:Asha sparks, 05/04/2024 02:45:00 PM, [address] [place] [address], [id number], Procedure Notes * Category Sub-Category Detail Notes Keratoma Treatment Parring or Cutting o f Benign Hyperkeratotic Lesion(s) 41668 ( More than 4 Lesions ) - The Benign hyperkeratotic lesions, as described above were pared, and/or cut utilizing a sterile 15 blade, tissue nippers, and/or dremel, Q8 Debride Nails 1-5 Procedure: Nail debrideme nt performed extensively to reduce/remove overall nail length and girth, subungual debris, and necrotic tissue, by manual and electrical means with use of a nail nipper and/or dremel, to more viable healthy nail plate or bed tissue 1-5. Silver nitrate used for any petechial bleeding as necessary (28710). Patient chooses, no pharmaceutical tx Nail Reduction Nail Reduction Trimming of dyst rophic nails performed to reduce/remove overall nail length and girth, by manual and electrical means with use of a nail nipper and/or dremel, to more viable healthy nail plate or bed tissue 6-10 (R1036-W3) Progress Notes * Yadira MENDOZA SeemaDOB:[birth year] (58 yo F)Acc No.[id number]:02/06/2024 Progress Note Patient:?Yadira Mendoza Provider:?Asha Rehman DPM :1965???Age:58 Y???Sex:Female D ate:02/06/2024 Address:[address] [place] [address] Pcp:Mustapha Bustos MD Subjective: * Chief Complaints: * ???At Risk FootcarePainful N ail(s) aggrevated by shoes and causing difficulty standing/walking. * HPI: ???At Risk footcare:?Pt States Last PCP Visit:?Date?11/04/2023 * ROS:?General/Constitutional:?Nausea?denies.?Vomiting?denies.?Hunger Thirst?denies.?Loss appetite?denies.?Chills?denies.?Fatigue?denies.?Fever?denies.?Night Sweats?denies.?Unexplained weight loss?admits.?Unexplained weight gain?denies.?HEENTM:?Dentures?denies.?Dizziness?denies.?Glasses/contacts?admits.?Retinopathy?de nies.?Blurred/double vision?denies.?TMJ?denies.?Discharge/drainage?denies.?Implants?denies.?Sore throat?denies.?Dental implants?denies.?Hard of hearing ?denies.?Difficulty chewing/swallowing/speaking?denies.?Nose bleeds?denies.?Sore mouth?denies.?Respiratory:?On Oxygen?denies.?Pneumonia/pleurisy?denies.?Bronchitis?denies.?Emphysema?denies.?C oughing?denies.?Cough blood?denies.?Shortness of breath?denies.?Wheezing?denies.?Cardiovascular:?Pacemaker?denies.?MVP?denies.?WPW?denies.?CHF?denies.?Heart attack?denies.?Septal defect?denies.?Rapid beat?denies.?Chest pain ?denies.?Atrial Fib.?denies.?Murmur/Palpitations?admits.?Gastrointestinal:?Hemorrhoids?denies.?Stomach/Abdominal pain?denies.?Dark blood stool?denies.?Irritable bowel ?denies.?Constipation?denies.?Diarrhea?admits.?Hematology:?Swelling?denies.?Clots?denies.?Varicose Veins?denies.?Bruising?denies.?Bleeding problem?denies.?Genitourinary:?Blood urine?denies.?Frequent/Painfu/urination/bladder control?denies.?Kidney stones?denies.?Infection (UTI)?denies.?Nephropathy?admits.?sex trans dis (STD)?denies.?Prostate?denies.?Musculoskeletal:?Hammertoes?admits.?Bunions?denies.?Back Pain?denies.?Muscle Cramps/ Resting?denies.?Muscle cramps / walking?denies.?Generalized aches and pains?denies.?Weakness?denies.?Integ.:?Lloyd?denies.?Scars?denies.?Corns/calluses?denies.?Ingrown nails?denies.?Painful nails?denies.?Open Sores?denies.?Rashes?denies.?Neurologic:?Difficulty sleeping?denies.?Brain disorder?denies.?Numbness?admits.?Balance trouble?denies.?Confusion?denies.?Fainting/blackouts?denies.?Tingling?admits.?Tr emors?denies.? * Medical History:? * Surgical History:?5 teeth ex traction 11/13/23 * Hospitalization/Major Diagno stic Procedure:?Denies Past Hospitalization * Family History:?Mother: shelton stahl.?Father: alive.? * Social History:?Tobacco Use:?Tobacco Use/Smoking?Are you a:?nonsmoker ?Additional Findings: Tobacco Non-User?Current non-smoker ?Tobacco use other than smoking?Are you an other tobacco user??No ???Drugs/Alcohol:?Drugs?Have you used drugs other than those for medical reasons in the past 12 months??No ?Alcohol Screen?Did you have a drink containing alcohol in the past year??No ?Points?0 ?Interpretation?Negative ???Miscellaneous:?Caffeine: yes, frequency: , 1 cup per day. ?no Children. ?Exercise: yes, walking. ?Marital status: . ?Occupation: Retired. * Medications:?TakingSUMAtript an 20 MG/ACT Solution 1 spray at onset of headache in one nostril may repeat after 2 hours as needed Nasally Once a day, Notes: PRnGabapentin 100 MG Capsule 1 capsule Orally Once a dayVitamin D3 Simvastatin 20 MG Tablet 1 tablet in the evening Orally Once a dayCitalopram Hydrobromide 40 MG Tablet 0.5 tablet Orally Once a dayWarfarin Sodium 2.5 MG Tablet 1 tablet Orally Once a dayLevothyroxine Sodium 50 MCG Tablet 1 tablet in the morning on an empty stomach Orally Once a dayLisinopril 10 MG Tablet 1 tablet Orally Once a dayzzzCompression Stockings 20-30mm Hg 1 pair closed toe- knee high . . .Compression Stockings 20- 30mm Hg closed toe- knee high 1 pair With zippers dailyMedication List reviewed and reconciled with the patientTaking SUMAtriptan 20 MG/ACT Solution 1 spray at onset of headache in one nostril may repeat after 2 hours as needed Nasally Once a day, Notes: PRnTaking Gabapentin 100 MG Capsule 1 capsule Orally Once a dayTaking Vitamin D3 Taking Simvastatin 20 MG Tablet 1 tablet in the evening Orally Once a dayTaking Citalopram Hydrobromide 40 MG Tablet 0.5 tablet Orally Once a dayTaking Warfarin Sodium 2.5 MG Tablet 1 tablet Orally Once a dayTaking Levothyroxine Sodium 50 MCG Tablet 1 tablet in the morning on an empty stomach Orally Once a dayTaking Lisinopril 10 MG Tablet 1 tablet Orally Once a dayTaking zzzCompression Stockings 20-30mm Hg 1 pair closed toe- knee high . . .Taking Compression Stockings 20-30mm Hg closed toe- knee high 1 pair With zippers dailyMedication List reviewed and reconciled with the patient * Allergies:?Erythromycin: pt gets sickBiaxin: pt gets sickAzithromycin: pt gets sickTylenolCortisoneyes[Allergies Verified] Objective: * Vitals:?Ht: 5ft, Wt:190, BMI :37.1, Shoe size: 8.5W, Ht-cm: 152.4 cm, Wt-k.18 kg. * Examination: ???Vascular: ?DP PULSES(B):? 0/4, B/L.?PT PULSES(B):? 0/4, B/L.?CAPILLARY FILL TIME:? delayed, all digits, B/L.?TROPHIC CONDITION-TEXTURE/ELASTICITY/TURGOR/HAIR GROWTH(B):? decreased, B/L.?TEMPERTURE GRADIENT(C):? decreased, cool to cool, proximal to distal, B/L.?PIGMENTATION:? pale, B/L.?EDEMA(C):?3/4, pitting, B/L, Ankle(s), Feet , Leg(s).?JEREMIAH'S SIGN:?absent, B/L , absent, B/L.?PALPABLE CORDS:?absent, B/L , absent, B/L.?Nails: ?NAILS are:?Elongated, overgrown, dystrophic, lytic, greater than 3mm thick, discolored and friable with crumbly malodorous subungual debris, with pain on palpation, TA, remaining nails are elongated, overgrown, dystrophic.?Dermatologic: ?SKIN FINDINGS:? Skin exam reveals Keratotic lesion(s) located at, Medial plantar, TA, T5, Heel(s), B/L, SUB MTH (s), 1, B/L.?Neurological: ?SENSORY:? Neurological exam demonstrates, reduced light touch sensation, reduced sharp/dull pin prick discrimination , reduced vibration sensation, reduced proprioception sensation, in a stocking fashion, plantar aspects, 5.07 monofilament test performed at plantar aspects of 5 varied sites per foot shows sensation, reduced , Pt relates, anesthesia, burning, tingling, especially in the evening, B/L.? Assessment: * Assessment: 1.?Generalized edema - R60.1 , Chronic problem, Stable (1=3,2=4)?2.?Tinea unguium - B35.1 (Primary)?3.?Atherosclerosis of artery of both lower extremities - I70.203?4.?Pain in left toe(s) - M79.675?5.?Neuropathy - G62.9? Plan: * Treatment: * Procedures:?Debride Nails 1-5:?Procedure:?Nail debridement performed extensively to reduce/remove overall nail length and girth, subungual debris, and necrotic tissue, by manual and electrical means with use of a nail nipper and/or dremel, to more viable healthy nail plate or bed tissue 1-5. Silver nitrate used for any petechial bleeding as necessary (78000). Patient chooses, no pharmaceutical tx.?Keratoma Treatment:?Parring or Cutting of Benign Hyperkeratotic Lesion(s)?83223 ( More than 4 Lesions ) - The Benign hyperkeratotic lesions, as described above were pared, and/or cut utilizing a sterile 15 blade, tissue nippers, and/or dremel, Q8.?Nail Reduction:?Nail Reduction?Trimming of dystrophic nails performed to reduce/remove overall nail length and girth, by manual and electrical means with use of a nail nipper and/or dremel, to more viable healthy nail plate or bed tissue 6-10 (G0127- Q8).? * Procedure Codes:?G0127 TOYIN ING DYSTROPHIC NAILS ANY #, Modifiers: XS , C324344 DEBRIDE NAIL, 1-5, Modifiers: XS 17662 TRIM SKIN LESIONS, OVER 4, Modifiers: XS , Q8 * Follow Up:?2 Months * Images: * Sign off status: Completed true * Provider:?Asha Rehman, HEIKE Date:? Generated for Renée styles/aRmos/Bon on:?03/30/2024 05:09 PM EST History and Physical Notes * HPI (History of Present Illness) Category Sub-Category Detail Notes Category Not es At Risk footcare Pt States Last PCP Visit: Date: 4 Examination Category Sub-Category Detail Notes Category Not es Neurological SENSORY: Neurological exa m demonstrates, reduced light touch sensation, reduced sharp/dull pin prick discrimination , reduced vibration sensation, reduced proprioception sensation, in a stocking fashion, plantar aspects, 5.07 monofilament test performed at plantar aspects of 5 varied sites per foot shows sensation, reduced , Pt relates, anesthesia, burning, tingling, especially in the evening, B/L Dermatologic SKIN FINDINGS: Skin exam reveal s Keratotic lesion(s) located at, Medial plantar, TA, T5, Heel(s), B/L, SUB MTH (s), 1, B/L Vascular DP PULSES(B): 0/4, B/L PT PULSES(B): 0/4, B/L CAPILLARY FILL TIME: delayed, all digits , B/L TEMPERTURE GRADIENT(C): decreased, cool to cool, proximal to distal, B/L TROPHIC CONDITION-TEXTURE/ELASTICITY/TURGOR/HAIR GROWTH(B): decreased, B/L EDEMA(C): 3/4, pitting, B/L, A nkle(s), Feet , Leg(s) JEREMIAH'S SIGN: absent, B/L , absent , B/L PALPABLE CORDS: absent, B/L , absent , B/L PIGMENTATION: pale, B/L Nails NAILS are: Elongated, overg rown, dystrophic, lytic, greater than 3mm thick, discolored and friable with crumbly malodorous subungual debris, with pain on palpation, TA, remaining nails are elongated, overgrown, dystrophic
--- OUTSIDE RECORDS SUMMARY | 2024-03-30 17:10 | XMS_ITS | Patient Health Record ---
Author Organization [facility] Address [address] [place] [address] Care Team Providers Care Charge Attendant Name Role Phone Mustapha Bustos Primary Care Provider Bran Andrews Jr Unavailable [phone] ALLERGIES Allergen (clinical drug ingredient) Drug/Non Drug Allergy documented on EMR Reaction Allergy Type Onset Date Status erythromycin Erythromycin Unknown Drug Allergy A ctive REASON FOR REFERRAL No Information MEDICATIONS Medication SIG (Take, Route, Frequency, Duration) Notes Start Date End Date Status Warfarin Sodium 2.5 MG 1 tablet Orally O nce a day Active Levothyroxine Sodium 50 MCG 1 tablet on an empty stomach in the morning Orally Once a day Active Simvastatin 40 MG 1 tablet in the even ing Orally Once a day Active Vitamin D-3 25 MCG (1000 UT) 1 capsule O rally Once a day for 30 day(s) Active Citalopram Hydrobromide 40 MG 1 tablet Orally Once a day Active Lisinopril 20 MG 1 tablet Orally Once a day Active IMMUNIZATIONS Vaccine Route Administration Date Status Comme nts Influenza Unknown 03/07/2021 Administered SOCIAL HISTORY Tobacco Use: Social History Observation Description Date Details (start date - stop date) Never Smoker NA - NA Sex Assigned At : Social History Observation Description Sex Assigned At Unknown Tobacco Use/Smoking Question Answer Notes Patient is a nonsmoker Alcohol Screen Question Answer Notes Did you have a drink containing alcohol in the p ast year? No Points 0 Interpretation Negative PROBLEMS Problem Type ICD Code Onset Dates Problem Status W/U Status Risk SNOMED Code Notes Problem Colon cancer screening (Z12.11) Active confirmed [id number] Problem pen[facility]entiary (current) use of anticoagulants (Z79.01) Active confirmed [id number] PLAN OF TREATMENT Future Test Test Name Order Date COLONOSCOPY 12/18/2016 COLONOSCOPY 08/20/2021 Insurance Providers Payer Name Payer Address Payer Phone Subscriber Number Group Number Insured Name Patient Relationship to Insured Coverage Start Date Coverage End Date [facility] [address] [place] [address] [id number] MARJAN MENDOZA Self - patient is the insured MEDICAID OF [facility] [address] [place] [address] [id number] MARJAN MENDOZA Self - patient is the insured MEDICARE OF [place] [address] [place] [address] [phone] [id number] MARJAN MENDOZA Self - patient is the insured MEDICAL (GENERAL) HISTORY Medical History History ICD Code stroke x2 hypertension obstructive sleep apnea, uses CPAP hypothyroidism depression elevated cholesterol Surgical History Surgery Date(Month/Year) knee surgery x5
--- OUTSIDE RECORDS SUMMARY | 2024-03-30 17:10 | XMS_ITS ---
Author Organization [facility] Address [address] [facility] [address] Care Team Providers Care Criminal Judge Name Role Phone Juli PEARCE, Mustapha Primary Care Provider Asha Vail Unavailable [phone] Allergies Allergen (clinical drug ingredient) Drug/Non Drug [...] Notes Start Date End Date Status Lisinopril 20 MG half a tablet Orally Once a day for 30 days Active zzzCompression Stockings 20-30mm Hg . . . for . Active Levothyroxine Sodium 50 MCG 1 tablet in the morning on an empty stomach Orally Once a day for 30 day(s) Active Citalopram Hydrobromide 40 MG 0.5 tablet Orally Once a day for 30 day(s) Active Warfarin Sodium 2.5 MG 1 tablet Orally O nce a day for 30 day(s) Active SUMAtriptan 20 MG/ACT 1 spray at onset o f headache in one nostril may repeat after 2 hours as needed Nasally Once a day PRn Active Gabapentin 100 MG 1 capsule Orally Onc e a day for 30 day(s) Active Compression Stockings 20-30mm Hg 1 pair With zippers daily for 30 days Active Vitamin D3 Active Simvastatin 20 MG 1 tablet in the even ing Orally Once a day for 30 day(s) Active Social History Tobacco Use: Social History [...] user? No Vital Signs Height 5ft in 11/24/2023 Weight 192 lbs 11/24/2023 BMI 37.49 kg/m2 11/24/2023 Encounters Encounter Location Date Provider Diagnosis [facility] [address] 11/24/2023 Asha Rehman Generalized edema R6 0.1 ; Tinea unguium B35.1 ; Atherosclerosis of artery of both lower extremities I70.203 ; Pain in left toe(s) M79.675 and Neuropathy G62.9 Assessments Encounter Date Diagnosis (ICD Code) Assessment Notes Treatment Notes Treatment Clinical Notes Section Notes 11/24/2023 Generalized edema (ICD-10 - R60.1) 11/24/2023 Tinea unguium (ICD-10 - B35.1) 11/24/2023 Atherosclerosis of artery of both lower extremities (ICD-10 - I70.203) 11/24/2023 Pain in left toe(s) (ICD-10 - M79.675) 11/24/2023 Neuropathy (ICD-10 - G62.9) Plan Of Treatment Next Appt Details Follow Up: 2 Months, Reason: Provider Name:Asha sparks, 05/04/2024 02:45:00 PM, [address] [place] [address], [id number], Procedure Notes * Category Sub-Category Detail Notes Keratoma Treatment Parring or Cutting o f Benign Hyperkeratotic Lesion(s) 18360 ( More than 4 Lesions ) - [...] used for any petechial bleeding as necessary (63618). Patient chooses, no pharmaceutical tx Nail Reduction Nail Reduction Trimming of dyst rophic nails performed to reduce/remove overall nail length and girth, by manual and electrical means with use of a nail nipper and/or dremel, to more viable healthy nail plate or bed tissue 6-10 (C5901-X0) Progress Notes * Yadira MENDOZA SeemaDOB:[birth year] (58 yo F)Acc No.[id number]:11/24/2023 Progress Note Patient:?Yadira Mendoza Provider:?Asha Rehman DPM :1965???Age:58 Y???Sex:Female D ate:11/24/2023 Address:[address] [place] [address] Pcp:Mustapha Bustos MD Subjective: * Chief Complaints: * ???At Risk FootcarePainful N ail(s) aggrevated by shoes and causing difficulty standing/walking. * HPI: ???At Risk footcare:?Pt States Last PCP Visit:?Date?07/31/2022 * ROS:?General/Constitutional:?Nausea?denies, denies.?Vomiting?denies, denies.?Hunger Thirst?denies, denies.?Loss appetite?denies, denies.?Chills?denies, denies.?Fatigue?denies, denies.?Fever?denies, denies.?Night Sweats denies, denies.?Unexplained weight loss?admits, admits.?Unexplained weight gain?denies, denies.?HEENTM:?Dentures?denies, denies.?Dizziness?denies, denies.?Glasses/contacts?admits, admits.?Retinopathy?denies, denies.?Blurred/double vision?denies, denies.?TMJ?denies, denies.?Discharge/drainage?denies, denies.?Implants?denies, denies.?Sore throat?denies, denies.?Dental implants?denies, denies.?Hard of hearing ?denies, denies.?Difficulty chewing/swallowing/speaking?denies, denies.?Nose bleeds?denies, denies.?Sore mouth?denies, denies.?Respiratory:?On Oxygen?denies, denies.?Pneumonia/pleurisy?denies, denies.?Bronchitis?denies, denies.?Emphysema?denies, denies.?Coughing?denies, denies.?Cough blood?denies, denies.?Shortness of breath?denies, denies.?Wheezing?denies, denies.?Cardiovascular:?Pacemaker?denies, denies.?MVP?denies, denies.?WPW?denies, denies.?CHF?denies, denies.?Heart attack?denies, denies.?Septal defect?denies, denies.?Rapid beat?denies, denies.?Chest pain ?denies, denies.?Atrial Fib.?denies, denies.?Murmur/Palpitations?admits, admits.?Gastrointestinal:?Hemorrhoids?denies, denies.?Stomach/Abdominal pain?denies, denies.?Dark blood stool?denies, denies.?Irritable bowel ?denies, denies.?Constipation?denies, denies.?Diarrhea?admits, admits.?Hematology:?Swelling?denies, denies.?Clots?denies, denies.?Varicose Veins?denies, denies.?Bruising?denies, denies.?Bleeding problem?denies, denies.?Genitourinary:?Blood urine?denies, denies.?Frequent/Painfu/urination/bladder control?denies, denies.?Kidney stones?denies, denies.?Infection (UTI)?denies, denies.?Nephropathy?admits, admits.?sex trans dis (STD)?denies, denies.?Prostate?denies, denies.?Musculoskeletal:?Hammertoes?admits, admits.?Bunions?denies, denies.?Back Pain?denies, denies.?Muscle Cramps/ Resting?denies, denies.?Muscle cramps / walking?denies, denies.?Generalized aches and pains?denies, denies.?Weakness?denies, denies.?Integ.:?Lloyd?denies, denies.?Scars?denies, denies.?Corns/calluses?denies, denies.?Ingrown nails?denies, denies.?Painful nails?denies, denies.?Open Sores?denies, denies.?Rashes?denies, denies.?Neurologic:?Difficulty sleeping?denies, denies.?Brain disorder?denies, denies.?Numbness?admits, admits.?Balance trouble?denies, denies.?Confusion?denies, denies.?Fainting/blackouts?denies, denies.?Tingling?admits, admits.?Tremors?denies, denies.? * Medical History:? * Surgical History:?5 teeth ex traction 11/13/23 * Hospitalization/Major Diagno stic Procedure:?No Hospitalization History. * Family History:?Mother: shelton stahl.?Father: alive.? * Social History:?Tobacco Use:?Tobacco Use/Smoking?Are you a:?nonsmoker ?Additional Findings: Tobacco Non-User?Current non-smoker ?Tobacco use other than smoking?Are you an other tobacco user??No ???Drugs/Alcohol:?Drugs?Have you used drugs other than those for medical reasons in the past 12 months??No ?Alcohol Screen?Did you have a drink containing alcohol in the past year??No ?Points?0 ?Interpretation?Negative ???Miscellaneous:?Caffeine: yes, frequency: , 1-2 cups per day. ?no Children. ?Exercise: yes, walking. [...] an empty stomach Orally Once a dayLisinopril 20 MG Tablet half a tablet Orally Once a dayzzzCompression Stockings 20-30mm Hg 1 pair closed toe- knee high . . .Compression Stockings 20-30mm Hg closed toe- knee high [...] empty stomach Orally Once a dayTaking Lisinopril 20 MG Tablet half a tablet Orally Once a dayTaking zzzCompression Stockings 20-30mm Hg 1 pair closed toe- knee high . . .Taking Compression Stockings 20-30mm Hg closed toe- knee high 1 pair With zippers dailyMedication List reviewed and reconciled with the patient * Allergies:?Erythromycin: pt gets sickBiaxin: pt gets sickAzithromycin: pt gets sickTylenolCortisoneyes[Allergies Verified] Objective: * Vitals:?Ht: 5ft, Wt:192, BMI :37.49, Shoe size: 8.5W, Ht-cm: 152.4 cm, Wt-k.09 kg. * Examination: ???Vascular: ?DP PULSES:? 0/4, B/L.?PT PULSES:? 0/4, B/L.?CAPILLARY FILL TIME:? delayed, all digits, B/L.?SKIN TEMPERTURE GRADIENT OF THE LOWER EXTERMITIES:? decreased, cool to cool, proximal to distal, B/L.?HAIR GROWTH/TEXTURE/ELASTICITY/TURGOR:? decreased, B/L.?PIGMENTATION:? pale, B/L.?EDEMA:?3/4, pitting, B/L, Ankle(s), Feet , Leg(s).?JEREMIAH'S SIGN:?absent, [...] used for any petechial bleeding as necessary (35144). Patient chooses, no pharmaceutical tx.?Keratoma Treatment:?Parring or Cutting of Benign Hyperkeratotic Lesion(s)?73013 ( More than 4 Lesions ) - [...] DYSTROPHIC NAILS ANY #, Modifiers: XS , [id number] DEBRIDE NAIL, 1-5, Modifiers: XS 79063 TRIM SKIN LESIONS, OVER 4, Modifiers: XS , Q8 * Follow Up:?2 Months * Images: * Sign off status: Completed true * Provider:Emily Rehman, DPM Date:?08/2023 Generated for Twylai stephani/Ramos/eTransmitting on:?03/30/2024 05:10 PM EST History and Physical Notes * HPI (History of Present Illness) Category Sub-Category Detail Notes Category Not es At Risk footcare Pt States Last PCP Visit: Date: 3 Examination Category Sub-Category Detail Notes Category Not [...]
== END 2024-03-24 09:44 | disposition home or self-care (01) ==
LOC: HO.ACS 09:29
PROVIDERS: PCP Internal Medicine; Visit Provider Internal Medicine
DX: Z79.01 Long term (current) use of anticoagulants (principal)

== ENCOUNTER → 2024-03-24 09:29 | Outpatient (BNVA) | payer OTHER, SELFPAY | PROVIDERS: PCP Internal Medicine; Visit Provider Internal Medicine | DX: Z86.73 Personal history of transient ischemic attack (TIA), and cerebral infarction without residual deficits (principal); Z79.01 Long term (current) use of anticoagulants; Z51.81 Encounter for therapeutic drug level monitoring | CPT/HCPCS: 85610; 99211 ==

== ENCOUNTER 2024-04-20 09:20 | Outpatient (AMB) | payer OTHER, SELFPAY ==
--- OUTSIDE RECORDS SUMMARY | 2024-04-20 09:23 | XMS_ITS | Data Portability ---
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) MDM MODERATE MUST MEET 2 OUT OF 3 ELEMENTS: PROBLEMS, DATA OR RISK ELEMENT 1: PROBLEMS ADDRESSED 1 OR MORE CHRONIC ILLNESS WITH EXACERBATION OR 2 OR MORE STABLE CHRONIC ILLNESSES OR 1 UNDIAGNOSED NEW PROBLEM OR 1 ACUTE ILLNESS W/SYMPTOMS OR 1 ACUTE COMPLICATED INJURY ELEMENT 2: DATA MUST MEET 1 OF 3 CATEGORIES CATEGORY 1: REVIEW OF PRIOR EXTERNAL NOTES, REVIEW OF RESULTS, ORDERING OF EACH TEST, ASSESSMENT REQUIRING INDEPENDENT HISTORIAN OR CATEGORY 2: INDEPENDENT INTERPRETATION OF TESTS BY ANOTHER PHYSICIAN OR SPECIALIST OR CATEGORY 3: DISCUSSION OF MGT OR TEST INTERPRETATION W/EXTERNAL PHYSICIAN OR SPECIALIST ELEMENT 3: RISK RISK OF COMPLICATIONS AND/OR MORBIDITY OR MORTALITY OF PATIENT MANAGEMENT PROVIDER MUST THOROUGHLY DOCUMENT EACH ELEMENT THAT IS COVERED Not available 10/31/2023 15:17:34 01/14/2024 01/14/2024 Patient agreed and verbally consents to this audio and video Telehealth appt via a secure platform [email or web address] Not available 01/14/2024 10:40:30 Plan of Treatment Reminders Order Date Submit Date Provider Last Modified By Organization Details Last Modified Time Details Appointments ANNUAL EXAM 2024 02:00P M PEGGY TAVAREZ Not available Not available Not available Lab iron + TIBC + ferritin, serum 2023 024 [facility], [address] [place] [address], [place], [address], 01/14/2024 10:41:00 TSH + free T4, serum 2023 [facility], [address] [place] [address], [address], 01/14/2024 10:41:00 vitamin B12 + folate, serum or blood 2023 [facility], [address] [place] [address], [address], 01/14/2024 10:41:00 vitamin D, 25-hydrox y, total, serum 2023 [facility], [address] [place] [address], [address], 01/14/2024 10:41:00 CMP, serum or plasma 2023 [facility], [address] [place] [address], [address], 01/14/2024 10:41:00 CBC w/ auto diff 2023 [facility], [address] [place] [address], [address], 01/14/2024 10:41:00 hemoglobi n A1c, QN, blood 2023 [facility], [address] [place] [address], [address], 01/14/2024 10:41:00 Referral None recorded. Procedures None recorded. Surgeries None recorded. Imaging MRI, shoulder, w/o contrast - APPROVED: #[id number] T, effective 4 - 4, for procedure code 67319 2023 024 [facility], [address] [place] [address], [address], 11/10/2023 08:27:04 Medication Orders benzonata te 200 mg capsule 2022 023 [facility] #[id number], [address] [place], [address], 09/19/2023 11:42:07 tramadol 50 mg tablet 2023 024 [facility] #[id number], [address] [place], [address], 04/06/2024 13:59:03 Patient TargetsNo targets recorded. Patient Instructions Encounter Date Encounter Id Patient Instructions Last Modified By Organization Details Last Modified Time 10/31/2023 [id number] high blood pressure: care instructions Not available 10/31/2023 15:20:37 learning about high blood pressure Not available 10/31/2023 15:20:37 aortic valve stenosis: care instructions Not available 10/31/2023 15:20:37 Reason for Referral None Reported. Results Created Date Observation Date Name Description Value Unit Range Abnormal Flag Note LastModifiedBy Organization Detail LastModifiedTime 07/21/19 24 07/21/2023 CT, head + brain , w/o contr ast No observ ation record ed. [email or web address] [facility] (Medical Records) [address] [place], [address], 07/22/2023 09:01:19 08/30/19 24 08/30/2023 XR, knee, 3 view No observ ation record ed. [facility] (Medical Records) [address] [place], [address], 08/31/2023 15:43:11 08/30/19 24 08/30/2023 XR, shoul mayela, 2 or more view No observ ation record ed. [facility] (Medical Records) [address] [place], [address], 08/31/2023 15:43:01 12/16/19 24 12/12/2023 MRI, shoul mayela, w/o contr ast No observ ation record ed. [email or web address] [facility] (Medical Records) [address] [facility], [address], 12/23/2023 08:21:06 01/04/20 24 01/04/2024 CT, chest , w/ contr ast No observ ation record ed. [address] (Medical Records) [address] [facility], [address], 01/04/2024 19:17:44 01/04/20 24 01/04/2024 CT, abdom en + pelvi s, w/ contr ast No observ ation record ed. [address] (Medical Records) [address] [facility], [address], 01/04/2024 19:18:13 01/04/20 24 01/04/2024 CT, cervi urmila spine , w/o contr ast No observ ation record ed. [address] (Medical Records) [address] [facility], [address], 01/04/2024 19:18:41 01/04/2001/04/2024 CT, head + brain , w/o contr ast No observ ation record ed. [address] (Medical Records) [address] [place], [address], 01/04/2024 19:19:07 Result Notes None recorded. Problems Name Problem SNOMED Code Status Onset Date Resolution Date Notes Provider Name and Address Organization Details Recorded Time Sleep apnea 85267554 Active 2017 Not Available [facility] 3 15:17:07 Essential hypertens ion 72854007 Active 2017 Not Available [facility] 3 15:17:07 History of cerebrova scular accident 945701547 Active 2017 Not Available [facility] 3 15:17:07 Edema 230734678 Active 2017 Not Available [facility] 3 15:17:07 Hypothyro idism 40018534 Active 2017 Not Available [facility] 3 15:17:07 Aortic valve stenosis 59616298 Active 2017 Not Available [facility] 3 15:17:07 Anxiety 50528750 Active 2017 Not Available [facility] 3 15:17:07 Depressiv e disorder 12403984 Active 2017 Not Available [facility] 3 15:17:07 Migraine 21209712 Active 2017 Not Available [facility] 3 15:17:07 Osteoarth ritis of knee 429433564 Active 2017 left knee Not Available [facility] 3 15:17:07 Hyperchol esterolem ia 46551899 Active 2017 Not Available [facility] 3 15:17:07 Idiopathi c periphera l neuropath y 78434664 Active 2018 Not Available [facility] 3 15:17:07 Impaired fasting glycemia 954302574 Active 2019 Not Available [facility] 3 15:17:07 Fatigue 02393613 Active 2021 Not Available [facility] 3 15:17:07 COVID-19 737360639 Active 2021 Not Available [facility] 3 15:17:07 Acute bronchiti s 75929022 Active 2022 Not Available [facility] 3 15:17:07 Orthostat ic hypotensi on 63229233 Active 2022 Not Available [facility] 3 15:17:07 Dizziness 141258504 Active 2022 Not Available [facility] 3 15:17:07 Cough 41624191 Active 2022 PEGGY TAVAREZ [address] [place], [address], [facility] 3 10:52:11 Pain of left shoulder joint 791915004636 78789 Active 2023 PEGGY TAVAREZ [address] [place], [address], [facility] [place], operated by [facility] 4 12:05:53 Rupture of rotator cuff of left shoulder 382543254438 54165 Active 2023 Mustapha Bustos, DO [address] [place] [address], [address], [facility] [place], operated by [facility] 4 15:17:46 Claustrop hobia 78409149 Active 2023 PEGGY TAVAREZ [address] [place], [address], [facility] [place], operated by [facility] 4 15:20:28 Partial thickness rotator cuff tear 367482118 Active 2023 Mustapha Bustos, DO [address] [place] [address], [address], [facility] [place], operated by [facility] 4 21:42:13 Fall Active 2023 PEGGY TAVAREZ [address] [place], [address], [facility] [place], operated by [facility] 4 13:55:20 Osteoarth ritis of left knee joint 913667671825 109 Active 2023 PEGGY TAVAREZ [address] [place] [address], [address], [facility] [place], operated by [facility] 4 13:56:17 Problem Notes None recorded. Procedures Surgical History None recorded. Imaging Results Imaging Date Name Status LastModified by Organiz ation Details LastModified Time 07/21/2023 CT, head + brain, w/o contrast completed [email or web address] [facility] (Medical Records) [address] [place], [address], 07/22/2023 09:01:19 08/30/2023 XR, knee, 3 view completed [email or web address] [facility] (Medical Records) [address] [place], [address], 08/31/2023 15:43:11 08/30/2023 XR, shoulder, 2 or more view completed [email or web address] [facility] (Medical Records) [address] [place], [address], 08/31/2023 15:43:01 12/12/2023 MRI, shoulder, w/o contrast completed [email or web address] [place] [address] (Medical Records) [address] [place], [address], 12/23/2023 08:21:06 01/04/2024 CT, chest, w/ contrast completed [address] (Medical Records) [address] [place], [address], 01/04/2024 19:17:44 01/04/2024 CT, abdomen + pelvis, w/ contrast completed [address] (Medical Records) [address] [place], [address], 01/04/2024 19:18:13 01/04/2024 CT, cervical spine, w/o contrast completed [address] (Medical Records) [address] [place], [address], 01/04/2024 19:18:41 01/04/2024 CT, head + brain, w/o contrast completed [address] (Medical Records) [address] [place], [address], 01/04/2024 19:19:07 Procedure Notes None recorded. Medical Equipment None Reported. Allergies Allergen ID Allergen Name Allergen Category Reaction Reaction Severity Criticality Documentation Date Start Date Code Code System Note Provider Name and Address Organization Details Recorded Time 2251 azithromy nia medicatio n Not available Not available Not available 12/29/2017 07437 [facility] Tavia fountain [place] - [facility] 8 08:19:44 Medications Name Sig Start Date Stop Date Status Note LastModified by Organization Details LastModified Time Prescriptio n - Prior Authorizati on Request 12/29 completed Not Available Not Available Not Available neuropathy 1.0 (diclofenac 3 + doxepin 2.5 + gabapentin 3 + lidocaine 5) APPLY 1-2 PUMPS (1-2 GRAMS) TO BOTH FEET TWICE DAILY 07/16 completed Not Available Not Available Not Available acetaminoph en 325 mg tablet TAKE 1 TABLET BY MOUTH EVERY 4 HOURS NEEDED FOR PAIN active Not Available Not Available No t Available citalopram 40 mg tablet TAKE 1 TABLET BY MOUTH EVERY DAY active Not Available Not Available No t Available triazolam 0.25 mg tablet TAKE 1 TABLET BY MOUTH 1 HOUR PRIOR TO SURGERY,B RING SECOND TABLET TO APPOINTME NT DIRECTED 04/06 completed Not Available Not Available Not Available benzonatate 200 mg capsule TAKE 1 CAPSULE BY MOUTH THREE TIMES A DAY NEEDED FOR 14 DAYS 09/18 completed Not Available Not Available Not Available hydrocodone 5 mg-acetamin ophen 325 mg tablet TAKE 1 TABLET BY MOUTH EVERY 4 TO 6 HOURS NEEDED FOR PAIN 04/06 completed Not Available Not Available Not Available lisinopril 20 mg tablet TAKE 1 TABLET BY MOUTH EVERY DAY 09/18 completed Not Available Not Available Not Available clobetasol 0.05 % topical cream APPLY TO THE AFFECTED AREA TWICE DAILY FOR 1 WEEK, THEN DAILY FOR 2 WEEKS. 07/16 completed Not Available Not Available Not Available sumatriptan 50 mg tablet TAKE 1 TABLET BY MOUTH EVERY 2 TO 4 HOURS NEEDED FOR MIGRAINE HEADACHE. MAX 4 DOSES PER 24 HOURS. active Not Available Not Available No t Available warfarin 2.5 mg tablet TAKE 1 TABLET BY MOUTH DAILY 5 DAYS/WEEK AND TAKE 1/2 TABLET BY MOUTH DAILY ON FRIDAY AND FRIDAY . active Not Available Not Available No t Available fluocinonid e 0.05 % topical ointment APPLY TO ITCHY AREA ON RIGHT WRIST TWICE A DAY NEEDED FOR FLARES active Not Available Not Available No t Available tramadol 50 mg tablet Take 1 tablet every 6 hours by oral route as needed for 7 days. 04/06 completed Not Available Not Available Not Available butalbital- acetaminoph en-caffeine 50 mg-325 mg-40 mg tablet TAKE 1 TABLET BY MOUTH THREE TIMES A DAY NEEDED FOR 7 DAYS 09/18 completed Not Available Not Available Not Available simvastatin 40 mg tablet TAKE 1 TABLET BY MOUTH EVERY DAY active Not Available Not Available No t Available levothyroxi ne 25 mcg tablet 1 po daily 02/02 completed Not Available Not Available Not Available amoxicillin 875 mg tablet TAKE 1 TABLET BY MOUTH TWICE A DAY DIRECTED UNTIL FINISHED. 04/06 completed Not Available Not Available Not Available citalopram 20 mg tablet TAKE 1 TABLET BY MOUTH DAILY 08/01 completed Not Available Not Available Not Available lorazepam 0.5 mg tablet PLEASE SEE ATTACHED FOR DETAILED DIRECTION S 03/10 completed Not Available Not Available Not Available diazepam 2 mg tablet TAKE 1 TABLET EVERY 8 HOURS NEEDED FOR MUSCLE SPASM, DO NOT DRIVE WHILE TAKING THIS MEDICATIO N 02/07 completed Not Available Not Available Not Available levothyroxi ne 50 mcg tablet TAKE 1 TABLET BY MOUTH EVERY OTHER DAY, ALTERNATE WITH 1 + 1/2 TABLETS EVERY OTHER DAY active Not Available Not Available No t Available simvastatin 20 mg tablet TAKE 1 TABLET BY MOUTH EVERY DAY active Not Available Not Available No t Available clotrimazol e-betametha sone 1 %-0.05 % topical cream PLEASE SEE ATTACHED FOR DETAILED DIRECTION S active Not Available Not Available No t Available lisinopril 10 mg tablet Take 1 tablet every day by oral route as directed. active Not Available Not Available No t Available gabapentin 300 mg capsule Take 1 capsule every 24 hours by oral route. 08/01 completed pt. uses prn Not Available Not Available Not Available ammonium lactate 12 % topical cream APPLY TOPICALLY TO LEGS AND FEET TWICE DAILY active Not Available Not Available No t Available gabapentin 100 mg capsule TAKE 2 CAPSULES (200 MG TOTAL) BY MOUTH ONCE DAILY. active Not Available Not Available No t Available alclometaso ne 0.05 % topical ointment APPLY TO TRUNK, GROIN TWICE DAILY NEEDED FOR FLARES 07/16 completed Not Available Not Available Not Available lorazepam 1 mg tablet TAKE 1 TABLET BY MOUTH THREE TIMES A DAY FOR 3 DAYS 04/06 completed Not Available Not Available Not Available scopolamine 1 mg over 3 days transdermal patch APPLY 1 PATCH DIRECTED ON THE PACKAGE ILLISTRAT ION BEHIND THE EAR, EVERY 3 DAYS NEEDED 01/07 completed Not Available Not Available Not Available methylpredn isolone 4 mg tablets in a dose pack TAKE 6 TABLETS ON DAY 1 DIRECTED ON PACKAGE AND DECREASE BY 1 TAB EACH DAY FOR A TOTAL OF 6 DAYS 07/16 completed Not Available Not Available Not Available ketoconazol e 2 % topical cream APPLY TO RASH ON NECK TWICE DAILY UNTIL RESOLVED active Not Available Not Available No t Available cefdinir 300 mg capsule TAKE 1 CAPSULE BY MOUTH EVERY 12 HOURS FOR 5 DAYS 07/16 completed Not Available Not Available Not Available doxycycline hyclate 100 mg tablet TAKE 1 TABLET BY MOUTH TWICE A DAY FOR 7 DAYS 07/16 completed Not Available Not Available Not Available metoclopram ishan 10 mg tablet TAKE 1 TAB ORALLY EVERY 6 HOURS NEEDED FOR NAUSEA AND VOMITING 01/07 completed Not Available Not Available Not Available amoxicillin 875 mg-potassiu m clavulanate 125 mg tablet TAKE 1 TABLET BY MOUTH EVERY 12 HOURS FOR 7 DAYS 07/16 completed Not Available Not Available Not Available enoxaparin 30 mg/0.3 mL subcutaneou s syringe INJECT 0.3 ML EVERY 12 HOURS BY SUBCUTANE OUS ROUTE. active Not Available Not Available No t Available enoxaparin 80 mg/0.8 mL subcutaneou s syringe INJECT 1 PEN SUBCUTANE OUSLY TWICE A DAY FOR 5 DAYS 07/16 completed Not Available Not Available Not Available chlorhexidi ne gluconate 0.12 % mouthwash PLEASE SEE ATTACHED FOR DETAILED DIRECTION S active Not Available Not Available No t Available Coumadin 02/07 completed Not Available Not Available Not Available Vitals Date Recorded Body height Body mass index (BMI) Body weight Heart rate Oxygen saturation Oxygen saturation in Arterial blood by Pulse oximetry Systolic blood pressure Diastolic blood pressure Provider Name and Address Organization Details Last Updated DateTime 4 152.4 cm 37.1 kg/m2 41148.9 1 g 74 /min 96 % 96 % 122 mm[Hg] 74 mm[Hg] Destini Aragon [facility] 4 11:47:39 Date Recorded Body height Body mass index (BMI) Body weight Heart rate Oxygen saturation Oxygen saturation in Arterial blood by Pulse oximetry Systolic blood pressure Diastolic blood pressure Provider Name and Address Organization Details Last Updated DateTime 4 152.4 cm 37.1 kg/m2 88444.5 5 g 69 /min 97 % 97 % 130 mm[Hg] 72 mm[Hg] Maria Esther Corley [facility] 4 13:32:05 Social History Question Answer Notes LastModified by Organizat ion Details LastModified Time Tobacco Smoking Status Never Smoker Not Available [facility] 02/22/2020 03:36:24 What Was The Date Of Your Most Recent Tobacco Screening? 04/06/2024 [email or web address] Information not available 04/06/2024 Do You Or Have You Ever Used Any Other Forms Of Tobacco Or Nicotine? No [email or web address] Information not available 04/06/2024 Sex: Unknown Functional Status None recorded. Mental Status None recorded. Family History Nothing Reported. Medical History No medical history recorded. Gynecological HistoryNo gynecological history recorded. Obstetrics History GPAL:G 0 P 0 0 0 0 Immunizations Vaccine Type Date Status Note Provider Nam e and Address Organization Details Recorded Time COVID-19, mRNA, LNP-S, PF, 100 mcg/0.5mL dose or 50 mcg/0.25mL dose 1 completed Irena fountain [facility] 11/01/2020 15:35:49 COVID-19, mRNA, LNP-S, PF, 100 mcg/0.5mL dose or 50 mcg/0.25mL dose 1 completed Irena fountain [facility] 04/18/2021 11:03:52 Influenza, split virus, quadrivalent, preservative 1 yael fountain [facility] 04/18/2021 11:03:59 Influenza, split virus, quadrivalent, preservative 8 completed Not Available [facility] 05/08/2019 02:46:31 Influenza, split virus, quadrivalent, preservative 9 completed Liliane fountain [facility] 06/19/2020 11:20:18 Influenza, split virus, quadrivalent, preservative 1 completed Liliane fountain [facility] 06/19/2020 11:20:18 COVID-19, mRNA, LNP-S, PF, 100 mcg/0.5mL dose or 50 mcg/0.25mL dose 1 yael fountain [facility] 11/01/2020 15:35:56 Past Encounters Encounter ID Performer Location Encounter Start Date Encounter Closed Date Diagnosis/Indication Diagnosis SNOMED-CT Code Diagnosis ICD10 Code [id number] Karen Blanchard NP, [facility] [address] [place] [address] [place] [address] 12/29/2017 11:41:39 12/29/2017 12:36:56 Edema 500707515 R60.9 History of cerebrovascular accident 560738633 Z86.73 Depressive disorder 3548 9007 F33.8 Hypothyroidism 57654295 E03.9 Essential hypertension 56600939 I10 Aortic valve stenosis 60 734018 I35.0 Sleep apnea 33034901 G47 .30 Anxiety ab out loss of memory 541741046 F41.8 Lesion of vulva 32838555 6 N90.9 [id number] Karen Blanchard NP, [address] [place] [address] 02/02/2018 09:53:50 02/02/2018 11:21:20 Hypothyroidism 32637639 E03.9 Impaired f asting glycemia 189211339 R73.01 Essential hypertension 97499168 I10 Aortic valve stenosis 60 698441 I35.0 Administra tion of influenza vaccine 72781774 Z23 Depressive disorder 3548 9007 F33.8 [id number] Karen Blanchard NP, [facility] Internal [address] [place] [address] 04/07/2018 08:54:56 04/10/2018 11:16:49 Screening procedure 52214731 Z13.9 Edema 832275045 R60.9 Depressive disorder 3548 9007 F33.8 Hypothyroidism 77356052 E03.9 Anxiety 44766548 F41.9 Essential hypertension 54570463 I10 Aortic valve stenosis 60 713757 I35.0 Sleep apnea 84108242 G47 .30 Hypercholesterolemia 136 94698 E78.00 Impaired f asting glycemia 855563965 R73.01 Active or passive immunization 165071712 Z23 [id number] Karen Blanchard NP, [facility] [address] [place] [address] [place] [address] 07/08/2018 09:29:55 07/08/2018 14:30:43 Adult health examination 513600078 Z00.01 Active or passive immunization 929523770 Z23 History of cerebrovascular accident 739494274 Z86.73 Depressive disorder 3548 9007 F33.8 Hypothyroidism 72967851 E03.9 Essential hypertension 77055547 I10 Aortic valve stenosis 60 448525 I35.0 Sleep apnea 94399742 G47 .30 Hypercholesterolemia 136 71328 E78.00 Osteoarthr itis of knee 086759686 M17.9 [id number] Mustapha Bustos [facility] [address] [facility] [place] [address] 04/28/2019 11:00:47 04/28/2019 11:41:26 Hypothyroidism 94778497 E03.9 Essential hypertension 65125131 I10 Impaired f asting glycemia 929448582 R73.01 History of cerebrovascular accident 876167040 Z86.73 Aortic valve stenosis 60 969478 I35.0 Osteoarthr itis of knee 454459436 M17.9 [id number] Mustapha Bustos [facility] [address] [facility] [address] 08/02/2019 11:23:11 08/02/2019 12:00:25 Essential hypertension 56810562 I10 Hypothyroidism 96849341 E03.9 Hypercholesterolemia 136 15908 E78.00 Idiopathic peripheral neuropathy 62172839 G60.9 Edema 291003565 R60.9 [id number] PEGGY TAVAREZ [facility] [address] [place] [address],[place] [address] 06/19/2020 11:03:08 06/19/2020 11:53:47 Essential hypertension 66360726 I10 Hypothyroidism 46018909 E03.9 Impaired f asting glycemia 528328970 R73.01 Screening for cardiovascular system disease 968365165 Z13.6 Hyperlipidemia 85773633 E78.5 [id number] PEGGY TAVAREZ [facility] [address] [facility] [address] 05/23/2021 08:15:16 05/28/2021 10:41:37 Depressive disorder 02841230 F33.8 Anxiety 51667697 F41.1 Aortic valve stenosis 60 717773 I35.0 Essential hypertension 07287997 I10 Hypercholesterolemia 136 91130 E78.2 Hypothyroidism 15142771 E03.9 Atopic dermatitis 450872 01 L20.89 Motion sickness 53748705 T75.3XXA [id number] PEGGY TAVAREZ [facility] [address] [facility] [address] 07/16/2022 14:15:50 07/17/2022 08:23:41 Essential hypertension 07522154 I10 Depressive disorder 3548 9007 F33.8 [id number] PEGGY TAVAREZ [facility] [address] [place] [address],[place] [address] 01/07/2023 13:53:57 01/07/2023 15:03:21 Essential hypertension 89057740 I10 Hypercholesterolemia 136 16142 E78.2 Hypothyroidism 54745949 E03.8 Atopic dermatitis 364900 L20.89 [id number] PEGGY TAVAREZ [facility] [address] [place] [address],[place] [address] 02/07/2023 14:27:17 02/07/2023 15:04:49 Orthostatic hypotension 94857748 I95.1 Dizziness 790983830 R42 [id number] PEGGY TAVAREZ [facility] [address] [place] [address],[place] [address] 03/10/2023 11:14:56 03/10/2023 11:53:48 Essential hypertension 60855459 I10 Hypothyroidism 29396347 E03.8 [id number] PEGGY TAVAREZ [facility] [address] [place] [address],[place] [address] 04/16/2023 09:11:18 04/16/2023 11:02:48 Essential hypertension 41562671 I10 Cough 49432198 R05.1 [id number] PEGGY TAVAREZ [facility] [address] [place] [address],[place] [address] 09/19/2023 11:37:48 09/19/2023 16:26:10 Depression screening 166490592 Z13.31 Pain of le ft shoulder joint 5826674714 4188857 M25.512 [id number] Mustapha Bustos DO [facility] [address] [facility] [address] 10/31/2023 14:38:05 10/31/2023 15:41:44 Rupture of rotator cuff of left shoulder 0456042848 6649096 M75.102 Essential hypertension 22959964 I10 Aortic valve stenosis 60 476230 I35.0 History of cerebrovascular accident 124238776 Z86.73 Osteoarthr itis of knee 708983629 M17.9 [id number] PEGGY TAVAREZ [facility] [address] [facility], [place] [address] 01/14/2024 08:09:32 01/14/2024 11:43:08 Fatigue 54453473 R53.83 [id number] PEGGY TAVAREZ [facility] [address] [facility] [address], [place] [address] 04/06/2024 13:16:21 04/06/2024 14:12:13 Fall R29.6 Depressive disorder 3548 9007 F33.8 Osteoarthr itis of left knee joint 7939230427 44025 M17.12 Essential hypertension 84530166 I10 Health Concerns Section Related Observation LastModified by Organization Detai ls LastModified Time None Recorded Concern Status LastModified by Organization Details LastModified Time None Recorded Advance Directives Directive None Recorded Payers Encounter Date Sequence Insurance Name Policy Number Policy Lowe Covered Member ID Lowe Member ID Guarantor Name 04/16/2023 1 [facility] - DOS ON OR AFTER 2022 - [place]V ANTAGE - PPO) Yadira Mena [id number] Yadira Mena 09/19/2023 1 [facility] - DOS ON OR AFTER 2022 - [place]V [place] - PPO) Yadira Mena [id number] Yadira Mena 10/31/2023 1 [facility] - DOS ON OR AFTER 2022 - [place]V [place] - PPO) Yadira Stephenson Trina [id number] Yadiravida Guzmanredd 01/14/2024 1 [facility] - DOS ON OR AFTER 2022 - [place]V ANTAGE - PPO) Yadira Guzmanredd [id number] Yadira Guzmanredd 04/06/2024 1 [facility] - DOS ON OR AFTER 2022 - [place]V [place] - PPO) Yadira Guzmanredd [id number] Yadira Guzmanredd Notes Date Note Type Note Provider Name a nd Address Organization Details Recorded Time 3 text/html 1 week fu telemed phone callpt consents to phone call doing well, has a cold, COVID negativewill give her something for the cough specific HTN been goodwill continue off the medication PEGGY TAVAREZ [address] [place], [address], [facility], [place], operated by [facility] 04/16/2023 10:59:54 4 text/html c/o LEFT SHOULDER PAIN WENT TO ER LAST WEEK the patient reports that she was cleaning her desk, ended up falling over onto her left shoulderthe patient did hit her head, CT scan was negative the patient reports she went to the ERhad XR's done which were negativehas some bruising the patient is currently doing wellher pain is a 6/10 the patient is here with her the patient will be getting surgery of her kneegetting her teeth extractedknows to call about warfarinalready given abx PEGGY TAVAREZ [address] [place], [address], [facility], [place], operated by [facility] 09/19/2023 12:13:52 4 text/html HERE for pain in her shoulder left Mustapha Bustos DO [address] [place], [address], [facility], [place], operated by [facility] 10/31/2023 15:22:25 4 text/html ER f/u The patient is participating in this appointment via telemedicine communication with a phone call/video calling service (THEVA)The patient consents to use of these platforms in place of an in-person appointment due to either sick symptoms the patient is presenting with or current office closure due to COVID exposure in order to keep our office staff and patients safe the patient reports that she fell in the shower and hit her head, no LOCbrought to ER, CT did not show any significant bleeds has a concussion, doing well has the L rotator cuff tear, getting injections and will be starting PT having fatigue despite 8 hrs of sleephad sleep study years ago, agreed to blood work will fu after blood work PEGGY TAVAREZ [address] [facility], [place], [address], [facility] 01/14/2024 10:43:54 4 text/html f/u medication check fall: stable knee replacement: scheduled for 06/17will f/u with pre op no medication changes will be having to do a lovenox bridge prior to the surgery, ortho will be taking care of it had her five teeth pulled, doing fine using her walker appropriately otherwise no major changestaking her medications PEGGY TAVAREZ [address] [facility], [place], [address], [facility] 04/06/2024 14:07:52 OBGyn Episode No OBEpisode recorded.
--- OUTSIDE RECORDS SUMMARY | 2024-04-20 09:23 | XMS_ITS | Patient Health Record ---
Author Organization [facility] Address [address] [place] [address] Care Team Providers Care Lock And Dam Repairer Name Role Phone Mustapha Bustos Primary Care Provider Bran Andrews Jr Unavailable [phone] ALLERGIES Allergen (clinical drug ingredient) Drug/Non Drug [...] Problem Colon cancer screening (Z12.11) Active confirmed [id number] Problem [facility] (current) use of anticoagulants (Z79.01) Active confirmed 339469643 PLAN OF TREATMENT Future Test Test Name Order Date COLONOSCOPY 12/18/2016 COLONOSCOPY 08/20/2021 Insurance Providers Payer Name Payer Address Payer Phone Subscriber Number Group Number Insured Name Patient Relationship to Insured Coverage Start Date Coverage End Date [facility] [address] [place] [address] [id number] MARJAN MENDOZA Self - patient is the insured MEDICAID OF [facility] [address] [place] [address] [id number] MARJAN MENDOZA Self - patient is the insured MEDICARE OF [place] [address] [place] [address] [phone] [id number] MARJAN MENDOZA Self - patient is the insured MEDICAL (GENERAL) HISTORY Medical History History ICD Code stroke x2 hypertension obstructive sleep apnea, uses CPAP hypothyroidism depression elevated cholesterol Surgical History Surgery Date(Month/Year) knee surgery x5
--- OUTSIDE RECORDS SUMMARY | 2024-04-20 09:23 | XMS_ITS ---
Author Organization [facility] Address [address] [facility] [address] Care Team Providers Care Security Control Room Officer Name Role Phone Juli PEARCE, Mustapha Primary Care Provider Asha Vail Unavailable [phone] Allergies Allergen (clinical drug ingredient) Drug/Non Drug [...] 02/06/2024 Encounters Encounter Location Date Provider Diagnosis [facility] [address] [place] [address] 02/06/2024 Asha Rehman Generalized edema R6 0.1 [...] Reason: Provider Name:Asha sparks, 05/04/2024 02:45:00 PM, [address] [place] [address], [address], Procedure Notes * Category Sub-Category Detail Notes Keratoma Treatment Parring or Cutting o f Benign Hyperkeratotic Lesion(s) 06261 ( More than 4 Lesions ) - [...] used for any petechial bleeding as necessary (25708). Patient chooses, no pharmaceutical tx Nail Reduction Nail Reduction Trimming of dyst rophic nails performed to reduce/remove overall nail length and girth, by manual and electrical means with use of a nail nipper and/or dremel, to more viable healthy nail plate or bed tissue 6-10 (M3955-V2) Progress Notes * Yadira MENDOZA SeemaDOB:[birth year] (58 yo F)Acc No.[id number]:02/06/2024 Progress Note Patient:?Yadira Mendoza Provider:?Ahsa Rehman DPM :1965???Age:58 Y???Sex:Female D ate:02/06/2024 Address:[address] [place] [address] Pcp:Mustapha Bustos MD Subjective: * Chief Complaints: [...] used for any petechial bleeding as necessary (35358). Patient chooses, no pharmaceutical tx.?Keratoma Treatment:?Parring or Cutting of Benign Hyperkeratotic Lesion(s)?01554 ( More than 4 Lesions ) - [...] DYSTROPHIC NAILS ANY #, Modifiers: XS , [id number] DEBRIDE NAIL, 1-5, Modifiers: XS 79659 TRIM SKIN LESIONS, OVER 4, Modifiers: XS , Q8 * Follow Up:?2 Months * Images: * Sign off status: Completed true * Provider:?Asha Rehman, HEIKE Date:? Generated for Renée styles/Ramos/Bon on:?04/20/2024 09:23 AM EST History and Physical Notes * HPI (History of Present Illness) Category Sub-Category Detail Notes Category Not es At Risk footcare Pt States Last PCP Visit: Date: Examination Category Sub-Category Detail Notes Category Not [...] SUB MTH (s), 1, B/L Vascular DP PULSES (B): 0/4, B/L PT PULSES (B): 0/4, B/L CAPILLARY FILL TIME: delayed, all digits , B/L TEMPERTURE GRADIENT (C): decreased, cool to cool, proximal to distal, B/L TROPHIC CONDITION-TEXTURE/ELASTICITY/TURGOR/HAIR GROWTH (B): decreased, B/L EDEMA (C): 3/4, pitting, B/L, A nkle(s), Feet , [...]
--- OUTSIDE RECORDS SUMMARY | 2024-04-20 09:23 | XMS_ITS ---
Author Organization [facility] Address [address] [place] [address] Care Team Providers Care Windshield Technician Name Role Phone uJli PEARCE, Mustapha Primary Care Provider Asha Vail [phone] Encounters Encounter Location Date Provider Diagnosis [address] [address] 09/26/2023 Asha Rehman Plan Of Treatment Next Appt Details Provider Name:Asha sparks, 05/04/2024 02:45:00 PM, [address] [place], [address], Progress Notes * Yadira MENDOZADOB:[birth year] (58 yo F)Acc No.[id number]:09/26/2023 Progress Note Patient:?LORENEYadira JONAS Provider:?Asha Rehman DPM :1965???Age:58 Y???Sex:Female D ate:09/26/2023 Address:[address] [place], [place] [address] Pcp:Mustapha Bustos MD Subjective: * Chief Complaints: [...] Rehman DPM Date:?10/2023 Generated for Renée styles/Ramos/Bon on:?04/20/2024 09:23 AM EST
--- OUTSIDE RECORDS SUMMARY | 2024-04-20 09:23 | XMS_ITS | Continuity of Care Document ---
Author Organization [facility], [facility] Address [address] [place] [address] Assessment No assessment recorded. Plan of Treatment Reminders Order Date Submit Date Provider Last Modified By Organization Details Last Modified Time Details Appointments ANNUAL EXAM 2024 02:00P M PEGGY TAVAREZ Not available Not available Not available Lab None recorded . Referral None recorded . Procedures None recorded . Surgeries None recorded . Imaging None recorded . Medication Orders None recorded . Patient TargetsNo targets recorded. Patient InstructionsNo instructions recorded. Reason for Referral None Reported. Problems Name Problem SNOMED Code Status Onset Date Resolution Date Notes Provider Name and Address Organization Details Recorded Time Sleep apnea 31834521 Active 2017 Not Available [facility] 3 15:17:07 Essential hypertens ion 95648440 Active 2017 Not Available [facility] 3 15:17:07 History of cerebrova scular accident 064072619 Active 2017 Not Available [facility] 3 15:17:07 Edema 868395702 Active 2017 Not Available [facility] 3 15:17:07 Hypothyro idism 10114748 Active 2017 Not Available [facility] 3 15:17:07 Aortic valve stenosis 34842187 Active 2017 Not Available [facility] 3 15:17:07 Anxiety 12694823 Active 2017 Not Available [facility] 3 15:17:07 Depressiv e disorder 06490523 Active 2017 Not Available [facility] 3 15:17:07 Migraine 46705241 Active 2017 Not Available [facility] 3 15:17:07 Osteoarth ritis of knee 798704518 Active 2017 left knee Not Available [facility] 3 15:17:07 Hyperchol esterolem ia 11925209 Active 2017 Not Available [facility] 3 15:17:07 Idiopathi c periphera l neuropath y 41882673 Active 2018 Not Available [facility] 3 15:17:07 Impaired fasting glycemia 185336490 Active 2019 Not Available [facility] 3 15:17:07 Fatigue 49760039 Active 2021 Not Available [facility] 3 15:17:07 COVID-19 326075904 Active 2021 Not Available [facility] 3 15:17:07 Acute bronchiti s 44056237 Active 2022 Not Available [facility] 3 15:17:07 Orthostat ic hypotensi on 54975771 Active 2022 Not Available [facility] 3 15:17:07 Dizziness 544988094 Active 2022 Not Available [facility] 3 15:17:07 Cough 11416127 Active 2022 PEGGY TAVAREZ [address] [place], [address], [facility] 3 10:52:11 Pain of left shoulder joint 427901408544 Active 2023 PEGGY TAVAREZ [address] [place], [address], [facility] 4 12:05:53 Rupture of rotator cuff of left shoulder 688991200795 Active 2023 Mustapha Bustos DO [address] [place], [address], [facility] 4 15:17:46 Claustrop hobia 83237780 Active 2023 PEGGY TAVAREZ [address] [place], [address], [place] [facility] 4 15:20:28 Partial thickness rotator cuff tear 351225597 Active 2023 Mustapha Bustos DO [address] [place], [address], [facility] 4 21:42:13 Fall Active 2023 PEGGY TAVAREZ [address] [place], [address], [facility] 4 13:55:20 Osteoarth ritis of left knee joint 057229728950 109 Active 2023 PEGGY TAVAREZ [address] [place], [address], [facility] 4 13:56:17 Problem Notes None recorded. Medical Equipment None Reported. Allergies Allergen ID Allergen Name Allergen Category Reaction Reaction Severity Criticality Documentation Date Start Date Code Code System Note Provider Name and Address Organization Details Recorded Time 2251 azithromy nia medicatio n Not available Not available Not available 12/29/2017 63049 RxNorm Tavia Anu [facility] 8 08:19:44 Medications Name Sig Start Date [...] Updated DateTime 4 152.4 cm 37.1 kg/m2 05433.5 5 g 69 /min 97 % 97 % 130 mm[Hg] 72 mm[Hg] Maria Esther Corley [facility] 4 13:32:05 Social History Question Answer Notes LastModified by Organizat ion Details LastModified Time Tobacco Smoking Status Never Smoker Not Available [facility] 02/22/2020 03:36:24 What Was The Date Of Your Most Recent Tobacco Screening? 04/06/2024 [email or web address] Information not available 04/06/2024 Do You Or Have You Ever Used Any Other Forms Of Tobacco Or Nicotine? No Information not available 04/06/2024 Sex: Unknown Functional [...] 50 mcg/0.25mL dose 1 completed Irena fountain [facility] 11/01/2020 15:35:49 COVID-19, mRNA, LNP-S, PF, 100 mcg/0.5mL dose or 50 mcg/0.25mL dose 1 completed Irena fountain ID Kp [facility] 04/18/2021 11:03:52 Influenza, split virus, quadrivalent, preservative 1 completed Irena fountain [facility] 04/18/2021 11:03:59 Influenza, split virus, quadrivalent, preservative 8 completed Not Available [facility] 05/08/2019 02:46:31 Influenza, split virus, quadrivalent, preservative 9 completed Liliane fountain [facility] 06/19/2020 11:20:18 Influenza, split virus, quadrivalent, preservative 1 completed Liliane fountain [facility] 06/19/2020 11:20:18 COVID-19, mRNA, LNP-S, PF, 100 mcg/0.5mL dose or 50 mcg/0.25mL dose 1 completed Irena fountain [facility] 11/01/2020 15:35:56 Past Encounters Encounter ID Performer Location Encounter Start Date Encounter Closed Date Diagnosis/Indication Diagnosis SNOMED-CT Code Diagnosis ICD10 Code [id number] PEGGY TAVAREZ [facility] [address] [facility],[place] [address] 04/06/2024 13:16:21 04/06/2024 14:12:13 Fall R29.6 Depressive disorder 3548 9007 F33.8 Osteoarthr itis of left knee joint 7847853785 06572 M17.12 Essential hypertension 01124944 I10 Health Concerns Section Related Observation LastModified by Organization Detai ls LastModified Time None Recorded Concern Status LastModified by Organization Details LastModified Time None Recorded Payers Encounter Date Sequence Insurance Name Policy Number Policy Lowe Covered Member ID Lowe Member ID Guarantor Name 04/06/2024 1 [facility] - DOS ON OR AFTER 2022 - [place]/ADV ANTAGE - PPO) Yadira Mena [id number] Yadira Mena Notes Date Note Type Note Provider Name a nd Address Organization Details Recorded Time 04/06/2024 text/html f/u medication check fall: stable knee replacement: scheduled for 06/17will f/u with pre op no medication changes will be having to do a lovenox bridge prior to the surgery, ortho will be taking care of it had her five teeth pulled, doing fine using her walker appropriately otherwise no major changestaking her medications PEGGY TAVAREZ [address] [place] [address], [place], [address], [facility] 04/06/2024 14:07:52 OBGyn Episode No OBEpisode recorded.
--- OUTSIDE RECORDS SUMMARY | 2024-04-20 09:23 | XMS_ITS ---
Author Organization [facility] Address [address] [place] [address] Care Team Providers Care Integrated Circuit Layout Designer Name Role Phone Juli PEARCE, Mustapha Primary Care Provider Asha Vail Unavailable [phone] Allergies Allergen (clinical drug ingredient) Drug/Non Drug [...] 11/24/2023 Encounters Encounter Location Date Provider Diagnosis [facility] [address] 11/24/2023 Asha Rehman Generalized edema R6 0.1 [...] Reason: Provider Name:Asha sparks, 05/04/2024 02:45:00 PM, [address] [place] [address], [address], Procedure Notes * Category Sub-Category Detail Notes Keratoma Treatment Parring or Cutting o f Benign Hyperkeratotic Lesion(s) 58213 ( More than 4 Lesions ) - [...] used for any petechial bleeding as necessary (88059). Patient chooses, no pharmaceutical tx Nail Reduction Nail Reduction Trimming of dyst rophic nails performed to reduce/remove overall nail length and girth, by manual and electrical means with use of a nail nipper and/or dremel, to more viable healthy nail plate or bed tissue 6-10 (D1316-F9) Progress Notes * Yadira MENDOZA SeemaDOB:[birth year] (58 yo F)Acc No.[id number]:11/24/2023 Progress Note Patient:?Yadira Mendoza Provider:?Asha Rehman DPM :1965???Age:58 Y???Sex:Female D ate:11/24/2023 Address:[address] [place] [address] Pcp:Mustapha Bustos MD Subjective: * Chief Complaints: [...] used for any petechial bleeding as necessary (85047). Patient chooses, no pharmaceutical tx.?Keratoma Treatment:?Parring or Cutting of Benign Hyperkeratotic Lesion(s)?21742 ( More than 4 Lesions ) - [...] DYSTROPHIC NAILS ANY #, Modifiers: XS , T330102 DEBRIDE NAIL, 1-5, Modifiers: XS 12037 TRIM SKIN LESIONS, OVER 4, Modifiers: XS , Q8 * Follow Up:?2 Months * Images: * Sign off status: Completed true * Provider:Emily Rehman, DPGail Date:?08/2023 Generated for Twylai stephani/Ramos/eTjovanitting on:?04/20/2024 09:23 AM EST History and Physical [...]
--- OUTSIDE RECORDS SUMMARY | 2024-04-20 09:24 | XMS_ITS | Patient Health Record ---
Author Organization [facility] Address [address] [place] [address] Care Team Providers Care Lead Maintenance Technician Name Role Phone Mustapha Bustos MD Primary Care Provider Asha Vail Unavailable [phone] Allergies Allergen (clinical drug ingredient) Drug/Non Drug [...] Problem Status W/U Status Risk Notes Problem 459456012 Neuropathy (G62.9) Active confirmed Problem 52388510341100197 Atherosclerosi s of artery of both lower extremities (I70.203) Active confirmed Vital Signs Height 5ft in 02/06/2024 Weight 190 lbs 02/06/2024 BMI 37.1 kg/m2 02/06/2024 Encounters Encounter Location Date Provider Diagnosis [address] [address] 07/11/2023 Asha Perica Atherosclerosis of artery of both lower extremities I70.203 ; Generalized edema R60.1 ; Tinea unguium B35.1 ; Pain in left toe(s) M79.675 and Neuropathy G62.[address] [address] 11/24/2023 Asah Perica Generalized edema R60.1 ; Tinea unguium B35.1 ; Atherosclerosis of artery of both lower extremities I70.203 ; Pain in left toe(s) M79.675 and Neuropathy G62.[address] [address] 02/06/2024 Asha Perica Generalized edema R60.1 ; Tinea unguium B35.1 ; Atherosclerosis of artery of both lower extremities I70.203 ; Pain in left toe(s) M79.675 and Neuropathy G62.9 [facility] [address] [address] 04/29/2023 Asha Perica [facility] [address] [place] [address] 06/02/2023 Asha Perica [facility] [address] [address] 09/25/2023 Asha Rehman Assessments Encounter Date Diagnosis [...] Details Provider Name:Asha sparks, 05/04/2024 02:45:00 PM, [address] [place] [address], [address], Insurance Providers Payer Name Payer Address Payer Phone Subscriber Number Group Number Insured Name Patient Relationship to Insured Coverage Start Date Coverage End Date [facility] [employer] Claims [address] PEGGY Morales [address] [id number] Yadira Mena Self - patient is the insured Medical (General) History Medical History History ICD Code Anxiety Depression Headaches/Migraines High blood pressure Neuropathy Stroke thyroid Chicken pox Periadonal Disease Rotator cuff tear Surgical History Surgery Date(Month/Year) 5 teeth extraction 11/13/23
[2024-04-20 09:48] LABS: Prothrombin Time Whole Bld POC 27.8 sec (11.1-13.5); ~PT, ~INR - Anti Coag Clinic 2.3 (0.9-1.1)
--- NOTE | 2024-04-20 09:53 | MHC.OFFVISCO ---
Intake Intake Visit Reasons: Anticoagulation Allergies erythromycin base [ERYTHROMYCIN BASE] Allergy (Unknown, Verified 04/20/24 09:43) Nausea and Vomiting Medication List - Last Reconciled 04/20/24 by Yadira Laureano RN acetaminophen (Tylenol) 325 mg PO Q4H PRN cdorjxjvhl-thvyopbzivtla-ktbk 50-325-40 mg 1 tab PO TID PRN cholecalciferol (vitamin D3) (Vitamin D3) 25 mcg PO DAILY citalopram 40 mg PO DAILY clotrimazole-betamethasone 1-0.05 % 1 appl topical BID diazepam 2 mg PO TID PRN gabapentin 200 mg PO BEDTIME levothyroxine 50 mcg PO DAILY lisinopril 10 mg PO DAILY lorazepam 1 mg PO TID simvastatin 20 mg PO BEDTIME simvastatin 40 mg PO BEDTIME sumatriptan succinate 50 mg PO Q2-4H PRN triazolam mg PO walker As directed warfarin See Protocol 2.5 mg orally 1.25 NG SUN/ 2.5MG X 6 DAYS; Nursing Note NO CP,SOB,DIET/MED CHANGES,FALLS OR SX OF BLEEDING CONTINUE PRESENT DOSING AND FOLLOW-UP IN 4 WEEKS. GOOD UNDERSTANDING OF DOSING INSTR. Anti-Coag Initial Assessment Social Hx Patient Tobacco Use Status: Never used Tobacco alcohol intake: never Alcohol intake frequency: does not drink Coding Level of Care Code Est Patient Level 1 Diagnoses Current use of anticoagulant therapy Z79.01 Assessment & Plan Assessment & Plan (1) Current use of anticoagulant therapy: Code(s): Z79.01 - [facility] (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
== END 2024-04-20 09:57 | disposition home or self-care (01) ==
LOC: HO.ACS 09:20
PROVIDERS: PCP Internal Medicine; Visit Provider Internal Medicine
DX: Z79.01 Long term (current) use of anticoagulants (principal)

== ENCOUNTER → 2024-04-20 09:20 | Outpatient (BNVA) | payer OTHER, SELFPAY | PROVIDERS: PCP Internal Medicine; Visit Provider Internal Medicine | DX: Z86.73 Personal history of transient ischemic attack (TIA), and cerebral infarction without residual deficits (principal); Z79.01 Long term (current) use of anticoagulants; Z51.81 Encounter for therapeutic drug level monitoring | CPT/HCPCS: 85610; 99211 ==

== ENCOUNTER 2024-05-18 13:00 | Outpatient (AMB) | payer OTHER, SELFPAY ==
[2024-05-18 13:13] LABS: Prothrombin Time Whole Bld POC 25.7 sec (11.1-13.5); ~PT, ~INR - Anti Coag Clinic 2.1 (0.9-1.1)
--- NOTE | 2024-05-18 13:20 | MHC.OFFVISCO ---
Intake Intake Visit Reasons: Anticoagulation Allergies erythromycin base [ERYTHROMYCIN BASE] Allergy (Unknown, Verified 05/18/24 13:07) Nausea and Vomiting Medication List - Last Reconciled 05/18/24 by Daniela Valenzuela RN acetaminophen (Tylenol) 325 mg PO Q4H PRN ruxqsliquj-xrlqkvlosrrjz-gsaf 50-325-40 mg 1 tab PO TID PRN cholecalciferol (vitamin D3) (Vitamin D3) 25 mcg PO DAILY citalopram 40 mg PO DAILY clotrimazole-betamethasone 1-0.05 % 1 appl topical BID diazepam 2 mg PO TID PRN gabapentin 200 mg PO BEDTIME levothyroxine 50 mcg PO DAILY lisinopril 10 mg PO DAILY lorazepam 1 mg PO TID simvastatin 20 mg PO BEDTIME simvastatin 40 mg PO BEDTIME triazolam mg PO walker As directed warfarin See Protocol 2.5 mg orally 1.25 NG SUN/ 2.5MG X 6 DAYS; Nursing Note Amb to [facility] using walker, accomp by sister Medications and supplements reviewed No changes in health, diet, medications, or supplements, Denies any signs and symptoms of bleeding or bruising or clotting. Bleeding, bruising, clotting discussed PT HAVING TOTAL KNEE LEFT ON 06/17/24 THROUGH [facility]- PT REMINDED TO CALL THEM FOR UPDATED INSTRUCTIONS, FAX # GIVEN INR: 2.1 in therapeutic range Dose:continue usual dosing 1.25mg on Fridays and 2.5mg all other days balance greens and reds in diet, be consistent F/U INR: 3 weeks for INR check pre procedure and review warfarin/ lovenox instructions Patient verbalizes understanding of instructions given Anti-Coag Initial Assessment Social Hx Patient Tobacco Use Status: Never used Tobacco alcohol intake: never Alcohol intake frequency: does not drink Coding Level of Care Code Est Patient Level 1 Diagnoses Current use of anticoagulant therapy Z79.01 Time Spent (min) 15 Assessment & Plan Assessment & Plan (1) Current use of anticoagulant therapy: Code(s): Z79.01 - senior living (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
--- OUTSIDE RECORDS SUMMARY | 2024-05-18 13:54 | XMS_ITS ---
[facility] Address [address] [place] [address] Care Team Providers Care Flour Blender Name Role Phone Juli PEARCE, Mustapha Primary Care Provider Asha Vail Unavailable [phone] Allergies Allergen (clinical drug ingredient) Drug/Non Drug [...] 11/24/2023 Encounters Encounter Location Date Provider Diagnosis [facility] [address] 11/24/2023 Asha Sherie Generalized edema R6 0.1 ; Tinea unguium [...] Appt Details Follow Up: 2 Months, Reason: Procedure Notes * Category Sub-Category Detail Notes Keratoma Treatment Parring or Cutting o f Benign Hyperkeratotic Lesion(s) 30538 ( More than 4 Lesions ) - [...] used for any petechial bleeding as necessary (36120). Patient chooses, no pharmaceutical tx Nail Reduction Nail Reduction Trimming of dyst rophic nails performed to reduce/remove overall nail length and girth, by manual and electrical means with use of a nail nipper and/or dremel, to more viable healthy nail plate or bed tissue 6-10 (I7606-V6) Progress Notes * Yadira MENDOZADOB:[birth year] (58 yo F)Acc No.[id number]:11/24/2023 Progress Note Patient:?Yadira Mendoza Provider:?Asha Rehman DPM :1965???Age:58 Y???Sex:Female D ate:11/24/2023 Address:[address] [place], [place] [id number] Pcp:Mustapha Bustos MD Subjective: * Chief Complaints: [...] used for any petechial bleeding as necessary (17796). Patient chooses, no pharmaceutical tx.?Keratoma Treatment:?Parring or Cutting of Benign Hyperkeratotic Lesion(s)?85416 ( More than 4 Lesions ) - [...] DYSTROPHIC NAILS ANY #, Modifiers: XS , [id number] DEBRIDE NAIL, 1-5, Modifiers: XS 44538 TRIM SKIN LESIONS, OVER 4, Modifiers: XS , Q8 * Follow Up:?2 Months * Images: * Sign off status: Completed true * Provider:?Asha Rehman, DPM Date:?08/2023 Generated for Renée styles/Ramos/Zainsmitting on:?05/18/2024 01:54 PM EST History and Physical Notes * [...]
--- OUTSIDE RECORDS SUMMARY | 2024-05-18 13:55 | XMS_ITS | Patient Health Record ---
Author [facility] Address [address] [place] [address] Care Team Providers Care Field Aide Name Role Phone Mustapha Bustos MD Primary Care Provider Asha Vail Unavailable [phone] Allergies Allergen (clinical drug ingredient) Drug/Non Drug [...] Duration) Notes Start Date End Date Status zzzCompression Stockings 20-30mm Hg . . . for . Active Compression Stockings 20-30mm Hg 1 pair With zippers daily for 30 days Active Levothyroxine Sodium 50 MCG 1 tablet in the morning on an empty stomach Orally Once a day for 30 day(s) Active Lisinopril 10 MG 1 tablet Orally Once a day for 30 days Active Citalopram Hydrobromide 40 MG 0.5 tablet Orally Once a day for 30 day(s) Active Warfarin Sodium 2.5 MG 1 tablet Orally O nce a day for 30 day(s) Active Vitamin D3 Active Simvastatin 20 MG 1 tablet in the even ing Orally Once a day for 30 day(s) Active SUMAtriptan 20 MG/ACT 1 spray at onset o f headache in one nostril may repeat after 2 hours as needed Nasally Once a day PRn Active Gabapentin 100 MG 1 capsule Orally Onc e a day for 30 day(s) Active Immunizations Vaccine Route Administration Date Status Comme nts COVID-19 Moderna Vaccine Unknown 08/17/2020 Administered Second Dose: Social History Tobacco Use: Social History Observation Description Date Details (start date - stop date) Never Smoker NA - NA Tobacco Use/Smoking Question Answer Notes Are you a: nonsmoker Additional Findings: Tobacco Non-User Current no n-smoker Tobacco use other than smoking: Question Answer Notes Are you an other tobacco user? 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) Active confirmed Response to treatment Vital Signs Blood pressure diastolic 70 mm Hg 05/04/2024 Height 5ft in 05/04/2024 Blood pressure systolic 116 mm Hg 05/04/2024 Weight 190 lbs 05/04/2024 BMI 37.1 kg/m2 05/04/2024 Encounters Encounter Location Date Provider Diagnosis [address] [address] 07/11/2023 Asha Perica Atherosclerosis of artery of both lower extremities I70.203 ; Generalized edema R60.1 ; Tinea unguium B35.1 ; Pain in left toe(s) M79.675 and Neuropathy G62.9 [facility] [address] [place] [address] 11/24/2023 Asha Perica Generalized edema R6 0.1 ; Tinea unguium B35.1 ; Atherosclerosis of artery of both lower extremities I70.203 ; Pain in left toe(s) M79.675 and Neuropathy G62.[address] [address] 02/06/2024 Asha Perica Generalized edema R6 0.1 ; Tinea unguium B35.1 ; Atherosclerosis of artery of both lower extremities I70.203 ; Pain in left toe(s) M79.675 and Neuropathy G62.[address] [address] 05/04/2024 Asha Perica Tinea unguium B35.1 ; Xerosis of skin L85.3 ; Generalized edema R60.1 ; Atherosclerosis of artery of both lower extremities I70.203 ; Pain in left toe(s) M79.675 ; Neuropathy G62.9 ; Ischemic ulcer of left heel, limited to breakdown of skin L97.421 and Toe pain, right M79.674 [facility] [address] [address] 06/02/2023 Asha Rehman [facility] [address] [address] 09/25/2023 Asha Rehman Assessments Encounter Date Diagnosis (ICD Code) Assessment Notes Treatment Notes Treatment Clinical Notes Section Notes 07/11/2023 Generalized edema (ICD-10 - R60.1) 07/11/2023 Atherosclerosis of artery of both lower extremities (ICD-10 - I70.203) 11/24/2023 Generalized edema (ICD-10 - R60.1) 11/24/2023 Tinea unguium (ICD-10 - B35.1) 02/06/2024 Generalized edema (ICD-10 - R60.1) 05/04/2024 Tinea unguium (ICD-10 - B35.1) 05/04/2024 Xerosis of skin (ICD-10 - L85.3) 05/04/2024 Generalized edema (ICD-10 - R60.1) 11/24/2023 Atherosclerosis of artery of both lower extremities (ICD-10 - I70.203) 02/06/2024 Tinea unguium (ICD-10 - B35.1) 07/11/2023 Tinea unguium (ICD-10 - B35.1) 07/11/2023 Pain in left toe(s) (ICD-10 - M79.675) 11/24/2023 Pain in left toe(s) (ICD-10 - M79.675) 02/06/2024 Atherosclerosis of artery of both lower extremities (ICD-10 - I70.203) 05/04/2024 Atherosclerosis of artery of both lower extremities (ICD-10 - I70.203) 05/04/2024 Pain in left toe(s) (ICD-10 - M79.675) 02/06/2024 Pain in left toe(s) (ICD-10 - M79.675) 11/24/2023 Neuropathy (ICD-10 - G62.9) 07/11/2023 Neuropathy (ICD-10 - G62.9) 02/06/2024 Neuropathy (ICD-10 - G62.9) 05/04/2024 Neuropathy (ICD-10 - G62.9) 05/04/2024 Ischemic ulcer of left heel, limited to breakdown of skin (ICD-10 - L97.421) Response to treatment Patient Educated with: WOUND CARE INSTRUCTIONS. pdf (WOUND CARE INSTRUCTIONS. pdf) 05/04/2024 Toe pain, right (ICD-10 - M79.674) Plan Of Treatment No Information Insurance Providers Payer Name Payer Address Payer Phone Subscriber Number Group Number Insured Name Patient Relationship to Insured Coverage Start Date Coverage End Date [facility] [employer] Claims [address] [place] [address] [phone] [id number] Yadira Mena Self - patient is the insured Medical (General) History Medical History History ICD Code Anxiety Depression Headaches/Migraines High blood pressure Neuropathy Stroke thyroid Chicken pox Periadonal Disease Rotator cuff tear Surgical History Surgery Date(Month/Year) 5 teeth extraction 11/13/23
--- OUTSIDE RECORDS SUMMARY | 2024-05-18 13:55 | XMS_ITS | Patient Health Record ---
Author Organization [facility] Address [address] [place] [address] Care Team Providers Care Movement Assembly Final Inspector Name Role Phone Mustapha Bustos Primary Care Provider Bran Andrews Jr Unavailable ALLERGIES Allergen (clinical drug ingredient) Drug/Non Drug [...] Problem Colon cancer screening (Z12.11) Active confirmed [id number] Problem skilled nursing (current) use of anticoagulants (Z79.01) Active confirmed [id number] PLAN OF TREATMENT Future Test Test Name Order Date COLONOSCOPY 12/18/2016 COLONOSCOPY 08/20/2021 Insurance Providers Payer Name Payer Address Payer Phone Subscriber Number Group Number Insured Name Patient Relationship to Insured Coverage Start Date Coverage End Date [facility] [address] [place] [phone] [id number] MARJAN MENDOZA Self - patient is the insured MEDICAID OF [facility] [address] [place] [address] [id number] MARJAN MENDOZA Self - patient is the insured MEDICARE OF [place] [address] [place] [address] [id number] MARJAN MENDOZA Self - patient is the insured MEDICAL (GENERAL) HISTORY Medical History History ICD Code stroke x2 hypertension obstructive sleep apnea, uses CPAP hypothyroidism depression elevated cholesterol Surgical History Surgery Date(Month/Year) knee surgery x5
--- OUTSIDE RECORDS SUMMARY | 2024-05-18 13:55 | XMS_ITS ---
Author Organization [facility] Address [address] [place] [address] Care Team Providers Care Ropeman Name Role Phone Juli PEARCE, Mustapha Primary Care Provider Asha Vail Unavailable [phone] Allergies Allergen (clinical drug ingredient) Drug/Non Drug [...] 02/06/2024 Encounters Encounter Location Date Provider Diagnosis [facility] [address] [place] [address] 02/06/2024 Asha Rehman Generalized edema R6 0.1 [...] or Cutting o f Benign Hyperkeratotic Lesion(s) 14673 ( More than 4 Lesions ) - [...] used for any petechial bleeding as necessary (41219). Patient chooses, no pharmaceutical tx Nail Reduction Nail Reduction Trimming of dyst rophic nails performed to reduce/remove overall nail length and girth, by manual and electrical means with use of a nail nipper and/or dremel, to more viable healthy nail plate or bed tissue 6-10 (Y6662-F0) Progress Notes * Yadira MENDOZADOB:[birth year] (58 yo F)Acc No.[id number]:02/06/2024 Progress Note Patient:?Yadira Mendoza Provider:?Asha Rehman DPM :1965???Age:58 Y???Sex:Female D ate:02/06/2024 Address:[address] [place], [place] [id number] Pcp:Mustapha Bustos MD Subjective: * Chief Complaints: [...] used for any petechial bleeding as necessary (86416). Patient chooses, no pharmaceutical tx.?Keratoma Treatment:?Parring or Cutting of Benign Hyperkeratotic Lesion(s)?32644 ( More than 4 Lesions ) - [...] DYSTROPHIC NAILS ANY #, Modifiers: XS , C282082 DEBRIDE NAIL, 1-5, Modifiers: XS 18689 TRIM SKIN LESIONS, OVER 4, Modifiers: XS , Q8 * Follow Up:?2 Months * Images: * Sign off status: Completed true * Provider:?Asha Rehman DPM Date:? Generated for Renée styles/Ramos/Bon on:?05/18/2024 01:54 PM EST History and Physical [...]
--- OUTSIDE RECORDS SUMMARY | 2024-05-18 13:55 | XMS_ITS ---
[facility] Address [address] [place] [address] Care Team Providers Care Director Dance Name Role Phone Juli PEARCE, Mustapha Primary Care Provider Asha Vail Unavailable [phone] Allergies Allergen (clinical drug ingredient) Drug/Non Drug [...] Nail(s) aggrevated by shoes and causing difficulty standing/walking., Skin problem(s), Open sore Medications Medication SIG (Take, Route, Frequency, Duration) [...] Once a day for 30 days Active Warfarin Sodium 2.5 MG 1 tablet Orally O nce a day for 30 day(s) Active Citalopram Hydrobromide 40 MG 0.5 tablet Orally Once a day for 30 day(s) Active Vitamin [...] e a day for 30 day(s) Active Social [...] Problem Status W/U Status Risk Notes Problem Ischemic ulcer of left heel, 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) Active confirmed Response to treatment Vital Signs Height 5ft in 05/04/2024 Weight 190 lbs 05/04/2024 BMI 37.1 kg/m2 05/04/2024 Blood pressure systolic 116 mm Hg 05/04/19 25 Blood pressure diastolic 70 mm Hg 025 Encounters Encounter Location Date Provider Diagnosis [facility] [address] [place] [address] 05/04/2024 Asha Rehman Tinea unguium B35.1 ; Xerosis of skin L85.3 ; Generalized edema R60.1 ; Atherosclerosis of artery of both lower extremities I70.203 ; Pain in left toe(s) M79.675 ; Neuropathy G62.9 ; Ischemic ulcer of left heel, limited to breakdown of skin L97.421 and Toe pain, right M79.674 Assessments Encounter Date Diagnosis (ICD Code) Assessment Notes Treatment Notes Treatment Clinical Notes Section Notes 05/04/2024 Tinea unguium (ICD-10 - B35.1) 05/04/2024 Xerosis of skin (ICD-10 - L85.3) 05/04/2024 Generalized edema (ICD-10 - R60.1) 05/04/2024 Atherosclerosis of artery of both lower extremities (ICD-10 - I70.203) 05/04/2024 Pain in left toe(s) (ICD-10 - M79.675) 05/04/2024 Neuropathy (ICD-10 - G62.9) 05/04/2024 Ischemic ulcer of left heel, limited to breakdown of skin (ICD-10 - L97.421) Response to treatment Patient Educated with: WOUND CARE INSTRUCTIONS. pdf (WOUND CARE INSTRUCTIONS. pdf) 05/04/2024 Toe pain, right (ICD-10 - M79.674) Plan Of Treatment Treatment Notes Assessment Notes Ischemic ulcer of left heel, limited to breakdown of skin Patient Educated with: WOUND CARE INSTRUCTIONS.pdf (WOUND CARE INSTRUCTIONS.pdf) Next Appt Details Follow Up: 2 Months, Reason: Procedure Notes * Category Sub-Category Detail Notes Debride Nail 6-10 Nail debridement Due to the cl inical pathology outlined in the exam findings, performance of this nail treatment is medically necessary as its management by an unskilled/untrained nonprofessional would put this patients foot and overall health at risk. Therefore, debridement to affected nail(s), as described in exam ( TA, T1, T2, T3, T4, T5, T6, T7, T8, T9, ), was performed exclusively by the physician of record to reduce/remove overall nail length, girth, thickness, subungual debris, and necrotic tissue, by manual and/or electrical means through the use of a nail nipper and/or dremel-type backside grinder, to a more viable healthy nail plate or bed tissue 6-10 nails in total. Silver nitrate was used for any petechial bleeding as necessary. Definitive antifungal treatment options, both pharmaceutical and surgical, have been reviewed and discussed with the patient. The patient solely prefers the use of intermittent/as needed professional debridement services for their nail condition and understands the need for additional periodic treatments to maintain effectiveness in symptomatic relief - 56637 Debride skin< 25 sq cm Open wound ISCHEMIC: Physician of record performed open wound selective debridement of first 25 sq cm or less, of devitilized necrotic/nonviable soft tissue, fibrin, and exudate extending from the epidermis through the dermis, utilizing sharp dissection with sterile 15 blade, and/or tissue nippers. Sterile antibiotic dressing applied, ANESTHESIA was not required - NEUROPATHY, . Hemostasis was achieved through direct pressure. Post debridement measurements: 5mm x 2 mm x 2mm. Character of the wound post debridement is stable (13971), The patient is to apply Antibiotic Oint. to the wound and cover with a DSD, The patient was instructed to change dressings according to orders or PRN saturation, leaks, The patient was instructed to monitor and report any signs or symptoms of infection or any untoward reactions, The patient is to cont the local wound care as directed till condition is completely healed Keratoma Treatment Parring or Cutting o f Benign Hyperkeratotic Lesion(s) (-57) More than 4 Lesions - Due to the at risk nature of the patients medical condition as documented in the exam findings, performance of this keratoderma treatment is medically necessary as its management by an unskilled/untrained nonprofessional would put this patients foot and overall health at risk. Therefore, the benign hyperkeratotic lesions, ( 6) in total, locations as stated and described in the exam ( TA, T5, Heel(s), B/L, SUB MTH (s), 1, B/L ,), were pared, and/or cut utilizing a sterile 15 blade, tissue nippers, and/or power dremel instrumentation by the physician of record - 74027, Q8 Progress Notes * Yadira MENDOZA SeemaDOB:[birth year] (58 yo F)Acc No.[id number]:05/04/2024 Progress Note Patient:?Yadira MENDOZA Provider:?Asha Rehman DPM :1965???Age:58 Y???Sex:Female D ate:05/04/2024 Address:[address] [place], [place] [id number] Pcp:Mustapha Bustos MD Subjective: * Chief Complaints: * ???At Risk FootcarePainful N ail(s) aggrevated by shoes and causing difficulty standing/walking.Skin problem(s)Open sore * HPI: ???At Risk footcare:?Pt States Last PCP Visit:?Date?04/17/2024 ???Skin problems:?Nature:?dryness , scaling.?Location:?B/L .?Duration:?several days.?Course:?worse.?Treatments:?admits nonadherence to recommended application, medication ( AM Lactin ).? * ROS:?General/Constitutional:?Nausea?denies.?Vomiting?denies.?Hunger Thirst?denies.?Loss appetite?denies.?Chills?denies.?Fatigue?denies.?Fever?denies.?Night Sweats?denies.?Unexplained weight loss?admits.?Unexplained [...] Procedure:?Denies Past Hospitalization * Family History:?Mother: shelton e.?Father: alive.? * Social History:?Tobacco Use:?Tobacco Use/Smoking?Are you a:?nonsmoker ?Additional Findings: Tobacco Non-User?Current non-smoker ?Tobacco use other than smoking?Are you an other tobacco user??No * Medications:?TakingSUMAtript an 20 MG/ACT Solution 1 spray at onset of headache in one nostril may repeat after 2 hours as needed Nasally Once a day , Notes to Pharmacist: PRnGabapentin 100 MG Capsule 1 capsule Orally Once a day Vitamin D3 Simvastatin 20 MG Tablet 1 tablet in the evening Orally Once a day Citalopram Hydrobromide 40 MG Tablet 0.5 tablet Orally Once a day Warfarin Sodium 2.5 MG Tablet 1 tablet Orally Once a day Levothyroxine Sodium 50 MCG Tablet 1 tablet in the morning on an empty stomach Orally Once a day Lisinopril 10 MG Tablet 1 tablet Orally Once a day zzzCompression Stockings 20-30mm Hg 1 pair closed toe- knee high . . . Compression Stockings 20-30mm Hg closed toe- knee high 1 pair With zippers daily Medication List reviewed and reconciled with the patientTaking SUMAtriptan 20 MG/ACT Solution 1 spray at onset of headache in one nostril may repeat after 2 hours as needed Nasally Once a day , Notes to Pharmacist: PRnTaking Gabapentin 100 MG Capsule 1 capsule Orally Once a day Taking Vitamin D3 Taking Simvastatin 20 MG Tablet 1 tablet in the evening Orally Once a day Taking Citalopram Hydrobromide 40 MG Tablet 0.5 tablet Orally Once a day Taking Warfarin Sodium 2.5 MG Tablet 1 tablet Orally Once a day Taking Levothyroxine Sodium 50 MCG Tablet 1 tablet in the morning on an empty stomach Orally Once a day Taking Lisinopril 10 MG Tablet 1 tablet Orally Once a day Taking zzzCompression Stockings 20-30mm Hg 1 pair closed toe- knee high . . . Taking Compression Stockings 20- 30mm Hg closed toe- knee high 1 pair With zippers daily Medication List reviewed and reconciled with the patient * Allergies:?Erythromycin: pt gets sickBiaxin: pt gets sickAzithromycin: pt gets sickTylenolCortisoneyes[Allergies Verified] Objective: * Vitals:?Ht: 5ft, Wt:190, BMI :37.1, Shoe size: 8.5W, BP:116/70mm Hg, Ht-cm: 152.4 cm, Wt-k.18 kg. * Examination: ???Vascular: ?DP PULSES (B):? 0/4, B/L.?PT PULSES (B):? 0/4, B/L.?CAPILLARY FILL TIME:? delayed, all digits, B/L.?TROPHIC CONDITION-TEXTURE/ELASTICITY/TURGOR/HAIR GROWTH (B):? decreased, B/L.?TEMPERTURE GRADIENT (C):? decreased, cool to cool, proximal to distal, B/L.?PIGMENTATION:? pale, B/L.?EDEMA (C):?3/4, pitting, B/L, Ankle(s), Feet , Leg(s).?Nails: ?NAILS are:?Elongated, overgrown, dystrophic, lytic, greater than 3mm thick, discolored and friable with crumbly malodorous subungual debris, with pain on palpation, TA, T1, T2, T3, T4, T5, T6, T7, T8, T9.?Dermatologic: ?SKIN FINDINGS:? Skin exam reveals Keratotic lesion(s) located at, Medial plantar, TA, T5, Heel(s), B/L, SUB MTH (s), 1, B/L , Skin shows sign(s) of, dryness, scaling, in a stocking fashion,WITH fissure(s) present, B/L.?ULCER:? LOCATION, plantar left heel?, SIZE, 5mm X 1mm X 2mm, BASE, granular, RIM, hyperkeratotic, UNDERMINING, absent, TRACKING, Full thickness breakdown of skin, DRAINAGE, serosanguineous, mild, NECROTIC TISSUE, loosely-adherent, yellow slough, MALODOR, absent, CALOR, absent, ERYTHEMA, absent, PAIN ON PALPATION, present.?Neurological: ?SENSORY:? Neurological exam demonstrates, reduced light touch sensation, reduced sharp/dull pin prick discrimination , reduced vibration sensation, reduced proprioception sensation, in a stocking fashion, plantar aspects, 5.07 monofilament test performed at plantar aspects of 5 varied sites per foot shows sensation, reduced , Pt relates, anesthesia, burning, tingling, especially in the evening, B/L.?General Examination: ?GENERAL APPEARANCE:?Reveals a pleasant, alert, well nourished, well- developed, well hydrated individual, who demonstrates proper attention to hygiene/body habitus, and is in no acute distress, Pt serves as own historian for office visit today.?ORIENTED:?person, place, and time.? Assessment: * Assessment: 1.?Tinea unguium - B35.1???2 .?Xerosis of skin - L85.3 (Primary)???Specify :Acute problem, Uncomplicated (3),Rx Management (4)???3.?Generalized edema - R60.1???Specify :Chronic problem, Stable (1=3,2=4)???4.?Atherosclerosis of artery of both lower extremities - I70.203???5.?Pain in left toe(s) - M79.675???6.?Neuropathy - G62.9???7.?Ischemic ulcer of left heel, limited to breakdown of skin - L97.421???Notes :Response to treatment???8.?Toe pain, right - M79.674??? Plan: * Treatment: * Procedures:?Debride Nail 6-10:?Nail debridement?Due to the clinical pathology outlined in the exam findings, performance of this nail treatment is medically necessary as its management by an unskilled/untrained nonprofessional would put this patients foot and overall health at risk. Therefore, debridement to affected nail(s), as described in exam ( TA, T1, T2, T3, T4, T5, T6, T7, T8, T9, ), was performed exclusively by the physician of record to reduce/remove overall nail length, girth, thickness, subungual debris, and necrotic tissue, by manual and/or electrical means through the use of a nail nipper and/or dremel-type backside grinder, to a more viable healthy nail plate or bed tissue 6- 10 nails in total. Silver nitrate was used for any petechial bleeding as necessary. Definitive antifungal treatment options, both pharmaceutical and surgical, have been reviewed and discussed with the patient. The patient solely prefers the use of intermittent/as needed professional debridement services for their nail condition and understands the need for additional periodic treatments to maintain effectiveness in symptomatic relief - 62553.?Debride skin< 25 sq cm:?Open wound?ISCHEMIC: Physician of record performed open wound selective debridement of first 25 sq cm or less, of devitilized necrotic/nonviable soft tissue, fibrin, and exudate extending from the epidermis through the dermis, utilizing sharp dissection with sterile 15 blade, and/or tissue nippers. Sterile antibiotic dressing applied, ANESTHESIA was not required - NEUROPATHY, . Hemostasis was achieved through direct pressure. Post debridement measurements: 5mm x 2 mm x 2mm. Character of the wound post debridement is stable (26649), The patient is to apply Antibiotic Oint. to the wound and cover with a DSD, The patient was instructed to change dressings according to orders or PRN saturation, leaks, The patient was instructed to monitor and report any signs or symptoms of infection or any untoward reactions, The patient is to cont the local wound care as directed till condition is completely healed.?Keratoma Treatment:?Parring or Cutting of Benign Hyperkeratotic Lesion(s)?(-57) More than 4 Lesions - Due to the at risk nature of the patients medical condition as documented in the exam findings, performance of this keratoderma treatment is medically necessary as its management by an unskilled/untrained nonprofessional would put this patients foot and overall health at risk. Therefore, the benign hyperkeratotic lesions, ( 6) in total, locations as stated and described in the exam (?TA,?T5,?Heel(s),?B/L,?SUB MTH (s),?1,?B/L?,), were pared, and/or cut utilizing a sterile 15 blade, tissue nippers, and/or power dremel instrumentation by the physician of record - 30322, Q8.? * Procedure Codes:?02381 ACTIV E WOUND CARE/20 CM OR <, Modifiers: XS 81323 TRIM SKIN LESIONS, OVER 4, Modifiers: XS , [id number] DEBRIDE NAIL, 6 OR MORE, Modifiers: XS * Preventive Medicine:? ??Counseling:?Discussion:?-13: Office or other outpatient visit for the evaluation and management of an established patient, which required a medically appropriate history and/or examination and LOW level of DECISION MAKING for: 1 STABLE ACUTE UNCOMPLICATED PROBLEM, 2 OR MORE MINOR PROBLEMS, OR 1 STABLE CHRONIC PROBLEM, THAT POSE(S) A LOW RISK FOR MORBIDITY/MORTALITY. The visit on the day of the encounter encompassed interpreting the data and educating the patient as to the nature of their condition, treatment options available according to their individual PMH, meds, allergies, and overall health/living conditions, as well as any potential risks or complications that may occur from a failure to adhere to, and participate in, the recommended course of therapy. The discussion included a complete verbal, and/or written explanation of the examination results, any x-rays taken, the proposed diagnosis, and outline of the treatment plan. A schedule for future care needs was also explained. The patient verbalized an understanding of the instructions at this time and agreed to be an active participant in their treatment. If the patient should think of any questions or concerns after the visit, I have encouraged the patient to call the office.?Ulcer:?A detailed plan of care was reviewed with the patient. We emphasized the fact that the patient takes on an active participating role in the treatment process and emphasized to them that they are an included, valued, and important member of the wound healing team in order to reach an expedient successful outcome. The patient agreed to follow their medically recommended diet while increasing their protein intake if safely able to do so, maintain proper bodily hydaration, abide by weight-bearing restrictions at all times, quit all current smoking habits if any, and diligently follow any/all dressing change instructions. It was clearly made known to the patient that if they fail to do their part, they will likely extend their course of treatment as well as possibly increase their risk of adverse events including amputation. The patient was instructed on importance of proper wound care consisting of pressure reduction, and proper maintainance of a moist wound environment. The patient is to cleanse the wound with warm soapy water/peroxide/saline, or betadine BID based on product availability. The patient is to apply ( Neosporin, Polysporin, or Triple, ) Antibiotic to the wound and cover with a DSD as directed. The patient was instructed to change dressings according to orders, or PRN saturation, leaks. The patient was instructed to monitor and report any signs or symptoms of infection or any untoward reactions. Precautions Taken: Offloading/Pressure reduction via rest/ limited activity to essential to daily life only, cane/ crutches/ walker/ knee scooter/ wheel chair, shoe modification, accommodative padding, sharp debridement, and take/apply medication as directed. THE GOALS of wound debridement to remove devitilized tissue, decrease risk for infection, promote wound healing and prevent further complication were discussed/reviewed. Debridement frequency as indicated.?Xerosis:?The patient was counseled on the diagnosis, potential etiologies, and treatment options for their skin condition. We discussed the risks and benefits of each option from performing no treatment, to utilizing OTC topical skin creams/ointments, to utilizing prescription topical creams/ointments, to utilizing customized compounded topical medications and use of nocturnal occlusion with any/all previously detailed therapies. We discussed the advantages and disadvantages of each possible treatment and importance for adherence to all the recommended therapies for optimum success and avoid potential complications such as open sore/infection/possible hospitalization. We discussed the potential effectiveness of each topical preparation as well as each ones possible side effects and/or patient medication interactions. Patient questions re: use, dosage, successful outcomes, and application consistency were reviewed and the patient verbalized that all answers were clearly understood. The patient has decided to apply Rx skin creams to their feet save the interspaces while paying special attention to the heels.? ??Screening/Special Tests:?Fall Risk?Screening:?No falls in the past year ?FALLS: Screening for Future Fall Risk?Have you had any falls with injury in the past year??No * Follow Up:?2 Months * Images: * Sign off status: Completed true * Provider:?Asha Rehman DPM Date:? Generated for Renée styles/Ramos/Bon on:?05/18/2024 01:55 PM EST History and Physical Notes * HPI (History of Present Illness) Category Sub-Category Detail Notes Category Not es Skin problems Nature: dryness , scaling Location: B/L Duration: several days Course: worse Treatments: admits nonadherence to recommended application, medication ( AM Lactin ) At Risk footcare Pt States Last PCP [...] Heel(s), B/L, SUB MTH (s), 1, B/L , Skin shows sign(s) of, dryness, scaling, in a stocking fashion,WITH fissure(s) present, B/L ULCER: LOCATION, plantar le ft heel , SIZE, 5mm X 1mm X 2mm, BASE, granular, RIM, hyperkeratotic, UNDERMINING, absent, TRACKING, Full thickness breakdown of skin, DRAINAGE, serosanguineous, mild, NECROTIC TISSUE, loosely-adherent, yellow slough, MALODOR, absent, CALOR, absent, ERYTHEMA, absent, PAIN ON PALPATION, present General Examination GENERAL APPEARANCE: Reveals a pleasant, alert, well nourished, well-developed, well hydrated individual, who demonstrates proper attention to hygiene/body habitus, and is in no acute distress, Pt serves as own historian for office visit today ORIENTED: person, place, and t sanjay Vascular DP PULSES (B): 0/4, B/L PT PULSES (B): 0/4, B/L CAPILLARY FILL TIME: delayed, all digits , B/L TEMPERTURE GRADIENT (C): decreased, cool to cool, proximal to distal, B/L TROPHIC CONDITION-TEXTURE/ELASTICITY/TURGOR/HAIR GROWTH (B): decreased, B/L EDEMA (C): 3/4, pitting, B/L, A nkle(s), Feet , Leg(s) PIGMENTATION: pale, B/L Nails NAILS are: Elongated, overg rown, dystrophic, lytic, greater than 3mm thick, discolored and friable with crumbly malodorous subungual debris, with pain on palpation, TA, T1, T2, T3, T4, T5, T6, T7, T8, T9
--- OUTSIDE RECORDS SUMMARY | 2024-05-18 13:56 | XMS_ITS | Data Portability ---
Author Organization [facility] Address [address] [place] [address] Assessment Encounter Date Assessment Date Assessment LastModified by Organization Details LastModified Time 04/16/2023 04/16/2023 Patient agreed and verbally consents to this audio and video Telehealth appt via a secure platform [email or web address] Not available 04/16/2023 10:52:06 10/31/2023 10/31/2023 [id number] [place] [id number] ([employer] F[employer] WALKER) MDM MODERATE MUST MEET 2 OUT OF [...] + TIBC + ferritin, serum 2023 024 [facility], [address] [place] [address], [place], [address], 01/14/2024 10:41:00 TSH + free T4, serum 2023 [facility], [address] [place] [address], [address], 01/14/2024 10:41:00 vitamin B12 + folate, serum or blood 2023 [facility], [address] [place] [address], [address], 01/14/2024 10:41:00 vitamin D, 25-hydrox y, total, serum 2023 [facility], [address] [place] [address], [address], 01/14/2024 10:41:00 CMP, serum or plasma 2023 [facility], [address] [place] [address], [address], 01/14/2024 10:41:00 CBC w/ auto diff 2023 [facility], [address] [place] [address], [address], 01/14/2024 10:41:00 hemoglobi n A1c, QN, blood 2023 [facility], [address] [place] [address], [address], 01/14/2024 10:41:00 Referral None recorded. Procedures None recorded. Surgeries None recorded. Imaging MRI, shoulder, w/o contrast - APPROVED: #[id number] T, effective 4 - 4, for procedure code 11804 2023 024 [facility], [address] [place] [address], [address], 11/10/2023 08:27:04 Medication Orders benzonata te 200 mg capsule 2022 [address] [facility] #[id number], [address] [place], [address], 09/19/2023 11:42:07 tramadol 50 mg tablet 2023 024 [facility] #[id number], [address] [place], [address], 04/06/2024 13:59:03 Patient TargetsNo targets recorded. Patient Instructions Encounter Date Encounter Id Patient Instructions Last Modified By Organization Details Last Modified Time 10/31/2023 [id number] high blood pressure: care instructions Not available [...] ast No observ ation record ed. [email or web address] [facility] (Medical Records) [address] [place], [address], 07/22/2023 09:01:19 08/30/19 24 08/30/2023 XR, knee, 3 view No observ ation record ed. [facility] (Medical Records) [address] [place], [address], 08/31/2023 15:43:11 08/30/19 24 08/30/2023 XR, shoul mayela, 2 or more view No observ ation record ed. [facility] (Medical Records) [address] [place], [address], 08/31/2023 15:43:01 12/16/19 24 12/12/2023 MRI, shoul mayela, w/o contr ast No observ ation record ed. [email or web address] [facility] (Medical Records) [address] [place], [address], 12/23/2023 08:21:06 01/04/20 24 01/04/2024 CT, chest , w/ contr ast No observ ation record ed. [address] (Medical Records) [address] [place], [address], 01/04/2024 19:17:44 01/04/20 24 01/04/2024 CT, abdom en + pelvi s, w/ contr ast No observ ation record ed. [address] (Medical Records) [address] [place], [address], 01/04/2024 19:18:13 01/04/20 24 01/04/2024 CT, cervi urmila spine , w/o contr ast No observ ation record ed. [address] (Medical Records) [address] [place], [address], 01/04/2024 19:18:41 01/04/2001/04/2024 CT, head + brain , w/o contr ast No observ ation record ed. [address] (Medical Records) [address] [place], [address], 01/04/2024 19:19:07 Result Notes None recorded. Problems Name Problem SNOMED Code Status Onset Date Resolution Date Notes Provider Name and Address Organization Details Recorded Time Sleep apnea 36362785 Active 2017 Not Available [facility] 3 15:17:07 Essential hypertens ion 23059259 Active 2017 Not Available [facility] 3 15:17:07 History of cerebrova scular accident 325650416 Active 2017 Not Available [facility] 3 15:17:07 Edema 818323105 Active 2017 Not Available [facility] 3 15:17:07 Hypothyro idism 64606358 Active 2017 Not Available [facility] 3 15:17:07 Aortic valve stenosis 77858544 Active 2017 Not Available [facility] 3 15:17:07 Anxiety 84734959 Active 2017 Not Available [facility] 3 15:17:07 Depressiv e disorder 17902715 Active 2017 Not Available [facility] 3 15:17:07 Migraine 57543249 Active 2017 Not Available [facility] 3 15:17:07 Osteoarth ritis of knee 938430245 Active 2017 left knee Not Available [facility] 3 15:17:07 Hyperchol esterolem ia 52930291 Active 2017 Not Available [facility] 3 15:17:07 Idiopathi c periphera l neuropath y 23500376 Active 2018 Not Available [facility] 3 15:17:07 Impaired fasting glycemia 310308234 Active 2019 Not Available [facility] 3 15:17:07 Fatigue 39493772 Active 2021 Not Available [facility] 3 15:17:07 COVID-19 736291806 Active 2021 Not Available [facility] 3 15:17:07 Acute bronchiti s 12375321 Active 2022 Not Available [facility] 3 15:17:07 Orthostat ic hypotensi on 31622993 Active 2022 Not Available [facility] 3 15:17:07 Dizziness 534850136 Active 2022 Not Available [facility] 3 15:17:07 Cough 89570815 Active 2022 PEGGY TAVAREZ [address] [place], [address], [facility] 3 10:52:11 Pain of left shoulder joint 101709535102 71509 Active 2023 PEGGY TAVAREZ [address] [place], [address], [facility] 4 12:05:53 Rupture of rotator cuff of left shoulder 324027738192 36869 Active 2023 Mustapha Bustos, DO [address] [place] [address], [address], [facility] 4 15:17:46 Claustrop hobia 98365410 Active 2023 PEGGY TAVAREZ [address] [place], [address], [facility] 4 15:20:28 Partial thickness rotator cuff tear 935751833 Active 2023 Mustapha Bustos, DO [address] [place] [address], [address], [facility] 4 21:42:13 Fall Active 2023 PEGGY TAVAREZ [address] [place], [address], [facility] 4 13:55:20 Osteoarth ritis of left knee joint 786078199459 109 Active 2023 PEGGY TAVAREZ [address] [place] [address], [address], [facility] 4 13:56:17 Problem Notes None recorded. Procedures Surgical History None recorded. Imaging Results Imaging Date Name Status LastModified by Organiz ation Details LastModified Time 07/21/2023 CT, head + brain, w/o contrast completed [email or web address] [facility] (Medical Records) [address] [place], [address], 07/22/2023 09:01:19 08/30/2023 XR, knee, 3 view completed [email or web address] [facility] (Medical Records) [address] [place], [address], 08/31/2023 15:43:11 08/30/2023 XR, shoulder, 2 or more view completed [email or web address] [facility] (Medical Records) [address] [place], [address], 08/31/2023 15:43:01 12/12/2023 MRI, shoulder, w/o contrast completed [email or web address] [place] [address] (Medical Records) [address] [place], [address], 12/23/2023 08:21:06 01/04/2024 CT, chest, w/ contrast completed [address] (Medical Records) [address] [place], [address], 01/04/2024 19:17:44 01/04/2024 CT, abdomen + pelvis, w/ contrast completed [address] (Medical Records) [address] [place], [address], 01/04/2024 19:18:13 01/04/2024 CT, cervical spine, w/o contrast completed [address] (Medical Records) [address] [place], [address], 01/04/2024 19:18:41 01/04/2024 CT, head + brain, w/o contrast completed [address] (Medical Records) [address] [place], [address], 01/04/2024 19:19:07 Procedure Notes None recorded. Medical Equipment None Reported. Allergies Allergen ID Allergen Name Allergen Category Reaction Reaction Severity Criticality Documentation Date Start Date Code Code System Note Provider Name and Address Organization Details Recorded Time 2251 azithromy nia medicatio n Not available Not available Not available 12/29/2017 56584 RxNorm Tavia fountain [place] - [facility] 8 08:19:44 Medications Name [...] TAKE 1 TABLET BY MOUTH EVERY DAY 2024 active Not Available Not Available Not Avai lable levothyroxi ne 25 mcg tablet 1 po [...] Updated DateTime 4 152.4 cm 37.1 kg/m2 90839.9 1 g 74 /min 96 % 96 % 122 mm[Hg] 74 mm[Hg] Destini Aragon [facility] 4 11:47:39 Date Recorded Body height Body mass index (BMI) Body weight Heart rate Oxygen saturation Oxygen saturation in Arterial blood by Pulse oximetry Systolic blood pressure Diastolic blood pressure Provider Name and Address Organization Details Last Updated DateTime 4 152.4 cm 37.1 kg/m2 00582.5 5 g 69 /min 97 % 97 % 130 mm[Hg] 72 mm[Hg] Maria Esther Corley [facility] 4 13:32:05 Social History Question Answer Notes LastModified by Organizat ion Details LastModified Time Tobacco Smoking Status Never Smoker Not Available [facility] 02/22/2020 03:36:24 What Was The Date Of Your Most Recent Tobacco Screening? 04/06/2024 [email or web address] Information not available 04/06/2024 Do You Or [...] 50 mcg/0.25mL dose 1 completed Irena fountain [facility] 11/01/2020 15:35:49 COVID-19, mRNA, LNP-S, PF, 100 mcg/0.5mL dose or 50 mcg/0.25mL dose 1 completed Irena fountain [facility] 04/18/2021 11:03:52 Influenza, split virus, quadrivalent, preservative 1 yael fountain [facility] 04/18/2021 11:03:59 Influenza, split virus, quadrivalent, preservative 8 completed Not Available [facility] 05/08/2019 02:46:31 Influenza, split virus, quadrivalent, preservative 9 completed Liliane fountain [facility] 06/19/2020 11:20:18 Influenza, split virus, quadrivalent, preservative 1 yael fountain [facility] 06/19/2020 11:20:18 COVID-19, mRNA, LNP-S, PF, 100 mcg/0.5mL dose or 50 mcg/0.25mL dose 1 yael fountain [facility] 11/01/2020 15:35:56 Past Encounters Encounter ID Performer Location Encounter Start Date Encounter Closed Date Diagnosis/Indication Diagnosis SNOMED-CT Code Diagnosis ICD10 Code Diagnosis Note [id number] Karen Blanchard NP, [facility] [address] [address] 12/29/2017 11:41:39 12/29/2017 12:36:56 Edema 759953482 R60.9 History of cerebrovascular accident 107333254 Z86.73 Depressive disorder 3548 9007 F33.8 Hypothyroidism 85477430 E03.9 Essential hypertension 33621974 I10 Aortic valve stenosis 60 307737 I35.0 Sleep apnea 19286157 G47 .30 Anxiety ab out loss of memory 709459367 F41.8 Lesion of vulva 97170592 6 N90.9 [id number] Karen Blanchard NP, [address] [address] 02/02/2018 09:53:50 02/02/2018 11:21:20 Hypothyroidism 09050487 E03.9 Impaired f asting glycemia 740087021 R73.01 Essential hypertension 01619129 I10 stable Aortic valve stenosis 60 177510 I35.0 up to date echo Administra tion of influenza vaccine 20179536 Z23 Depressive disorder 3548 9007 F33.8 [id number] Karen Blanchard NP, [facility] [address] [address] 04/07/2018 08:54:56 04/10/2018 11:16:49 Screening procedure 87504002 Z13.9 Edema 821206510 R60.9 Depressive disorder 3548 9007 F33.8 Hypothyroidism 94405405 E03.9 Anxiety 71601313 F41.9 Essential hypertension 21167017 I10 stable Aortic valve stenosis 60 420493 I35.0 up to date echo- due 08/2018 Sleep apnea 26340346 G47 .30 compliant Hypercholesterolemia 136 13929 E78.00 Impaired f asting glycemia 912685868 R73.01 Active or passive immunization 364367284 Z23 [id number] Kaern Blanchard NP, [facility] [address] [place] [address] [place] [address] 07/08/2018 09:29:55 07/08/2018 14:30:43 Adult health examination 452751853 Z00.01 Active or passive immunization 626000003 Z23 History of cerebrovascular accident 456497733 Z86.73 recent INR wnl Depressive disorder 3548 9007 F33.8 stable Hypothyroidism 79659939 E03.9 follow Essential hypertension 44995725 I10 stable Aortic valve stenosis 60 010891 I35.0 schedule echo- due 08/2018 Sleep apnea 06152486 G47 .30 compliant Hypercholesterolemia 136 15682 E78.00 follow Osteoarthr itis of knee 593252817 M17.9 [id number] Mustapha Bustos DO [facility] [address] [facility] [address] 04/28/2019 11:00:47 04/28/2019 11:41:26 Hypothyroidism 73662113 E03.9 needs tsh Essential hypertension 34175086 I10 will need lipid and cmp Impaired f asting glycemia 395926982 R73.01 will follow and will need lab History of cerebrovascular accident 725420048 Z86.73 stable and is without issue Aortic valve stenosis 60 830366 I35.0 stable recent echo and is stable as of june 2018 Osteoarthr itis of knee 103494540 M17.9 [place] [id number] Mustapha Bustos DO [facility] [address] [facility] [address] 08/02/2019 11:23:11 08/02/2019 12:00:25 Essential hypertension 48817454 I10 did real well with lab bps are excellent no cp no sob Hypothyroidism 75675091 E03.9 last tsh is notmal at 3.7 rechk in 6 months Hypercholesterolemia 136 00540 E78.00 LDL is 132 HDL is 552 TRIG is 70 Idiopathic peripheral neuropathy 96133066 G60.9 seems stable Edema 749061286 R60.9 seems to come and go not really any change [id number] PEGGY TAVAREZ [facility] [address] [facility],[place] [address] 06/19/2020 11:03:08 06/19/2020 11:53:47 Essential hypertension 38004402 I10 BP stable on medication s and no side effects no interventi on needed at this time Hypothyroidism 94334317 E03.9 will recheck her levels and fu with results Impaired f asting glycemia 715295848 R73.01 will recheck BW and also check A1c to make sure patient has developed diabetes (as she has hx IFG) Screening for cardiovascular system disease 673863271 Z13.6 needs recheck of cholestero l to see if medication change of adjustment is needed for simvastati n Hyperlipidemia 57846665 E78.5 will fu with results [id number] PEGGY TAVAREZ [facility] [address] [facility] [address] [address] 05/23/2021 08:15:16 05/28/2021 10:41:37 Depressive disorder 56692422 F33.8 stable Anxiety 22632255 F41.1 stable Aortic valve stenosis 60 019792 I35.0 stable Essential hypertension 31838073 I10 BP stable on medication s and no side effects no interventi on needed at this time Hypercholesterolemia 136 10963 E78.2 needs BW Hypothyroidism 34294678 E03.9 will recheck her levels and fu with results Atopic dermatitis 508984 01 L20.89 will trial topical cream Motion sickness 04592604 T75.3XXA needs patch [id number] PEGGY TAVAREZ [facility] [address] [facility] [address] 07/16/2022 14:15:50 07/17/2022 08:23:41 Essential hypertension 67449351 I10 BP stable on medication s and no side effects no interventi on needed at this time Depressive disorder 3548 9007 F33.8 stable [id number] PEGGY TAVAREZ [facility] [address] [facility] [address],[place] [address] 01/07/2023 13:53:57 01/07/2023 15:03:21 Essential hypertension 23884521 I10 BP stable on medication s and no side effects no interventi on needed at this time Hypercholesterolemia 136 28329 E78.2 needs BW Hypothyroidism 69330140 E03.8 will recheck her levels and fu with results Atopic dermatitis 847823 01 L20.89 will trial topical cream [id number] PEGGY TAVAREZ [facility] [address] [facility] [address] 02/07/2023 14:27:17 02/07/2023 15:04:49 Orthostatic hypotension 69784087 I95.1 adjusted lisinopril dose Dizziness 964115351 R42 resolved [id number] PEGGY TAVAREZ [facility] [address] [facility] [address] 03/10/2023 11:14:56 03/10/2023 11:53:48 Essential hypertension 48354640 I10 BP stable on medication s and no side effects no interventi on needed at this time Hypothyroidism 54241683 E03.8 will recheck her levels and fu with results [id number] PEGGY TAVAREZ [facility] [address] [facility] [address] 04/16/2023 09:11:18 04/16/2023 11:02:48 Essential hypertension 53166072 I10 stable off the medication Cough 15910795 R05.1 will start on cough suppressan t [id number] PEGGY TAVAREZ [facility] [address] [place] [address], [place] [address] 09/19/2023 11:37:48 09/19/2023 16:26:10 Depression screening 420879708 Z13.31 negative Pain of le ft shoulder joint 1920078056 3965886 M25.512 will give tramadol for pain [id number] Mustapha Bustos DO [facility] [address] [facility] [address] 10/31/2023 14:38:05 10/31/2023 15:41:44 Rupture of rotator cuff of left shoulder 9211729141 1326495 M75.102 Essential hypertension 76956166 I10 did real well with lab bps are excellent no cp no sob Aortic valve stenosis 60 876361 I35.0 stable recent echo and is stable as of june 2018 History of cerebrovascular accident 810973392 Z86.73 stable and is without issue Osteoarthr itis of knee 307360326 M17.9 will be getting left knee surg on of this month will need 4 day bridge and will ahve them call me with dose of lovenox that they already have in the fridge [id number] PEGGY TAVAREZ [facility] [address] [facility] [address],[place] [address] 01/14/2024 08:09:32 01/14/2024 11:43:08 Fatigue 13205332 R53.83 will set up with lab work for the fatigueals o suggested for new sleep study [id number] PEGGY TAVAREZ [facility] [address] [facility] [address],[place] [address] 04/06/2024 13:16:21 04/06/2024 14:12:13 Fall R29.6 stable Depressive disorder 3548 9007 F33.8 stable Osteoarthr itis of left knee joint 9402241546 59946 M17.12 has TKR on 06/17/24wil l f/u with their office to see when she needs her pre op Essential hypertension 17619225 I10 stable off the medication Health Concerns Section Related Observation LastModified by Organization Detai ls LastModified Time None Recorded Concern Status LastModified by Organization Details LastModified Time None Recorded Advance Directives Directive None Recorded Payers Encounter Date Sequence Insurance Name Policy Number Policy Lowe Covered Member ID Lowe Member ID Guarantor Name 04/16/2023 1 [facility] - DOS ON OR AFTER 2022 - MEDICARE [place]AGE [place]V ANTAGE - PPO) Yadira Mena [id number] Yadira Mena 09/19/2023 1 [facility] - DOS ON OR AFTER 2022 - [place]V ANTAGE - PPO) Yaidra Mena [id number] Yadira Mena 10/31/2023 1 [facility] - DOS ON OR AFTER 2022 - [place]V ANTAGE - PPO) Yadira Mena [id number] Yadira Mena 01/14/2024 1 [facility] - DOS ON OR AFTER 2022 - [place]V ANTAGE - PPO) Yadira Mena [id number] Yadira Mena 04/06/2024 1 [facility] - DOS ON OR AFTER 2022 - [place]V ANTAGE - PPO) Yadira Seema Mena [id number] Yadira Mena Notes Date Note Type Note Provider Name a nd Address Organization Details Recorded Time 3 text/html 1 week fu telemed phone callpt consents to phone call doing well, has a cold, COVID negativewill give her something for the cough specific HTN been goodwill continue off the medication PEGGY TAVAREZ [address] [place], [address], [facility] 04/16/2023 10:59:54 4 text/html c/o LEFT SHOULDER [...] about warfarinalready given abx PEGGY TAVAREZ [address] [place], [address], [facility] 09/19/2023 12:13:52 4 text/html HERE for pain in her shoulder left Mustapha Bustos DO [address] [facility], [place], [address], [facility] 10/31/2023 15:22:25 4 text/html ER f/u The patient is participating in this appointment via telemedicine communication with a phone call/video calling service (Doxy)The patient consents to use of these platforms [...] fu after blood work PEGGY TAVAREZ [address] [place], [address], [facility] 01/14/2024 10:43:54 4 text/html f/u medication check fall: stable knee replacement: scheduled for 06/17wi f/u with pre op no medication changes will be having to do a lovenox bridge prior to the surgery, ortho will be taking care of it had her five teeth pulled, doing fine using her walker appropriately otherwise no major changestaking her medications PEGGY TAVAREZ [address] [facility], [place], [address], [facility] 04/06/2024 14:07:52 OBGyn Episode No OBEpisode recorded.
== END 2024-05-18 13:37 | disposition home or self-care (01) ==
LOC: HO.ACS 13:00
PROVIDERS: PCP Internal Medicine; Visit Provider Internal Medicine
DX: Z79.01 Long term (current) use of anticoagulants (principal)

== ENCOUNTER → 2024-05-18 13:00 | Outpatient (BNVA) | payer OTHER, SELFPAY | PROVIDERS: PCP Internal Medicine; Visit Provider Internal Medicine | DX: Z86.73 Personal history of transient ischemic attack (TIA), and cerebral infarction without residual deficits (principal); Z79.01 Long term (current) use of anticoagulants; Z51.81 Encounter for therapeutic drug level monitoring | CPT/HCPCS: 85610; 99211 ==

== ENCOUNTER 2024-06-09 12:59 | Outpatient (AMB) | payer OTHER, SELFPAY ==
--- OUTSIDE RECORDS SUMMARY | 2024-06-09 13:11 | XMS_ITS ---
Author Organization [facility] Address [address] [place] [address] Care Team Providers Care Inspector Exhaust Emissions Name Role Phone Juli PEARCE, Mustapha Primary Care Provider Asha Vail Unavailable [phone] Allergies Allergen (clinical drug ingredient) Drug/Non Drug [...] 02/06/2024 Encounters Encounter Location Date Provider Diagnosis [facility] [place] [address] [place] [address] 02/06/2024 Asha Rehman Generalized edema R6 0.1 [...] or Cutting o f Benign Hyperkeratotic Lesion(s) 05723 ( More than 4 Lesions ) - [...] used for any petechial bleeding as necessary (62898). Patient chooses, no pharmaceutical tx Nail Reduction Nail Reduction Trimming of dyst rophic nails performed to reduce/remove overall nail length and girth, by manual and electrical means with use of a nail nipper and/or dremel, to more viable healthy nail plate or bed tissue 6-10 (J5872-P0) Progress Notes * Yadira MENDOZADOB:[birth year] (58 yo F)Acc No.[id number]:02/06/2024 Progress Note Patient:?Yadira Mendoza Provider:?Asha Rehman DPM :[id number]???Age:58 Y???Sex:Female D ate:02/06/2024 Address:[address] [place], [place] [id number] Pcp:Mustapha Bustos MD Subjective: * Chief Complaints: [...] used for any petechial bleeding as necessary (28630). Patient chooses, no pharmaceutical tx.?Keratoma Treatment:?Parring or Cutting of Benign Hyperkeratotic Lesion(s)?92683 ( More than 4 Lesions ) - [...] DYSTROPHIC NAILS ANY #, Modifiers: XS , M934375 DEBRIDE NAIL, 1-5, Modifiers: XS 82455 TRIM SKIN LESIONS, OVER 4, Modifiers: XS , Q8 * Follow Up:?2 Months * Images: * Sign off status: Completed true * Provider:?Asha Rehman DPM Date:? Generated for Renée styles/Ramos/Bon on:?06/09/2024 01:11 PM EST History and Physical Notes * [...]
--- OUTSIDE RECORDS SUMMARY | 2024-06-09 13:11 | XMS_ITS ---
Author Organization [facility] Address [address] [facility] [place] [address] Care Team Providers Care Relief Pilot Name Role Phone Juli PEARCE, Mustapha Primary Care Provider Asha Vail Unavailable [phone] Allergies Allergen (clinical drug ingredient) Drug/Non Drug [...] 11/24/2023 Encounters Encounter Location Date Provider Diagnosis [facility] [address] 11/24/2023 Asha Sherie Generalized edema R6 0.1 [...] or Cutting o f Benign Hyperkeratotic Lesion(s) 65230 ( More than 4 Lesions ) - [...] used for any petechial bleeding as necessary (20509). Patient chooses, no pharmaceutical tx Nail Reduction Nail Reduction Trimming of dyst rophic nails performed to reduce/remove overall nail length and girth, by manual and electrical means with use of a nail nipper and/or dremel, to more viable healthy nail plate or bed tissue 6-10 (Y0152-I2) Progress Notes * Yadira MENDOZADOB:[birth year] (58 yo F)Acc No.[id number]:11/24/2023 Progress Note Patient:?Yadira Mendoza Provider:?Asha Rehman DPM :1965???Age:58 Y???Sex:Female D ate:11/24/2023 Address:[address] [place], [place] [id number] Pcp:Mustapha Bustos MD Subjective: * Chief Complaints: [...] used for any petechial bleeding as necessary (24811). Patient chooses, no pharmaceutical tx.?Keratoma Treatment:?Parring or Cutting of Benign Hyperkeratotic Lesion(s)?26807 ( More than 4 Lesions ) - [...] DYSTROPHIC NAILS ANY #, Modifiers: XS , [id number] DEBRIDE NAIL, 1-5, Modifiers: XS 53284 TRIM SKIN LESIONS, OVER 4, Modifiers: XS , Q8 * Follow Up:?2 Months * Images: * Sign off status: Completed true * Provider:?Asha Rehman, DPM Date:?08/2023 Generated for Rneée styles/Ramos/eTdeonnasmitting on:?06/09/2024 01:11 PM EST History and Physical [...]
--- OUTSIDE RECORDS SUMMARY | 2024-06-09 13:12 | XMS_ITS | Data Portability ---
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) MDM MODERATE MUST MEET 2 OUT OF [...] + TIBC + ferritin, serum 2023 024 [facility], [address] [place] [address], [place], [address], 01/14/2024 10:41:00 TSH + free T4, serum 2023 [facility], [address] [place] [address], [address], 01/14/2024 10:41:00 vitamin B12 + folate, serum or blood 2023 [facility], [address] [place] [address], [address], 01/14/2024 10:41:00 vitamin D, 25-hydrox y, total, serum 2023 [facility], [address] [place] [address], [address], 01/14/2024 10:41:00 CMP, serum or plasma 2023 [facility], [address] [place] [address], [address], 01/14/2024 10:41:00 CBC w/ auto diff 2023 [facility], [address] [place] [address], [address], 01/14/2024 10:41:00 hemoglobi n A1c, QN, blood 2023 [facility], [address] [place] [address], [address], 01/14/2024 10:41:00 Referral None recorded. Procedures None recorded. Surgeries None recorded. Imaging MRI, shoulder, w/o contrast - APPROVED: #[id number] T, effective 4 - 4, for procedure code 67849 2023 024 [facility], [address] [place] [address], [address], 11/10/2023 08:27:04 Medication Orders tramadol 50 mg tablet 2023 024 [facility] [place]/[facility]acy #[id number], [address] [place], [address], 04/06/2024 13:59:03 benzonata te 200 mg capsule [address]/Pharmacy #[id number], [address] [place], [address], 09/19/2023 11:42:07 Patient TargetsNo targets recorded. Patient Instructions Encounter Date Encounter Id Patient Instructions Last Modified By Organization Details Last Modified Time 10/31/2023 [id number] high blood pressure: care instructions Not available [...] ast No observ ation record ed. [email or web address] [facility] (Medical Records) [address] [place], [address], 07/22/2023 09:01:19 08/30/19 24 08/30/2023 XR, knee, 3 view No observ ation record ed. [facility] [place] (Medical Records) [address] [place], [address], 08/31/2023 15:43:11 08/30/19 24 08/30/2023 XR, shoul mayela, 2 or more view No observ ation record ed. [facility] [place] (Medical Records) [address] [place], [address], 08/31/2023 15:43:01 12/16/19 24 12/12/2023 MRI, shoul mayela, w/o contr ast No observ ation record ed. [email or web address] [facility] (Medical Records) [address] [place], [address], 12/23/2023 08:21:06 01/04/20 24 01/04/2024 CT, chest , w/ contr ast No observ ation record ed. [address] (Medical Records) [address] [place], [address], 01/04/2024 19:17:44 01/04/20 24 01/04/2024 CT, abdom en + pelvi s, w/ contr ast No observ ation record ed. [address] (Medical Records) [address] [place], [address], 01/04/2024 19:18:13 01/04/20 24 01/04/2024 CT, cervi urmila spine , w/o contr ast No observ ation record ed. [address] (Medical Records) [address] [place], [address], 01/04/2024 19:18:41 01/04/2001/04/2024 CT, head + brain , w/o contr ast No observ ation record ed. [address] (Medical Records) [address] [place], [address], 01/04/2024 19:19:07 Result Notes None recorded. Problems Name Problem SNOMED Code Status Onset Date Resolution Date Notes Provider Name and Address Organization Details Recorded Time Sleep apnea 41420426 Active 2017 Not Available [facility] 3 15:17:07 Essential hypertens ion 37393023 Active 2017 Not Available [facility] 3 15:17:07 History of cerebrova scular accident 145088107 Active 2017 Not Available [facility] 3 15:17:07 Edema 471638838 Active 2017 Not Available [facility] 3 15:17:07 Hypothyro idism 39244814 Active 2017 Not Available [facility] 3 15:17:07 Aortic valve stenosis 20076003 Active 2017 Not Available [facility] 3 15:17:07 Anxiety 84258440 Active 2017 Not Available [facility] 3 15:17:07 Depressiv e disorder 63754378 Active 2017 Not Available [facility] 3 15:17:07 Migraine 91840246 Active 2017 Not Available [facility] 3 15:17:07 Osteoarth ritis of knee 901084156 Active 2017 left knee Not Available [facility] 3 15:17:07 Hyperchol esterolem ia 39508639 Active 2017 Not Available [facility] 3 15:17:07 Idiopathi c periphera l neuropath y 24610969 Active 2018 Not Available [facility] 3 15:17:07 Impaired fasting glycemia 942420044 Active 2019 Not Available [facility] 3 15:17:07 Fatigue 64570494 Active 2021 Not Available [facility] 3 15:17:07 COVID-19 527935079 Active 2021 Not Available [facility] 3 15:17:07 Acute bronchiti s 64439923 Active 2022 Not Available [facility] 3 15:17:07 Orthostat ic hypotensi on 13504176 Active 2022 Not Available [facility] 3 15:17:07 Dizziness 048414731 Active 2022 Not Available [facility] 3 15:17:07 Cough 31301557 Active 2022 PEGGY TAVAREZ [address] [place], [address], [facility] 3 10:52:11 Pain of left shoulder joint 980172622412 22806 Active 2023 PEGGY TAVAREZ [address] [place], [address], [facility] 4 12:05:53 Rupture of rotator cuff of left shoulder 389144946618 35696 Active 2023 Mustapha Bustos, DO [address] [place] [address], [address], [facility] 4 15:17:46 Claustrop hobia 40883425 Active 2023 PEGGY TAVAREZ [address] [place], [address], [facility] 4 15:20:28 Partial thickness rotator cuff tear 782995522 Active 2023 Mustapha Bustos, DO [address] [place] [address], [address], [facility] 4 21:42:13 Fall Active 2023 PEGGY TAVAREZ [address] [place], [address], [facility] 4 13:55:20 Osteoarth ritis of left knee joint 527453274474 109 Active 2023 PEGGY TAVAREZ [address] [place] [address], [address], [facility] 4 13:56:17 Problem Notes None recorded. Procedures Surgical History None recorded. Imaging Results Imaging Date Name Status LastModified by Organiz ation Details LastModified Time 07/21/2023 CT, head + brain, w/o contrast completed [email or web address] [facility] (Medical Records) [address] [place], [address], 07/22/2023 09:01:19 08/30/2023 XR, knee, 3 view completed [email or web address] [facility] (Medical Records) [address] [place], [address], 08/31/2023 15:43:11 08/30/2023 XR, shoulder, 2 or more view completed [email or web address] [facility] (Medical Records) [address] [place], [address], 08/31/2023 15:43:01 12/12/2023 MRI, shoulder, w/o contrast completed [email or web address] [place] [address] (Medical Records) [address] [place], [address], 12/23/2023 08:21:06 01/04/2024 CT, chest, w/ contrast completed [address] (Medical Records) [address] [place], [address], 01/04/2024 19:17:44 01/04/2024 CT, abdomen + pelvis, w/ contrast completed [address] (Medical Records) [address] [place], [address], 01/04/2024 19:18:13 01/04/2024 CT, cervical spine, w/o contrast completed [address] (Medical Records) [address] [place], [address], 01/04/2024 19:18:41 01/04/2024 CT, head + brain, w/o contrast completed [address] (Medical Records) [address] [place], [address], 01/04/2024 19:19:07 Procedure Notes None recorded. Medical Equipment None Reported. Allergies Allergen ID Allergen Name Allergen Category Reaction Reaction Severity Criticality Documentation Date Start Date Code Code System Note Provider Name and Address Organization Details Recorded Time 2251 azithromy nia medicatio n Not available Not available Not available 12/29/2017 78238 RxNorm Tavia fountain [place] - [facility] 8 08:19:44 Medications Name Sig Start Date Stop Date Status Note LastModified by Organization Details LastModified Time neuropathy 1.0 (diclofenac 3 + doxepin 2.5 + gabapentin 3 + lidocaine 5) APPLY 1-2 PUMPS (1-2 GRAMS) TO BOTH FEET TWICE DAILY 07/16 completed Not Available Not Available Not Available Prescriptio n - Prior Authorizati on Request [...] Updated DateTime 4 152.4 cm 37.1 kg/m2 05723.9 1 g 74 /min 96 % 96 % 122 mm[Hg] 74 mm[Hg] Destini Aragon [facility] 4 11:47:39 Date Recorded Body height Body mass index (BMI) Body weight Heart rate Oxygen saturation Oxygen saturation in Arterial blood by Pulse oximetry Systolic blood pressure Diastolic blood pressure Provider Name and Address Organization Details Last Updated DateTime 4 152.4 cm 37.1 kg/m2 46512.5 5 g 69 /min 97 % 97 % 130 mm[Hg] 72 mm[Hg] Maria Esther Corley [facility] 4 13:32:05 Social History Question Answer Notes LastModified by Organizat ion Details LastModified Time Tobacco Smoking Status Never Smoker Not Available [facility] 02/22/2020 03:36:24 What Was The Date Of Your Most Recent Tobacco Screening? 04/06/2024 [email or web address] Information not available 04/06/2024 Do You Or Have You Ever Used Any Other Forms Of Tobacco Or Nicotine? No [email or web address] Information not available 04/06/2024 Sex: Unknown Functional [...] 50 mcg/0.25mL dose 1 completed Irena fountain [facility] 11/01/2020 15:35:49 COVID-19, mRNA, LNP-S, PF, 100 mcg/0.5mL dose or 50 mcg/0.25mL dose 1 completed Irena fountain [facility] 04/18/2021 11:03:52 Influenza, split virus, quadrivalent, preservative 1 yael fountain [facility] 04/18/2021 11:03:59 Influenza, split virus, quadrivalent, preservative 8 completed Not Available [facility] 05/08/2019 02:46:31 Influenza, split virus, quadrivalent, preservative 9 completed Liliane fountain [facility] 06/19/2020 11:20:18 Influenza, split virus, quadrivalent, preservative 1 yael fountain [facility] 06/19/2020 11:20:18 COVID-19, mRNA, LNP-S, PF, 100 mcg/0.5mL dose or 50 mcg/0.25mL dose 1 yael fountain [facility] 11/01/2020 15:35:56 Past Encounters Encounter ID Performer Location Encounter Start Date Encounter Closed Date Diagnosis/Indication Diagnosis SNOMED-CT Code Diagnosis ICD10 Code Diagnosis Note [id number] Karen Blanchard NP, [facility] [address] [address] 12/29/2017 11:41:39 12/29/2017 12:36:56 Edema 148392743 R60.9 History of cerebrovascular accident 248159301 Z86.73 Depressive disorder 3548 9007 F33.8 Hypothyroidism 17395174 E03.9 Essential hypertension 50928260 I10 Aortic valve stenosis 60 003129 I35.0 Sleep apnea 20168080 G47 .30 Anxiety ab out loss of memory 558130702 F41.8 Lesion of vulva 22945487 6 N90.9 [id number] Karen Blanchard NP, [address] [address] 02/02/2018 09:53:50 02/02/2018 11:21:20 Hypothyroidism 02015401 E03.9 Impaired f asting glycemia 640153976 R73.01 Essential hypertension 81655621 I10 stable Aortic valve stenosis 60 440937 I35.0 up to date echo Administra tion of influenza vaccine 64940120 Z23 Depressive disorder 3548 9007 F33.8 [id number] Karen Blanchard NP, [facility] [address] [address] 04/07/2018 08:54:56 04/10/2018 11:16:49 Screening procedure 11193575 Z13.9 Edema 535656165 R60.9 Depressive disorder 3548 9007 F33.8 Hypothyroidism 67689575 E03.9 Anxiety 64292541 F41.9 Essential hypertension 81068235 I10 stable Aortic valve stenosis 60 853369 I35.0 up to date echo- due 08/2018 Sleep apnea 54963194 G47 .30 compliant Hypercholesterolemia 136 62957 E78.00 Impaired f asting glycemia 596106792 R73.01 Active or passive immunization 661080705 Z23 [id number] Karen Blanchard NP, [facility] [address] [place] [address] [place] [address] 07/08/2018 09:29:55 07/08/2018 14:30:43 Adult health examination 385097722 Z00.01 Active or passive immunization 836478927 Z23 History of cerebrovascular accident 332197915 Z86.73 recent INR wnl Depressive disorder 3548 9007 F33.8 stable Hypothyroidism 32674031 E03.9 follow Essential hypertension 37449997 I10 stable Aortic valve stenosis 60 875917 I35.0 schedule echo- due 08/2018 Sleep apnea 88697249 G47 .30 compliant Hypercholesterolemia 136 81919 E78.00 follow Osteoarthr itis of knee 419783833 M17.9 [id number] Mustapha Bustos DO [facility] [address] [facility] [address] 04/28/2019 11:00:47 04/28/2019 11:41:26 Hypothyroidism 16055731 E03.9 needs tsh Essential hypertension 87428362 I10 will need lipid and cmp Impaired f asting glycemia 932214793 R73.01 will follow and will need lab History of cerebrovascular accident 798806399 Z86.73 stable and is without issue Aortic valve stenosis 60 116956 I35.0 stable recent echo and is stable as of june 2018 Osteoarthr itis of knee 151379690 M17.9 [place] [id number] Mustapha Bustos DO [facility] [address] [facility],[place] [address] 08/02/2019 11:23:11 08/02/2019 12:00:25 Essential hypertension 34241743 I10 did real well with lab bps are excellent no cp no sob Hypothyroidism 80556292 E03.9 last tsh is notmal at 3.7 rechk in 6 months Hypercholesterolemia 136 39503 E78.00 LDL is 132 HDL is 552 TRIG is 70 Idiopathic peripheral neuropathy 20341131 G60.9 seems stable Edema 848101082 R60.9 seems to come and go not really any change [id number] PEGGY TAVAREZ [facility] [address] [facility],[place] [address] 06/19/2020 11:03:08 06/19/2020 11:53:47 Essential hypertension 26545264 I10 BP stable on medication s and no side effects no interventi on needed at this time Hypothyroidism 13299804 E03.9 will recheck her levels and fu with results Impaired f asting glycemia 655397570 R73.01 will recheck BW and also check A1c to make sure patient has developed diabetes (as she has hx IFG) Screening for cardiovascular system disease 117179764 Z13.6 needs recheck of cholestero l to see if medication change of adjustment is needed for simvastati n Hyperlipidemia 24073402 E78.5 will fu with results [id number] PEGGY TAVAREZ [facility] [address] [facility] [address] [address] 05/23/2021 08:15:16 05/28/2021 10:41:37 Depressive disorder 98026261 F33.8 stable Anxiety 99330730 F41.1 stable Aortic valve stenosis 60 880136 I35.0 stable Essential hypertension 59180580 I10 BP stable on medication s and no side effects no interventi on needed at this time Hypercholesterolemia 136 55688 E78.2 needs BW Hypothyroidism 99015492 E03.9 will recheck her levels and fu with results Atopic dermatitis 937913 01 L20.89 will trial topical cream Motion sickness 97780611 T75.3XXA needs patch [id number] PEGGY TAVAREZ [facility] [address] [facility] [address] [address] 07/16/2022 14:15:50 07/17/2022 08:23:41 Essential hypertension 72264120 I10 BP stable on medication s and no side effects no interventi on needed at this time Depressive disorder 3548 9007 F33.8 stable [id number] PEGGY TAVAREZ [facility] [address] [facility] [address],[place] [address] 01/07/2023 13:53:57 01/07/2023 15:03:21 Essential hypertension 94137138 I10 BP stable on medication s and no side effects no interventi on needed at this time Hypercholesterolemia 136 52073 E78.2 needs BW Hypothyroidism 78363841 E03.8 will recheck her levels and fu with results Atopic dermatitis 774309 01 L20.89 will trial topical cream [id number] PEGGY TAVAREZ [facility] [address] [facility] [address] 02/07/2023 14:27:17 02/07/2023 15:04:49 Orthostatic hypotension 66010607 I95.1 adjusted lisinopril dose Dizziness 124519304 R42 resolved [id number] PEGGY TAVAREZ [facility] [address] [facility], [place] 7 03/10/2023 11:14:56 03/10/2023 11:53:48 Essential hypertension 44484370 I10 BP stable on medication s and no side effects no interventi on needed at this time Hypothyroidism 17813667 E03.8 will recheck her levels and fu with results [id number] PEGGY TAVAREZ [facility] [address] [facility] [address] 04/16/2023 09:11:18 04/16/2023 11:02:48 Essential hypertension 49480809 I10 stable off the medication Cough 30963037 R05.1 will start on cough suppressan t [id number] PEGGY TAVAREZ [facility] [address] [place] [address], [place] [address] 09/19/2023 11:37:48 09/19/2023 16:26:10 Depression screening 990787207 Z13.31 negative Pain of le ft shoulder joint 5143395970 1788618 M25.512 will give tramadol for pain [id number] Mustapha Bustos DO [facility] [address] [facility], [place] [address] 10/31/2023 14:38:05 10/31/2023 15:41:44 Rupture of rotator cuff of left shoulder 6914974557 4926619 M75.102 Essential hypertension 91587647 I10 did real well with lab bps are excellent no cp no sob Aortic valve stenosis 60 971464 I35.0 stable recent echo and is stable as of june 2018 History of cerebrovascular accident 167310365 Z86.73 stable and is without issue Osteoarthr itis of knee 366171448 M17.9 will be getting left knee surg on of this month will need 4 day bridge and will ahve them call me with dose of lovenox that they already have in the fridge [id number] PEGGY TAVAREZ [facility] [address] [facility] [address],[place] [address] 01/14/2024 08:09:32 01/14/2024 11:43:08 Fatigue 68677301 R53.83 will set up with lab work for the fatigueals o suggested for new sleep study [id number] PEGGY TAVAREZ [facility] [address] [facility] [address],[place] [address] 04/06/2024 13:16:21 04/06/2024 14:12:13 Fall R29.6 stable Depressive disorder 3548 9007 F33.8 stable Osteoarthr itis of left knee joint 7971695129 59494 M17.12 has TKR on 06/17/24wil l f/u with their office to see when she needs her pre op Essential hypertension 89167735 I10 stable off the medication Health Concerns Section Related Observation LastModified by Organization Detai ls LastModified Time None Recorded Concern Status LastModified by Organization Details LastModified Time None Recorded Advance Directives Directive None Recorded Payers Encounter Date Sequence Insurance Name Policy Number Policy Lowe Covered Member ID Lowe Member ID Guarantor Name 04/16/2023 1 [facility] [employer] - DOS ON OR AFTER 2022 - MEDIC[place]/ADV ANTAGE - PPO) Yadira Mena [id number] Yadira Mena 09/19/2023 1 [facility] - DOS ON OR AFTER 2022 - [place]V ANTAGE - PPO) Yadira Mena [id number] Yadira Mena 10/31/2023 1 [facility] [employer] - DOS ON OR AFTER 2022 - [place]V ANTAGE - PPO) Yadira Mena [id number] Yadira Mena 01/14/2024 1 [facility] - DOS ON OR AFTER 2022 - [place]V ANTAGE - PPO) Yadira Mena [id number] Yadira Mena 04/06/2024 1 [facility] - DOS ON OR AFTER 2022 - [place]/ADV ANTAGE - PPO) Yadira Seema Mena [id number] Yadira Mena Notes Date Note Type Note Provider Name a nd Address Organization Details Recorded Time 3 text/html 1 week fu telemed phone callpt consents to phone call doing well, has a cold, COVID negativewill give her something for the cough specific HTN been goodwill continue off the medication PEGGY TAVAREZ [address] [place], [address], [facility] 04/16/2023 10:59:54 4 text/html c/o LEFT SHOULDER [...] about warfarinalready given abx PEGGY TAVAREZ [address] [place], [address], [facility] 09/19/2023 12:13:52 4 text/html HERE for pain in her shoulder left Mustapha Bustos DO [address] [facility], [place], [address], [facility] 10/31/2023 15:22:25 4 text/html ER [...] fu after blood work PEGGY TAVAREZ [address] [place], [address], [facility] 01/14/2024 10:43:54 4 text/html f/u medication check fall: stable knee replacement: scheduled for 06/17wi f/u with pre op no medication changes will be having to do a lovenox bridge prior to the surgery, ortho will be taking care of it had her five teeth pulled, doing fine using her walker appropriately otherwise no major changestaking her medications PEGGY TAVAREZ [address] [facility], [place], [address], [facility] 04/06/2024 14:07:52 OBGyn Episode No OBEpisode recorded.
--- OUTSIDE RECORDS SUMMARY | 2024-06-09 13:12 | XMS_ITS | Patient Health Record ---
Author Organization [facility] Address [address] [place] [address] Care Team Providers Care Air Boatswain Name Role Phone Mustapha Bustos Primary Care Provider Bran Andrews Jr Unavailable [phone] ALLERGIES Allergen (clinical drug ingredient) Drug/Non Drug [...] Problem Colon cancer screening (Z12.11) Active confirmed [id number] Problem [facility] (current) use of anticoagulants (Z79.01) Active confirmed [id number] PLAN OF TREATMENT Future Test Test Name Order Date COLONOSCOPY 12/18/2016 COLONOSCOPY 08/20/2021 Insurance Providers Payer Name Payer Address Payer Phone Subscriber Number Group Number Insured Name Patient Relationship to Insured Coverage Start Date Coverage End Date [facility] [address] [place] [phone] [id number] MARJAN MENDOZA Self - patient is the insured MEDICAID OF [facility] [address] [place] [address] [phone] [id number] MARJAN MENDOZA Self - patient is the insured MEDICARE OF [place] [address] [place] [address] [id number] MARJAN MENDOZA Self - patient is the insured MEDICAL (GENERAL) HISTORY Medical History History ICD Code stroke x2 hypertension obstructive sleep apnea, uses CPAP hypothyroidism depression elevated cholesterol Surgical History Surgery Date(Month/Year) knee surgery x5
--- OUTSIDE RECORDS SUMMARY | 2024-06-09 13:12 | XMS_ITS ---
Author Organization [facility] Address [address] [place] [address] Care Team Providers Care Child Welfare Counselor Name Role Phone Juli PEARCE, Mustapha Primary Care Provider Asha Vail Unavailable [phone] Allergies Allergen (clinical drug ingredient) Drug/Non Drug [...] 025 Encounters Encounter Location Date Provider Diagnosis [facility] [address] [place] [address] 05/04/2024 Asha Rehman Tinea unguium B35.1 ; [...] use of a nail nipper and/or dremel-type magazine grinder loader, to a more viable healthy nail plate [...] to maintain effectiveness in symptomatic relief - 72337 Debride skin< 25 sq cm Open wound [...] of the wound post debridement is stable (45814), The patient is to apply Antibiotic Oint. [...] instrumentation by the physician of record - 48952, Q8 Progress Notes * Yadira MENDOZA SeemaDOB:[birth year] (58 yo F)Acc No.[id number]:05/04/2024 Progress Note Patient:?Yadira MENDOZA Provider:?Asha Rehman DPM :1965???Age:58 Y???Sex:Female D ate:05/04/2024 Address:[address] [place], [place] [address] Pcp:Mustapha Bustos MD Subjective: * Chief Complaints: [...] use of a nail nipper and/or dremel-type magazine grinder loader, to a more viable healthy nail plate [...] to maintain effectiveness in symptomatic relief - 20151.?Debride skin< 25 sq cm:?Open wound?ISCHEMIC: Physician of [...] of the wound post debridement is stable (06366), The patient is to apply Antibiotic Oint. [...] instrumentation by the physician of record - 03420, Q8.? * Procedure Codes:?32909 ACTIV E WOUND CARE/20 CM OR <, Modifiers: XS 26485 TRIM SKIN LESIONS, OVER 4, Modifiers: XS , [id number] DEBRIDE NAIL, 6 OR MORE, Modifiers: XS [...]
--- OUTSIDE RECORDS SUMMARY | 2024-06-09 13:12 | XMS_ITS | Patient Health Record ---
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 [address] [place] [address] 11/24/2023 Asha Perica Generalized edema R6 0.1 ; Tinea unguium B35.1 ; Atherosclerosis of artery of both lower extremities I70.203 ; Pain in left toe(s) M79.675 and Neuropathy G62.[address] [address] 02/06/2024 Asha Perica Generalized edema R6 0.1 ; Tinea unguium B35.1 ; Atherosclerosis of artery of both lower extremities I70.203 ; Pain in left toe(s) M79.675 and Neuropathy G62.[address] [address] 05/04/2024 Asha Perica Tinea unguium B35.1 ; Xerosis of skin L85.3 ; Generalized edema R60.1 ; Atherosclerosis of artery of both lower extremities I70.203 ; Pain in left toe(s) M79.675 ; Neuropathy G62.9 ; Ischemic ulcer of left heel, limited to breakdown of skin L97.421 and Toe pain, right M79.674 [facility] [place] [address] [place] [address] 09/25/2023 Asha Rehman Assessments Encounter Date Diagnosis [...] Insured Coverage Start Date Coverage End Date [facility] [employer] SCO Claims [address] [place] [address] [id number] Yadira Mena Self - patient is the insured Medical (General) History Medical History History ICD Code Anxiety Depression Headaches/Migraines High blood pressure Neuropathy Stroke thyroid Chicken pox Periadonal Disease Rotator cuff tear Surgical History Surgery Date(Month/Year) 5 teeth extraction 11/13/23
--- NOTE | 2024-06-09 13:30 | MHC.OFFVISCO ---
Intake Intake Visit Reasons: Anticoagulation Allergies erythromycin base [ERYTHROMYCIN BASE] Allergy (Unknown, Verified 06/09/24 13:25) Nausea and Vomiting Medication List - Last Reconciled 06/09/24 by Clemencia Morales RN acetaminophen (Tylenol) 325 mg PO Q4H PRN vwkipfhnel-tuouhnmbesqoe-venv 50-325-40 mg 1 tab PO TID PRN cholecalciferol (vitamin D3) (Vitamin D3) 25 mcg PO DAILY citalopram 40 mg PO DAILY clotrimazole-betamethasone 1-0.05 % 1 appl topical BID diazepam 2 mg PO TID PRN enoxaparin mg subcut gabapentin 200 mg PO BEDTIME levothyroxine 50 mcg PO DAILY lisinopril 10 mg PO DAILY lorazepam 1 mg PO TID simvastatin 20 mg PO BEDTIME simvastatin 40 mg PO BEDTIME triazolam mg PO walker As directed warfarin See Protocol 2.5 mg orally 1.25 NG SUN/ 2.5MG X 6 DAYS; Nursing Note INR: 3.0- in therapeutic range of 2-3 Medications and supplements reviewed No changes in health, diet, medications, or supplements, Denies any signs and symptoms of bleeding or bruising or clotting. Bleeding, bruising, clotting discussed Nutritional guidance given - eat a green today Dose: 2.5mg x 6, 1.25mg x 1 F/U INR: will call after rehab Patient verbalizes understanding of instructions given pt to have total knee replacement on 06/17/24- 5 day hold with lovenox bridging per instructions DIANA. dates per [facility] pre op are for 4 days hold- t/c placed to [facility] preop and verified 5 day hold with Jory. 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
[2024-06-09 13:31] LABS: Prothrombin Time Whole Bld POC 35.7 sec (11.1-13.5)
== END 2024-06-09 14:02 | disposition home or self-care (01) ==
LOC: HO.ACS 12:59
PROVIDERS: PCP Internal Medicine; Visit Provider Internal Medicine
DX: Z79.01 Long term (current) use of anticoagulants (principal)

== ENCOUNTER → 2024-06-09 12:59 | Outpatient (BNVA) | payer OTHER, SELFPAY | PROVIDERS: PCP Internal Medicine; Visit Provider Internal Medicine | DX: Z86.73 Personal history of transient ischemic attack (TIA), and cerebral infarction without residual deficits (principal); Z79.01 Long term (current) use of anticoagulants; Z51.81 Encounter for therapeutic drug level monitoring | CPT/HCPCS: 85610; 99212 ==

== ENCOUNTER 2024-07-29 13:06 | Outpatient (AMB) | payer OTHER, SELFPAY ==
[2024-07-29 13:15] LABS: Prothrombin Time Whole Bld POC 28.4 sec (11.1-13.5); ~PT, ~INR - Anti Coag Clinic 2.4 (0.9-1.1)
--- NOTE | 2024-07-29 13:26 | MHC.OFFVISCO ---
Intake Intake Visit Reasons: Anticoagulation Allergies erythromycin base [ERYTHROMYCIN BASE] Allergy (Unknown, Verified 07/29/24 13:07) Nausea and Vomiting Medication List - Last Reconciled 07/29/24 by Alexsandra Brar RN acetaminophen (Tylenol) 325 mg PO Q4H PRN pwjxrmqxbv-yetzqgmykviat-njrs 50-325-40 mg 1 tab PO TID PRN celecoxib 200 mg PO DAILY PRN cholecalciferol (vitamin D3) (Vitamin D3) 25 mcg PO DAILY citalopram 40 mg PO DAILY clotrimazole-betamethasone 1-0.05 % 1 appl topical BID diazepam 2 mg PO TID PRN enoxaparin mg See Protocol subcut gabapentin 200 mg PO BEDTIME levothyroxine 50 mcg PO DAILY lisinopril 10 mg PO DAILY lorazepam 1 mg PO TID oxycodone mg PO simvastatin 20 mg PO BEDTIME simvastatin 40 mg PO BEDTIME tramadol 50 mg PO Q4H PRN walker As directed warfarin See Protocol 2.5 mg orally 1.25 NG SUN/ 2.5MG X 6 DAYS; Nursing Note came in with sister - walking with walker s/p left knee replacement 06/17/24 d/c from rehab 07/23/24 off lovenox - she resumed her usual warfarin dose she is taking occ tramadol and or tylenol and oxycodone INR: 2.4 in therapeutic range Medications and supplements reviewed No changes in health, diet, medications, or supplements, Denies any signs and symptoms of bleeding or bruising or clotting. Bleeding, bruising, clotting discussed Nutritional guidance given - eat a mix of fruits and vegetables Dose: resumed her usual dose 1.25mg x 1 day/ 2.5mg x 6 days F/U INR: 2 weeks Patient verbalizes understanding of instructions given Anti-Coag Initial Assessment Social Hx Patient Tobacco Use Status: Never used Tobacco alcohol intake: never Alcohol intake frequency: does not drink Coding Level of Care Code Est Patient Level 1 Diagnoses Current use of anticoagulant therapy Z79.01 Assessment & Plan Assessment & Plan (1) Current use of anticoagulant therapy: Code(s): Z79.01 - senior care (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
--- OUTSIDE RECORDS SUMMARY | 2024-07-29 15:49 | XMS_ITS | Patient Health Record ---
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) Active confirmed Response to treatment Vital Signs Blood pressure diastolic 70 mm Hg 05/04/2024 Height 5ft in 05/04/2024 Blood pressure systolic 116 mm Hg 05/04/2024 Weight 190 lbs 05/04/2024 BMI 37.1 kg/m2 05/04/2024 Encounters Encounter Location Date Provider Diagnosis [address] [address] 11/24/2023 Asha Perica Generalized edema R6 0.1 ; Tinea unguium B35.1 ; Atherosclerosis of artery of both lower extremities I70.203 ; Pain in left toe(s) M79.675 and Neuropathy G62.[address] [address] 02/06/2024 Asha Perica Generalized edema R6 0.1 ; Tinea unguium B35.1 ; Atherosclerosis of artery of both lower extremities I70.203 ; Pain in left toe(s) M79.675 and Neuropathy G62.[address] [address] 05/04/2024 Asha Perica Tinea unguium B35.1 ; Xerosis of skin L85.3 ; Generalized edema R60.1 ; Atherosclerosis of artery of both lower extremities I70.203 ; Pain in left toe(s) M79.675 ; Neuropathy G62.9 ; Ischemic ulcer of left heel, limited to breakdown of skin L97.421 and Toe pain, right M79.[address] [place] [address] 09/25/2023 Asha Rehman Assessments Encounter Date Diagnosis [...] I70.203) 02/06/2024 Tinea unguium (ICD-10 - B35.1) 11/24/2023 Pain in left toe(s) (ICD-10 - M79.675) 02/06/2024 Atherosclerosis of artery of both lower extremities (ICD-10 - I70.203) 05/04/2024 Atherosclerosis of artery of both lower extremities (ICD-10 - I70.203) 05/04/2024 Pain in left toe(s) (ICD-10 - M79.675) 02/06/2024 Pain in left toe(s) (ICD-10 - M79.675) 11/24/2023 Neuropathy (ICD-10 - G62.9) 02/06/2024 Neuropathy (ICD-10 [...] Insured Coverage Start Date Coverage End Date [facility] SCO Claims [address] [place] [phone] [id number] Yadira Mena Self - patient is the insured Medical (General) History Medical History History ICD Code Anxiety Depression Headaches/Migraines High blood pressure Neuropathy Stroke thyroid Chicken pox Periadonal Disease Rotator cuff tear Surgical History Surgery Date(Month/Year) 5 teeth extraction 11/13/23
--- OUTSIDE RECORDS SUMMARY | 2024-07-29 15:49 | XMS_ITS ---
Author Organization [facility] Address [address] [place] [address] Care Team Providers Care Hot Die Press Operator Name Role Phone Juli PEARCE, Mustapha Primary Care Provider Asha Vail Unavailable [phone] Allergies Allergen (clinical drug ingredient) Drug/Non Drug [...] 11/24/2023 Encounters Encounter Location Date Provider Diagnosis [facility] [address] 11/24/2023 Asha Sherie Generalized edema R6 0.1 [...] or Cutting o f Benign Hyperkeratotic Lesion(s) 04231 ( More than 4 Lesions ) - [...] used for any petechial bleeding as necessary (05430). Patient chooses, no pharmaceutical tx Nail Reduction Nail Reduction Trimming of dyst rophic nails performed to reduce/remove overall nail length and girth, by manual and electrical means with use of a nail nipper and/or dremel, to more viable healthy nail plate or bed tissue 6-10 (E2803-V1) Progress Notes * Yadira MENDOZADOB:[birth year] (58 yo F)Acc No.[id number]:11/24/2023 Progress Note Patient:?Yadira Mendoza Provider:?Asha Rehman DPM :1965???Age:58 Y???Sex:Female D ate:11/24/2023 Address:[address] [place], [place] [id number] Pcp:Mustapha Bustos MD Subjective: * Chief Complaints: [...] used for any petechial bleeding as necessary (89424). Patient chooses, no pharmaceutical tx.?Keratoma Treatment:?Parring or Cutting of Benign Hyperkeratotic Lesion(s)?10517 ( More than 4 Lesions ) - [...] DYSTROPHIC NAILS ANY #, Modifiers: XS , M093272 DEBRIDE NAIL, 1-5, Modifiers: XS 34117 TRIM SKIN LESIONS, OVER 4, Modifiers: XS , Q8 * Follow Up:?2 Months * Images: * Sign off status: Completed true * Provider:?Asha Rehman, DPM Date:?08/2023 Generated for Renée styles/Ramos/eTdeonnasmitting on:?07/29/2024 03:49 PM EDT History and Physical Notes * HPI (History [...]
--- OUTSIDE RECORDS SUMMARY | 2024-07-29 15:49 | XMS_ITS ---
Author Organization [facility] Address [address] [place] [address] Care Team Providers Care Personal Banking Advisor Name Role Phone Juli PEARCE, Mustapha Primary Care Provider Asha Vail Unavailable [phone] Allergies Allergen (clinical drug ingredient) Drug/Non Drug [...] 02/06/2024 Encounters Encounter Location Date Provider Diagnosis [facility] [place] [address] [place] [address] 02/06/2024 Asha Rehman Generalized edema R6 0.1 [...] or Cutting o f Benign Hyperkeratotic Lesion(s) 48456 ( More than 4 Lesions ) - [...] used for any petechial bleeding as necessary (28196). Patient chooses, no pharmaceutical tx Nail Reduction Nail Reduction Trimming of dyst rophic nails performed to reduce/remove overall nail length and girth, by manual and electrical means with use of a nail nipper and/or dremel, to more viable healthy nail plate or bed tissue 6-10 (N4700-H0) Progress Notes * Yadira MENDOZADOB:[birth year] (58 yo F)Acc No.[id number]:02/06/2024 Progress Note Patient:?Yadira Mendoza Provider:?Asha Rehman DPM :1965???Age:58 Y???Sex:Female D ate:02/06/2024 Address:[address] [place], [place] [id number] Pcp:Mustapha Bustos MD Subjective: * Chief Complaints: [...] used for any petechial bleeding as necessary (87133). Patient chooses, no pharmaceutical tx.?Keratoma Treatment:?Parring or Cutting of Benign Hyperkeratotic Lesion(s)?02518 ( More than 4 Lesions ) - [...] DYSTROPHIC NAILS ANY #, Modifiers: XS , [id number] DEBRIDE NAIL, 1-5, Modifiers: XS 86682 TRIM SKIN LESIONS, OVER 4, Modifiers: XS , Q8 * Follow Up:?2 Months * Images: * Sign off status: Completed true * Provider:?Asha Rehman DPM Date:? Generated for Renée styles/Ramos/Bon on:?07/29/2024 03:49 PM EDT History and Physical [...]
--- OUTSIDE RECORDS SUMMARY | 2024-07-29 15:49 | XMS_ITS | Patient Health Record ---
Author Organization [facility] Address [address] [place] [address] Care Team Providers Care Automobile Club Membership Sales Agent Name Role Phone Mustapha Bustos Primary Care Provider Bran Andrews Jr Unavailable Allergies Allergen (clinical drug ingredient) Drug/Non Drug Allergy documented on EMR Reaction Allergy Type Onset Date Status erythromycin Erythromycin Unknown Drug Allergy A ctive Reason For Referral No Information Medications Medication [...] 1 tablet Orally Once a day Active Immunizations Vaccine Route Administration Date Status Comme nts Influenza Unknown 03/07/2021 Administered Social History Tobacco Use: Social History Observation Description Date Details (start date - stop date) Never Smoker NA - NA Tobacco Use/Smoking Question Answer Notes Patient is a nonsmoker Alcohol Screen Question Answer Notes Did you have a drink containing alcohol in the p ast year? 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 [address] [place] [address] [id number] MARJAN MENDOZA Self - patient is the insured MEDICARE OF [place] [address] [place] [address] [id number] MARJAN MENDOZA Self - patient is the insured Medical (General) History Medical History History ICD Code stroke x2 hypertension obstructive sleep apnea, uses CPAP hypothyroidism depression elevated cholesterol Surgical History Surgery Date(Month/Year) knee surgery x5
--- OUTSIDE RECORDS SUMMARY | 2024-07-29 15:50 | XMS_ITS ---
Author Organization [facility] Address [address] [place] [address] Care Team Providers Care Bleacher Pulp Name Role Phone Juli PEARCE, Mustapha Primary Care Provider Asha Vail Unavailable [phone] Allergies Allergen (clinical drug ingredient) Drug/Non Drug [...] 025 Encounters Encounter Location Date Provider Diagnosis [facility] [address] [place] [address] 05/04/2024 Asha Rehman Tinea unguium B35.1 ; [...] use of a nail nipper and/or dremel-type clay grinder, to a more viable healthy nail [...] to maintain effectiveness in symptomatic relief - 76611 Debride skin< 25 sq cm Open wound [...] of the wound post debridement is stable (93077), The patient is to apply Antibiotic Oint. [...] instrumentation by the physician of record - 41235, Q8 Progress Notes * Yadira MENDOZA SeemaDOB:[birth year] (58 yo F)Acc No.[id number]:05/04/2024 Progress Note Patient:?Yadira MENDOZA Provider:?Asha Rehman DPM :1965???Age:58 Y???Sex:Female D ate:05/04/2024 Address:[address] [place], [place] [id number] Pcp:Mustapha Bustos MD Subjective: * Chief Complaints: [...] use of a nail nipper and/or dremel-type clay grinder, to a more viable healthy nail [...] to maintain effectiveness in symptomatic relief - 88515.?Debride skin< 25 sq cm:?Open wound?ISCHEMIC: Physician of [...] of the wound post debridement is stable (64750), The patient is to apply Antibiotic Oint. [...] instrumentation by the physician of record - 84078, Q8.? * Procedure Codes:?96261 ACTIV E WOUND CARE/20 CM OR <, Modifiers: XS 29411 TRIM SKIN LESIONS, OVER 4, Modifiers: XS , [id number] DEBRIDE NAIL, 6 OR MORE, Modifiers: XS [...]
== END 2024-07-29 13:36 | disposition home or self-care (01) ==
LOC: HO.ACS 13:06
PROVIDERS: PCP Internal Medicine; Visit Provider Internal Medicine Medical Oncology
DX: Z79.01 Long term (current) use of anticoagulants (principal)

== ENCOUNTER → 2024-07-29 13:06 | Outpatient (BNVA) | payer OTHER, SELFPAY | PROVIDERS: PCP Internal Medicine; Visit Provider Internal Medicine Medical Oncology | DX: Z86.73 Personal history of transient ischemic attack (TIA), and cerebral infarction without residual deficits (principal); Z51.81 Encounter for therapeutic drug level monitoring; Z79.01 Long term (current) use of anticoagulants | CPT/HCPCS: 85610; 99211 ==

== ENCOUNTER 2024-08-12 13:25 | Outpatient (AMB) | payer OTHER, SELFPAY ==
[2024-08-12 13:34] LABS: Prothrombin Time Whole Bld POC 36.9 sec (11.1-13.5); ~PT, ~INR - Anti Coag Clinic 3.1 (0.9-1.1)
--- NOTE | 2024-08-12 13:39 | MHC.OFFVISCO ---
Intake Intake Visit Reasons: Anticoagulation Allergies erythromycin base [ERYTHROMYCIN BASE] Allergy (Unknown, Verified 08/12/24 13:29) Nausea and Vomiting Medication List - Last Reconciled 08/12/24 by Yadira Laureano RN acetaminophen (Tylenol) 325 mg PO Q4H PRN iadogoqvwk-ppvjkwjyfctmo-zvyt 50-325-40 mg 1 tab PO TID PRN celecoxib 200 mg PO DAILY PRN cholecalciferol (vitamin D3) (Vitamin D3) 25 mcg PO DAILY citalopram 40 mg PO DAILY clotrimazole-betamethasone 1-0.05 % 1 appl topical BID diazepam 2 mg PO TID PRN gabapentin 200 mg PO BEDTIME levothyroxine 50 mcg PO DAILY lisinopril 10 mg PO DAILY lorazepam 1 mg PO TID oxycodone mg PO simvastatin 20 mg PO BEDTIME simvastatin 40 mg PO BEDTIME tramadol 50 mg PO Q4H PRN walker As directed warfarin See Protocol 2.5 mg orally 1.25 NG SUN/ 2.5MG X 6 DAYS; Nursing Note NO CP,SOB,DIET/MED CHANGES,FALLS OR SX OF BLEEDING. CONTINUE PRESENT DOSE AND FOLLOW-UP IN 2 WEEKS. [place] TODAY GOOD UNDERSTANDING OF DOSINGINSTR. 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
--- OUTSIDE RECORDS SUMMARY | 2024-08-12 15:45 | XMS_ITS ---
Author Organization [facility] Address [address] [facility] [place] [address] Care Team Providers Care Policy Writer Name Role Phone Juli PEARCE, Mustapha Primary Care Provider Asha Vail Unavailable [phone] Allergies Allergen (clinical drug ingredient) Drug/Non Drug [...] 11/24/2023 Encounters Encounter Location Date Provider Diagnosis [facility] [address] 11/24/2023 Asha Sherie Generalized edema R6 0.1 [...] or Cutting o f Benign Hyperkeratotic Lesion(s) 60755 ( More than 4 Lesions ) - [...] used for any petechial bleeding as necessary (52857). Patient chooses, no pharmaceutical tx Nail Reduction Nail Reduction Trimming of dyst rophic nails performed to reduce/remove overall nail length and girth, by manual and electrical means with use of a nail nipper and/or dremel, to more viable healthy nail plate or bed tissue 6-10 (A2514-M5) Progress Notes * Yadira MENDOZADOB:[birth year] (58 yo F)Acc No.[id number]:11/24/2023 Progress Note Patient:?Yadira Mendoza Provider:?Asha Rehman DPM :1965???Age:58 Y???Sex:Female D ate:11/24/2023 Address:[address] [place], [place] [id number] Pcp:Mustapha Bustos MD Subjective: * Chief Complaints: [...] used for any petechial bleeding as necessary (37429). Patient chooses, no pharmaceutical tx.?Keratoma Treatment:?Parring or Cutting of Benign Hyperkeratotic Lesion(s)?92473 ( More than 4 Lesions ) - [...] DYSTROPHIC NAILS ANY #, Modifiers: XS , [id number] DEBRIDE NAIL, 1-5, Modifiers: XS 54201 TRIM SKIN LESIONS, OVER 4, Modifiers: XS , Q8 * Follow Up:?2 Months * Images: * Sign off status: Completed true * Provider:?Asha Rehman, DPM Date:?08/2023 Generated for Renée styles/Ramos/eTransmitting on:?08/12/2024 03:44 PM EDT History and Physical Notes * [...]
--- OUTSIDE RECORDS SUMMARY | 2024-08-12 15:45 | XMS_ITS ---
Author Organization [facility] Address [address] [facility] [place] [address] Care Team Providers Care Parcel Post Officer Name Role Phone Juli PEARCE, Mustapha Primary Care Provider Asha Vail Unavailable [phone] Allergies Allergen (clinical drug ingredient) Drug/Non Drug [...] 02/06/2024 Encounters Encounter Location Date Provider Diagnosis [facility] [place] [address] [place] [address] 02/06/2024 Asha Rehman Generalized edema R6 0.1 [...] or Cutting o f Benign Hyperkeratotic Lesion(s) 60042 ( More than 4 Lesions ) - [...] used for any petechial bleeding as necessary (36477). Patient chooses, no pharmaceutical tx Nail Reduction Nail Reduction Trimming of dyst rophic nails performed to reduce/remove overall nail length and girth, by manual and electrical means with use of a nail nipper and/or dremel, to more viable healthy nail plate or bed tissue 6-10 (S3329-T6) Progress Notes * Yadira MENDOZADOB:[birth year] (58 yo F)Acc No.[id number]:02/06/2024 Progress Note Patient:?Yadira Mendoza Provider:?Asha Rehman DPM :1965???Age:58 Y???Sex:Female D ate:02/06/2024 Address:[address] [place], [place] [address] Pcp:Mustapha Bustos MD Subjective: * Chief Complaints: [...] used for any petechial bleeding as necessary (55433). Patient chooses, no pharmaceutical tx.?Keratoma Treatment:?Parring or Cutting of Benign Hyperkeratotic Lesion(s)?96937 ( More than 4 Lesions ) - [...] DYSTROPHIC NAILS ANY #, Modifiers: XS , R955005 DEBRIDE NAIL, 1-5, Modifiers: XS 31803 TRIM SKIN LESIONS, OVER 4, Modifiers: XS , Q8 * Follow Up:?2 Months * Images: * Sign off status: Completed true * Provider:?Asha Rehman DPM Date:? Generated for Renée styles/Ramos/Bon on:?08/12/2024 03:44 PM EDT History and Physical [...]
--- OUTSIDE RECORDS SUMMARY | 2024-08-12 15:45 | XMS_ITS ---
Author Organization [facility] Address [address] [place] [address] Care Team Providers Care Housing Grant Analyst Name Role Phone Juli PEARCE, Mustapha Primary Care Provider Asha Vail Unavailable [phone] Allergies Allergen (clinical drug ingredient) Drug/Non Drug [...] 025 Encounters Encounter Location Date Provider Diagnosis [facility] [place] [address] [place] [address] 05/04/2024 Asha Rehman Tinea unguium B35.1 ; [...] use of a nail nipper and/or dremel-type regrinder, to a more viable healthy nail plate [...] to maintain effectiveness in symptomatic relief - 98650 Debride skin< 25 sq cm Open wound [...] of the wound post debridement is stable (48429), The patient is to apply Antibiotic Oint. [...] instrumentation by the physician of record - 80615, Q8 Progress Notes * Yadira MENDOZA SeemaDOB:[birth year] (58 yo F)Acc No.[id number]:05/04/2024 Progress Note Patient:?Yadira MENDOZA Provider:?Asha Rehman DPM :1965???Age:58 Y???Sex:Female D ate:05/04/2024 Address:[address] [place], [place] [id number] Pcp:Mustapha Bustos MD Subjective: * Chief Complaints: [...] use of a nail nipper and/or dremel-type regrinder, to a more viable healthy nail plate [...] to maintain effectiveness in symptomatic relief - 45705.?Debride skin< 25 sq cm:?Open wound?ISCHEMIC: Physician of [...] of the wound post debridement is stable (74666), The patient is to apply Antibiotic Oint. [...] instrumentation by the physician of record - 10042, Q8.? * Procedure Codes:?22763 ACTIV E WOUND CARE/20 CM OR <, Modifiers: XS 27117 TRIM SKIN LESIONS, OVER 4, Modifiers: XS , [id number] DEBRIDE NAIL, 6 OR MORE, Modifiers: XS [...] DPM Date:? Generated for Renée styles/Ramos/Bon on:?08/12/2024 03:45 PM EDT History and Physical Notes * [...]
--- OUTSIDE RECORDS SUMMARY | 2024-08-12 15:45 | XMS_ITS | Patient Health Record ---
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) Active confirmed Response to treatment Vital Signs Blood pressure diastolic 70 mm Hg 05/04/2024 Height 5ft in 05/04/2024 Blood pressure systolic 116 mm Hg 05/04/2024 Weight 190 lbs 05/04/2024 BMI 37.1 kg/m2 05/04/2024 Encounters Encounter Location Date Provider Diagnosis [address] [address] 11/24/2023 Asha Perica Generalized edema R6 0.1 ; Tinea unguium B35.1 ; Atherosclerosis of artery of both lower extremities I70.203 ; Pain in left toe(s) M79.675 and Neuropathy G62.[address] [address] 02/06/2024 Asha Perica Generalized edema R6 0.1 ; Tinea unguium B35.1 ; Atherosclerosis of artery of both lower extremities I70.203 ; Pain in left toe(s) M79.675 and Neuropathy G62.[address] [address] 05/04/2024 Asha Perica Tinea unguium B35.1 ; Xerosis of skin L85.3 ; Generalized edema R60.1 ; Atherosclerosis of artery of both lower extremities I70.203 ; Pain in left toe(s) M79.675 ; Neuropathy G62.9 ; Ischemic ulcer of left heel, limited to breakdown of skin L97.421 and Toe pain, right M79.[address] [place] [address] 09/25/2023 Asha Rehman Assessments Encounter Date Diagnosis [...] M79.675) 11/24/2023 Neuropathy (ICD-10 - G62.9) 02/06/2024 Pain in left toe(s) (ICD-10 - M79.675) 02/06/2024 Neuropathy (ICD-10 - G62.9) 05/04/2024 Neuropathy [...] Insured Coverage Start Date Coverage End Date [facility] SCO Claims [address] [place] [id number] [phone] [id number] Yadira Mena Self - patient is the insured Medical (General) History Medical History History ICD Code Anxiety Depression Headaches/Migraines High blood pressure Neuropathy Stroke thyroid Chicken pox Periadonal Disease Rotator cuff tear Surgical History Surgery Date(Month/Year) 5 teeth extraction 11/13/23
== END 2024-08-12 13:42 | disposition home or self-care (01) ==
LOC: HO.ACS 13:25
PROVIDERS: PCP Internal Medicine; Visit Provider Internal Medicine Medical Oncology
DX: Z79.01 Long term (current) use of anticoagulants (principal)

== ENCOUNTER → 2024-08-12 13:25 | Outpatient (BNVA) | payer OTHER, SELFPAY | PROVIDERS: PCP Internal Medicine; Visit Provider Internal Medicine Medical Oncology | DX: Z86.73 Personal history of transient ischemic attack (TIA), and cerebral infarction without residual deficits (principal); Z79.01 Long term (current) use of anticoagulants; Z51.81 Encounter for therapeutic drug level monitoring | CPT/HCPCS: 85610; 99211 ==

== ENCOUNTER 2024-08-27 10:43 | Outpatient (AMB) | payer OTHER, SELFPAY ==
[2024-08-27 10:53] LABS: Prothrombin Time Whole Bld POC 31.1 sec (11.1-13.5); ~PT, ~INR - Anti Coag Clinic 2.6 (0.9-1.1)
--- NOTE | 2024-08-27 10:57 | MHC.OFFVISCO ---
Intake Intake Visit Reasons: Anticoagulation Allergies erythromycin base [ERYTHROMYCIN BASE] Allergy (Unknown, Verified 08/27/24 10:48) Nausea and Vomiting Medication List - Last Reconciled 08/27/24 by Daniela Orellana, RN acetaminophen (Tylenol) 325 mg PO Q4H PRN ilqezgcjsh-agopvjywclgol-ytzl 50-325-40 mg 1 tab PO TID PRN celecoxib 200 mg PO DAILY PRN cholecalciferol (vitamin D3) (Vitamin D3) 25 mcg PO DAILY citalopram 40 mg PO DAILY clotrimazole-betamethasone 1-0.05 % 1 appl topical BID diazepam 2 mg PO TID PRN gabapentin 200 mg PO BEDTIME levothyroxine 50 mcg PO DAILY lisinopril 10 mg PO DAILY lorazepam 1 mg PO TID oxycodone mg PO simvastatin 20 mg PO BEDTIME simvastatin 40 mg PO BEDTIME tramadol 50 mg PO Q4H PRN walker As directed warfarin See Protocol 2.5 mg orally 1.25 NG SUN/ 2.5MG X 6 DAYS; Nursing Note INR: 2.6 in therapeutic range of 2-3 Medications and supplements reviewed No changes in health, diet, medications, or supplements, Denies any signs and symptoms of bleeding or bruising or clotting. 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
--- OUTSIDE RECORDS SUMMARY | 2024-08-27 11:13 | XMS_ITS | Patient Health Record ---
Author Organization [facility] Address [address] [place] [address] Care Team Providers Care Police Academy Instructor Name Role Phone Mustapha Bustos Primary Care Provider Bran Andrews Jr Unavailable [phone] Allergies Allergen (clinical drug ingredient) Drug/Non Drug [...] Problem Status W/U Status Risk Notes Problem [id number] Colon cancer screening (Z12.11) Active confirmed Problem 215056971 residential (curre nt) use of anticoagulants (Z79.01) Active confirmed Plan Of Treatment Future Test Test Name Order Date COLONOSCOPY 12/18/2016 COLONOSCOPY 08/20/2021 Insurance Providers Payer Name Payer Address Payer Phone Subscriber Number Group Number Insured Name Patient Relationship to Insured Coverage Start Date Coverage End Date [facility] [address] [place] [address] [id number] MARJAN MENDOZA Self - patient is the insured MEDICAID OF [facility] [address] [place] [address] [id number] MARJAN MENDOZA Self - patient is the insured MEDICARE OF [place] [address] [place] [address] [id number] MARJAN MENDOZA Self - patient is the insured Medical (General) History Medical History History ICD Code stroke x2 hypertension obstructive sleep apnea, uses CPAP hypothyroidism depression elevated cholesterol Surgical History Surgery Date(Month/Year) knee surgery x5
--- OUTSIDE RECORDS SUMMARY | 2024-08-27 11:13 | XMS_ITS ---
Author Organization [facility] Address [address] [place] [address] Care Team Providers Care Pantry Goods Maker Name Role Phone Juli PEARCE, Mustapha Primary Care Provider Asha Vail Unavailable [phone] Allergies Allergen (clinical drug ingredient) Drug/Non Drug [...] 02/06/2024 Encounters Encounter Location Date Provider Diagnosis [facility] [place] [address] [place] [address] 02/06/2024 Asha Rehman Generalized edema R6 0.1 [...] or Cutting o f Benign Hyperkeratotic Lesion(s) 64018 ( More than 4 Lesions ) - [...] used for any petechial bleeding as necessary (52149). Patient chooses, no pharmaceutical tx Nail Reduction Nail Reduction Trimming of dyst rophic nails performed to reduce/remove overall nail length and girth, by manual and electrical means with use of a nail nipper and/or dremel, to more viable healthy nail plate or bed tissue 6-10 (D6998-L9) Progress Notes * Yadira MENDOZADOB:[birth year] (58 yo F)Acc No.[id number]:02/06/2024 Progress Note Patient:?Yadira Mendoza Provider:?Asha Rehman DPM :1965???Age:58 Y???Sex:Female D ate:02/06/2024 Address:[address] [place], [place] [id number] Pcp:Mustapha Bustos MD Subjective: * Chief Complaints: [...] used for any petechial bleeding as necessary (00584). Patient chooses, no pharmaceutical tx.?Keratoma Treatment:?Parring or Cutting of Benign Hyperkeratotic Lesion(s)?08365 ( More than 4 Lesions ) - [...] DYSTROPHIC NAILS ANY #, Modifiers: XS , T685487 DEBRIDE NAIL, 1-5, Modifiers: XS 59856 TRIM SKIN LESIONS, OVER 4, Modifiers: XS , Q8 * Follow Up:?2 Months * Images: * Sign off status: Completed true * Provider:?Asha Rehman DPM Date:? Generated for Renée styles/Ramos/Bon on:?08/27/2024 11:12 AM EDT History and Physical Notes * HPI [...]
--- OUTSIDE RECORDS SUMMARY | 2024-08-27 11:13 | XMS_ITS ---
Author Organization [facility] Address [address] [place] [address] Care Team Providers Care Interpretive Program Coordinator Name Role Phone Juli PEARCE, Mustapha Primary Care Provider Asha Vail Unavailable [phone] Allergies Allergen (clinical drug ingredient) Drug/Non Drug [...] 025 Encounters Encounter Location Date Provider Diagnosis [facility] [place] [address] [place] [address] 05/04/2024 Asha Rehman Tinea unguium B35.1 ; [...] use of a nail nipper and/or dremel-type drill grinder, to a more viable healthy nail [...] to maintain effectiveness in symptomatic relief - 93540 Debride skin< 25 sq cm Open wound [...] of the wound post debridement is stable (81315), The patient is to apply Antibiotic Oint. [...] instrumentation by the physician of record - 23665, Q8 Progress Notes * Yadira MENDOZA SeemaDOB:[birth year] (58 yo F)Acc No.[id number]:05/04/2024 Progress Note Patient:?Yadira MENDOZA Provider:?Asha Rehman DPM :1965???Age:58 Y???Sex:Female D ate:05/04/2024 Address:[address] [place], [place] [id number] Pcp:Mustapha Bustos MD Subjective: * Chief Complaints: [...] use of a nail nipper and/or dremel-type drill grinder, to a more viable healthy nail [...] to maintain effectiveness in symptomatic relief - 22400.?Debride skin< 25 sq cm:?Open wound?ISCHEMIC: Physician of [...] of the wound post debridement is stable (59623), The patient is to apply Antibiotic Oint. [...] instrumentation by the physician of record - 60392, Q8.? * Procedure Codes:?88073 ACTIV E WOUND CARE/20 CM OR <, Modifiers: XS 55545 TRIM SKIN LESIONS, OVER 4, Modifiers: XS , J063892 DEBRIDE NAIL, 6 OR MORE, Modifiers: XS [...] DPM Date:? Generated for Renée styles/Ramos/Bon on:?08/27/2024 11:13 AM EDT History and Physical Notes * [...]
--- OUTSIDE RECORDS SUMMARY | 2024-08-27 11:13 | XMS_ITS | Patient Health Record ---
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) Active confirmed Response to treatment Vital Signs Blood pressure diastolic 70 mm Hg 05/04/2024 Height 5ft in 05/04/2024 Blood pressure systolic 116 mm Hg 05/04/2024 Weight 190 lbs 05/04/2024 BMI 37.1 kg/m2 05/04/2024 Encounters Encounter Location Date Provider Diagnosis [address] [address] 11/24/2023 Asha Perica Generalized edema R6 0.1 ; Tinea unguium B35.1 ; Atherosclerosis of artery of both lower extremities I70.203 ; Pain in left toe(s) M79.675 and Neuropathy G62.[address] [address] 02/06/2024 Asha Perica Generalized edema R6 0.1 ; Tinea unguium B35.1 ; Atherosclerosis of artery of both lower extremities I70.203 ; Pain in left toe(s) M79.675 and Neuropathy G62.[address] [address] 05/04/2024 Asha Perica Tinea unguium B35.1 ; Xerosis of skin L85.3 ; Generalized edema R60.1 ; Atherosclerosis of artery of both lower extremities I70.203 ; Pain in left toe(s) M79.675 ; Neuropathy G62.9 ; Ischemic ulcer of left heel, limited to breakdown of skin L97.421 and Toe pain, right M79.[address] [place] [address] 09/25/2023 Asha Rehman Assessments Encounter Date Diagnosis [...] Insured Coverage Start Date Coverage End Date [facility] SCO Claims [address] [place] [id number] [phone] [id number] Yadira Mena Self - patient is the insured Medical (General) History Medical History History ICD Code Anxiety Depression Headaches/Migraines High blood pressure Neuropathy Stroke thyroid Chicken pox Periadonal Disease Rotator cuff tear Surgical History Surgery Date(Month/Year) 5 teeth extraction 11/13/23
--- OUTSIDE RECORDS SUMMARY | 2024-08-27 11:13 | XMS_ITS ---
Author Organization [facility] Address [address] [place] [address] Care Team Providers Care Door To Door Selling Distributor Name Role Phone Juli PEARCE, Mustapha Primary Care Provider Asha Vail Unavailable [phone] Allergies Allergen (clinical drug ingredient) Drug/Non Drug [...] 11/24/2023 Encounters Encounter Location Date Provider Diagnosis [facility] [address] 11/24/2023 Asha Sherie Generalized edema R6 0.1 [...] or Cutting o f Benign Hyperkeratotic Lesion(s) 55912 ( More than 4 Lesions ) - [...] used for any petechial bleeding as necessary (82165). Patient chooses, no pharmaceutical tx Nail Reduction Nail Reduction Trimming of dyst rophic nails performed to reduce/remove overall nail length and girth, by manual and electrical means with use of a nail nipper and/or dremel, to more viable healthy nail plate or bed tissue 6-10 (P9123-F6) Progress Notes * Yadira MENDOZADOB:[birth year] (58 yo F)Acc No.[id number]:11/24/2023 Progress Note Patient:?Yadira Mendoza Provider:?Asha Rehman DPM :1965???Age:58 Y???Sex:Female D ate:11/24/2023 Address:[address] [place], [place] [address] Pcp:Mustapha Bustos MD Subjective: * Chief Complaints: [...] used for any petechial bleeding as necessary (93881). Patient chooses, no pharmaceutical tx.?Keratoma Treatment:?Parring or Cutting of Benign Hyperkeratotic Lesion(s)?14406 ( More than 4 Lesions ) - [...] DYSTROPHIC NAILS ANY #, Modifiers: XS , J140265 DEBRIDE NAIL, 1-5, Modifiers: XS 20599 TRIM SKIN LESIONS, OVER 4, Modifiers: XS , Q8 * Follow Up:?2 Months * Images: * Sign off status: Completed true * Provider:?Asha Rehman, DPM Date:?08/2023 Generated for Renée styles/Ramos/eTdeonnasmitting on:?08/27/2024 11:12 AM EDT History and Physical [...]
== END 2024-08-27 11:01 | disposition home or self-care (01) ==
LOC: HO.ACS 10:43
PROVIDERS: PCP Internal Medicine; Visit Provider Internal Medicine Medical Oncology
DX: Z79.01 Long term (current) use of anticoagulants (principal)

== ENCOUNTER → 2024-08-27 10:43 | Outpatient (BNVA) | payer OTHER, SELFPAY | PROVIDERS: PCP Internal Medicine; Visit Provider Internal Medicine Medical Oncology | DX: Z86.73 Personal history of transient ischemic attack (TIA), and cerebral infarction without residual deficits (principal); Z79.01 Long term (current) use of anticoagulants; Z51.81 Encounter for therapeutic drug level monitoring | CPT/HCPCS: 85610; 99211 ==

== ENCOUNTER 2024-09-08 09:57 | Outpatient (REF) | payer OTHER, SELFPAY ==
--- OUTSIDE RECORDS SUMMARY | 2024-09-08 11:21 | XMS_ITS ---
Author Organization [facility] Address [address] [place] [address] Care Team Providers Care Metal Sprayer Machined Parts Name Role Phone Juli PEARCE, Mustapha Primary Care Provider Asha Vail Unavailable [phone] Allergies Allergen (clinical drug ingredient) Drug/Non Drug [...] 11/24/2023 Encounters Encounter Location Date Provider Diagnosis [facility] [address] 11/24/2023 Asha Sherie Generalized edema R6 0.1 [...] or Cutting o f Benign Hyperkeratotic Lesion(s) 09929 ( More than 4 Lesions ) - [...] used for any petechial bleeding as necessary (79195). Patient chooses, no pharmaceutical tx Nail Reduction Nail Reduction Trimming of dyst rophic nails performed to reduce/remove overall nail length and girth, by manual and electrical means with use of a nail nipper and/or dremel, to more viable healthy nail plate or bed tissue 6-10 (W6006-M3) Progress Notes * Yadira MENDOZADOB:[birth year] (58 yo F)Acc No.[id number]:11/24/2023 Progress Note Patient:?Yadira Mendoza Provider:?Asha Rehman DPM :1965???Age:58 Y???Sex:Female D ate:11/24/2023 Address:[address] [place], [place] [address] Pcp:Mustapha Bustos MD Subjective: * Chief Complaints: [...] used for any petechial bleeding as necessary (12864). Patient chooses, no pharmaceutical tx.?Keratoma Treatment:?Parring or Cutting of Benign Hyperkeratotic Lesion(s)?94981 ( More than 4 Lesions ) - [...] DYSTROPHIC NAILS ANY #, Modifiers: XS , [id number] DEBRIDE NAIL, 1-5, Modifiers: XS 68874 TRIM SKIN LESIONS, OVER 4, Modifiers: XS , Q8 * Follow Up:?2 Months * Images: * Sign off status: Completed true * Provider:?Asha Rehman, DPM Date:?08/2023 Generated for Renée styles/Ramos/eTdeonnasmitting on:?09/08/2024 11:20 AM EDT History and Physical Notes * [...]
--- OUTSIDE RECORDS SUMMARY | 2024-09-08 11:21 | XMS_ITS | Patient Health Record ---
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) Active confirmed Response to treatment Vital Signs Blood pressure diastolic 70 mm Hg 05/04/2024 Height 5ft in 05/04/2024 Blood pressure systolic 116 mm Hg 05/04/2024 Weight 190 lbs 05/04/2024 BMI 37.1 kg/m2 05/04/2024 Encounters Encounter Location Date Provider Diagnosis [address] [address] 11/24/2023 Asha Perica Generalized edema R6 0.1 ; Tinea unguium B35.1 ; Atherosclerosis of artery of both lower extremities I70.203 ; Pain in left toe(s) M79.675 and Neuropathy G62.[address] [address] 02/06/2024 Asha Perica Generalized edema R6 0.1 ; Tinea unguium B35.1 ; Atherosclerosis of artery of both lower extremities I70.203 ; Pain in left toe(s) M79.675 and Neuropathy G62.[address] [address] 05/04/2024 Asha Perica Tinea unguium B35.1 ; Xerosis of skin L85.3 ; Generalized edema R60.1 ; Atherosclerosis of artery of both lower extremities I70.203 ; Pain in left toe(s) M79.675 ; Neuropathy G62.9 ; Ischemic ulcer of left heel, limited to breakdown of skin L97.421 and Toe pain, right M79.[address] [place] [address] 09/25/2023 Asha Rehman Assessments Encounter Date Diagnosis [...] Insured Coverage Start Date Coverage End Date [facility] SCO Claims [address] [place] [id number] [phone] [id number] Yadira Mena Self - patient is the insured Medical (General) History Medical History History ICD Code Anxiety Depression Headaches/Migraines High blood pressure Neuropathy Stroke thyroid Chicken pox Periadonal Disease Rotator cuff tear Surgical History Surgery Date(Month/Year) 5 teeth extraction 11/13/23
--- OUTSIDE RECORDS SUMMARY | 2024-09-08 11:21 | XMS_ITS ---
Author Organization [facility] Address [address] [place] [address] Care Team Providers Care Industrial Machine Operator Name Role Phone Juli PEARCE, Mustapha Primary Care Provider Asha Vail Unavailable [phone] Allergies Allergen (clinical drug ingredient) Drug/Non Drug [...] 02/06/2024 Encounters Encounter Location Date Provider Diagnosis [facility] [place] [address] [place] [address] 02/06/2024 Asha Rehman Generalized edema R6 0.1 [...] or Cutting o f Benign Hyperkeratotic Lesion(s) 88196 ( More than 4 Lesions ) - [...] used for any petechial bleeding as necessary (81778). Patient chooses, no pharmaceutical tx Nail Reduction Nail Reduction Trimming of dyst rophic nails performed to reduce/remove overall nail length and girth, by manual and electrical means with use of a nail nipper and/or dremel, to more viable healthy nail plate or bed tissue 6-10 (R1087-O4) Progress Notes * Yadira MENDOZADOB:[birth year] (58 yo F)Acc No.[id number]:02/06/2024 Progress Note Patient:?Yadira Mendoza Provider:?Asha Rehman DPM :1965???Age:58 Y???Sex:Female D ate:02/06/2024 Address:[address] [place], [place] [phone] Pcp:Mustapha Bustos MD Subjective: * Chief Complaints: [...] used for any petechial bleeding as necessary (16662). Patient chooses, no pharmaceutical tx.?Keratoma Treatment:?Parring or Cutting of Benign Hyperkeratotic Lesion(s)?50309 ( More than 4 Lesions ) - [...] DYSTROPHIC NAILS ANY #, Modifiers: XS , [id number] DEBRIDE NAIL, 1-5, Modifiers: XS 46047 TRIM SKIN LESIONS, OVER 4, Modifiers: XS , Q8 * Follow Up:?2 Months * Images: * Sign off status: Completed true * Provider:?Asha Rehman DPM Date:? Generated for Renée styles/Ramos/Bon on:?09/08/2024 11:21 AM EDT History and Physical Notes * [...]
--- OUTSIDE RECORDS SUMMARY | 2024-09-08 11:21 | XMS_ITS | Patient Health Record ---
Author Organization [facility] Address [address] [place] [address] Care Team Providers Care Medical Facilities Section Director Name Role Phone Mustapha Bustos Primary Care Provider Bran Andrews Jr Unavailable [phone] Allergies Allergen (clinical drug ingredient) Drug/Non Drug [...] Problem Status W/U Status Risk Notes Problem 413231024 Colon cancer screening (Z12.11) Active confirmed Problem 246062315 long term care administrator (curre nt) use of anticoagulants (Z79.01) Active confirmed Plan Of Treatment Future Test Test Name Order Date COLONOSCOPY 12/18/2016 COLONOSCOPY 08/20/2021 Insurance Providers Payer Name Payer Address Payer Phone Subscriber Number Group Number Insured Name Patient Relationship to Insured Coverage Start Date Coverage End Date [facility] [address] [place] [phone] [id number] MARJAN MENDOZA Self - patient is the insured MEDICAID OF [facility] [address] [place] [address] [id number] MARJAN MENDOZA Self - patient is the insured MEDICARE OF [place] [address] [place] [id number] MARJAN MENDOZA Self - patient is the insured Medical (General) History Medical History History ICD Code stroke x2 hypertension obstructive sleep apnea, uses CPAP hypothyroidism depression elevated cholesterol Surgical History Surgery Date(Month/Year) knee surgery x5
--- OUTSIDE RECORDS SUMMARY | 2024-09-08 11:21 | XMS_ITS ---
[facility] Organization [facility] Address [address] [place] [address] Care Team Providers Care Auto Air Conditioning Mechanic Name Role Phone Juli PEARCE, Mustapha Primary Care Provider Asha Vail Unavailable [phone] Allergies Allergen (clinical drug ingredient) Drug/Non Drug [...] 025 Encounters Encounter Location Date Provider Diagnosis [facility] [address] [place] [address] 05/04/2024 Asha Rehman Tinea unguium B35.1 ; [...] use of a nail nipper and/or dremel-type bench grinder, to a more viable healthy nail [...] to maintain effectiveness in symptomatic relief - 56354 Debride skin< 25 sq cm Open wound [...] of the wound post debridement is stable (60240), The patient is to apply Antibiotic Oint. [...] instrumentation by the physician of record - 59782, Q8 Progress Notes * Yadira MENDOZA SeemaDOB:[birth year] (58 yo F)Acc No.[id number]:05/04/2024 Progress Note Patient:?Yadira MENDOZA Provider:?Asha Rehman DPM :1965???Age:58 Y???Sex:Female D ate:05/04/2024 Address:[address] [place], [place] [id number] Pcp:Mustapha Bustos MD Subjective: * Chief Complaints: [...] use of a nail nipper and/or dremel-type bench grinder, to a more viable healthy nail [...] to maintain effectiveness in symptomatic relief - 70889.?Debride skin< 25 sq cm:?Open wound?ISCHEMIC: Physician of [...] of the wound post debridement is stable (15322), The patient is to apply Antibiotic Oint. [...] instrumentation by the physician of record - 43344, Q8.? * Procedure Codes:?39983 ACTIV E WOUND CARE/20 CM OR <, Modifiers: XS 83889 TRIM SKIN LESIONS, OVER 4, Modifiers: XS , [id number] DEBRIDE NAIL, 6 OR MORE, Modifiers: XS [...]
[2024-09-08 13:15] LABS: MANUAL DIFF FLAG NO
[2024-09-08 13:20] LABS: Basophils Percent Auto 0.4 % (0-2); Eosinophils Absolute Auto 0.1 X10*3/uL (0.0-0.4); Eosinophils Percent Auto 1.6 % (0-4); Hematocrit 43.5 % (37.0-47.0); Hemoglobin 13.3 g/dl (12.0-16.0); Imm Gran Abs Auto 0.02 X10*3/uL (0.00-0.03); Imm Gran Pct Auto 0.3 % (0.0-0.4); Lymphocytes Absolute Auto 2.1 X10*3/uL (1.2-4.9); Lymphocytes Percent Auto 26.6 % (20-40); Mean Corpuscular HGB Conc 30.6 g/dl (31.0-35.0); Mean Corpuscular Hemoglobin 26.4 pg (27.0-33.0); Mean Corpuscular Volume 86.3 fL (80.0-98.0); Mean Platelet Volume 11.8 fL (9.4-12.3); Monocytes Absolute Auto 0.7 X10*3/uL (0.1-1.2); Monocytes Percent Auto 8.4 % (2-11); Neutrophils Percent Auto 62.7 % (45-73); Platelet Count 334 X10*3/uL (160-400); Red Blood Count 5.04 X10*6/uL (4.20-5.50); Red Cell Distribution Width 15.3 % (11.0-16.0); White Blood Count 7.9 X10*3/uL (4.8-10.8)
[2024-09-08 15:51] LABS: Alanine Aminotransferase 21 U/L (0-31); Albumin Level 4.4 g/dL (3.5-5.0); Alkaline Phosphatase 135 U/L (39-117); Anion Gap 13 (12-20); Aspartate Amino Transferase 21 U/L (5-31); Bilirubin Total 0.2 mg/dL (0.0-1.0); Blood Urea Nitrogen 14 mg/dL (9-16); Calcium 10.1 mg/dL (8.4-10.2); Carbon Dioxide 25 mmol/L (22-29); Chloride 109 mmol/L (96-108); Cholesterol 197 mg/dL (<200); Estimated Glomerular Filt Rate 54; Glucose Random 109 mg/dL (60-115); HDL Cholesterol 57 mg/dL (>40); LDL Cholesterol Calculated 122 mg/dL (<100); Potassium 4.7 mmol/L (3.3-5.1); Sodium 142 mmol/L (135-145); Total Protein 7.5 g/dL (6.5-8.0); Triglycerides 90 mg/dL (<150)
== END 2024-09-08 09:58 | disposition home or self-care (01) ==
LOC: HO.HMGCLDS 09:57
PROVIDERS: PCP Internal Medicine; Visit Provider Internal Medicine
DX: I10 Essential (primary) hypertension (principal); E78.2 Mixed hyperlipidemia; E03.8 Other specified hypothyroidism
CPT/HCPCS: 36415; 80053; 80061; 84443; 85025

== ENCOUNTER 2024-10-08 09:54 | Outpatient (AMB) | payer OTHER, SELFPAY ==
[2024-10-08 10:04] LABS: Prothrombin Time Whole Bld POC 35.1 sec (11.1-13.5); ~PT, ~INR - Anti Coag Clinic 2.9 (0.9-1.1)
--- OUTSIDE RECORDS SUMMARY | 2024-10-08 10:09 | XMS_ITS | Patient Health Record ---
Author Organization [facility] Address [address] [place] [address] Care Team Providers Care Shipping Team Leader Name Role Phone Mustapha Bustos MD Primary Care Provider Asha Vail Unavailable [phone] Allergies Allergen (clinical drug ingredient) Drug/Non Drug [...] Problem Status W/U Status Risk Notes Problem 391858880 Neuropathy (G62.9) Active confirmed Problem [id number] Atherosclerosi s of artery of both lower extremities (I70.203) Active confirmed Problem Ischemic ulcer o f left heel, 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) Active confirmed Response to treatment Vital Signs Blood pressure diastolic 70 mm Hg 05/04/2024 Height 5ft in 05/04/2024 Blood pressure systolic 116 mm Hg 05/04/2024 Weight 190 lbs 05/04/2024 BMI 37.1 kg/m2 05/04/2024 Encounters Encounter Location Date Provider Diagnosis [address] [address] 11/24/2023 Asha Perica Generalized edema R6 0.1 ; Tinea unguium B35.1 ; Atherosclerosis of artery of both lower extremities I70.203 ; Pain in left toe(s) M79.675 and Neuropathy G62.[address] [address] 02/06/2024 Asha Perica Generalized edema R6 0.1 ; Tinea unguium B35.1 ; Atherosclerosis of artery of both lower extremities I70.203 ; Pain in left toe(s) M79.675 and Neuropathy G62.[address] [address] 05/04/2024 Asha Perica Tinea unguium B35.1 ; [...] Insured Coverage Start Date Coverage End Date [facility] [employer] Claims [address] [place] [phone] [id number] Yadira Mena Self - patient is the insured Medical (General) History Medical History History ICD Code Anxiety Depression Headaches/Migraines High blood pressure Neuropathy Stroke thyroid Chicken pox Periadonal Disease Rotator cuff tear Surgical History Surgery Date(Month/Year) 5 teeth extraction 11/13/23
--- NOTE | 2024-10-08 10:15 | MHC.OFFVISCO ---
Intake Intake Visit Reasons: Anticoagulation Allergies erythromycin base (ERYTHROMYCIN BASE) Allergy (Unknown, Verified 10/08/24 09:54) Nausea and Vomiting Medication List - Last Reconciled 10/08/24 by Alexsandra Brar RN acetaminophen (Tylenol) 325 mg PO Q4H PRN bupropion HCl 100 mg PO BID pfjmwdxuyl-kuapryqtydihg-jkpm 50-325-40 mg 1 tab PO TID PRN celecoxib 200 mg PO DAILY PRN cholecalciferol (vitamin D3) (Vitamin D3) 25 mcg PO DAILY citalopram 40 mg PO DAILY clotrimazole-betamethasone 1-0.05 % 1 appl topical BID collagenase clostridium histo. (Santyl) topical DAILY diazepam 2 mg PO TID PRN gabapentin 200 mg PO BEDTIME levothyroxine 50 mcg PO DAILY lisinopril 10 mg PO DAILY lorazepam 1 mg PO TID oxycodone mg PO simvastatin 20 mg PO BEDTIME simvastatin 40 mg PO BEDTIME tramadol 50 mg PO Q4H PRN walker As directed warfarin See Protocol 2.5 mg orally 1.25 NG FRI/ 2.5MG X 6 DAYS; Nursing Note INR: 2.9 in therapeutic range Medications and supplements reviewed No changes in health, diet, medications, or supplements, Denies any signs and symptoms of bleeding or bruising or clotting. Bleeding, bruising, clotting discussed Nutritional guidance given Dose: 1.25 mg Fridays/ 2.5mg x 6 days F/U INR: 1 month Patient verbalizes understanding of instructions given Anti-Coag Initial Assessment Social Hx Patient Tobacco Use Status: Never used Tobacco alcohol intake: never Alcohol intake frequency: does not drink Coding Level of Care Code Est Patient Level 1 Diagnoses Current use of anticoagulant therapy Z79.01 Assessment & Plan Assessment & Plan (1) Current use of anticoagulant therapy: Code(s): Z79.01 - jail (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
== END 2024-10-08 10:17 | disposition home or self-care (01) ==
LOC: HO.ACS 09:54
PROVIDERS: PCP Internal Medicine; Visit Provider Internal Medicine Medical Oncology
DX: Z79.01 Long term (current) use of anticoagulants (principal)

== ENCOUNTER → 2024-10-08 09:54 | Outpatient (BNVA) | payer OTHER, SELFPAY | PROVIDERS: PCP Internal Medicine; Visit Provider Internal Medicine Medical Oncology | DX: Z86.73 Personal history of transient ischemic attack (TIA), and cerebral infarction without residual deficits (principal); Z79.01 Long term (current) use of anticoagulants; Z51.81 Encounter for therapeutic drug level monitoring | CPT/HCPCS: 85610; 99211 ==

== ENCOUNTER 2024-11-05 10:42 | Outpatient (AMB) | payer OTHER, SELFPAY ==
[2024-11-05 10:57] LABS: Prothrombin Time Whole Bld POC 41.1 sec (11.1-13.5); ~PT, ~INR - Anti Coag Clinic 3.4 (0.9-1.1)
--- NOTE | 2024-11-05 11:05 | MHC.OFFVISCO ---
Intake Intake Visit Reasons: Anticoagulation Allergies erythromycin base (ERYTHROMYCIN BASE) Allergy (Unknown, Verified 11/05/24 10:50) Nausea and Vomiting Medication List - Last Reconciled 11/05/24 by Alexsandra Brar RN acetaminophen (Tylenol) 325 mg PO Q4H PRN bupropion HCl 100 mg PO BID lpmpvyrvwe-vpkchjszvezzm-biym 50-325-40 mg 1 tab PO TID PRN celecoxib 200 mg PO DAILY PRN cholecalciferol (vitamin D3) (Vitamin D3) 25 mcg PO DAILY citalopram 40 mg PO DAILY clotrimazole-betamethasone 1-0.05 % 1 appl topical BID collagenase clostridium histo. (Santyl) topical DAILY diazepam 2 mg PO TID PRN gabapentin 200 mg PO BEDTIME levothyroxine 50 mcg PO DAILY lisinopril 10 mg PO DAILY lorazepam 1 mg PO TID oxycodone mg PO simvastatin 20 mg PO BEDTIME simvastatin 40 mg PO BEDTIME tramadol 50 mg PO Q4H PRN walker As directed warfarin See Protocol 2.5 mg orally 1.25 NG SUN/ 2.5MG X 6 DAYS; Nursing Note INR 3.4? out of therapeutic range Medications and supplements reviewed Patient status: has had a cough x 1 month, Medications or supplements: no changes Diet: has been eating less due to the heat which can raise the INR Denies any signs and symptoms of bleeding or clotting or unusual bruising Bleeding, bruising, clotting discussed Nutritional guidance given: eat greens and protein and blueberries today to help lower your INR Dose: keep same dose 1.25mg x 1 day/ 2.5mg x 6 days F/U INR Date : 2 weeks ?? Patient and sister verbalize understanding of instructions given. 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
--- OUTSIDE RECORDS SUMMARY | 2024-11-05 11:13 | XMS_ITS | Patient Health Record ---
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 Remover Name Role Phone Mustapha Bustos Primary Care [...] Problem Status W/U Status Risk Notes Problem [id number] Colon cancer screening (Z12.11) Active confirmed Problem 385515762 prison (curre nt) use of anticoagulants (Z79.01) Active confirmed Plan Of Treatment Future Test Test Name Order Date COLONOSCOPY 12/18/2016 COLONOSCOPY 08/20/2021 Insurance Providers Payer Name Payer Address Payer Phone Subscriber Number Group Number Insured Name Patient Relationship to Insured Coverage Start Date Coverage End Date [facility] [address] [place] [address] [id number] MARJAN MENDOZA Self - patient is the insured MEDICAID OF [facility] [address] [place] [address] [phone] [id number] MARJAN MENDOZA Self - patient is the insured MEDICARE OF [place] [address] [place] [phone] [id number] MARJAN MENDOZA Self - patient is the insured Medical (General) History Medical History History ICD Code stroke x2 hypertension obstructive sleep apnea, uses CPAP hypothyroidism depression elevated cholesterol Surgical History Surgery Date(Month/Year) knee surgery x5
--- OUTSIDE RECORDS SUMMARY | 2024-11-05 11:13 | XMS_ITS | Patient Health Record ---
Author [facility] Address [address] [place] [address] Care Team Providers Care Maintenance Of Way Supervisor Name Role Phone Mustapha Bustos MD Primary Care Provider Asha Vail Unavailable [phone] Allergies Allergen (clinical drug ingredient) Drug/Non Drug [...] Status zzzCompression Stockings 20-30mm Hg . . .; Duration: . Active Compression Stockings 20-30mm Hg 1 pair With zippers daily; Duration: 30 days Active Levothyroxine Sodium 50 MCG 1 tablet in the morning on an empty stomach Orally Once a day; Duration: 30 day(s) Active Lisinopril 10 MG 1 tablet Orally Once a day; Duration: 30 days Active Citalopram Hydrobromide 40 MG 0.5 tablet Orally Once a day; Duration: 30 day(s) Active Warfarin Sodium 2.5 MG 1 tablet Orally O nce a day; Duration: 30 day(s) Active Vitamin D3 Active Simvastatin 20 MG 1 tablet in the even ing Orally Once a day; Duration: 30 day(s) Active SUMAtriptan 20 MG/ACT 1 spray at onset o f headache in one nostril may repeat after 2 hours as needed Nasally Once a day PRn Active Gabapentin 100 MG 1 capsule Orally Onc e a day; Duration: 30 day(s) Active Immunizations Vaccine Route Administration [...] Problem Status W/U Status Risk Notes Problem Neuropathy (886911000) Neuropathy (G62.9) Active confirmed Problem Bilateral atherosclerosis of arteries of lower limbs (disorder) (6799167075408514 7) Atherosclerosis of artery of both lower extremities (I70.203) Active confirmed Problem Ischemic ulcer o f left heel, 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) Active confirmed Response to treatment Vital Signs Blood pressure diastolic 70 mm Hg 05/04/2024 Height 5ft in 05/04/2024 Blood pressure systolic 116 mm Hg 05/04/2024 Weight 190 lbs 05/04/2024 BMI 37.1 kg/m2 05/04/2024 Encounters Encounter Location Date Provider Diagnosis [address] [address] 11/24/2023 Asha Perica Generalized edema R6 0.1 ; Tinea unguium B35.1 ; Atherosclerosis of artery of both lower extremities I70.203 ; Pain in left toe(s) M79.675 and Neuropathy G62.[address] [address] 02/06/2024 Asha Perica Generalized edema R6 0.1 ; Tinea unguium B35.1 ; Atherosclerosis of artery of both lower extremities I70.203 ; Pain in left toe(s) M79.675 and Neuropathy G62.[address] [address] 05/04/2024 Asha Perica Tinea unguium B35.1 ; [...] right (ICD-10 - M79.674) Plan Of Treatment Next Appt Details Provider Name:Asha sparks, 01/18/2025 03:45:00 PM, [address] [place] [address], [phone], Insurance Providers Payer Name Payer Address Payer Phone Subscriber Number Group Number Insured Name Patient Relationship to Insured Coverage Start Date Coverage End Date [facility] Claims [address] [place] [phone] [id number] Yadira Mena Self - patient is the insured Medical (General) History Medical History History ICD Code Anxiety Depression Headaches/Migraines High blood pressure Neuropathy Stroke thyroid Chicken pox Periadonal Disease Rotator cuff tear Surgical History Surgery Date(Month/Year) 5 teeth extraction 11/13/23
--- OUTSIDE RECORDS SUMMARY | 2024-11-05 11:14 | XMS_ITS | Data Portability ---
Author Organization [facility] Internal Medicine, Telehealth Patient Home Address [address] [place] [address] Assessment Encounter Date Assessment Date Assessment LastModified by Organization Details LastModified Time 10/31/2023 10/31/2023 [address] [place] [address] (SODA CLERK) MDM MODERATE MUST MEET 2 OUT OF [...] secure platform [email or web address] Not available 01/14/2024 10:40:30 07/30/2024 07/30/2024 [id number] [place] [address] (SODA CLERK) MDM MODERATE MUST MEET 2 OUT OF [...] EACH ELEMENT THAT IS COVERED Not available 07/30/2024 11:48:23 09/20/2024 09/20/2024 [id number] [place] [address] (SODA CLERK) MDM MODERATE MUST MEET 2 OUT OF [...] EACH ELEMENT THAT IS COVERED Not available 09/20/2024 15:31:04 Plan of Treatment Reminders Order Date Submit Date Provider Last Modified By Organization Details Last Modified Time Details Appointments ANNUAL EXAM 2024 02:00P PEGGY VALDEZ Not available Not available Not available Lab lipid panel, blood 2024 025 [facility], [address] [place] [address], [address], 09/09/2024 12:25:28 CMP, serum or plasma 2024 025 [facility], [address] [place] [address], [address], 09/09/2024 12:25:28 CBC w/ auto diff 2024 025 [facility], [address] [place] [address], [address], 09/09/2024 12:25:28 TSH + free T4, serum 2024 025 [facility], [address] [place] [address], [address], 07/30/2024 11:59:13 iron + TIBC + ferritin, serum 2023 024 [facility], [address] [place] [address], [address], 01/14/2024 10:41:00 TSH + free T4, serum 2023 024 [facility], [address] [place] [address], [address], 01/14/2024 10:41:00 vitamin B12 + folate, serum or blood 2023 024 [facility], [address] [place] [address], [address], 01/14/2024 10:41:00 vitamin D, 25-hydrox y, total, serum 2023 024 [facility], [address] [place] [address], [address], 01/14/2024 10:41:00 CMP, serum or plasma 2023 024 [facility], [address] [place] [address], [address], 01/14/2024 10:41:00 CBC w/ auto diff 2023 024 [facility], [address] [place] [address], [address], 01/14/2024 10:41:00 hemoglobi n A1c, QN, blood 2023 024 [facility], [address] [place] [address], [address], 01/14/2024 10:41:00 Referral orthopedi c surgeon referral - pt has developed an odd foot drop after a fall last week please see LONNIE 2024 025 umair Edwards MD, [address], [place], [address], 09/20/2024 15:55:49 Procedures None recorded. Surgeries None recorded. Imaging MRI, shoulder, w/o contrast - APPROVED: #[id number] T, effective 4 - 4, for procedure code 05953 2023 024 [facility], [address] [place], [address], 11/10/2023 08:27:04 Medication Orders bupropion HCl 100 mg tablet 2024 025 [facility] #[id number], [address] [facility] [place], [address], 09/20/2024 15:04:31 Patient TargetsNo targets recorded. Patient Instructions Encounter Date Encounter Id Patient Instructions Last Modified By Organization Details Last Modified Time 10/31/2023 [id number] high blood pressure: care instructions Not available 10/31/2023 15:20:37 learning about high blood pressure Not available 10/31/2023 15:20:37 aortic valve stenosis: care instructions Not available 10/31/2023 15:20:37 09/20/2024 [id number] high blood pressure: care instructions Not available 09/20/2024 15:35:55 learning about high blood pressure Not available 09/20/2024 15:35:54 Reason for Referral Orthopedic Surgeon Referral for Left foot drop odd foot drop after a fall on new prosthetic knee pt has developed an odd foot drop after a fall last week please see LONNIE Referring Physician: Mustapha Bustos, Internal Medicine, Encounter Date: 09/20/2024 Results Created Date Observation Date Name Description Value Unit Range Abnormal Flag Note LastModifiedBy Organization Detail LastModifiedTime 12/16/19 24 12/12/2023 MRI, shoul mayela, w/o contr ast No observ ation record ed. [address] (Medical Records) [address] [place], [address], 12/23/2023 08:21:06 01/04/20 24 01/04/2024 CT, chest , w/ contr ast No observ ation record ed. [address] (Medical Records) [address] [place], [address], 01/04/2024 19:17:44 01/04/20 24 01/04/2024 CT, abdom en + pelvi s, w/ contr ast No observ ation record ed. [address] (Medical Records) [address] [place], [address], 01/04/2024 19:18:13 01/04/20 24 01/04/2024 CT, cervi urmila spine , w/o contr ast No observ ation record ed. [address] (Medical Records) [address] [facility] [place], [address], 01/04/2024 19:18:41 01/04/20 24 01/04/2024 CT, head + brain , w/o contr ast No observ ation record ed. [address] (Medical Records) [address] [place], [address], 01/04/2024 19:19:07 Result Notes None recorded. Problems Name Problem SNOMED Code Status Onset Date Resolution Date Notes Provider Name and Address Organization Details Recorded Time Sleep apnea 90126990 Active 2017 Not Available [facility] 3 15:17:07 Essential hypertens ion 91129709 Active 2017 Not Available [facility] 3 15:17:07 History of cerebrova scular accident 401461509 Active 2017 Not Available [facility] 3 15:17:07 Edema 434570631 Active 2017 Not Available [facility] 3 15:17:07 Hypothyro idism 87324701 Active 2017 Not Available [facility] 3 15:17:07 Aortic valve stenosis 09099815 Active 2017 Not Available [facility] 3 15:17:07 Anxiety 63259757 Active 2017 Not Available [facility] 3 15:17:07 Depressiv e disorder 31221747 Active 2017 Not Available [facility] 3 15:17:07 Migraine 93707151 Active 2017 Not Available [facility] 3 15:17:07 Osteoarth ritis of knee 702101184 Active 2017 left knee Not Available [facility] 3 15:17:07 Hyperchol esterolem ia 63091859 Active 2017 Not Available [facility] 3 15:17:07 Idiopathi c periphera l neuropath y 93947376 Active 2018 Not Available [facility] 3 15:17:07 Impaired fasting glycemia 417001367 Active 2019 Not Available [facility] 3 15:17:07 Fatigue 52960196 Active 2021 Not Available [facility] 3 15:17:07 COVID-19 292284192 Active 2021 Not Available [facility] 3 15:17:07 Acute bronchiti s 30662839 Active 2022 Not Available [facility] 3 15:17:07 Orthostat ic hypotensi on 71045471 Active 2022 Not Available [facility] 3 15:17:07 Dizziness 922167307 Active 2022 Not Available [facility] 3 15:17:07 Cough 54467183 Active 2022 PEGGY TAVAREZ [address] [place], [address], [facility] 3 10:52:11 Pain of left shoulder joint 441787699309 19914 Active 2023 PEGGY TAVAREZ [address] [place], [address], [facility] 4 12:05:53 Rupture of rotator cuff of left shoulder 135972691754 99133 Active 2023 Mustapha Bustos DO [address] [place] [address], [address], [facility] 4 15:17:46 Claustrop hobia 89701017 Active 2023 PEGGY TAVAREZ [address] [place] [address], [address], [facility] Internal [facility] 4 15:20:28 Partial thickness rotator cuff tear 293087352 Active 2023 Mustapha Bustos DO [address] [place] [address], [address], [facility] 4 21:42:13 Fall Active 2023 PEGGY TAVAREZ [address] [place] [address], [address], [facility] 4 13:55:20 Osteoarth ritis of left knee joint 155751777655 109 Active 2023 PEGGY TAVAREZ [address] [place] [address], [address], [facility] 4 13:56:17 Left foot drop 849516616126 105 Active 2024 Mustapha Bustos DO [address] [place] [address], [address], [facility] 5 15:33:49 Problem Notes None recorded. Medical Equipment None Reported. Allergies Allergen ID Allergen Name Allergen Category Reaction Reaction Severity Criticality Documentation Date Start Date Code Code System Note Provider Name and Address Organization Details Recorded Time 2251 azithromy nia medicatio n Not available Not available Not available 12/29/2017 35406 [facility] 08:[facility]44 Medications Name Sig Start Date Stop Date Status Note LastModified by Organization Details LastModified Time Prescriptio n - Prior Authorizati on Request 12/29 completed Not Available Not Available Not Available neuropathy 1.0 (diclofenac 3 + doxepin 2.5 + gabapentin 3 + lidocaine 5) APPLY 1-2 PUMPS (1-2 GRAMS) TO BOTH FEET TWICE DAILY 07/16 completed Not Available Not Available Not Available celecoxib 200 mg capsule TAKE 1 CAPSULE BY MOUTH EVERY DAY 09/20 completed Not Available Not Available Not Available Santyl 250 unit/gram topical ointment APPLY TO CLEANSED AFFECTED AREA BY TOPICAL ROUTE ONCE DAILY active Not Available Not Available No t Available acetaminoph en 325 mg tablet TAKE [...] Not Available Not Available No t Available clobetasol 0.05 % topical cream APPLY [...] No t Available tramadol 50 mg tablet TAKE 1 TABLET EVERY4- 6 HOURS BY ORAL ROUTE NEEDED FOR 7 DAYS. 09/20 completed Not Available Not Available Not Available butalbital- acetaminoph en-caffeine 50 mg-325 mg-40 mg tablet TAKE 1 TABLET BY MOUTH EVERY 8 HOURS NEEDED FOR 30 DAYS 09/20 completed Not Available Not Available Not Available simvastatin 40 mg tablet TAKE 1 TABLET BY MOUTH EVERY DAY active Not Available Not Available No t Available levothyroxi ne 25 mcg tablet 1 po daily 02/02 completed Not Available Not Available Not Available bupropion HCl 100 mg tablet Take 1 tablet twice a day by oral route for 30 days. 09/20 completed Not Available Not Available Not Available [...] gabapentin 100 mg capsule TAKE 2 CAPSULES BY MOUTH EVERY DAY active Not Available [...] RASH ON NECK TWICE DAILY UNTIL RESOLVED 07/30 completed Not Available Not Available Not Available cefdinir 300 mg capsule TAKE 1 [...] completed Not Available Not Available Not Available oxycodone 5 mg tablet TAKE 1 TAB BY MOUTH EVERY 4-6 HOURS FOR SEVERE PAIN 09/20 completed Not Available Not Available Not Available enoxaparin 30 mg/0.3 mL subcutaneou s syringe Inject 0.3 mL every 12 hours by subcutane ous route. 07/30 completed Not Available Not Available Not Available enoxaparin 80 mg/0.8 mL subcutaneou s syringe INJECT 1 PEN SUBCUTANE OUSLY TWICE A DAY FOR 1 DAYS 07/30 completed Not Available Not Available Not Available chlorhexidi ne gluconate 0.12 % mouthwash PLEASE SEE ATTACHED FOR DETAILED DIRECTION S 07/30 completed Not Available Not Available Not Available Coumadin 02/07 completed Not Available Not Available Not Available Vitals Date Recorded Body height Body mass index (BMI) Body weight Heart rate Oxygen saturation Oxygen saturation in Arterial blood by Pulse oximetry Systolic And Diastolic Provider Name and Address Organization Details Last Updated DateTime 152.4 cm 37.9 kg/m2 90175.9 2 g 75 /min 96 % 96 % 124/84 mm[Hg] Mustapha A. Bigda, DO [address] [place], [address], [facility] 5 11:29:41 Date Recorded Body height Body mass index (BMI) Body weight Oxygen saturation Oxygen saturation in Arterial blood by Pulse oximetry Heart rate Systolic And Diastolic Provider Name and Address Organization Details Last Updated DateTime 5 152.4 cm 36.1 kg/m2 60666.5 9 g 96 % 96 % 60 /min 132/78 mm[Hg] [facility] 5 15:09:46 Date Recorded Body height Body mass index (BMI) Body weight Heart rate Oxygen saturation Oxygen saturation in Arterial blood by Pulse oximetry Systolic And Diastolic Provider Name and Address Organization Details Last Updated DateTime 4 152.4 cm 37.1 kg/m2 05545.5 5 g 69 /min 97 % 97 % 130/72 mm[Hg] Maria Esther Corley [facility] 4 13:32:05 Social History Question Answer Notes LastModified by Organizat ion Details LastModified Time Tobacco Smoking Status Never Smoker Not Available [facility] 02/22/2020 03:36:24 What Was The Date Of Your Most Recent Tobacco Screening? 09/20/2024 [email or web address] Information not available 09/20/2024 Sex: Unknown Functional Status Question Answer Note LastModified by Organization D etails LastModified Time Do you or have you ever used any other forms of tobacco or nicotine? No [email or web address] Information not available 04/06/2024 Mental Status None recorded. Family History Nothing Reported. Medical History No medical history recorded. Gynecological HistoryNo gynecological history recorded. Obstetrics History GPAL:G 0 P 0 0 0 0 Immunizations Vaccine Type Date Status Note Provider Nam e and Address Organization Details Recorded Time COVID-19, mRNA, LNP-S, PF, 100 mcg/0.5mL dose or 50 mcg/0.25mL dose 1 completed Irena fountain [facility] Internal [facility] 11/01/2020 15:35:49 COVID-19, mRNA, LNP-S, PF, 100 mcg/0.5mL dose or 50 mcg/0.25mL dose 1 completed Irena fountain [facility] 04/18/2021 11:03:52 Influenza, split virus, quadrivalent, preservative 1 completed Irena fountain [facility] 04/18/2021 11:03:59 Influenza, split virus, quadrivalent, preservative 8 completed Not Available [facility] 05/08/2019 02:46:31 Influenza, split virus, quadrivalent, preservative 9 completed Liliane fountain [facility] 06/19/2020 11:20:18 Influenza, split virus, quadrivalent, preservative 1 completed Liliane fountain [facility] 06/19/2020 11:20:18 COVID-19, mRNA, LNP-S, PF, 100 mcg/0.5mL dose or 50 mcg/0.25mL dose 1 completed Irena fountain [facility] 11/01/2020 15:35:56 Past Encounters Encounter ID Performer Location Encounter Start Date Encounter Closed Date Diagnosis/Indication Diagnosis SNOMED-CT Code Diagnosis ICD10 Code Diagnosis Note [id number] Mustapha Bustos [address] [address] 12/29/2017 11:41:39 12/29/2017 12:36:56 Edema 258039469 R60.9 History of cerebrovascular accident 588582004 Z86.73 Depressive disorder 3548 9007 F33.8 Hypothyroidism 00180435 E03.9 Essential hypertension 87009425 I10 Aortic valve stenosis 60 029022 I35.0 Sleep apnea 41483053 G47 .30 Anxiety ab out loss of memory 546195245 F41.8 Lesion of vulva 63985296 6 N90.9 [id number] Mustapha Bustos [facility] [address] [address] 02/02/2018 09:53:50 02/02/2018 11:21:20 Hypothyroidism 70308597 E03.9 Impaired f asting glycemia 175192050 R73.01 Essential hypertension 71593395 I10 stable Aortic valve stenosis 60 246999 I35.0 up to date echo Administra tion of influenza vaccine 66364930 Z23 Depressive disorder 3548 9007 F33.8 [id number] [facility] [address] [facility],[place] [address] 04/07/2018 08:54:56 04/10/2018 11:16:49 Screening procedure 64255331 Z13.9 Edema 674522117 R60.9 Depressive disorder 3548 9007 F33.8 Hypothyroidism 07159772 E03.9 Anxiety 28842129 F41.9 Essential hypertension 45254752 I10 stable Aortic valve stenosis 60 589631 I35.0 up to date echo- due 08/2018 Sleep apnea 85126573 G47 .30 compliant Hypercholesterolemia 136 82205 E78.00 Impaired f asting glycemia 610540919 R73.01 Active or passive immunization 786216080 Z23 [id number] Karen Blanchard NP, S [facility] [address] [facility],[place] [address] 07/08/2018 09:29:55 07/08/2018 14:30:43 Adult health examination 809459982 Z00.01 Active or passive immunization 194212084 Z23 History of cerebrovascular accident 273670981 Z86.73 recent INR wnl Depressive disorder 3548 9007 F33.8 stable Hypothyroidism 77864140 E03.9 follow Essential hypertension 53740278 I10 stable Aortic valve stenosis 60 763030 I35.0 schedule echo- due 08/2018 Sleep apnea 01235035 G47 .30 compliant Hypercholesterolemia 136 98197 E78.00 follow Osteoarthr itis of knee 768585984 M17.9 [id number] Mustapha Bustos [facility] [address] [facility],[place] [address] 04/28/2019 11:00:47 04/28/2019 11:41:26 Hypothyroidism 83752977 E03.9 needs tsh Essential hypertension 52660999 I10 will need lipid and cmp Impaired f asting glycemia 060409466 R73.01 will follow and will need lab History of cerebrovascular accident 481977912 Z86.73 stable and is without issue Aortic valve stenosis 60 696786 I35.0 stable recent echo and is stable as of june 2018 Osteoarthr itis of knee 703641581 M17.9 [place] [id number] [facility] [address] [facility], [place] [address] 08/02/2019 11:23:11 08/02/2019 12:00:25 Essential hypertension 67642969 I10 did real well with lab bps are excellent no cp no sob Hypothyroidism 29045177 E03.9 last tsh is notmal at 3.7 rechk in 6 months Hypercholesterolemia 136 27821 E78.00 LDL is 132 HDL is 552 TRIG is 70 Idiopathic peripheral neuropathy 50532084 G60.9 seems stable Edema 654779751 R60.9 seems to come and go not really any change [id number] Mustapha Bustos [facility] [address] [facility],[place] [address] 06/19/2020 11:03:08 06/19/2020 11:53:47 Essential hypertension 42099946 I10 BP stable on medication s and no side effects no interventi on needed at this time Hypothyroidism 35585451 E03.9 will recheck her levels and fu with results Impaired f asting glycemia 829001272 R73.01 will recheck BW and also check A1c to make sure patient has developed diabetes (as she has hx IFG) Screening for cardiovascular system disease 637268196 Z13.6 needs recheck of cholestero l to see if medication change of adjustment is needed for simvastati n Hyperlipidemia 70819471 E78.5 will fu with results [id number] [facility] [address] [facility],[place] [address] 05/23/2021 08:15:16 05/28/2021 10:41:37 Depressive disorder 37344609 F33.8 stable Anxiety 91861097 F41.1 stable Aortic valve stenosis 60 089378 I35.0 stable Essential hypertension 31459474 I10 BP stable on medication s and no side effects no interventi on needed at this time Hypercholesterolemia 136 22318 E78.2 needs BW Hypothyroidism 23045924 E03.9 will recheck her levels and fu with results Atopic dermatitis 047117 L20.89 will trial topical cream Motion sickness 50160983 T75.3XXA needs patch [id number] Mustapha Bustos [facility] [address] [facility] [address],[place] [address] 07/16/2022 14:15:50 07/17/2022 08:23:41 Essential hypertension 45578255 I10 BP stable on medication s and no side effects no interventi on needed at this time Depressive disorder 3548 9007 F33.8 stable [id number] Mustapha Levinekeke [facility] [address] [facility] [address] [place] [address] 01/07/2023 13:53:57 01/07/2023 15:03:21 Essential hypertension 78963636 I10 BP stable on medication s and no side effects no interventi on needed at this time Hypercholesterolemia 136 45923 E78.2 needs BW Hypothyroidism 35104275 E03.8 will recheck her levels and fu with results Atopic dermatitis 512777 L20.89 will trial topical cream [id number] Mustapha Levinekeke [facility] [address] [facility] [address] [place] [address] 02/07/2023 14:27:17 02/07/2023 15:04:49 Orthostatic hypotension 03562632 I95.1 adjusted lisinopril dose Dizziness 462105824 R42 resolved [id number] Mustapha Bustos [facility] [address] [facility] [address] [place] [address] 03/10/2023 11:14:56 03/10/2023 11:53:48 Essential hypertension 51383038 I10 BP stable on medication s and no side effects no interventi on needed at this time Hypothyroidism 53473348 E03.8 will recheck her levels and fu with results [id number] Mustapha Levinekeke [facility] [address] [facility] [address],[place] [address] 04/16/2023 09:11:18 04/16/2023 11:02:48 Essential hypertension 34106971 I10 stable off the medication Cough 36765875 R05.1 will start on cough suppressan t [id number] Mustapha Bustos [facility] [address] [facility], ite [facility] [place] [address] 09/19/2023 11:37:48 09/19/2023 16:26:10 Depression screening 941637862 Z13.31 negative Pain of le ft shoulder joint 2363769083 4077637 M25.512 will give tramadol for pain [id number] Mustapha Bustos [facility] [address] [facility], [place] [address] 10/31/2023 14:38:05 10/31/2023 15:41:44 Rupture of rotator cuff of left shoulder 6903492393 5537103 M75.102 Essential hypertension 61303347 I10 did real well with lab bps are excellent no cp no sob Aortic valve stenosis 60 057513 I35.0 stable recent echo and is stable as of june 2018 History of cerebrovascular accident 894241883 Z86.73 stable and is without issue Osteoarthr itis of knee 994112759 M17.9 will be getting left knee surg on of this month will need 4 day bridge and will ahve them call me with dose of lovenox that they already have in the fridge [id number] Mustapha Bustos [facility] [address] [facility], [address] [facility] [address] 01/14/2024 08:09:32 01/14/2024 11:43:08 Fatigue 39697940 R53.83 will set up with lab work for the fatigueals o suggested for new sleep study [id number] Mustapha Bustos [facility] [address] [facility], it[address] [facility] [place] [address] 04/06/2024 13:16:21 04/06/2024 14:12:13 Fall R29.6 stable Depressive disorder 3548 9007 F33.8 stable Osteoarthr itis of left knee joint 7265111335 24683 M17.12 has TKR on 06/17/24wil l f/u with their office to see when she needs her pre op Essential hypertension 70373111 I10 stable off the medication [id number] Mustapha Bustos DO [facility] [address] [facility] [address] [place] [address] 07/30/2024 11:23:39 07/30/2024 14:42:12 Essential hypertension 94853057 I10 did real well with lab bps are excellent no cp no sob Hypercholesterolemia 136 36731 E78.2 LDL is 132 HDL is 552 TRIG is 70 Hypothyroidism 36574905 E03.8 last tsh is notmal at 3.7 rechk in 6 months Depression screening 171 396367 Z13.31 [id number] Mustapha Bustos DO [facility] [address] [facility] [address],[place] [address] 09/20/2024 14:56:48 09/20/2024 15:40:01 Depression screening 563341881 Z13.31 Essential hypertension 19088768 I10 did real well with lab bps are excellent no cp no sob History of total knee arthroplasty 7906481023 105 Z96.652 was doing great until the fallshe needs to be seen lonnie as this gait is abnormal Left foot drop 915121473 1 28839 M21.372 Health Concerns Section Related Observation LastModified by Organization Detai ls LastModified Time None Recorded Concern Status LastModified by Organization Details LastModified Time None Recorded Advance Directives Directive None Recorded Payers Insurance Date Sequence Insurance Name Policy Number Policy Lowe Covered Member ID Lowe Member ID Guarantor Name 01/14/2024 2 [place]: [employer] Yadira Mena [id number] Yadira Mena 01/14/2024 1 [facility] - DOS ON OR AFTER 2022 - MEDICARE [place]VANTAGE [place]MEDICARE REPLACEMENT/AD VANTAGE - PPO) Yadira Mena [id number] Yadira Mena 01/14/2024 1 [facility] [facility] - DOS PRIOR TO 2022 - DUAL ELIGIBLE (MEDICARE REPLACEMENT/AD VANTAGE - HMO) Yadira Mena [id number] Yadira Mena 01/14/2024 1 [place] [id number] Yadira Mena [id number] Yadira Mena 09/19/2024 1 [facility] - DOS ON OR AFTER 2022 - MEDICARE ADVANTAGE [place] (MEDICARE REPLACEMENT/AD VANTAGE - PPO) Yadira J Trina [id number] Yadira Trina Notes Date Note Type Note Provider Name and Address Organization Details Recorded Time 10/31/19 24 text/htm l HERE for pain in her shoulder left Mustapha Bustos DO [address] [place], [address], [facility] 10/31/2023 15:22:25 01/14/20 24 text/htm l ER f/u The patient is participating in this appointment via telemedicine communication with a phone call/video calling service ([employer])The patient consents to use of these platforms [...] fu after blood work PEGGY TAVAREZ [address] [place], [address], [facility] 01/14/2024 10:43:54 04/06/20 24 text/htm l f/u medication check fall: stable knee replacement: scheduled for 06/17will f/u with pre op no medication changes will be having to do a lovenox bridge prior to the surgery, ortho will be taking care of it had her five teeth pulled, doing fine using her walker appropriately otherwise no major changestaking her medications PEGGY TAVAREZ [address] [place], [address], [facility] 04/06/2024 14:07:52 07/31/19 25 text/htm l Care Management - Acquired HypothyroidismReported bypatient.Medication Education:understands administration; understands effect of concurrent medications; understands missed doses; understands consequences of noncompliance Associated Symptoms:no abnormal weight gain; no tiredness; no dry skin; no cold intolerance; no constipation; no diarrhea; no goiterCare Management - HyperlipidemiaReported bypatient.Control:usually well controlled; improving; at goal Complications:no coronary artery disease; no heart attack; no cardiovascular disease; no pancreatitis; no strokeCare Management - HypertensionReported bypatient.Self Care:under emotional stress Severity:symptoms are improving; does not interfere with daily activities Associated Symptoms:no dizziness; no lightheadedness; no chest pain; no shortness of breath; no palpitations; no edema; no calf muscle cramps; no blurred vision; no confusion; no headaches; no fatigue Mustapha Bustos DO [address] [place] [address], [address], [facility] 07/30/2024 11:52:32 09/21/19 25 text/htm l here for rechkhad a fall las t week since then it appears she has a abnormal gait noticed by her dphys therapistvery abnormal and almost like a foot f=drop this has all ocurred after the fall reviewed lab in detail Mustapha Bustos DO [address] [place], [address], [facility] 09/20/2024 15:36:35 OBGyn Episode No OBEpisode recorded.
== END 2024-11-05 11:14 | disposition home or self-care (01) ==
LOC: HO.ACS 10:42
PROVIDERS: PCP Internal Medicine; Visit Provider Internal Medicine Medical Oncology
DX: Z79.01 Long term (current) use of anticoagulants (principal)

== ENCOUNTER → 2024-11-05 10:42 | Outpatient (BNVA) | payer OTHER, SELFPAY | PROVIDERS: PCP Internal Medicine; Visit Provider Internal Medicine Medical Oncology | DX: Z86.73 Personal history of transient ischemic attack (TIA), and cerebral infarction without residual deficits (principal); Z79.01 Long term (current) use of anticoagulants; Z51.81 Encounter for therapeutic drug level monitoring | CPT/HCPCS: 85610; 99211 ==

== ENCOUNTER 2024-11-19 10:51 | Outpatient (AMB) | payer OTHER, SELFPAY ==
--- OUTSIDE RECORDS SUMMARY | 2024-11-19 11:00 | XMS_ITS | Patient Health Record ---
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) Active confirmed Plan Of Treatment Future Test Test Name Order Date COLONOSCOPY 12/18/2016 COLONOSCOPY 08/20/2021 Insurance Providers Payer Name Payer Address Payer Phone Subscriber Number Group Number Insured Name Patient Relationship to Insured Coverage Start Date Coverage End Date [facility] [address] [place] [phone] [id number] MARJAN MENDOZA Self - patient is the insured MEDICAID OF [facility] [address] [place] [address] [id number] MARJAN MENDOZA Self - patient is the insured MEDICARE OF [place] [address] [place] [id number] [id number] MARJAN MENDOZA Self - patient is the insured Medical (General) History Medical History History ICD Code stroke x2 hypertension obstructive sleep apnea, uses CPAP hypothyroidism depression elevated cholesterol Surgical History Surgery Date(Month/Year) knee surgery x5
--- OUTSIDE RECORDS SUMMARY | 2024-11-19 11:00 | XMS_ITS | Patient Health Record ---
[facility] Address [address] [place] [address] Care Team Providers Care Organ Assembler Name Role Phone Mustapha Bustos MD Primary Care Provider Asha Vail Unavailable [phone] Allergies Allergen (clinical drug ingredient) Drug/Non Drug [...] Status W/U Status Risk Notes Problem Neuropathy (729463417) Neuropathy (G62.9) Active confirmed Problem Bilateral atherosclerosis of arteries of lower limbs (disorder) (6841848925500442 7) Atherosclerosis of artery of both lower extremities (I70.203) Active confirmed Problem Ischemic ulcer o f left heel, 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) Active confirmed Response to treatment Vital Signs Blood pressure diastolic 70 mm Hg 05/04/2024 Height 5ft in 05/04/2024 Blood pressure systolic 116 mm Hg 05/04/2024 Weight 190 lbs 05/04/2024 BMI 37.1 kg/m2 05/04/2024 Encounters Encounter Location Date Provider Diagnosis [address] [address] 11/24/2023 Asha Perica Generalized edema R6 0.1 ; Tinea unguium B35.1 ; Atherosclerosis of artery of both lower extremities I70.203 ; Pain in left toe(s) M79.675 and Neuropathy G62.[address] [address] 02/06/2024 Asha Perica Generalized edema R6 0.1 ; Tinea unguium B35.1 ; Atherosclerosis of artery of both lower extremities I70.203 ; Pain in left toe(s) M79.675 and Neuropathy G62.[address] [address] 05/04/2024 Asha Perica Tinea unguium B35.1 ; [...] Details Provider Name:Asha sparks, 01/18/2025 03:45:00 PM, [address] [place] [address], [address], Insurance Providers Payer Name Payer Address Payer Phone Subscriber Number Group Number Insured Name Patient Relationship to Insured Coverage Start Date Coverage End Date [facility] SCO Claims [address] [place] [phone] [id number] Yadira Mena Self - patient is the insured Medical (General) History Medical History History ICD Code Anxiety Depression Headaches/Migraines High blood pressure Neuropathy Stroke thyroid Chicken pox Periadonal Disease Rotator cuff tear Surgical History Surgery Date(Month/Year) 5 teeth extraction 11/13/23
[2024-11-19 11:13] LABS: Prothrombin Time Whole Bld POC 36.0 sec (11.1-13.5); ~PT, ~INR - Anti Coag Clinic 3.0 (0.9-1.1)
--- NOTE | 2024-11-19 11:21 | MHC.OFFVISCO ---
Intake Intake Visit Reasons: Anticoagulation Allergies erythromycin base (ERYTHROMYCIN BASE) Allergy (Unknown, Verified 11/05/24 10:50) Nausea and Vomiting Nursing Note INR: 3.0 in therapeutic range Medications and supplements reviewed No changes in health, diet, medications, or supplements, Denies any signs and symptoms of bleeding or bruising or clotting. Bleeding, bruising, clotting discussed Nutritional guidance given Dose: keep same dose 1.25mg x 1 day/ 2.5mg x 6 days F/U INR: 3 weeks Patient verbalizes understanding of instructions given Anti-Coag Initial Assessment Social Hx Patient Tobacco Use Status: Never used Tobacco alcohol intake: never Alcohol intake frequency: does not drink Coding Level of Care Code Est Patient Level 1 Diagnoses Current use of anticoagulant therapy Z79.01 Results AMB INR Fingerstick AMB INR Fingerstick 3.0 Last Edit by Alexsandra Brar RN on 11/19/24 11:15 manual entry Assessment & Plan Assessment & Plan (1) Current use of anticoagulant therapy: Code(s): 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
== END 2024-11-19 11:24 | disposition home or self-care (01) ==
LOC: HO.ACS 10:51
PROVIDERS: PCP Internal Medicine; Visit Provider Internal Medicine Medical Oncology
DX: Z79.01 Long term (current) use of anticoagulants (principal)

== ENCOUNTER → 2024-11-19 10:51 | Outpatient (BNVA) | payer OTHER, SELFPAY | PROVIDERS: PCP Internal Medicine; Visit Provider Internal Medicine Medical Oncology | DX: Z79.01 Long term (current) use of anticoagulants (principal) | CPT/HCPCS: 85610; 99211 ==

== ENCOUNTER 2024-12-10 12:58 | Outpatient (AMB) | payer OTHER, SELFPAY ==
--- OUTSIDE RECORDS SUMMARY | 2024-12-10 13:02 | XMS_ITS | Patient Health Record ---
Author [facility] Address [address] [place] [address] Care Team Providers Care Creative Intern Name Role Phone Mustapha Bustos MD Primary Care Provider Asha Vail Unavailable [phone] Allergies Allergen (clinical drug ingredient) Drug/Non Drug [...] Status W/U Status Risk Notes Problem Neuropathy (455542239) Neuropathy (G62.9) Active confirmed Problem Bilateral atherosclerosis of arteries of lower limbs (disorder) (2110109830991554 7) Atherosclerosis of artery of both lower extremities (I70.203) Active confirmed Problem Ischemic ulcer o f left heel, 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 [address] 05/04/2024 Asha Perica Tinea unguium B35.1 ; [...] Notes 02/06/2024 Generalized edema (ICD-10 - R60.1) 05/04/2024 Tinea unguium (ICD-10 - B35.1) 05/04/2024 Xerosis of skin (ICD-10 - L85.3) 05/04/2024 Generalized edema (ICD-10 - R60.1) 02/06/2024 Tinea [...] Details Provider Name:Asha sparks, 01/18/2025 03:45:00 PM, [address] [place], [address], Insurance Providers Payer Name Payer Address Payer Phone Subscriber Number Group Number Insured Name Patient Relationship to Insured Coverage Start Date Coverage End Date [facility] SCO Claims [address] [facility] [place] [phone] [id number] Yadira Mena Self - patient is the insured Medical (General) History Medical History History ICD Code Anxiety Depression Headaches/Migraines High blood pressure Neuropathy Stroke thyroid Chicken pox Periadonal Disease Rotator cuff tear Surgical History Surgery Date(Month/Year) 5 teeth extraction 11/13/23
--- OUTSIDE RECORDS SUMMARY | 2024-12-10 13:02 | XMS_ITS | Patient Health Record ---
Author Organization [facility] Address [address] [place] [address] Care Team Providers Care Infectious Disease Technician Name Role Phone Mustapha Bustos Primary Care Provider Bran Andrews Jr Unavailable [phone] Allergies Allergen (clinical drug ingredient) Drug/Non [...] Problem Status W/U Status Risk Notes Problem [id number] Colon cancer screening (Z12.11) Active confirmed Problem 567022776 intermediate (curre nt) use of anticoagulants (Z79.01) Active confirmed Plan Of Treatment Future Test Test Name Order Date COLONOSCOPY 12/18/2016 COLONOSCOPY 08/20/2021 Insurance Providers Payer Name Payer Address Payer Phone Subscriber Number Group Number Insured Name Patient Relationship to Insured Coverage Start Date Coverage End Date [facility] [address] [place] [phone] [id number] MARJAN MENDOZA Self - patient is the insured MEDICAID OF [facility] [address] [place] [address] [id number] MARJAN MENDOZA Self - patient is the insured MEDICARE OF [place] [address] [place] [address] [id number] MARJAN MENDOZA Self - patient is the insured Medical (General) History Medical History History ICD Code stroke x2 hypertension obstructive sleep apnea, uses CPAP hypothyroidism depression elevated cholesterol Surgical History Surgery Date(Month/Year) knee surgery x5
[2024-12-10 13:07] LABS: Prothrombin Time Whole Bld POC 34.9 sec (11.1-13.5); ~PT, ~INR - Anti Coag Clinic 2.9 (0.9-1.1)
--- NOTE | 2024-12-10 13:08 | MHC.OFFVISCO ---
Intake Intake Visit Reasons: Anticoagulation Allergies erythromycin base (ERYTHROMYCIN BASE) Allergy (Unknown, Verified 12/10/24 13:01) Nausea and Vomiting Medication List - Last Reconciled 12/10/24 by Clemencia Morales RN acetaminophen (Tylenol) 325 mg PO Q4H PRN bupropion HCl 100 mg PO BID rlpxpkqtfa-esthzevpuyqcf-ctgw 50-325-40 mg 1 tab PO TID PRN celecoxib 200 mg PO DAILY PRN cholecalciferol (vitamin D3) (Vitamin D3) 25 mcg PO DAILY citalopram 40 mg PO DAILY clotrimazole-betamethasone 1-0.05 % 1 appl topical BID collagenase clostridium histo. (Santyl) topical DAILY diazepam 2 mg PO TID PRN gabapentin 200 mg PO BEDTIME levothyroxine 50 mcg PO DAILY lisinopril 10 mg PO DAILY lorazepam 1 mg PO TID oxycodone mg PO simvastatin 20 mg PO BEDTIME simvastatin 40 mg PO BEDTIME tramadol 50 mg PO Q4H PRN walker As directed warfarin See Protocol 2.5 mg orally 1.25 NG SUN/ 2.5MG X 6 DAYS; Nursing Note INR: 2.9- in therapeutic range of 2-3 Medications and supplements reviewed- no changes No changes in health, diet, medications, or supplements, Denies any signs and symptoms of bleeding or bruising or clotting. Bleeding, bruising, clotting discussed Nutritional guidance given Dose: 2.5mg x 6, 1.25mg x 1 F/U INR: 3 weeks Patient verbalizes understanding of instructions given pt amb to acs with walker, acompanied by sister pt states lazer surg both eyes, 12/24/24 left, 01/07/25 right, will question inr prior and question hold will call acs with any changes Anti-Coag Initial Assessment Social Hx Patient Tobacco Use Status: Never used Tobacco alcohol intake: never Alcohol intake frequency: does not drink Coding Level of Care Code Est Patient Level 1 Diagnoses Current use of anticoagulant therapy Z79.01 Assessment & Plan Assessment & Plan (1) Current use of anticoagulant therapy: Code(s): Z79.01 - meterman (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
== END 2024-12-10 13:52 | disposition home or self-care (01) ==
LOC: HO.ACS 12:58
PROVIDERS: PCP Internal Medicine; Visit Provider Internal Medicine Medical Oncology
DX: Z79.01 Long term (current) use of anticoagulants (principal)

== ENCOUNTER → 2024-12-10 12:58 | Outpatient (BNVA) | payer OTHER, SELFPAY | PROVIDERS: PCP Internal Medicine; Visit Provider Internal Medicine Medical Oncology | DX: Z86.73 Personal history of transient ischemic attack (TIA), and cerebral infarction without residual deficits (principal); Z79.01 Long term (current) use of anticoagulants; Z51.81 Encounter for therapeutic drug level monitoring | CPT/HCPCS: 85610; 99211 ==

== ENCOUNTER 2024-12-31 11:20 | Outpatient (AMB) | payer OTHER, SELFPAY ==
[2024-12-31 11:30] LABS: Prothrombin Time Whole Bld POC 30.5 sec (11.1-13.5); ~PT, ~INR - Anti Coag Clinic 2.5 (0.9-1.1)
--- NOTE | 2024-12-31 11:38 | MHC.OFFVISCO ---
Intake Intake Visit Reasons: Anticoagulation Allergies erythromycin base (ERYTHROMYCIN BASE) Allergy (Unknown, Verified 12/31/24 11:24) Nausea and Vomiting Medication List - Last Reconciled 12/31/24 by Alexsandra Brar RN acetaminophen (Tylenol) 325 mg PO Q4H PRN bupropion HCl 100 mg PO BID rotuxhwluw-hxojyfywcdtkj-fujq 50-325-40 mg 1 tab PO TID PRN celecoxib 200 mg PO DAILY PRN cholecalciferol (vitamin D3) (Vitamin D3) 25 mcg PO DAILY citalopram 40 mg PO DAILY clotrimazole-betamethasone 1-0.05 % 1 appl topical BID collagenase clostridium histo. 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 Bleeding, bruising, clotting discussed Nutritional guidance given Dose: 1.25mg x 1 day/ 2.5mg x 6 days F/U INR: 1.25mg x 1 day/ 2.5mg x 6 days Patient verbalizes understanding of instructions given Anti-Coag Initial Assessment Social Hx Patient Tobacco Use Status: Never used Tobacco alcohol intake: never Alcohol intake frequency: does not drink Coding Level of Care Code Est Patient Level 1 Diagnoses Current use of anticoagulant therapy Z79.01 Results AMB INR Fingerstick AMB INR Fingerstick 2.5 Last Edit by Alexsandra Brar RN on 12/31/24 11:33 manual entry Assessment & Plan Assessment & Plan (1) Current use of anticoagulant therapy: Code(s): Z79.01 - 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
== END 2024-12-31 11:43 | disposition home or self-care (01) ==
LOC: HO.ACS 11:20
PROVIDERS: PCP Internal Medicine; Visit Provider Internal Medicine Medical Oncology
DX: Z79.01 Long term (current) use of anticoagulants (principal)

== ENCOUNTER → 2024-12-31 11:20 | Outpatient (BNVA) | payer OTHER, SELFPAY | PROVIDERS: PCP Internal Medicine; Visit Provider Internal Medicine Medical Oncology | DX: Z86.73 Personal history of transient ischemic attack (TIA), and cerebral infarction without residual deficits (principal); Z79.01 Long term (current) use of anticoagulants; Z51.81 Encounter for therapeutic drug level monitoring | CPT/HCPCS: 85610; 99211 ==

== ENCOUNTER 2025-01-21 13:38 | Outpatient (AMB) | payer OTHER, SELFPAY ==
--- OUTSIDE RECORDS SUMMARY | 2023-09-26 09:30 | XMS_ITS ---
Author Organization [facility] Address [address] [place] [id number] Care Team Providers Care Industrial Cook Name Role Phone Juli PEARCE, Mustapha Primary Care Provider Asha Vail Unavailable [phone] Encounters Encounter Location Date Provider Diagnosis [address] [address] 09/26/2023 Asha Rehman Plan Of Treatment Next Appt Details Provider Name:Asha sparks, 04/11/2025 03:45:00 PM, [address] [place], [phone], Progress Notes * KELLY Yadira StephensonDOB:[birth year] (59 yo F)Acc No.[id number]:09/26/2023 Progress Note Patient: Yadira CANDELARIO Provider: Anton Rehman DPM :1965 A ge:58 Y S ex:Female Date:09/26/2023 Address:[address] [place], [place] [id number] Pcp:Mustapha Bustos MD Subjective: * Chief Complaints: [...] 09/26/2023 Generated for Renée styles/Ramos/eTransmitting on: 1 01:52 PM EDT
--- OUTSIDE RECORDS SUMMARY | 2025-01-18 11:45 | XMS_ITS ---
Author Organization [facility] Address [address] [place] [address] Care Team Providers Care Rn Recovery Name Role Phone Juli PEARCE, Mustapha Primary Care Provider Asha Vail Unavailable [phone] Allergies Allergen (clinical drug ingredient) Drug/Non Drug [...] Duration) Notes Start Date End Date Status Vitamin D3 Active Gabapentin 100 MG 1 capsule Orally Onc e a day; Duration: 30 day(s) Active SUMAtriptan 20 MG/ACT 1 spray at onset o f headache in one nostril may repeat after 2 hours as needed Nasally Once a day PRn Active Compression Stockings 20-30mm Hg 1 pair With zippers daily; Duration: 30 days Active zzzCompression Stockings 20-30mm Hg . . .; Duration: . Active Lisinopril 10 MG 1 tablet Orally Once a day; Duration: 30 days Active Levothyroxine Sodium 50 MCG 1 tablet in the morning on an empty stomach Orally Once a day; Duration: 30 day(s) Active Warfarin Sodium 2.5 MG 1 tablet Orally O nce a day; Duration: 30 day(s) Active Citalopram Hydrobromide 40 MG 0.5 tablet Orally Once a day; Duration: 30 day(s) Active Simvastatin 20 MG 1 tablet in the even ing Orally Once a day; Duration: 30 day(s) Active Social History Tobacco Use: Social History Observation Description Date Details (start date - stop date) Never Smoker NA - NA Alcohol Screen Question Answer Notes Did you have a drink containing alcohol in the p ast year? No Points 0 Interpretation Negative Tobacco use other than smoking: Question Answer Notes Are you an other tobacco user? No Tobacco Control (Standard) Question Answer Notes Tobacco use: Nonsmoker Additional Findings: Tobacco non-user Current no nsmoker AUDIT-C (Standard) Question Answer Notes Did you have a drink containing alcohol in the p ast year? No Points 0 Interpretation Negative Vital Signs Height 5ft in 01/18/2025 Weight 190 lbs 01/18/2025 BMI 37.1 kg/m2 01/18/2025 Blood pressure systolic 115 mm Hg 01/19/20 25 Blood pressure diastolic 65 mm Hg 025 Encounters Encounter Location Date Provider Diagnosis [facility] [address] [place] [address] 01/18/2025 Asha Rehman Tinea unguium B35.1 ; Atherosclerosis of artery of both lower extremities I70.203 ; Pain in left toe(s) M79.675 and Toe pain, right M79.674 Assessments Encounter Date Diagnosis (ICD Code) Assessment Notes Treatment Notes Treatment Clinical Notes Section Notes 01/18/2025 Tinea unguium (ICD-10 - B35.1) 01/18/2025 Atherosclerosis of artery of both lower extremities (ICD-10 - I70.203) 01/18/2025 Pain in left toe(s) (ICD-10 - M79.675) 01/18/2025 Toe pain, right (ICD-10 - M79.674) 01/18/2025 Other Plan Of Treatment Next Appt Details Follow Up: 2 Months, Reason: Provider Name:Asha sparks, 04/11/2025 03:45:00 PM, [address], [place], [address], Procedure Notes * Category Sub-Category Detail Notes [...] use of a nail nipper and/or dremel-type grinder set up operator internal, to a more viable healthy nail plate [...] to maintain effectiveness in symptomatic relief - 44471 Keratoma Treatment Parring or Cutting o f Benign Hyperkeratotic Lesion(s) (-56) 2-4 Lesions - Due to the at risk nature of the patients medical condition as documented in the exam findings, performance of this keratoderma treatment is medically necessary as its management by an unskilled/untrained nonprofessional would put this patients foot and overall health at risk. Therefore, the benign hyperkeratotic lesions, (2) in total, locations as stated and described in the exam ( plantar medial TA, T5 ), were pared, and/or cut utilizing a sterile 15 blade, tissue nippers, and/or power dremel instrumentation by the physician of record - 10975 Progress Notes * ALIXISHANYadiraDOB:[birth year] (59 yo F)Acc No.[id number]:01/18/2025 Progress Note Patient: Yadira CANDELARIO Provider: Anton Rehman DPM :1965 A ge:59 Y S ex:Female Date:01/18/2025 Address:[address] [place], [place] [id number] Pcp:Mustapha Bustos MD Subjective: * Chief Complaints: * A t Risk FootcarePainful Nail(s) aggrevated by shoes and causing difficulty standing/walking. * HPI: A t Risk footcare: Pt States Last PCP Visit: Nathaniel torres 0 11/03/2024 * ROS: G eneral/Constitutional: Nausea d enies. V omiting d enies. H jacob Thirst d enies. L oss appetite d enies. C hills d enies. F atigue d enies.?Fever d enies. N ight Sweats d enies. U nexplained weight loss a dmits. U nexplained weight gain d enies. H EENTM: Dentures d enies. D izziness d enies. G lasses/contacts a dmits. R etinopathy d enies. B lurred/double vision d enies. T MJ?denies. D ischarge/drainage d enies. I mplants d enies. S ore throat d enies. D ental implants d enies. H aureliano of hearing d enies. D ifficulty chewing/swallowing/speaking d enies. N ose bleeds d enies. S ore mouth d enies. ? R espiratory: On Oxygen d enies. P neumonia/pleurisy d enies.?Bronchitis d enies. E mphysema d enies. C oughing d enies. C ough blood?denies. S hortness of breath d enies. W heezing d enies. C ardiovascular: Pacemaker d enies. M ANALYTICAL SCIENCES DIRECTOR d enies. W PW d enies. C HF d enies. H eart attack d enies. S eptal defect d enies. R apid beat d enies. C hest pain d enies. A trial Fib. d enies. M urmur/Palpitations a dmits. G astrointestinal: Hemorrhoids d enies. S tomach/Abdominal pain d enies. D ark blood stool d enies. I rritable bowel d enies. C onstipation d enies. D iarrhea a dmits. H ematology: Swelling d enies. C lots d enies. V aricose Veins d enies. B ruising d enies. B leeding problem d enies. G enitourinary: Blood urine d enies. F requent/Painfu/urination/bladder control d enies. K idney stones d enies. I nfection (UTI) d enies. N ephropathy a dmits. s ex trans dis (STD) d enies. P rostate d enies. M usculoskeletal: Hammertoes a dmits. B unions d enies. B ack Pain d enies. M uscle Cramps/ Resting d enies. M uscle cramps / walking d enies.?Generalized aches and pains d enies. W eakness d enies. I nteg.: Lloyd d enies. S cars d enies. C orns/calluses?denies. I ngrown nails d enies. P ainful nails d enies. O pen Sores d enies. R ashes d enies. N eurologic: Difficulty sleeping d enies. B rain disorder d enies. N umbness a dmits. B alance trouble d enies. C onfusion d enies. F ainting/blackouts d enies. T ingling a dmits. T remors d enies. * Medical History: * Surgical History: 5 teeth extraction 11/13/23 * Hospitalization/Major Diagno stic Procedure: D enies Past Hospitalization * Family History: M other: alive. F ather: alive. * Social History: T obacco Use: T obacco use other than smoking A re you an other tobacco user? N o Tobacco Control (Standard) T obacco use: N onsmoker A dditional Findings: Tobacco non-user C urrent nonsmoker D rugs/Alcohol: D rugs H ave you used drugs other than those for medical reasons in the past 12 months? N o Alcohol Screen D id you have a drink containing alcohol in the past year? N o P oints 0 I nterpretation N egative M iscellaneous: C affeine: yes, frequency: , 1 cup per day. Children: no. Exercise: yes, walking. Marital status: . Occupation: Retired. D rug/Alcohol: A [place]-C (Standard) D id you have a drink containing alcohol in the past year? N o P oints 0 I nterpretation N egative * Medications: T akingSUMAtriptan 20 MG/ACT Solution 1 spray at onset [...] reviewed and reconciled with the patient * Allergies: E rythromycin: pt gets sickBiaxin: pt gets sickAzithromycin: pt gets sickTylenolCortisoneyes[Allergies Verified] Objective: * Vitals: H t:5ft, Wt:190, BMI:37.1, Shoe size:8.5W, BP:115/65mm Hg, Ht-cm: 152.4 cm, Wt-k.18 kg. * Examination: V ascular: DP PULSES (B): 0/4, B/L. PT PULSES (B): 0/4, B/L. CAPILLARY FILL TIME: delayed, all digits, B/L. TROPHIC CONDITION-TEXTURE/ELASTICITY/TURGOR/HAIR GROWTH (B):? decreased, B/L. TEMPERTURE GRADIENT (C): decreased, cool to cool, proximal to distal, B/L. PIGMENTATION: pale, B/L. EDEMA (C): 2 /4, pitting, B/L, F eet ,. ? N ails: NAILS are: E longated, overgrown, dystrophic, lytic, greater than 3mm thick, discolored and friable with crumbly malodorous subungual debris, with pain on palpation, TA, T1, T2, T3, T4, T5, T6, T7, T8, T9. D ermatologic: SKIN FINDINGS: Skin exam reveals Keratotic lesion(s) located at, Medial plantar, TA, T5,. N eurological: SENSORY: ( Neuro) Neurological exam demonstrates a loss of protective sensation by an absence of tested sensitivity to 5.07 Randlett-Lashawn monofilament at 2 or more sites out of 5 total locations, each foot. G eneral Examination: GENERAL APPEARANCE: R leseals a pleasant, alert, well nourished, well-developed, well hydrated individual, who demonstrates proper attention to hygiene/body habitus, and is in no acute distress, Pt serves as own historian for office visit today. ORIENTED: p lilibethon, place, and time. Assessment: * Assessment: 1. T inea unguium - B35.1 (Primary) 2 . A therosclerosis of artery of both lower extremities - I70.203 3 . P ain in left toe(s) - M79.675 4 . T oe pain, right - M79.674 Plan: * Treatment: * Procedures: D ebride Nail 6-10: Nail debridement D ue to the clinical pathology outlined in the [...] the use of a nail nipper and/or dremel- type grinder set up operator internal, to a more viable healthy nail plate [...] to maintain effectiveness in symptomatic relief - 98886. K eratoma Treatment: Parring or Cutting of Benign Hyperkeratotic Lesion(s) ( -56) 2-4 Lesions - Due to the at risk nature of the patients medical condition as documented in the exam findings, performance of this keratoderma treatment is medically necessary as its management by an unskilled/untrained nonprofessional would put this patients foot and overall health at risk. Therefore, the benign hyperkeratotic lesions, (2) in total, locations as stated and described in the exam ( plantar medial TA, T5 ), were pared, and/or cut utilizing a sterile 15 blade, tissue nippers, and/or power dremel instrumentation by the physician of record - 74094. * Procedure Codes: 1 1721 DEBRIDE NAIL, 6 OR MORE, Modifiers: XS 25197 TRIM SKIN LESIONS, 2 TO 4, Modifiers: XS , Q8 * Preventive Medicine: Screening/Special Tests: F all Risk Screening: T wo or more falls without injury in the past year Plan of Care: D ocumented Type of fall plan of care: B alance, strength and gait training or instruction provided F ALLS: Screening for Future Fall Risk Have you had two or more falls in the past year? Y es Have you had any falls with injury in the past year? Y es * Follow Up: 2 Months * Images: * Sign off status: Completed true * Provider: Anton Rehman DPM Date: 0 01/18/2025 Generated for Renée styles/Ramos/Bon on: 01:52 PM EDT History and Physical Notes * HPI (History of Present Illness) Category Sub-Category Detail Notes Category Not es At Risk footcare Pt States Last PCP Visit: Date: 5 Examination Category Sub-Category Detail Notes Category Not es Neurological SENSORY: (Neuro) Neurolog ical exam demonstrates a loss of protective sensation by an absence of tested sensitivity to 5.07 Randlett-Lashawn monofilament at 2 or more sites out of 5 total locations, each foot Dermatologic SKIN FINDINGS: Skin exam reveal s Keratotic lesion(s) located at, Medial plantar, TA, T5, General Examination GENERAL APPEARANCE: Reveals a pleasant, [...] CONDITION-TEXTURE/ELASTICITY/TURGOR/HAIR GROWTH (B): decreased, B/L EDEMA (C): 2/4, pitting, B/L, F eet , PIGMENTATION: pale, B/L Nails NAILS are: Elongated, overg rown, dystrophic, lytic, greater than 3mm thick, discolored and friable with crumbly malodorous subungual debris, with pain on palpation, TA, T1, T2, T3, T4, T5, T6, T7, T8, T9
[2025-01-21 13:50] LABS: Prothrombin Time Whole Bld POC 33.2 sec (11.1-13.5); ~PT, ~INR - Anti Coag Clinic 2.8 (0.9-1.1)
--- OUTSIDE RECORDS SUMMARY | 2025-01-21 13:52 | XMS_ITS | Patient Health Record ---
Author Organization [facility] Address [address] [place] [address] Care Team Providers Care Test Analyst Name Role Phone Mustapha Bustos MD Primary Care Provider Asha Vail Unavailable [phone] Allergies Allergen (clinical drug ingredient) Drug/Non Drug [...] Once a day; Duration: 30 day(s) Active Vitamin D3 Active Gabapentin 100 MG 1 [...] Hg . . .; Duration: . Active Immunizations Vaccine Route Administration Date Status Comme nts Influenza Unknown 01/22/2024 Administered COVID-19 Moderna Vaccine Unknown 08/17/2020 Administered Second [...] Status W/U Status Risk Notes Problem Neuropathy (928949526) Neuropathy (G62.9) Active confirmed Problem Bilateral atherosclerosis of arteries of lower limbs (disorder) (21139517325265082 ) Atherosclerosis of artery of both lower extremities (I70.203) Active confirmed Vital Signs Blood pressure diastolic 65 mm Hg 01/18/2025 Height 5ft in 01/18/2025 Blood pressure systolic 115 mm Hg 01/18/2025 Weight 190 lbs 01/18/2025 BMI 37.1 kg/m2 01/18/2025 Encounters Encounter Location Date Provider Diagnosis [address] [address] 02/06/2024 Asha Perica Generalized edema R6 0.1 ; Tinea unguium B35.1 ; Atherosclerosis of artery of both lower extremities I70.203 ; Pain in left toe(s) M79.675 and Neuropathy G62.[address] [address] 05/04/2024 Asha Perica Tinea unguium B35.1 ; Xerosis of skin L85.3 ; Generalized edema R60.1 ; Atherosclerosis of artery of both lower extremities I70.203 ; Pain in left toe(s) M79.675 ; Neuropathy G62.9 ; Ischemic ulcer of left heel, limited to breakdown of skin L97.421 and Toe pain, right M79.[address] [address] 01/18/2025 Asha Gabyclare Tinea unguium B35.1 ; Atherosclerosis of artery of both lower extremities I70.203 ; Pain in left toe(s) M79.675 and Toe pain, right M79.674 Assessments Encounter Date Diagnosis (ICD Code) Assessment Notes Treatment Notes Treatment Clinical Notes Section Notes 02/06/2024 Generalized edema (ICD-10 - R60.1) 05/04/2024 Tinea unguium (ICD-10 - B35.1) 05/04/2024 Xerosis of skin (ICD-10 - L85.3) 01/18/2025 Tinea unguium (ICD-10 - B35.1) 01/18/2025 Atherosclerosis of artery of both lower extremities (ICD-10 - I70.203) 05/04/2024 Generalized edema (ICD-10 - R60.1) 01/18/2025 Pain in left toe(s) (ICD-10 - M79.675) 02/06/2024 Tinea unguium (ICD-10 - B35.1) 02/06/2024 Atherosclerosis of artery of both lower extremities (ICD-10 - I70.203) 01/18/2025 Toe pain, right (ICD-10 - M79.674) 05/04/2024 Atherosclerosis of artery of both lower [...] 05/04/2024 Toe pain, right (ICD-10 - M79.674) 01/18/2025 Other Plan Of Treatment Next Appt Details Provider Name:Asha sparks, 04/11/2025 03:45:00 PM, [address] [facility], [place], [address], Insurance Providers Payer Name Payer Address Payer Phone Subscriber Number Group Number Insured Name Patient Relationship to Insured Coverage Start Date Coverage End Date [facility] S[employer] Claims [address] [place] [phone] [id number] Yadira Mena Self - patient is the insured Medical (General) History Medical History History ICD Code Anxiety Depression Headaches/Migraines High blood pressure Neuropathy Stroke thyroid Chicken pox Periadonal Disease Rotator cuff tear Surgical History Surgery Date(Month/Year) 5 teeth extraction 11/13/23
--- OUTSIDE RECORDS SUMMARY | 2025-01-21 13:52 | XMS_ITS | Patient Health Record ---
Author Organization [facility] Address [address] [place] [address] Care Team Providers Care Woven Label Designer Name Role Phone Mustapha Bustos Primary Care Provider Bran Andrews Jr Unavailable [phone] Allergies Allergen (clinical drug ingredient) Drug/Non [...] Problem Status W/U Status Risk Notes Problem [id number] Colon cancer screening (Z12.11) Active confirmed Problem 534199986 alf (curre nt) use of anticoagulants (Z79.01) Active confirmed Plan Of Treatment Future Test Test Name Order Date COLONOSCOPY 12/18/2016 COLONOSCOPY 08/20/2021 Insurance Providers Payer Name Payer Address Payer Phone Subscriber Number Group Number Insured Name Patient Relationship to Insured Coverage Start Date Coverage End Date [facility] [address] [place] [address] [id number] MARJAN MENDOZA Self - patient is the insured MEDICAID OF [facility] [address] [place] [address] [id number] MARJAN MENDOZA Self - patient is the insured MEDICARE OF [place] [address] [place] [id number] [id number] MARJAN MENDOZA Self - patient is the insured Medical (General) History Medical History History ICD Code stroke x2 hypertension obstructive sleep apnea, uses CPAP hypothyroidism depression elevated cholesterol Surgical History Surgery Date(Month/Year) knee surgery x5
--- NOTE | 2025-01-21 13:57 | MHC.OFFVISCO ---
Intake Intake Visit Reasons: Anticoagulation Allergies erythromycin base (ERYTHROMYCIN BASE) Allergy (Unknown, Verified 01/21/25 13:39) Nausea and Vomiting Medication List - Last Reconciled 01/21/25 by Alexsandra Brar RN acetaminophen (Tylenol) 325 mg PO Q4H PRN bupropion HCl 100 mg PO BID xefimbncli-rhuvzdttgvbif-maih 50-325-40 mg 1 tab PO TID PRN cholecalciferol (vitamin D3) (Vitamin D3) 25 mcg PO DAILY citalopram 40 mg PO DAILY clotrimazole-betamethasone 1-0.05 % 1 appl topical BID diazepam 2 mg PO TID PRN gabapentin 200 mg PO BEDTIME levothyroxine 50 mcg PO DAILY lisinopril 10 mg PO DAILY oxycodone mg PO simvastatin 20 mg PO BEDTIME simvastatin 40 mg PO BEDTIME tramadol 50 mg PO Q4H PRN walker As directed warfarin See Protocol 2.5 mg orally 1.25 NG SUN/ 2.5MG X 6 DAYS; Nursing Note INR: 2.8 in therapeutic range Medications and supplements reviewed No changes in health, diet, medications, or supplements, Denies any signs and symptoms of bleeding or bruising or clotting. Bleeding, bruising, clotting discussed Nutritional guidance given Dose: .25MG X 1 DAY/ 2.5MG X 6 DAYS F/U INR: 4 WEEKS Patient verbalizes understanding of instructions given Anti-Coag Initial Assessment Social Hx Patient Tobacco Use Status: Never used Tobacco alcohol intake: never Alcohol intake frequency: does not drink Coding Level of Care Code Est Patient Level 1 Diagnoses Current use of anticoagulant therapy Z79.01 Assessment & Plan Assessment & Plan (1) Current use of anticoagulant therapy: Code(s): Z79.01 - assisted (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
== END 2025-01-21 14:00 | disposition home or self-care (01) ==
LOC: HO.ACS 13:38
PROVIDERS: PCP Internal Medicine; Visit Provider Internal Medicine Medical Oncology
DX: Z79.01 Long term (current) use of anticoagulants (principal)

== ENCOUNTER → 2025-01-21 13:38 | Outpatient (BNVA) | payer OTHER, SELFPAY | PROVIDERS: PCP Internal Medicine; Visit Provider Internal Medicine Medical Oncology | DX: Z86.73 Personal history of transient ischemic attack (TIA), and cerebral infarction without residual deficits (principal); Z79.01 Long term (current) use of anticoagulants; Z51.81 Encounter for therapeutic drug level monitoring | CPT/HCPCS: 85610; 99211 ==

== ENCOUNTER 2025-02-18 13:22 | Outpatient (AMB) | payer OTHER, SELFPAY ==
--- OUTSIDE RECORDS SUMMARY | 2023-09-26 09:30 | XMS_ITS ---
Author Organization [facility] Address [address] [place] [id number] Care Team Providers Care Outside B2B Sales Name Role Phone Juli PEARCE, Mustapha Primary Care Provider Asha Vail Unavailable [phone] Encounters Encounter Location Date Provider Diagnosis [address] [address] 09/26/2023 Asha Rehman Plan Of Treatment Next Appt Details Provider Name:Asha sparks, 04/11/2025 03:45:00 PM, [address] [place], [id number], Progress Notes * KELLY Yadira StephensonDOB:[birth year] (59 yo F)Acc No.[id number]:09/26/2023 Progress Note Patient: Yadira CANDELARIO Provider: Anton Rehman DPM :1965 A ge:58 Y S ex:Female Date:09/26/2023 Address:[address] [place], [place] [id number] Pcp:Mustapha Bustos MD Subjective: * Chief Complaints: * * Medical History: Objective: * Vitals: Assessment: Plan: * Treatment: * Images: * The named appointment provid er may or may not be the originator of this progress note, and it is not deemed complete until electronically signed by the appointment provider. Sign off status: Pending * Provider: Anton Rehman DPM Date: 0 09/26/2023 Generated for Renée styles/Ramos/eTransmitting on: 1 02:25 PM EDT
[2025-02-18 13:57] LABS: Prothrombin Time Whole Bld POC 27.7 sec (11.1-13.5); ~PT, ~INR - Anti Coag Clinic 2.3 (0.9-1.1)
--- NOTE | 2025-02-18 14:05 | MHC.OFFVISCO ---
Intake Intake Visit Reasons: Anticoagulation Allergies erythromycin base (ERYTHROMYCIN BASE) Allergy (Unknown, Verified 02/18/25 13:48) Nausea and Vomiting Medication List - Last Reconciled 02/18/25 by Alexsandra Brar RN acetaminophen (Tylenol) 325 mg PO Q4H PRN bupropion HCl 100 mg PO BID ifoztnijhe-dvgwwrvcsnutn-jjzi 50-325-40 mg 1 tab PO TID PRN cholecalciferol (vitamin D3) (Vitamin D3) 25 mcg PO DAILY citalopram 40 mg PO DAILY clotrimazole-betamethasone 1-0.05 % 1 appl topical BID diazepam 2 mg PO TID PRN gabapentin 200 mg PO BEDTIME levothyroxine 50 mcg PO DAILY lisinopril 10 mg PO DAILY simvastatin 20 mg PO BEDTIME simvastatin 40 mg PO BEDTIME tramadol 50 mg PO Q4H PRN walker As directed warfarin See Protocol 2.5 mg orally 1.25 NG SUN/ 2.5MG X 6 DAYS; Nursing Note INR: 2.3 in therapeutic range Medications and supplements reviewed No changes in health, diet, medications, or supplements, Denies any signs and symptoms of bleeding or bruising or clotting. Bleeding, bruising, clotting discussed Nutritional guidance given Dose: 1.25mg x 1 day/ 2.5mg x 6 days F/U INR: 1 month Patient verbalizes understanding of instructions given Anti-Coag Initial Assessment Social Hx Patient Tobacco Use Status: Never used Tobacco alcohol intake: never Alcohol intake frequency: does not drink Coding Level of Care Code Est Patient Level 1 Diagnoses Current use of anticoagulant therapy Z79.01 Results AMB INR Fingerstick AMB INR Fingerstick 2.3 Last Edit by Alexsandra Brar RN on 02/18/25 13:57 MANUAL ENTRY Assessment & Plan Assessment & Plan (1) Current use of anticoagulant therapy: Code(s): Z79.01 - [facility] (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
--- OUTSIDE RECORDS SUMMARY | 2025-02-18 14:25 | XMS_ITS | Patient Health Record ---
Author [facility] Address [address] [place] [address] Care Team Providers Care Automotive Window Tinter Name Role Phone Mustapha Bustos MD Primary Care Provider Asha Vail Unavailable [phone] Allergies Allergen (clinical drug ingredient) Drug/Non Drug [...] Status W/U Status Risk Notes Problem Neuropathy (468042762) Neuropathy (G62.9) Active confirmed Problem Bilateral atherosclerosis of arteries of lower limbs (disorder) (80730858985572242 ) Atherosclerosis of artery of both lower extremities (I70.203) Active confirmed Vital Signs Blood pressure diastolic 65 mm Hg 01/18/2025 Height 5ft in 01/18/2025 Blood pressure systolic 115 mm Hg 01/18/2025 Weight 190 lbs 01/18/2025 BMI 37.1 kg/m2 01/18/2025 Encounters Encounter Location Date [facility] [address] 05/04/2024 Asha Perica Tinea unguium B35.1 ; Xerosis of skin L85.3 ; Generalized edema R60.1 ; Atherosclerosis of artery of both lower extremities I70.203 ; Pain in left toe(s) M79.675 ; Neuropathy G62.9 ; Ischemic ulcer of left heel, limited to breakdown of skin L97.421 and Toe pain, right M79.674 [facility] [address] 01/18/2025 Asha Perica Tinea unguium B35.1 ; Atherosclerosis of artery [...] Provider Name:Asha sparks, 04/11/2025 03:45:00 PM, [address] [facility], [place], [address], Insurance Providers Payer Name Payer Address Payer Phone Subscriber Number Group Number Insured Name Patient Relationship to Insured Coverage Start Date Coverage End Date [facility] [employer] Claims [address] [place] [phone] [id number] Yadira Mena Self - patient is the insured Medical (General) History Medical History History ICD Code Anxiety Depression Headaches/Migraines High blood pressure Neuropathy Stroke thyroid Chicken pox Periadonal Disease Rotator cuff tear Surgical History Surgery Date(Month/Year) 5 teeth extraction 11/13/23
--- OUTSIDE RECORDS SUMMARY | 2025-02-18 14:26 | XMS_ITS | Data Portability ---
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 TENDER) MDM MODERATE MUST MEET 2 OUT OF [...] Last Modified Time Details Appointments ANNUAL EXAM 2025 02:15P M PEGGY TAVAREZ Not available Not available Not available Lab lipid panel, blood 2024 025 [facility], [address] [place] [address], [id number], 09/09/2024 12:25:28 CMP, serum or plasma 2024 025 [facility], [address] [place] [address], [address], 09/09/2024 12:25:28 CBC w/ auto diff 2024 025 [facility], [address] [place] [address], [address], 09/09/2024 12:25:28 TSH + free T4, serum 2024 025 [facility], [address] [place] [address], [address], 07/30/2024 11:59:13 iron + TIBC + ferritin, serum 2023 024 [facility], [address] [place] [address], [address], 01/14/2024 10:41:00 TSH + free T4, serum 2023 024 [facility], [address] [place] [address], [address], 01/14/2024 10:41:00 vitamin B12 + folate, serum or blood 2023 024 [facility], [address] [place] [address], [address], 01/14/2024 10:41:00 vitamin D, 25-hydrox y, total, serum 2023 024 [facility], [address] [place] [address], [address], 01/14/2024 10:41:00 CMP, serum or plasma 2023 024 [facility], [address] [place] [address], [place], [address], 01/14/2024 10:41:00 CBC w/ auto diff 2023 [facility], [address] [place] [address], [address], 01/14/2024 10:41:00 hemoglobi n A1c, QN, blood 2023 [facility], [address] [place] [address], [place], [address], 01/14/2024 10:41:00 Referral orthopedi c surgeon referral - pt has developed an odd foot drop after a fall last week please see LONNIE 2024 025 umair Edwards MD, [address], [place], [address], 09/20/2024 15:55:49 Procedures None recorded. Surgeries None recorded. Imaging None recorded. Medication Orders bupropion HCl 100 mg tablet [address] [id number], [address] [facility] [place], [address], 11/23/2024 14:12:43 Patient TargetsNo targets recorded. Patient Instructions Encounter Date Encounter Id Patient Instructions Last Modified By Organization Details Last Modified Time 09/20/2024 [id number] high blood pressure: care instructions Not available [...] contr ast No observ ation record ed. [email or web address] [facility] (Medical Records) [address] [place], [address], 12/23/2023 08:21:06 01/04/20 24 01/04/2024 CT, chest , w/ contr ast No observ ation record ed. [address] (Medical Records) [address] [place], [address], 01/04/2024 19:17:44 01/04/20 24 01/04/2024 CT, abdom en + pelvi s, w/ contr ast No observ ation record ed. [address] (Medical Records) [address] [place], [address], 01/04/2024 19:18:13 01/04/20 24 01/04/2024 CT, cervi urmila spine , w/o contr ast No observ ation record ed. [address] (Medical Records) [address] [place], [address], 01/04/2024 19:18:41 01/04/20 24 01/04/2024 CT, head + brain , w/o contr ast No observ ation record ed. [address] (Medical Records) [address] [place], [address], 01/04/2024 19:19:07 Result Notes None recorded. Problems Name Problem SNOMED Code Status Onset Date Resolution Date Notes Provider Name and Address Organization Details Recorded Time Sleep apnea 60418504 Active 2017 Not Available [facility] 3 15:17:07 Essential hypertens ion 31678607 Active 2017 PEGGY TAVAREZ [address] [place], [address], [facility] 5 10:53:41 History of cerebrova scular accident 725512311 Active 2017 Not Available [facility] 3 15:17:07 Edema 169216971 Active 2017 Not Available [facility] 3 15:17:07 Hypothyro idism 91832714 Active 2017 Not Available [facility] 3 15:17:07 Aortic valve stenosis 67465258 Active 2017 Not Available [facility] 3 15:17:07 Anxiety 10908440 Active 2017 Not Available [facility] 3 15:17:07 Depressiv e disorder 48807286 Active 2017 Not Available [facility] 3 15:17:07 Migraine 63813524 Active 2017 Not Available [facility] 3 15:17:07 Osteoarth ritis of knee 591527227 Active 2017 left knee Not Available [facility] 3 15:17:07 Hyperchol esterolem ia 05252590 Active 2017 Not Available [facility] 3 15:17:07 Idiopathi c periphera l neuropath y 26348588 Active 2018 Not Available [facility] 3 15:17:07 Impaired fasting glycemia 805162712 Active 2019 Not Available [facility] 3 15:17:07 Fatigue 63472501 Active 2021 Not Available [facility] 3 15:17:07 COVID-19 871331107 Active 2021 Not Available [facility] 3 15:17:07 Acute bronchiti s 52183999 Active 2022 Not Available [facility] 3 15:17:07 Orthostat ic hypotensi on 40069298 Active 2022 Not Available [facility] 3 15:17:07 Dizziness 213406875 Active 2022 [facility] Available [facility] 3 15:17:07 Cough 65494350 Active 2022 PEGGY TAVAREZ [address] [place], [address], [facility] 3 10:52:11 Pain of left shoulder joint 318803427092 90994 Active 2023 PEGGY TAVAREZ [address] [place], [address], [facility] 4 12:05:53 Rupture of rotator cuff of left shoulder 838792413609 74165 Active 2023 Mustapha Bustos DO [address] [place] [address], [address], [facility] 4 15:17:46 Claustrop hobia 53216647 Active 2023 PEGGY TAVAREZ [address] [place] [address], [address], [facility] 4 15:20:28 Partial thickness rotator cuff tear 303851897 Active 2023 Mustapha Bustos DO [address] [place] [address], [address], [facility] 4 21:42:13 Fall Active 2023 PEGGY TAVAREZ [address] [place], [address], [facility] 4 13:55:20 Osteoarth ritis of left knee joint 951026949995 109 Active 2023 PEGGY TAVAREZ [address] [place], [address], [facility] 4 13:56:17 Left foot drop 119780211193 105 Active 2024 Mustapha Bustos, DO [address] [facility], [place], [address], [facility] 5 15:33:49 History of operative procedure on knee 572167685 Active 2024 PEGGY TAVAREZ [address] [place], [address], [facility] 5 14:05:17 Problem Notes None recorded. Medical Equipment None Reported. Allergies Allergen ID Allergen Name Allergen Category Reaction Reaction Severity Criticality Documentation Date Start Date Code Code System Note Provider Name and Address Organization Details Recorded Time 2250 azithromy nia medicatio n Not available Not available Not available 12/29/2017 90648 RxNorm [facility]avia [facility] 8 08:19:44 Medications Name Sig Start [...] tablet TAKE 1 TABLET BY MOUTH EVERY DAY. 2024 active Not Available Not Available Not Avai lable triazolam 0.25 mg tablet TAKE 1 TABLET [...] day by oral route for 30 days. 2024 active Not Available Not Available Not Avai lable amoxicillin 875 mg tablet TAKE 1 TABLET BY MOUTH TWICE A DAY DIRECTED UNTIL FINISHED. 04/06 completed Not Available Not Available Not Available citalopram 20 mg tablet TAKE 1 TABLET BY MOUTH DAILY 08/01 completed Not Available Not Available Not Available prednisolon e acetate 1 % eye drops,suspe nsion INSTILL 1 DROP IN LASERED EYE 3 TIMES A DAY FOR 5 DAYS FOLLOWING LASER active Not Available Not Available No t Available lorazepam 0.5 mg tablet PLEASE SEE [...] WITH 1 + 1/2 TABLETS EVERY OTHER DAY- active Not Available Not Available No t Available simvastatin 20 mg tablet TAKE 1 TABLET BY MOUTH EVERY DAY active Not Available Not Available No t Available clotrimazol e-betametha sone 1 %-0.05 % topical cream PLEASE SEE ATTACHED FOR DETAILED DIRECTION S active Not Available Not Available No t Available lisinopril 10 mg tablet TAKE 1 TABLET BY MOUTH EVERY DAY DIRECTED active Not Available Not Available No t [...] Details Last Updated DateTime 5 152.4 cm 37.9 kg/m2 79659.9 2 g 75 /min 96 % 96 % 124/84 mm[Hg] Mustapha Bustos, DO [address] [place], [address] 5 11:29:41 Date Recorded Body height Body mass index (BMI) Body weight Oxygen saturation Oxygen saturation in Arterial blood by Pulse oximetry Heart rate Systolic And Diastolic Provider Name and Address Organization Details Last Updated DateTime 5 152.4 cm 36.1 kg/m2 99695.5 9 g 96 % 96 % 60 /min 132/78 mm[Hg] Leticia Hernandez [facility] 5 15:09:46 Date Recorded Body height Body mass index (BMI) Body weight Heart rate Oxygen saturation Oxygen saturation in Arterial blood by Pulse oximetry Systolic And Diastolic Provider Name and Address Organization Details Last Updated DateTime 5 152.4 cm 36.9 kg/m2 85285.9 6 g 68 /min 94 % 94 % 136/86 mm[Hg] Destini Aragon [facility] 5 13:58:44 Date Recorded Body height Body mass index (BMI) Body weight Heart rate Oxygen saturation Oxygen saturation in Arterial blood by Pulse oximetry Systolic And Diastolic Provider Name and Address Organization Details Last Updated DateTime 4 152.4 cm 37.1 kg/m2 69937.5 5 g 69 /min 97 % 97 % 130/72 mm[Hg] Maria Esther Huangmond [facility] 4 13:32:05 Social History Question Answer Notes LastModified by Organizat ion Details LastModified Time Tobacco Smoking Status Never Smoker Not Available [facility] 02/22/2020 03:36:24 What Was The Date Of Your Most Recent Tobacco Screening? 11/23/2024 [email or web address] Information not available 11/23/2024 Sex: Unknown Functional Status Question Answer Note LastModified by Organization D etails LastModified Time Do you or have you ever used any other forms of tobacco or nicotine? No [email or web address] Information not available 04/06/2024 Mental Status None recorded. Family History Nothing Reported. Medical History No medical history recorded. Gynecological HistoryNo gynecological history recorded. Obstetrics History GPAL:G 0 P 0 0 0 0 Immunizations Vaccine Type Date Status Note Provider Nam e and Address Organization Details Recorded Time COVID-19, mRNA, LNP-S, PF, 100 mcg/0.5mL dose or 50 mcg/0.25mL dose 1 completed Irena fountain [facility] 11/01/2020 15:35:49 COVID-19, mRNA, LNP-S, PF, 100 mcg/0.5mL dose or 50 mcg/0.25mL dose 1 completed Irena fountain [facility] 04/18/2021 11:03:52 Influenza, split virus, quadrivalent, preservative 1 completed Irena fountain [facility] 04/18/2021 11:03:59 Influenza, split virus, quadrivalent, preservative 8 completed Not Available [facility] 05/08/2019 02:46:31 Influenza, split virus, quadrivalent, preservative 11/26/201 9 completed Liliane fountain [facility] 06/19/2020 11:20:18 Influenza, split virus, quadrivalent, preservative 1 completed Lilianeruben fountain [facility] 06/19/2020 11:20:18 COVID-19, mRNA, LNP-S, PF, 100 mcg/0.5mL dose or 50 mcg/0.25mL dose 1 completed Irena fountain [facility] 11/01/2020 15:35:56 Past Encounters Encounter ID Performer Location Encounter Start Date Encounter Closed Date Diagnosis/Indication Diagnosis SNOMED-CT Code Diagnosis ICD10 Code Diagnosis IMO Codes Diagnosis Note [id number],[place] [address] 12/29/2017 11:41:39 12/29/2017 12:36:56 Edema 522590080 R60.9 History of cerebrovascular accident 726227524 Z86.73 Depressive disorder 3548 9007 F33.8 Hypothyroidism 03792698 E03.9 Essential hypertension 69689410 I10 Aortic valve stenosis 60 518159 I35.0 Sleep apnea 60345755 G47 .30 Anxiety ab out loss of memory 498547366 F41.8 Lesion of vulva 08141463 6 N90.[id number] [address] 02/02/2018 09:53:50 02/02/2018 11:21:20 Hypothyroidism 92340572 E03.9 Impaired f asting glycemia 690338537 R73.01 Essential hypertension 69494840 I10 stable Aortic valve stenosis 60 329087 I35.0 up to date echo Administra tion of influenza vaccine 91078623 Z23 Depressive disorder 3048 9007 F33.8 [id number] [facility] [address] [address] 04/07/2018 08:54:56 04/10/2018 11:16:49 Screening procedure 85131941 Z13.9 Edema 125126438 R60.9 Depressive disorder 3548 9007 F33.8 Hypothyroidism 20936111 E03.9 Anxiety 83809922 F41.9 Essential hypertension 38839196 I10 stable Aortic valve stenosis 60 315620 I35.0 up to date echo- due 08/2018 Sleep apnea 45427844 G47 .30 compliant Hypercholesterolemia 136 07118 E78.00 Impaired f asting glycemia 109158549 R73.01 Active or passive immunization 229246076 Z23 [id number] Karen Blanchard NP, S [facility] [address] [facility],[place] [address] 07/08/2018 09:29:55 07/08/2018 14:30:43 Adult health examination 113570724 Z00.01 Active or passive immunization 162955611 Z23 History of cerebrovascular accident 001049890 Z86.73 recent INR wnl Depressive disorder 3548 9007 F33.8 stable Hypothyroidism 64620775 E03.9 follow Essential hypertension 22687565 I10 stable Aortic valve stenosis 60 482766 I35.0 schedule echo- due 08/2018 Sleep apnea 75369562 G47 .30 compliant Hypercholesterolemia 136 12650 E78.00 follow Osteoarthr itis of knee 571185899 M17.9 [id number] Mustapha Bustos [facility] [address] [facility],[place] [address] 04/28/2019 11:00:47 04/28/2019 11:41:26 Hypothyroidism 07506591 E03.9 needs tsh Essential hypertension 49328967 I10 will need lipid and cmp Impaired f asting glycemia 883374074 R73.01 will follow and will need lab History of cerebrovascular accident 471656193 Z86.73 stable and is without issue Aortic valve stenosis 60 188330 I35.0 stable recent echo and is stable as of june 2018 Osteoarthr itis of knee 817493071 M17.9 [place] [id number] Mustapha Bustos [facility] [address] [facility],[place] [address] 08/02/2019 11:23:11 08/02/2019 12:00:25 Essential hypertension 80601381 I10 did real well with lab bps are excellent no cp no sob Hypothyroidism 73268539 E03.9 last tsh is notmal at 3.7 rechk in 6 months Hypercholesterolemia 136 18979 E78.00 LDL is 132 HDL is 552 TRIG is 70 Idiopathic peripheral neuropathy 57655534 G60.9 seems stable Edema 073719496 R60.9 seems to come and go not really any change [id number] Mustapha Bustos [facility] [address] [facility] [address] 06/19/2020 11:03:08 06/19/2020 11:53:47 Essential hypertension 30400284 I10 BP stable on medication s and no side effects no interventi on needed at this time Hypothyroidism 79600834 E03.9 will recheck her levels and fu with results Impaired f asting glycemia 792809995 R73.01 will recheck BW and also check A1c to make sure patient has developed diabetes (as she has hx IFG) Screening for cardiovascular system disease 202074699 Z13.6 needs recheck of cholestero l to see if medication change of adjustment is needed for simvastati n Hyperlipidemia 37110564 E78.5 will fu with results [id number] Mustapha Bustos [facility] [address] [facility],[place] [address] 05/23/2021 08:15:16 05/28/2021 10:41:37 Depressive disorder 15322476 F33.8 stable Anxiety 57091954 F41.1 stable Aortic valve stenosis 60 624122 I35.0 stable Essential hypertension 19332673 I10 BP stable on medication s and no side effects no interventi on needed at this time Hypercholesterolemia 136 95633 E78.2 needs BW Hypothyroidism 00970351 E03.9 will recheck her levels and fu with results Atopic dermatitis 471172 01 L20.89 will trial topical cream Motion sickness 12553767 T75.3XXA needs patch [id number] Mustapha Bustos [facility] [address] [facility] [address] 07/16/2022 14:15:50 07/17/2022 08:23:41 Essential hypertension 54916781 I10 BP stable on medication s and no side effects no interventi on needed at this time Depressive disorder 1418 9007 F33.8 stable [id number] Mustapha Geeta Bustos [facility] [address] [facility] [address] 01/07/2023 13:53:57 01/07/2023 15:03:21 Essential hypertension 96789899 I10 BP stable on medication s and no side effects no interventi on needed at this time Hypercholesterolemia 136 34197 E78.2 needs BW Hypothyroidism 29146528 E03.8 will recheck her levels and fu with results Atopic dermatitis 505410 01 L20.89 will trial topical cream [id number] Mustapha Bustos [facility] [address] [facility] [address] 02/07/2023 14:27:17 02/07/2023 15:04:49 Orthostatic hypotension 97050061 I95.1 adjusted lisinopril dose Dizziness 448445405 R42 resolved [id number] Mustapha Bustos [facility] [address] [facility],[place] [address] 03/10/2023 11:14:56 03/10/2023 11:53:48 Essential hypertension 67653760 I10 BP stable on medication s and no side effects no interventi on needed at this time Hypothyroidism 26697520 E03.8 will recheck her levels and fu with results [id number] Mustapha Bustos [facility] [address] [facility],[place] [address] 04/16/2023 09:11:18 04/16/2023 11:02:48 Essential hypertension 86567550 I10 stable off the medication Cough 93916302 R05.1 will start on cough suppressan t [id number] Mustapha Bustos [facility] [address] [facility] [address] 09/19/2023 11:37:48 09/19/2023 16:26:10 Depression screening 363011706 Z13.31 negative Pain of le ft shoulder joint 9482342193 1237083 M25.512 will give tramadol for pain [id number] Mustapha Bustos [facility] [address] [facility],[place] [address] 10/31/2023 14:38:05 10/31/2023 15:41:44 Rupture of rotator cuff of left shoulder 9475649657 0397582 M75.102 Essential hypertension 52960395 I10 did real well with lab bps are excellent no cp no sob Aortic valve stenosis 60 621231 I35.0 stable recent echo and is stable as of june 2018 History of cerebrovascular accident 113347325 Z86.73 stable and is without issue Osteoarthr itis of knee 386734239 M17.9 will be getting left knee surg on of this month will need 4 day bridge and will ahve them call me with dose of lovenox that they already have in the fridge [id number] Mustapha Bustos [facility] [address] [facility],[place] [address] 01/14/2024 08:09:32 01/14/2024 11:43:08 Fatigue 21312544 R53.83 will set up with lab work for the fatigueals o suggested for new sleep study [id number] Mustapha Bustos [facility] [address] [facility],[place] [address] 04/06/2024 13:16:21 04/06/2024 14:12:13 Fall R29.6 stable Depressive disorder 3548 9007 F33.8 stable Osteoarthr itis of left knee joint 8463835740 95925 M17.12 has TKR on 06/17/24wil l f/u with their office to see when she needs her pre op Essential hypertension 51965737 I10 stable off the medication [id number] Mustapha Bustos [facility] [address] [facility] [address] 07/30/2024 11:23:39 07/30/2024 14:42:12 Essential hypertension 80403388 I10 did real well with lab bps are excellent no cp no sob Hypercholesterolemia 136 49045 E78.2 LDL is 132 HDL is 552 TRIG is 70 Hypothyroidism 20066060 E03.8 last tsh is notmal at 3.7 rechk in 6 months Depression screening 171 834805 Z13.31 [id number] Mustapha Bustos [facility] [address] [facility],[address] [place] [address] 09/20/2024 14:56:48 09/20/2024 15:40:01 Depression screening 563779539 Z13.31 Essential hypertension 96446797 I10 did real well with lab bps are excellent no cp no sob History of total knee arthroplasty 7918024567 105 Z96.652 94296538 was doing great until the fallshe needs to be seen lonnie as this gait is abnormal Left foot drop 659220575 1 97954 M21.372 6244339681 [id number] Mustapha Geeta Bustos [facility] [address] [facility],[place] [address] 11/23/2024 13:24:12 11/23/2024 15:11:50 Active or passive immunization 360319689 Z23 advised General ex amination of patient 828518469 Z00.00 57614254 BP is fine Health Concerns Section Related Observation LastModified by Organization Detai ls LastModified Time None Recorded Concern Status LastModified by Organization Details LastModified Time None Recorded Advance Directives Directive None Recorded Payers Insurance Date Sequence Insurance Name Policy Number Policy Lowe Covered Member ID Lowe Member ID Guarantor Name 01/14/2024 2 [place]: [employer] Yadira Mena [id number] Yadira Mena 01/14/2024 1 [employer] C[employer] - DOS ON OR AFTER 2022 - MEDICARE [place]VANTAGE [place]MEDICARE RE[place]AC[place]/AD VANTAGE - PPO) Yadira Mena [id number] Yadira Mena 01/14/2024 1 [facility] C[facility] - DOS PRIOR TO 2022 - DUAL ELIGIBLE (MEDICARE REPLACEMENT/AD VANTAGE - HMO) Yadira Mena [id number] Yadira Mena 01/14/2024 1 [place] [facility] Yadira Mena [id number] Yadira Mena 11/20/2024 1 [facility] - DOS ON OR AFTER 2022 - MEDIC[place]AC[place]/AD VANTAGE - PPO) Yadira Seema Mena [id number] Yadira Mena Notes Date Note Type Note Provider Name and Address Organization Details Recorded Time 01/14/20 text/htm l ROS as noted in the HPI ER f/u The patient is participating in this appointment via telemedicine communication with a phone call/video calling service ([employer])The patient consents to use of these platforms [...] will fu after blood work PEGGY TAVAREZ [address] [place] [address], [phone], [facility] 01/14/2024 10:43:54 04/06/20 text/htm l ROS as noted in the HPI f/u medication check fall: stable knee replacement: scheduled for 06/17will f/u with pre op no medication changes will be having to do a lovenox bridge prior to the surgery, ortho will be taking care of it had her five teeth pulled, doing fine using her walker appropriately otherwise no major changestaking her medications PEGGY TAVAREZ [address] [facility], [place], [address], [facility] 04/06/2024 14:07:52 07/31/19 25 text/htm l Care Management - HypertensionReported by PatientHPIFor self care, patient reportsunder emotional stress. For severity, patient reportssymptoms are improvinganddoes not interfere with daily activities. For associated symptoms, patient reportsno dizziness,no lightheadedness,no chest pain,no shortness of breath,no palpitations,no edema,no calf muscle cramps,no blurred vision,no confusion,no headaches, andno fatigue. Care Management - Acquired HypothyroidismReported by PatientCare ManagementFor medication education, patient reportsunderstands administration,understands effect of concurrent medications,understands missed doses, andunderstands consequences of noncompliance.Interim HistoryFor associated symptoms, patient reportsno abnormal weight gain,no tiredness,no dry skin,no cold intolerance,no constipation,no diarrhea, andno goiter. Care Management - HyperlipidemiaReported by PatientHPIFor control, patient reportsusually well controlled,improving, andat goal. For complications, patient reportsno coronary artery disease,no heart attack,no cardiovascular disease,no pancreatitis, andno stroke.ROS as noted in the HPI Mustapha Bustos, [address] [place], [address], [facility] 07/30/2024 11:52:32 09/21/19 25 text/htm l ROS as noted in the HPI here for rechkhad a fall las t week since then it appears she has a abnormal gait noticed by her dphys therapistvery abnormal and almost like a foot f=drop this has all ocurred after the fall reviewed lab in detail Mustapha Bustos, [address] [place], [address], [facility] 09/20/2024 15:36:35 11/24/19 25 text/htm l Annual WellnessReported by PatientSocial/Behavioral HistoryFor diet and nutrition, patient reportshealthy diet,discussed vitamin and supplement use,discussed portion control,discussed maintaining calcium balance, anddiscussed diet improvement. For fracture risk, patient reportsno history of fractures,no recent explained fracture,no sudden unexplained fractures, andno previous musculoskeletal injuries. For physical activity, patient reportsexercises on a regular basis,recent increase in physical activity,good physical condition,discussed weightbearing activities, anddiscussed exercise habits. For additional lifestyle factors, patient reportsno tobacco use,no alcohol intake, andstopped drinking alcohol.Mental Status:For depression risk, patient reportsnever feels sad, empty, or tearful,no loss of interest in activities,no significant changes in weight,no sleep disturbances or insomnia,no agitation,no loss of energy,no feelings of worthlessness or guilt,no thoughts of suicide,no history of depression, andno history of mood disorders.Functional AbilityFor hearing, patient reportsno loss of hearing. For vision, patient reportsno vision problems.ROS as noted in the HPI had her left knee replaceddoing well with the PT and getting her ROM back the patient has a dropped foot on the R sidewhich is documentedneeds to be released from PT and is cleared the patient reports that she is doing okay otherwise started on bupropion may need dose adjustment next refillstates her mood is good, she just gets anxious when she is home alone denies sig depressive symptoms PEGGY TAVAREZ [address] [place] [address], [place], [address], [facility] 11/23/2024 14:51:55 OBGyn Episode No OBEpisode recorded.
--- OUTSIDE RECORDS SUMMARY | 2025-02-18 14:26 | XMS_ITS | Patient Health Record ---
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 Name Role Phone Mustapha Bustos Primary Care Provider Bran Andrews Jr Unavailable [phone] Allergies Allergen (clinical drug ingredient) Drug/Non [...] UT) 1 capsule O rally Once a day; Duration: 30 day(s) Active Citalopram [...] Problem Status W/U Status Risk Notes Problem Colon cancer screening (937922722) Colon cancer screening (Z12.11) Active confirmed Problem Long-term current use of anticoagulant (521221192) prison (current) use of anticoagulants (Z79.01) Active confirmed Plan Of Treatment Future Test Test Name Order Date COLONOSCOPY 12/18/2016 COLONOSCOPY 08/20/2021 Insurance Providers Payer Name Payer Address Payer Phone Subscriber Number Group Number Insured Name Patient Relationship to Insured Coverage Start Date Coverage End Date [facility] [address] [place] [address] [id number] MARJAN MENDOZA Self - patient is the insured MEDICAID OF [facility] [address] [place] [address] [id number] MARJAN MENDOZA Self - patient is the insured MEDICARE OF [place] [address] [place] [id number] [id number] MARJAN MENDOZA Self - patient is the insured Medical (General) History Medical History History ICD Code stroke x2 hypertension obstructive sleep apnea, uses CPAP hypothyroidism depression elevated cholesterol Surgical History Surgery Date(Month/Year) knee surgery x5
== END 2025-02-18 14:06 | disposition home or self-care (01) ==
LOC: HO.ACS 13:22
PROVIDERS: PCP Internal Medicine; Visit Provider Internal Medicine Medical Oncology
DX: Z79.01 Long term (current) use of anticoagulants (principal)

== ENCOUNTER → 2025-02-18 13:22 | Outpatient (BNVA) | payer OTHER, SELFPAY | PROVIDERS: PCP Internal Medicine; Visit Provider Internal Medicine Medical Oncology | DX: Z86.73 Personal history of transient ischemic attack (TIA), and cerebral infarction without residual deficits (principal); Z79.01 Long term (current) use of anticoagulants; Z51.81 Encounter for therapeutic drug level monitoring | CPT/HCPCS: 85610; 99211 ==

== ENCOUNTER 2025-03-16 13:49 | Outpatient (AMB) | payer OTHER, SELFPAY ==
--- NOTE | 2025-03-16 13:53 | MHC.OFFVISCO ---
Intake Intake Visit Reasons: Anticoagulation Allergies erythromycin base (ERYTHROMYCIN BASE) Allergy (Unknown, Verified 03/16/25 13:50) Nausea and Vomiting Medication List - Last Reconciled 03/16/25 by Clemencia Morales, RN acetaminophen (Tylenol) 325 mg PO Q4H PRN bupropion HCl 100 mg PO BID hguhfjyvdt-jywqyjruazzub-ygbk 50-325-40 mg 1 tab PO TID PRN cholecalciferol (vitamin D3) (Vitamin D3) 25 mcg PO DAILY citalopram 40 mg PO DAILY diazepam 2 mg PO TID PRN gabapentin 200 mg PO BEDTIME levothyroxine 50 mcg PO DAILY lisinopril 10 mg PO DAILY simvastatin 20 mg PO BEDTIME simvastatin 40 mg PO BEDTIME tramadol 50 mg PO Q4H PRN walker As directed warfarin See Protocol 2.5 mg orally 1.25 NG SUN/ 2.5MG X 6 DAYS; Nursing Note INR: 2.1- in therapeutic range 2-3 Medications and supplements reviewed- no changes No changes in health, diet, medications, or supplements, Denies any signs and symptoms of bleeding or bruising or clotting. Bleeding, bruising, clotting discussed Nutritional guidance given Dose: 2.5mg x 6, 1.25mg x 1 F/U INR: 4 weeks Patient verbalizes understanding of instructions given pt to acs with sister, pt amb with walker Anti-Coag Initial Assessment Social Hx Patient Tobacco Use Status: Never used Tobacco alcohol intake: never Alcohol intake frequency: does not drink Coding Level of Care Code Est Patient Level 1 Diagnoses Current use of anticoagulant therapy Z79.01 Assessment & Plan Assessment & Plan (1) Current use of anticoagulant therapy: Code(s): Z79.01 - [facility] (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
[2025-03-16 13:55] LABS: Prothrombin Time Whole Bld POC 24.8 sec (11.1-13.5); ~PT, ~INR - Anti Coag Clinic 2.1 (0.9-1.1)
--- OUTSIDE RECORDS SUMMARY | 2025-03-16 16:54 | XMS_ITS | Data Portability ---
Author Organization [facility], Telehealth Patient Home Address [address] [place] [address] Assessment Encounter Date Assessment Date Assessment LastModified by Organization Details LastModified Time 01/14/2024 01/14/2024 Patient agreed and verbally consents to this audio and video Telehealth appt via a secure platform [email or web address] Not available 01/14/2024 10:40:30 07/30/2024 07/30/2024 [id number] [place] [id number] (MASTER PLANNER) MDM MODERATE MUST MEET 2 OUT OF [...] COVERED Not available 07/30/2024 11:48:23 09/20/2024 09/20/2024 [id number] [place] [id number] (MASTER PLANNER) MDM MODERATE MUST MEET 2 OUT OF [...] available Lab lipid panel, blood 2024 025 [facility], [address] [place] [address], [address], 09/09/2024 12:25:28 CMP, serum or plasma 2024 025 [facility], [address] [place] [address], [address], 09/09/2024 12:25:28 CBC w/ auto diff 2024 025 [facility], [address] [place] [address], [address], 09/09/2024 12:25:28 TSH + free T4, serum 2024 025 [facility], [address] [place] [address], [address], 07/30/2024 11:59:13 iron + TIBC + ferritin, serum 2023 024 [facility], [address] [place] [address], [address], 01/14/2024 10:41:00 TSH + free T4, serum 2023 024 [facility], [address] [place] [address], [address], 01/14/2024 10:41:00 vitamin B12 + folate, serum or blood 2023 024 [facility], [address] [place] [address], [address], 01/14/2024 10:41:00 vitamin D, 25-hydrox y, total, serum 2023 024 [facility], [address] [place] [address], [address], 01/14/2024 10:41:00 CMP, serum or plasma 2023 024 [facility], [address] [place] [address], [place], [address], 01/14/2024 10:41:00 CBC w/ auto diff 2023 [facility], [address] [place] [address], [address], 01/14/2024 10:41:00 hemoglobi n A1c, QN, blood 2023 [facility], [address] [place] [address], [place], [address], 01/14/2024 10:41:00 Referral orthopedi c surgeon referral - pt has developed an odd foot drop after a fall last week please see LONNIE 2024 025 umair Edwards MD, [address], [place], [address], 09/20/2024 15:55:49 Procedures None recorded. Surgeries None recorded. Imaging None recorded. Medication Orders bupropion HCl 100 mg tablet 2024 025 [id number], [address] [place], [address], 11/23/2024 14:12:43 Patient TargetsNo targets recorded. Patient Instructions Encounter Date Encounter Id Patient Instructions Last Modified By Organization Details Last Modified Time 09/20/2024 [id number] high blood pressure: care instructions Not available [...] contr ast No observ ation record ed. [email or web address] [facility] (Medical Records) [address] [place], [address], 12/23/2023 08:21:06 01/04/20 24 01/04/2024 CT, chest , w/ contr ast No observ ation record ed. [address] (Medical Records) [address] [place], [address], 01/04/2024 19:17:44 01/04/20 24 01/04/2024 CT, abdom en + pelvi s, w/ contr ast No observ ation record ed. [address] (Medical Records) [address] [place], [address], 01/04/2024 19:18:13 01/04/20 24 01/04/2024 CT, cervi urmila spine , w/o contr ast No observ ation record ed. [address] (Medical Records) [address] [place], [address], 01/04/2024 19:18:41 01/04/20 24 01/04/2024 CT, head + brain , w/o contr ast No observ ation record ed. [address] (Medical Records) [address] [place], [address], 01/04/2024 19:19:07 Result Notes None recorded. Problems Name Problem SNOMED Code Status Onset Date Resolution Date Notes Provider Name and Address Organization Details Recorded Time Sleep apnea 01321554 Active 2017 Not Available [facility] 3 15:17:07 Essential hypertens ion 35901293 Active 2017 PEGGY TAVAREZ [address] [place], [address], [facility] 5 10:53:41 History of cerebrova scular accident 996700685 Active 2017 Not Available [facility] 3 15:17:07 Edema 218884435 Active 2017 Not Available [facility] 3 15:17:07 Hypothyro idism 91360056 Active 2017 Not Available [facility] 3 15:17:07 Aortic valve stenosis 87284287 Active 2017 Not Available [facility] 3 15:17:07 Anxiety 67831543 Active 2017 Not Available [facility] 3 15:17:07 Depressiv e disorder 65723822 Active 2017 Not Available [facility] 3 15:17:07 Migraine 04522381 Active 2017 Not Available [facility] 3 15:17:07 Osteoarth ritis of knee 331443125 Active 2017 left knee Not Available [facility] 3 15:17:07 Hyperchol esterolem ia 76294474 Active 2017 Not Available [facility] 3 15:17:07 Idiopathi c periphera l neuropath y 95893843 Active 2018 Not Available [facility] 3 15:17:07 Impaired fasting glycemia 016717512 Active 2019 Not Available [facility] 3 15:17:07 Fatigue 99844435 Active 2021 Not Available [facility] 3 15:17:07 COVID-19 317003104 Active 2021 Not Available [facility] 3 15:17:07 Acute bronchiti s 85610452 Active 2022 Not Available [facility] 3 15:17:07 Orthostat ic hypotensi on 63162483 Active 2022 Not Available [facility] 3 15:17:07 Dizziness 228305073 Active 2022 Not Available [facility] 3 15:17:07 Cough 13879694 Active 2022 PEGGY TAVAREZ [address] [place], [address], [facility] 3 10:52:11 Pain of left shoulder joint 341441328478 24768 Active 2023 PEGGY TAVAREZ [address] [place], [address], [facility] 4 12:05:53 Rupture of rotator cuff of left shoulder 811308826907 55688 Active 2023 Mustapha Bustos DO [address] [place] [address], [address], [facility] 4 15:17:46 Claustrop hobia 36693535 Active 2023 PEGGY TAVAREZ [address] [place] [address], [address], [facility] 4 15:20:28 Partial thickness rotator cuff tear 249445053 Active 2023 Mustapha Bustos DO [address] [place] [address], [address], [facility] 4 21:42:13 Fall Active 2023 PEGGY TAVAREZ [address] [place], [address], [facility] 4 13:55:20 Osteoarth ritis of left knee joint 744424907647 109 Active 2023 PEGGY TAVAREZ [address] [place], [address], [facility] 4 13:56:17 Left foot drop 781618284362 105 Active 2024 Mustapha Bustos, DO [address] [facility], [place], [address], [facility] 5 15:33:49 History of operative procedure on knee 934899087 Active 2024 PEGGY TAVAREZ [address] [place], [address], [facility] 5 14:05:17 Problem Notes None recorded. Medical Equipment None Reported. Allergies Allergen ID Allergen Name Allergen Category Reaction Reaction Severity Criticality Documentation Date Start Date Code Code System Note Provider Name and Address Organization Details Recorded Time 2250 azithromy nia medicatio n Not available Not available Not available 12/29/2017 98239 RxNorm [facility] 8 08:19:44 Medications Name Sig Start [...] (BMI) Body weight Heart rate Oxygen saturation Systolic And Diastolic Provider Name and Address Organization Details Last Updated DateTime 5 152.4 cm 37.9 kg/m2 30140.9 2 g 75 /min 96 % 124/84 mm[Hg] Mustapha Bustos, DO [address] [place], [address] [facility] 5 11:29:41 Date Recorded Body height Body mass index (BMI) Body weight Oxygen saturation Heart rate Systolic And Diastolic Provider Name and Address Organization Details Last Updated DateTime 5 152.4 cm 36.1 kg/m2 24078.5 9 g 96 % 60 /min 132/78 mm[Hg] ROSEMARIE GRADY [facility] 5 15:09:46 Date Recorded Body height Body mass index (BMI) Body weight Heart rate Oxygen saturation Systolic And Diastolic Provider Name and Address Organization Details Last Updated DateTime 5 152.4 cm 36.9 kg/m2 48059.9 6 g 68 /min 94 % 136/86 mm[Hg] Destini Aragon [facility] 5 13:58:44 Date Recorded Body height Body mass index (BMI) Body weight Heart rate Oxygen saturation Systolic And Diastolic Provider Name and Address Organization Details Last Updated DateTime 4 152.4 cm 37.1 kg/m2 42713.5 5 g 69 /min 97 % 130/72 mm[Hg] Maria Esther Huangmond [facility] 4 13:32:05 Social History Question Answer Notes LastModified by Organizat ion Details LastModified Time Tobacco Smoking Status Never Smoker Not Available [facility] 02/22/2020 03:36:24 What Was The Date Of Your Most Recent Tobacco Screening? 11/23/2024 [email or web address] Information not available 11/23/2024 Sex: Unknown Functional Status Question Answer Note LastModified by Organization D etails LastModified Time Do you or have you ever used any other forms of tobacco or nicotine? No Information not available 04/06/2024 Mental Status None recorded. Family History Nothing Reported. Medical History No medical history recorded. Gynecological HistoryNo gynecological history recorded. Obstetrics History GPAL:G 0 P 0 0 0 0 Immunizations Vaccine Type Date Status Note Provider Nam e and Address Organization Details Recorded Time COVID-19, mRNA, LNP-S, PF, 100 mcg/0.5mL dose or 50 mcg/0.25mL dose 1 completed Irena fountain [facility] 11/01/2020 15:35:49 COVID-19, mRNA, LNP-S, PF, 100 mcg/0.5mL dose or 50 mcg/0.25mL dose 1 completed Irena fountain [facility] 04/18/2021 11:03:52 Influenza, split virus, quadrivalent, preservative 1 yael fountain [facility] 04/18/2021 11:03:59 Influenza, split virus, quadrivalent, preservative 8 completed Not Available [facility] 05/08/2019 02:46:31 Influenza, split virus, quadrivalent, preservative 9 completed Liliane fountain [facility] 06/19/2020 11:20:18 Influenza, split virus, quadrivalent, preservative 1 completed Liliane fountain [facility] 06/19/2020 11:20:18 COVID-19, mRNA, LNP-S, PF, 100 mcg/0.5mL dose or 50 mcg/0.25mL dose completed Irena Chester fountain [facility] 11/01/2020 15:35:56 Past Encounters Encounter ID Performer Location Encounter Start Date Encounter Closed Date Diagnosis/Indication Diagnosis SNOMED-CT Code Diagnosis ICD10 Code Diagnosis IMO Codes Diagnosis Note [id number] [facility] [address] [facility], [place] [address] 12/29/2017 11:41:39 12/29/2017 12:36:56 Edema 206500911 R60.9 History of cerebrovascular accident 709001613 Z86.73 Depressive disorder 3548 9007 F33.8 Hypothyroidism 18373557 E03.9 Essential hypertension 85494458 I10 Aortic valve stenosis 60 648386 I35.0 Sleep apnea 16998271 G47 .30 Anxiety ab out loss of memory 013471100 F41.8 Lesion of vulva 64843791 6 N90.9 [id number] [facility] [address] [facility],[place] [address] 02/02/2018 09:53:50 02/02/2018 11:21:20 Hypothyroidism 31419490 E03.9 Impaired f asting glycemia 497362025 R73.01 Essential hypertension 77944187 I10 stable Aortic valve stenosis 60 709945 I35.0 up to date echo Administra tion of influenza vaccine 25625794 Z23 Depressive disorder 3548 9007 F33.8 [id number] [facility] [address] [facility],[place] [address] 04/07/2018 08:54:56 04/10/2018 11:16:49 Screening procedure 17808736 Z13.9 Edema 755562994 R60.9 Depressive disorder 3548 9007 F33.8 Hypothyroidism 68220579 E03.9 Anxiety 14559229 F41.9 Essential hypertension 29835030 I10 stable Aortic valve stenosis 60 745760 I35.0 up to date echo- due 08/2018 Sleep apnea 22525689 G47 .30 compliant Hypercholesterolemia 136 15817 E78.00 Impaired f asting glycemia 702650057 R73.01 Active or passive immunization 391623561 Z23 [id number] Karen Blanchard NP, S [facility] [address] [facility],[place] [address] 07/08/2018 09:29:55 07/08/2018 14:30:43 Adult health examination 222877160 Z00.01 Active or passive immunization 673543165 Z23 History of cerebrovascular accident 731629658 Z86.73 recent INR wnl Depressive disorder 3548 9007 F33.8 stable Hypothyroidism 82333337 E03.9 follow Essential hypertension 60571900 I10 stable Aortic valve stenosis 60 325797 I35.0 schedule echo- due 08/2018 Sleep apnea 96250321 G47 .30 compliant Hypercholesterolemia 136 87096 E78.00 follow Osteoarthr itis of knee 932711489 M17.[id number] [facility] [address] [facility],[place] [address] 04/28/2019 11:00:47 04/28/2019 11:41:26 Hypothyroidism 90413336 E03.9 needs tsh Essential hypertension 22623473 I10 will need lipid and cmp Impaired f asting glycemia 057670308 R73.01 will follow and will need lab History of cerebrovascular accident 693193859 Z86.73 stable and is without issue Aortic valve stenosis 60 918587 I35.0 stable recent echo and is stable as of june 2018 Osteoarthr itis of knee 691281531 M17.9 [place] [id number] [facility] [address] [facility],[place] [address] 08/02/2019 11:23:11 08/02/2019 12:00:25 Essential hypertension 11489370 I10 did real well with lab bps are excellent no cp no sob Hypothyroidism 19905376 E03.9 last tsh is notmal at 3.7 rechk in 6 months Hypercholesterolemia 136 62149 E78.00 LDL is 132 HDL is 552 TRIG is 70 Idiopathic peripheral neuropathy 46005553 G60.9 seems stable Edema 115746482 R60.9 seems to come and go not really any change [id number] [facility] [address] [facility] [address] 06/19/2020 11:03:08 06/19/2020 11:53:47 Essential hypertension 38606471 I10 BP stable on medication s and no side effects no interventi on needed at this time Hypothyroidism 44721393 E03.9 will recheck her levels and fu with results Impaired f asting glycemia 776417927 R73.01 will recheck BW and also check A1c to make sure patient has developed diabetes (as she has hx IFG) Screening for cardiovascular system disease 138080904 Z13.6 needs recheck of cholestero l to see if medication change of adjustment is needed for simvastati n Hyperlipidemia 79680753 E78.5 will fu with results [id number] [facility] [address] [facility],[place] [address] 05/23/2021 08:15:16 05/28/2021 10:41:37 Depressive disorder 76619024 F33.8 stable Anxiety 93360197 F41.1 stable Aortic valve stenosis 60 284088 I35.0 stable Essential hypertension 91777141 I10 BP stable on medication s and no side effects no interventi on needed at this time Hypercholesterolemia 136 84465 E78.2 needs BW Hypothyroidism 87330074 E03.9 will recheck her levels and fu with results Atopic dermatitis 841423 01 L20.89 will trial topical cream Motion sickness 95827698 T75.3XXA needs patch [id number] [facility] [address] [facility] [place] [facility] [address] 07/16/2022 14:15:50 07/17/2022 08:23:41 Essential hypertension 37730886 I10 BP stable on medication s and no side effects no interventi on needed at this time Depressive disorder 3548 9007 F33.[id number] [facility] [address] [facility],[place] [address] 01/07/2023 13:53:57 01/07/2023 15:03:21 Essential hypertension 45881367 I10 BP stable on medication s and no side effects no interventi on needed at this time Hypercholesterolemia 136 86665 E78.2 needs BW Hypothyroidism 73677826 E03.8 will recheck her levels and fu with results Atopic dermatitis 090329 01 L20.89 will trial topical cream [id number] [facility] [address] [place] [address], [place] [address] 02/07/2023 14:27:17 02/07/2023 15:04:49 Orthostatic hypotension 98343101 I95.1 adjusted lisinopril dose Dizziness 672259866 R42 resolved [id number] [facility] [address] [place] [address],[place] [address] 03/10/2023 11:14:56 03/10/2023 11:53:48 Essential hypertension 21150518 I10 BP stable on medication s and no side effects no interventi on needed at this time Hypothyroidism 91919840 E03.8 will recheck her levels and fu with results [id number] Mustapah [address] [facility] [address],[place] [address] 04/16/2023 09:11:18 04/16/2023 11:02:48 Essential hypertension 66195742 I10 stable off the medication Cough 16711595 R05.1 will start on cough suppressan t [id number] Mustapha Bustos [facility] [address] [place] [address], ite [facility] [place] [address] 09/19/2023 11:37:48 09/19/2023 16:26:10 Depression screening 804452449 Z13.31 negative Pain of le ft shoulder joint 1511556765 3095271 M25.512 will give tramadol for pain [id number] Mustapha Bustos [facility] [address] [facility], [place] [address] 10/31/2023 14:38:05 10/31/2023 15:41:44 Rupture of rotator cuff of left shoulder 3244542860 4510584 M75.102 Essential hypertension 96173173 I10 did real well with lab bps are excellent no cp no sob Aortic valve stenosis 60 597657 I35.0 stable recent echo and is stable as of june 2018 History of cerebrovascular accident 143203437 Z86.73 stable and is without issue Osteoarthr itis of knee 888334940 M17.9 will be getting left knee surg on of this month will need 4 day bridge and will ahve them call me with dose of lovenox that they already have in the fridge [id number] Mustapha Bustos [facility] [address] [facility],[place] [address] 01/14/2024 08:09:32 01/14/2024 11:43:08 Fatigue 08519019 R53.83 will set up with lab work for the fatigueals o suggested for new sleep study [id number] Mustapha Bustos [facility] [address] [facility],[place] [address] 04/06/2024 13:16:21 04/06/2024 14:12:13 Fall R29.6 stable Depressive disorder 3548 9007 F33.8 stable Osteoarthr itis of left knee joint 8504598241 66405 M17.12 has TKR on 06/17/24wil l f/u with their office to see when she needs her pre op Essential hypertension 57563648 I10 stable off the medication [id number] Mustapha Bustos [facility] [address] [facility],[place] [address] 07/30/2024 11:23:39 07/30/2024 14:42:12 Essential hypertension 25021715 I10 did real well with lab bps are excellent no cp no sob Hypercholesterolemia 136 20364 E78.2 LDL is 132 HDL is 552 TRIG is 70 Hypothyroidism 19368988 E03.8 last tsh is notmal at 3.7 rechk in 6 months Depression screening 171 237791 Z13.[id number] [facility] [address] [facility],[place] [address] 09/20/2024 14:56:48 09/20/2024 15:40:01 Depression screening 136055194 Z13.31 Essential hypertension 00680279 I10 did real well with lab bps are excellent no cp no sob History of total knee arthroplasty 4732926394 105 Z96.652 72574230 was doing great until the fallshe needs to be seen lonnie as this gait is abnormal Left foot drop 988265152 1 04669 M21.372 0081767959 [id number] Mustapha Bustos DO [facility] Internal Medicine [address] [facility] [address],[place] [address] 11/23/2024 13:24:12 11/23/2024 15:11:50 Active or passive immunization 491082851 Z23 advised General ex amination of patient 097115394 Z00.00 68147696 BP is fine Health Concerns Section Related Observation LastModified by Organization Detai ls LastModified Time None Recorded Concern Status LastModified by Organization Details LastModified Time None Recorded Advance Directives Directive None Recorded Payers Insurance Date Sequence Insurance Name Policy Number Policy Lowe Covered Member ID Lowe Member ID Guarantor Name 01/14/2024 2 [place]ICARE [place]: [employer] Yadira Mena [id number] Yadira Mena 01/14/2024 1 [email or web address] CARE ALLIANCE - DOS ON OR AFTER 2022 - MEDICARE [place]VANTAGE [place] (MEDICARE REPLAC[place]/AD VANTAGE - PPO) Yadira Mena [id number] Yadira Mena 01/14/2024 1 [facility] PRIOR TO 2022 - DUAL ELIGIBLE (MEDICARE REPLACEMENT/AD VANTAGE - HMO) Yadira Mena [id number] Yadira Mena 01/14/2024 1 [place] [facility] Yadira Mena [id number] Yadira Mena 11/20/2024 1 [employer] [facility] ALL[facility] - DOS ON OR AFTER 2022 - MEDICARE [place]AGE [place] (MEDICARE [place]AC[place]/AD VANTAGE - PPO) Yadira Mena [id number] Yadira Mena Notes Date Note Type Note Provider Name and Address Organization Details Recorded Time 01/14/20 24 text/htm l ROS as noted in the HPI ER f/u The patient is participating in this appointment via telemedicine communication with a phone call/video calling service ([employer])The patient consents to use of these platforms [...] fu after blood work PEGGY TAVAREZ [address] [facility], [place], [address], [facility] 01/14/2024 10:43:54 04/06/20 24 text/htm l ROS as noted in the [...] major changestaking her medications PEGGY TAVAREZ [address] [facility], [place], [address], [facility] 04/06/2024 14:07:52 07/31/19 25 text/htm [...] noted in the HPI Mustapha Bustos, [address] [place], [address], [facility] [place] [facility] 07/30/2024 11:52:32 09/21/19 25 text/htm l ROS as noted in the HPI here for rechkhad a fall las t week since then it appears she has a abnormal gait noticed by her dphys therapistvery abnormal and almost like a foot f=drop this has all ocurred after the fall reviewed lab in detail Mustapha Bustos, [address] [place], [address], [facility] [place] 09/20/2024 15:36:35 11/24/19 25 text/htm [...] alone denies sig depressive symptoms PEGGY TAVAREZ [address] [facility], [place], [address], [facility] 11/23/2024 14:51:55 OBGyn Episode No OBEpisode recorded.
== END 2025-03-16 14:04 | disposition home or self-care (01) ==
LOC: HO.ACS 13:49
PROVIDERS: PCP Internal Medicine; Visit Provider Internal Medicine Medical Oncology
DX: Z79.01 Long term (current) use of anticoagulants (principal)

== ENCOUNTER → 2025-03-16 13:49 | Outpatient (BNVA) | payer OTHER, SELFPAY | PROVIDERS: PCP Internal Medicine; Visit Provider Internal Medicine Medical Oncology | DX: Z86.73 Personal history of transient ischemic attack (TIA), and cerebral infarction without residual deficits (principal); Z51.81 Encounter for therapeutic drug level monitoring; Z79.01 Long term (current) use of anticoagulants | CPT/HCPCS: 85610; 99211 ==

== ENCOUNTER 2025-04-18 11:00 | Outpatient (AMB) | payer OTHER, SELFPAY ==
[2025-04-18 11:10] LABS: Prothrombin Time Whole Bld POC 26.2 sec (11.1-13.5); ~PT, ~INR - Anti Coag Clinic 2.2 (0.9-1.1)
--- NOTE | 2025-04-18 11:10 | MHC.OFFVISCO ---
Intake Intake Visit Reasons: Anticoagulation Allergies erythromycin base (ERYTHROMYCIN BASE) Allergy (Unknown, Verified 04/18/25 11:04) Nausea and Vomiting Medication List - Last Reconciled 04/18/25 by Yadira Laureano RN acetaminophen (Tylenol) 325 mg PO Q4H PRN bupropion HCl 100 mg PO BID lqomtgruke-ssterlwrzvnnz-eble 50-325-40 mg 1 tab PO TID PRN cholecalciferol (vitamin D3) (Vitamin D3) 25 mcg PO DAILY citalopram 40 mg PO DAILY diazepam 2 mg PO TID PRN gabapentin 200 mg PO BEDTIME levothyroxine 50 mcg PO DAILY lisinopril 10 mg PO DAILY simvastatin 20 mg PO BEDTIME simvastatin 40 mg PO BEDTIME tramadol 50 mg PO Q4H PRN walker As directed warfarin See Protocol 2.5 mg orally 1.25 NG SUN/ 2.5MG X 6 DAYS; Nursing Note NO CP,SOB,DIET/MED CHANGES,FALLS OR SX OF BLEEDING. CONTINUE PRESRNT DOSE AND FOLLOW-UP IN 4 WEEKS GOOD UNDERSTANDING OF DOSING INSTR. Anti-Coag Initial Assessment Social Hx Patient Tobacco Use Status: Never used Tobacco alcohol intake: never Alcohol intake frequency: does not drink Questionnaires HAS-BLED Does the patient had uncontrolled Hypertension?: Yes Does the patient have renal disease?: No Does the patient have liver disease?: No Does the patient have a history of stroke?: Yes Has the patient had major bleeding or predisposition to bleeding?: No Does the patient have labile INRs?: No Is the patient over 65 years of age?: No Is the patient on medications that gives them a predisposition to bleeding?: Yes Does the patient use alcohol?: No HAS-BLED Score: 3 CHADSVASC Age: <65 Gender: Female Does the patient have a history of CHF?: No Does the patient have a history of Hypertension?: Yes Does the patient have a history of Stroke/TIA/Thromboembolism?: Yes Does the patient have a history of Vascular Disease (prior [place], PAD or aortic plaque)?: No Does the patient have a history of Diabetes?: No CHADS VACS Score: 4 Yuan Prediction Score Rsk VTE Active Cancer: No Previous VTE, excluding superficial vein thrombosis: No Reduced mobility: Yes Already known Thrombophilic Condition: No With-in last month Trauma and/or Surgery: No Elderly 70 year or older: No Heart and/or Respiratory Failure: No Acute Myocardial infarction and/or Ischemic Stroke: No Acute Infection and/or Rheumatologic Disorder: No Obesity (BMI 30 or greater): Yes Ongoing Hormonal Treatment: No Score: 4 Yuan Score less than 4; Low Risk of VTE Yuan Score 4 or greater; High Risk of VTE Coding Level of Care Code Est Patient Level 1 Diagnoses Current use of anticoagulant therapy Z79.01 Assessment & Plan Assessment & Plan (1) Current use of anticoagulant therapy: Code(s): 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
--- NOTE | 2025-04-18 11:57 | MHC.OFFVISCO ---
Intake Intake Visit Reasons: Anticoagulation Allergies erythromycin base (ERYTHROMYCIN BASE) Allergy (Unknown, Verified 04/18/25 11:04) Nausea and Vomiting Medication List - Last Reconciled 04/18/25 by Yadira Laureano RN acetaminophen (Tylenol) 325 mg PO Q4H PRN bupropion HCl 100 mg PO BID hfoqviipng-gobkqmienbzfq-wrcq 50-325-40 mg 1 tab PO TID PRN cholecalciferol (vitamin D3) (Vitamin D3) 25 mcg PO DAILY citalopram 40 mg PO DAILY diazepam 2 mg PO TID PRN gabapentin 200 mg PO BEDTIME levothyroxine 50 mcg PO DAILY lisinopril 10 mg PO DAILY simvastatin 20 mg PO BEDTIME simvastatin 40 mg PO BEDTIME tramadol 50 mg PO Q4H PRN walker As directed warfarin See Protocol 2.5 mg orally 1.25 NG SUN/ 2.5MG X 6 DAYS; Anti-Coag Initial Assessment Social Hx Patient Tobacco Use Status: Never used Tobacco alcohol intake: never Alcohol intake frequency: does not drink Questionnaires Yuan Prediction Score Rsk VTE Active Cancer: No Previous VTE, excluding superficial vein thrombosis: No Reduced mobility: Yes Already known Thrombophilic Condition: No With-in last month Trauma and/or Surgery: No Elderly 70 year or older: No Heart and/or Respiratory Failure: No Acute Myocardial infarction and/or Ischemic Stroke: No Acute Infection and/or Rheumatologic Disorder: No Obesity (BMI 30 or greater): Yes Ongoing Hormonal Treatment: No Score: 4 Yuan Score less than 4; Low Risk of VTE Yuan Score 4 or greater; High Risk of VTE Coding Diagnoses Current use of anticoagulant therapy Z79.01 Assessment & Plan Assessment & Plan (1) Current use of anticoagulant therapy: Code(s): 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
--- OUTSIDE RECORDS SUMMARY | 2025-04-18 12:50 | XMS_ITS | Patient Health Record ---
[facility] Address [address] [place] [address] Care Team Providers Care Anthropology Department Chair Name Role Phone Mustapha Bustos MD Primary Care Provider Asha Vail Unavailable [phone] Allergies Allergen (clinical drug ingredient) Drug/Non Drug [...] nce a day; Duration: 30 day(s) Active Levothyroxine Sodium 50 MCG 1 tablet in the morning on an empty stomach Orally Once a day; Duration: 30 day(s) Active Lisinopril 10 MG 1 tablet Orally Once a day; Duration: 30 days Active zzzCompression Stockings 20-30mm Hg . . .; Duration: . Active Compression Stockings 20-30mm Hg 1 pair With zippers daily; Duration: 30 days Active SUMAtriptan 20 MG/ACT 1 spray at onset o f headache in one nostril may repeat after 2 hours as needed Nasally Once a day PRn Active Gabapentin 100 MG 1 capsule Orally Onc e a day; Duration: 30 day(s) Active Vitamin D3 Active Immunizations Vaccine Route Administration Date Status Comme nts Influenza Unknown 01/22/2024 Administered COVID-19 Moderna Vaccine Unknown 08/17/2020 Administered Second Dose: Social History Tobacco Use: Social History Observation Description Date Details (start date - stop date) Never Smoker NA - NA Tobacco use other than smoking: Question Answer [...] Status W/U Status Risk Notes Problem Neuropathy (977134027) Neuropathy (G62.9) Active confirmed Problem Bilateral atherosclerosis of arteries of lower limbs (disorder) (23234592009916369 ) Atherosclerosis of artery of both lower extremities (I70.203) Active confirmed Vital Signs Blood pressure diastolic 68 mm Hg 04/11/2025 Height 5ft in 04/11/2025 Blood pressure systolic 115 mm Hg 04/11/2025 Weight 190 lbs 04/11/2025 BMI 37.1 kg/m2 04/11/2025 Encounters Encounter Location Date Provider Diagnosis [address] [address] 05/04/2024 Asha Perica Tinea unguium B35.1 ; Xerosis of skin L85.3 ; Generalized edema R60.1 ; Atherosclerosis of artery of both lower extremities I70.203 ; Pain in left toe(s) M79.675 ; Neuropathy G62.9 ; Ischemic ulcer of left heel, limited to breakdown of skin L97.421 and Toe pain, right M79.674 [facility] [address] [place] [address] 01/18/2025 Asha Perica Tinea unguium B35.1 ; Atherosclerosis of artery of both lower extremities I70.203 ; Pain in left toe(s) M79.675 and Toe pain, right M79.[address] [address] 04/11/2025 Asha Perica Tinea unguium B35.1 ; Xerosis of skin L85.3 ; Atherosclerosis of artery of both lower [...] of both lower extremities (ICD-10 - I70.203) 04/11/2025 Tinea unguium (ICD-10 - B35.1) 04/11/2025 Xerosis of skin (ICD-10 - L85.3) 05/04/2024 Generalized edema (ICD-10 - R60.1) 04/11/2025 Atherosclerosis of artery of both lower extremities (ICD-10 - I70.203) 01/18/2025 Pain in left toe(s) (ICD-10 - M79.675) 01/18/2025 Toe pain, right (ICD-10 - M79.674) 04/11/2025 Pain in left toe(s) (ICD-10 - M79.675) 05/04/2024 Atherosclerosis of artery of both lower extremities (ICD-10 - I70.203) 04/11/2025 Toe pain, right (ICD-10 - M79.674) 05/04/2024 Pain in left toe(s) (ICD-10 - M79.675) 05/04/2024 Neuropathy (ICD-10 - G62.9) 05/04/2024 Ischemic ulcer of left heel, limited to breakdown of skin (ICD-10 - L97.421) Response to treatment Patient Educated with: WOUND CARE INSTRUCTIONS. pdf (WOUND CARE INSTRUCTIONS. pdf) 05/04/2024 Toe pain, right (ICD-10 - M79.674) 01/18/2025 Other Plan Of Treatment Next Appt Details Provider Name:Asha sparks, 06/28/2025 03:45:00 PM, [address] [place] [address], [id number], Insurance Providers Payer Name Payer Address Payer Phone Subscriber Number Group Number Insured Name Patient Relationship to Insured Coverage Start Date Coverage End Date [facility] [employer] Claims [address] [place] [id number] Yadira Mena Self - patient is the insured Medical (General) History Medical History History ICD Code Anxiety Depression Headaches/Migraines High blood pressure Neuropathy Stroke thyroid Chicken pox Periadonal Disease Rotator cuff tear Surgical History Surgery Date(Month/Year) 5 teeth extraction 11/13/23
--- OUTSIDE RECORDS SUMMARY | 2025-04-18 12:51 | XMS_ITS | Patient Health Record ---
Author Organization [facility] Address [address] [place] [address] Care Team Providers Care Director Of Recruitment Name Role Phone Mustapha Bustos Primary Care Provider Bran Andrews Jr Unavailable Allergies Allergen (clinical drug ingredient) Drug/Non Drug Allergy documented on EMR Reaction Allergy Type Onset Date Status erythromycin Erythromycin Unknown Drug Allergy A ctive Reason For Referral No Information Medications Medication SIG (Take, Route, Frequency, Duration) Notes Start Date End Date Status Warfarin Sodium 2.5 MG Tablet 1 tablet Orally Once a day Active Levothyroxine Sodium 50 MCG Tablet 1 tablet on an empty stomach in the morning Orally Once a day Active Simvastatin 40 MG Tablet 1 tablet in the evening Orally Once a day Active Vitamin D-3 25 MCG (1000 UT) Capsule 1 capsule Orally Once a day; Duration: 30 day(s) Active Citalopram Hydrobromide 40 MG Tablet 1 tablet Orally Once a day Active Lisinopril 20 MG Tablet 1 tablet Orally Once a day Active Immunizations Vaccine Route Administration Date Status Comme nts Influenza Unknown 03/07/2021 Administered Social History Tobacco Use: Social History Observation Description Date Details (start date - stop date) Never Smoker NA - NA Social History Drugs/Alcohol: Social Info Question Answer Notes Alcohol Screen Did you have a drink containing alcohol in the past year? 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 Problems Problem Type SNOMED Code ICD Code Onset Dates Problem Status W/U Status Risk Notes Problem Colon cancer screening (441350029) Colon cancer screening (Z12.11) Active confirmed Problem Long-term current use of anticoagulant (121621882) correction (current) use of anticoagulants (Z79.01) Active confirmed Plan Of Treatment Future Test Test Name Order Date COLONOSCOPY 12/18/2016 COLONOSCOPY 08/20/2021 Insurance Providers Payer Name Payer Address Payer Phone Subscriber Number Group Number Insured Name Patient Relationship to Insured Coverage Start Date Coverage End Date [facility] [address] [place] [phone] [id number] MARJAN MENDOZA Self - patient is the insured MEDICAID OF [facility] [address] [place] [address] [phone] [id number] MARJAN MENDOZA Self - patient is the insured MEDICARE OF [place] [address] [place] [id number] [phone] [id number] MARJAN MENDOZA Self - patient is the insured Medical (General) History Medical History History ICD Code stroke x2 hypertension obstructive sleep apnea, uses CPAP hypothyroidism depression elevated cholesterol Surgical History Surgery Date(Month/Year) knee surgery x5
--- OUTSIDE RECORDS SUMMARY | 2025-04-18 12:51 | XMS_ITS | Data Portability ---
Author Organization [facility], Telehealth Patient Home Address [address] [place] [address] Assessment Encounter Date Assessment Date Assessment LastModified by Organization Details LastModified Time 01/14/2024 01/14/2024 Patient agreed and verbally consents to this audio and video Telehealth appt via a secure platform [email or web address] Not available 01/14/2024 10:40:30 07/30/2024 07/30/2024 [id number] [place] [id number] (STAFFING ADMINISTRATOR) MDM MODERATE MUST MEET 2 OUT OF [...] COVERED Not available 07/30/2024 11:48:23 09/20/2024 09/20/2024 [id number] [place] [id number] (STAFFING ADMINISTRATOR) MDM MODERATE MUST MEET 2 OUT OF [...] available Lab lipid panel, blood 2024 025 [facility], [address] [place] [address], [id number], 09/09/2024 12:25:28 CMP, serum or plasma 2024 025 [facility], [address] [place] [address], [id number], 09/09/2024 12:25:28 CBC w/ auto diff 2024 025 [facility], [address] [place] [address], [address], 09/09/2024 12:25:28 TSH + free T4, serum 2024 025 [facility], [address] [place] [address], [address], 07/30/2024 11:59:13 iron + TIBC + ferritin, serum 2023 024 [facility], [address] [place] [address], [address], 01/14/2024 10:41:00 TSH + free T4, serum 2023 024 [facility], [address] [place] [address], [address], 01/14/2024 10:41:00 vitamin B12 + folate, serum or blood 2023 024 [facility], [address] [place] [address], [address], 01/14/2024 10:41:00 vitamin D, 25-hydrox y, total, serum 2023 024 [facility], [address] [place] [address], [address], 01/14/2024 10:41:00 CMP, serum or plasma 2023 024 [facility], [address] [place] [address], [place], [address], 01/14/2024 10:41:00 CBC w/ auto diff 2023 [facility], [address] [place] [address], [address], 01/14/2024 10:41:00 hemoglobi n A1c, QN, blood 2023 [facility], [address] [place] [address], [place], [address], 01/14/2024 10:41:00 Referral orthopedi c surgeon referral - pt has developed an odd foot drop after a fall last week please see LONNIE 2024 025 umair Edwards MD, [address], [place], [address], 09/20/2024 15:55:49 Procedures None recorded. Surgeries None recorded. Imaging None recorded. Medication Orders bupropion HCl 100 mg tablet 2024 025 [id number], [address] [place], [address], 11/23/2024 14:12:43 Patient TargetsNo targets recorded. Patient Instructions Encounter Date Encounter Id Patient Instructions Last Modified By Organization Details Last Modified Time 09/20/2024 [id number] high blood pressure: care instructions Not available [...] contr ast No observ ation record ed. [facility] (Medical Records) [address] [place], [address], 12/23/2023 08:21:06 01/04/20 24 01/04/2024 CT, chest , w/ contr ast No observ ation record ed. [address] (Medical Records) [address] [place], [address], 01/04/2024 19:17:44 01/04/20 24 01/04/2024 CT, abdom en + pelvi s, w/ contr ast No observ ation record ed. [address] (Medical Records) [address] [place], [address], 01/04/2024 19:18:13 01/04/20 24 01/04/2024 CT, cervi urmila spine , w/o contr ast No observ ation record ed. [address] (Medical Records) [address] [place], [address], 01/04/2024 19:18:41 01/04/20 24 01/04/2024 CT, head + brain , w/o contr ast No observ ation record ed. [address] (Medical Records) [address] [place], [address], 01/04/2024 19:19:07 Result Notes None recorded. Problems Name Problem SNOMED Code Status Onset Date Resolution Date Notes Provider Name and Address Organization Details Recorded Time Sleep apnea 25740359 Active 2017 Not Available [facility] 3 15:17:07 Essential hypertens ion 17047954 Active 2017 PEGGY TAVAREZ [address] [place], [address], [facility] 5 10:53:41 History of cerebrova scular accident 675896654 Active 2017 Not Available [facility] 3 15:17:07 Edema 930981306 Active 2017 Not Available [facility] 3 15:17:07 Hypothyro idism 08814699 Active 2017 Not Available [facility] 3 15:17:07 Aortic valve stenosis 70856766 Active 2017 Not Available [facility] 3 15:17:07 Anxiety 32671813 Active 2017 Not Available [facility] 3 15:17:07 Depressiv e disorder 44732944 Active 2017 Not Available [facility] 3 15:17:07 Migraine 40546673 Active 2017 Not Available [facility] 3 15:17:07 Osteoarth ritis of knee 877402437 Active 2017 left knee Not Available [facility] 3 15:17:07 Hyperchol esterolem ia 73999353 Active 2017 Not Available [facility] 3 15:17:07 Idiopathi c periphera l neuropath y 21211510 Active 2018 Not Available [facility] 3 15:17:07 Impaired fasting glycemia 636685755 Active 2019 Not Available [facility] 3 15:17:07 Fatigue 05505777 Active 2021 Not Available [facility] 3 15:17:07 COVID-19 802369900 Active 2021 Not Available [facility] 3 15:17:07 Acute bronchiti s 94983644 Active 2022 Not Available [facility] 3 15:17:07 Orthostat ic hypotensi on 78310074 Active 2022 Not Available [facility] 3 15:17:07 Dizziness 685134112 Active 2022 Not Available [facility] 3 15:17:07 Cough 86139181 Active 2022 PEGGY TAVAREZ [address] [place], [address], [facility] 3 10:52:11 Pain of left shoulder joint 747863332262 57698 Active 2023 PEGGY TAVAREZ [address] [place], [address], [facility] 4 12:05:53 Rupture of rotator cuff of left shoulder 461408311165 83399 Active 2023 Mustapha Bustos DO [address] [place] [address], [address], [facility] 4 15:17:46 Claustrop hobia 64615219 Active 2023 PEGGY TAVAREZ [address] [place] [address], [address], [facility] 4 15:20:28 Partial thickness rotator cuff tear 947945122 Active 2023 Mustapha Bustos DO [address] [place] [address], [address], [facility] 4 21:42:13 Fall Active 2023 PEGGY TAVAREZ [address] [place], [address], [facility] 4 13:55:20 Osteoarth ritis of left knee joint 944155800621 109 Active 2023 PEGGY TAVAREZ [address] [place], [address], [facility] 4 13:56:17 Left foot drop 684401692941 105 Active 2024 Mustapha Bustos, DO [address] [facility], [place], [address], [facility] 5 15:33:49 History of operative procedure on knee 743367896 Active 2024 PEGGY TAVAREZ [address] [place], [address], [facility] 5 14:05:17 Problem Notes None recorded. Medical Equipment None Reported. Allergies Allergen ID Allergen Name Allergen Category Reaction Reaction Severity Criticality Documentation Date Start Date Code Code System Note Provider Name and Address Organization Details Recorded Time 2250 azithromy nia medicatio n Not available Not available Not available 12/29/2017 65807 RxNorm [facility] 8 08:19:44 Medications Name Sig Start Date [...] Updated DateTime 5 152.4 cm 37.9 kg/m2 67677.9 2 g 75 /min 96 % 124/84 mm[Hg] Mustapha Bustos, DO [address] [place], [address] 5 11:29:41 Date Recorded Body height Body mass index (BMI) Body weight Oxygen saturation Heart rate Systolic And Diastolic Provider Name and Address Organization Details Last Updated DateTime 5 152.4 cm 36.1 kg/m2 86303.5 9 g 96 % 60 /min 132/78 mm[Hg] ROSEMARIE GRADY [facility] 5 15:09:46 Date Recorded Body height Body mass index (BMI) Body weight Heart rate Oxygen saturation Systolic And Diastolic Provider Name and Address Organization Details Last Updated DateTime 5 152.4 cm 36.9 kg/m2 88272.9 6 g 68 /min 94 % 136/86 mm[Hg] Destini Aragon [facility] 5 13:58:44 Date Recorded Body height Body mass index (BMI) Body weight Heart rate Oxygen saturation Systolic And Diastolic Provider Name and Address Organization Details Last Updated DateTime 4 152.4 cm 37.1 kg/m2 83943.5 5 g 69 /min 97 % 130/72 mm[Hg] Maria Esther Huangmond [facility] 4 13:32:05 Social History Question Answer Notes LastModified by Organizat ion Details LastModified Time Tobacco Smoking Status Never Smoker Not Available [facility] 02/22/2020 03:36:24 What Was The Date Of Your Most Recent Tobacco Screening? 11/23/2024 [email or web address] Information not available 11/23/2024 Sex: Unknown Functional Status Question Answer Note LastModified by Organization D etails LastModified Time Do you or have you ever used any other forms of tobacco or nicotine? No [email or web address] Information not available 04/06/2024 Mental Status None recorded. Family History Nothing Reported. Medical History No medical history recorded. Gynecological HistoryNo gynecological history recorded. Obstetrics History GPAL:G 0 P 0 0 0 0 Immunizations Vaccine Type Date Status Note Provider Nam e and Address Organization Details Recorded Time COVID-19, mRNA, LNP-S, PF, 100 mcg/0.5mL dose or 50 mcg/0.25mL dose 1 completed Irena fountain [facility] 11/01/2020 15:35:49 COVID-19, mRNA, LNP-S, PF, 100 mcg/0.5mL dose or 50 mcg/0.25mL dose 1 completed Irena fountain [facility] 04/18/2021 11:03:52 Influenza, split virus, quadrivalent, preservative 1 yael fonutain [facility] 04/18/2021 11:03:59 Influenza, split virus, quadrivalent, preservative 8 completed Not Available [facility] 05/08/2019 02:46:31 Influenza, split virus, quadrivalent, preservative 9 completed Liliane fountain [facility] 06/19/2020 11:20:18 Influenza, split virus, quadrivalent, preservative 1 completed Liliane fountain [facility] 06/19/2020 11:20:18 COVID-19, mRNA, LNP-S, PF, 100 mcg/0.5mL dose or 50 mcg/0.25mL dose completed Irena Chester fountain [facility] 11/01/2020 15:35:56 Past Encounters Encounter ID Performer Location Encounter Start Date Encounter Closed Date Diagnosis/Indication Diagnosis SNOMED-CT Code Diagnosis ICD10 Code Diagnosis IMO Codes Diagnosis Note [id number] [facility] [address] [place] [address] 12/29/2017 11:41:39 12/29/2017 12:36:56 Edema 526890809 R60.9 History of cerebrovascular accident 466697898 Z86.73 Depressive disorder 3548 9007 F33.8 Hypothyroidism 26565579 E03.9 Essential hypertension 64506641 I10 Aortic valve stenosis 60 184476 I35.0 Sleep apnea 47463584 G47 .30 Anxiety ab out loss of memory 328597054 F41.8 Lesion of vulva 50654960 6 N90.9 [id number] [facility] [address] [address] 02/02/2018 09:53:50 02/02/2018 11:21:20 Hypothyroidism 88037438 E03.9 Impaired f asting glycemia 912702039 R73.01 Essential hypertension 46360867 I10 stable Aortic valve stenosis 60 550275 I35.0 up to date echo Administra tion of influenza vaccine 56316971 Z23 Depressive disorder 3548 9007 F33.8 [id number] [facility] [address] [address] 04/07/2018 08:54:56 04/10/2018 11:16:49 Screening procedure 23383925 Z13.9 Edema 681085047 R60.9 Depressive disorder 3548 9007 F33.8 Hypothyroidism 82839329 E03.9 Anxiety 03883042 F41.9 Essential hypertension 95394360 I10 stable Aortic valve stenosis 60 347511 I35.0 up to date echo- due 08/2018 Sleep apnea 15701594 G47 .30 compliant Hypercholesterolemia 136 07698 E78.00 Impaired f asting glycemia 499144195 R73.01 Active or passive immunization 269202123 Z23 [id number] Karen Blanchard NP, S [facility] [address] [address] 07/08/2018 09:29:55 07/08/2018 14:30:43 Adult health examination 147720744 Z00.01 Active or passive immunization 408716961 Z23 History of cerebrovascular accident 799089211 Z86.73 recent INR wnl Depressive disorder 3548 9007 F33.8 stable Hypothyroidism 14090755 E03.9 follow Essential hypertension 72267226 I10 stable Aortic valve stenosis 60 041676 I35.0 schedule echo- due 08/2018 Sleep apnea 90571474 G47 .30 compliant Hypercholesterolemia 136 30090 E78.00 follow Osteoarthr itis of knee 710601725 M17.9 [id number] Mustapha Bustos [facility] [address],[place] [address] 04/28/2019 11:00:47 04/28/2019 11:41:26 Hypothyroidism 33882985 E03.9 needs tsh Essential hypertension 33993381 I10 will need lipid and cmp Impaired f asting glycemia 760523963 R73.01 will follow and will need lab History of cerebrovascular accident 834707040 Z86.73 stable and is without issue Aortic valve stenosis 60 157436 I35.0 stable recent echo and is stable as of june 2018 Osteoarthr itis of knee 455661720 M17.9 [place] [id number] Mustapha Bustos [facility] [address],[place] [address] 08/02/2019 11:23:11 08/02/2019 12:00:25 Essential hypertension 06791997 I10 did real well with lab bps are excellent no cp no sob Hypothyroidism 09966266 E03.9 last tsh is notmal at 3.7 rechk in 6 months Hypercholesterolemia 136 48845 E78.00 LDL is 132 HDL is 552 TRIG is 70 Idiopathic peripheral neuropathy 77936327 G60.9 seems stable Edema 527103783 R60.9 seems to come and go not really any change [id number] Mustapha Bustos [facility] [address] [facility] [address] 06/19/2020 11:03:08 06/19/2020 11:53:47 Essential hypertension 16048253 I10 BP stable on medication s and no side effects no interventi on needed at this time Hypothyroidism 10963911 E03.9 will recheck her levels and fu with results Impaired f asting glycemia 227897848 R73.01 will recheck BW and also check A1c to make sure patient has developed diabetes (as she has hx IFG) Screening for cardiovascular system disease 812200537 Z13.6 needs recheck of cholestero l to see if medication change of adjustment is needed for simvastati n Hyperlipidemia 88637072 E78.5 will fu with results [id number] Mustapha Bustos [facility] [address] [facility] [address] 05/23/2021 08:15:16 05/28/2021 10:41:37 Depressive disorder 20468671 F33.8 stable Anxiety 97452646 F41.1 stable Aortic valve stenosis 60 847015 I35.0 stable Essential hypertension 13159886 I10 BP stable on medication s and no side effects no interventi on needed at this time Hypercholesterolemia 136 73536 E78.2 needs BW Hypothyroidism 50889732 E03.9 will recheck her levels and fu with results Atopic dermatitis 183454 01 L20.89 will trial topical cream Motion sickness 38288140 T75.3XXA needs patch [id number] Mustapha Bustos [facility] [address] [facility] [address] [place] [address] 07/16/2022 14:15:50 07/17/2022 08:23:41 Essential hypertension 21380590 I10 BP stable on medication s and no side effects no interventi on needed at this time Depressive disorder 3548 9007 F33.8 stable [id number] Mustapha Bustos [facility] [address] [facility] [address] 01/07/2023 13:53:57 01/07/2023 15:03:21 Essential hypertension 03780164 I10 BP stable on medication s and no side effects no interventi on needed at this time Hypercholesterolemia 136 97722 E78.2 needs BW Hypothyroidism 81817106 E03.8 will recheck her levels and fu with results Atopic dermatitis 195798 01 L20.89 will trial topical cream [id number] Mustapha Bustos [facility] [address] [place] [address], [place] [address] 02/07/2023 14:27:17 02/07/2023 15:04:49 Orthostatic hypotension 52308008 I95.1 adjusted lisinopril dose Dizziness 888191031 R42 resolved [id number] Mustapha Bustos [facility] [address] [place] [address],[place] [address] 03/10/2023 11:14:56 03/10/2023 11:53:48 Essential hypertension 66995101 I10 BP stable on medication s and no side effects no interventi on needed at this time Hypothyroidism 14909058 E03.8 will recheck her levels and fu with results [id number] Mustapha Bustos [facility] [address],[place] [address] 04/16/2023 09:11:18 04/16/2023 11:02:48 Essential hypertension 20534066 I10 stable off the medication Cough 30082369 R05.1 will start on cough suppressan t [id number] Mustapha Bustos [facility] [address] [place] [address], [place] [address] 09/19/2023 11:37:48 09/19/2023 16:26:10 Depression screening 156469488 Z13.31 negative Pain of le ft shoulder joint 6333988474 4915075 M25.512 will give tramadol for pain [id number] Mustapha Bustos [facility] [address] [employer] [address] [employer], [place] [address] 10/31/2023 14:38:05 10/31/2023 15:41:44 Rupture of rotator cuff of left shoulder 4323943004 2280764 M75.102 Essential hypertension 86513732 I10 did real well with lab bps are excellent no cp no sob Aortic valve stenosis 60 694578 I35.0 stable recent echo and is stable as of june 2018 History of cerebrovascular accident 507641720 Z86.73 stable and is without issue Osteoarthr itis of knee 316033860 M17.9 will be getting left knee surg on of this month will need 4 day bridge and will ahve them call me with dose of lovenox that they already have in the fridge [id number] Mustapha Bustos [facility] [address] [facility] [address] 01/14/2024 08:09:32 01/14/2024 11:43:08 Fatigue 24825359 R53.83 will set up with lab work for the fatigueals o suggested for new sleep study [id number] Mustapha Bustos [facility] [address] [facility] [address] 04/06/2024 13:16:21 04/06/2024 14:12:13 Fall R29.6 stable Depressive disorder 3548 9007 F33.8 stable Osteoarthr itis of left knee joint 1483540639 33736 M17.12 has TKR on 06/17/24wil l f/u with their office to see when she needs her pre op Essential hypertension 24175651 I10 stable off the medication [id number] Mustapha Bustos [facility] [address] [facility] [address] 07/30/2024 11:23:39 07/30/2024 14:42:12 Essential hypertension 34253468 I10 did real well with lab bps are excellent no cp no sob Hypercholesterolemia 136 70082 E78.2 LDL is 132 HDL is 552 TRIG is 70 Hypothyroidism 59397366 E03.8 last tsh is notmal at 3.7 rechk in 6 months Depression screening 171 703416 Z13.31 [id number] Mustapha Bustos [facility] [address] [facility],[place] [address] 09/20/2024 14:56:48 09/20/2024 15:40:01 Depression screening 447884704 Z13.31 Essential hypertension 35072470 I10 did real well with lab bps are excellent no cp no sob History of total knee arthroplasty 9050262674 105 Z96.652 74426375 was doing great until the fallshe needs to be seen lonnie as this gait is abnormal Left foot drop 826985826 1 78112 M21.372 5606702368 [id number] Mustapha Bustos DO [facility] [address],[place] [address] 11/23/2024 13:24:12 11/23/2024 15:11:50 Active or passive immunization 412458478 Z23 advised General ex amination of patient 552360248 Z00.00 31366821 BP is fine Health Concerns Section Related Observation LastModified by Organization Detai ls LastModified Time None Recorded Concern Status LastModified by Organization Details LastModified Time None Recorded Advance Directives Directive None Recorded Payers Insurance Date Sequence Insurance Name Policy Number Policy Lowe Covered Member ID Lowe Member ID Guarantor Name 01/14/2024 2 [place]ARE [place]: [employer] Yadira Mena [id number] Yadira Mena 01/14/2024 1 [employer] C[employer] ALLIANCE - DOS ON OR AFTER 2022 - MEDICARE ADVANTAGE [place] (MEDICARE REPLACEMENT/AD VANTAGE - PPO) Yadira Mena [id number] Yadira Mena 01/14/2024 1 [employer] [facility] DOS PRIOR TO 2022 - DUAL ELIGIBLE (MEDICARE REPLACEMENT/AD VANTAGE - HMO) Yadira Mena [id number] Yadira Mena 01/14/2024 1 [place] Yadira Mena [id number] Yadira Mena 11/20/2024 1 [employer] [facility] ALLIANCE - DOS ON OR AFTER 2022 - MEDICARE [place]AGE [place] ([place]AC[place]/AD VANTAGE - PPO) Yadira Mena [id number] Yadira Mena Notes Date Note Type Note Provider Name and Address Organization Details Recorded Time 01/14/20 24 text/htm l ROS as noted in the HPI ER f/u The patient is participating in this appointment via telemedicine communication with a phone call/video calling service ([employer])The patient consents to use of these platforms [...] fu after blood work PEGGY TAVAREZ [address] [facility], [place], [address], [facility] 01/14/2024 10:43:54 04/06/20 24 text/htm [...] major changestaking her medications PEGGY TAVAREZ [address] [facility], [place], [address], [facility] 04/06/2024 14:07:52 07/31/19 25 text/htm [...] noted in the HPI Mustapha Bustos, [address] [place], [address], [facility] 07/30/2024 11:52:32 09/21/19 25 text/htm l ROS as noted in the HPI here for rechkhad a fall las t week since then it appears she has a abnormal gait noticed by her dphys therapistvery abnormal and almost like a foot f=drop this has all ocurred after the fall reviewed lab in detail Mustapha Bustos, [address] [place], [address], [facility] 09/20/2024 15:36:35 11/24/19 25 text/htm [...] denies sig depressive symptoms PEGGY TAVAREZ [address] [facility], [place], [address], [facility] 11/23/2024 14:51:55 OBGyn Episode No OBEpisode recorded.
== END 2025-04-18 11:22 | disposition home or self-care (01) ==
LOC: HO.ACS 11:00
PROVIDERS: PCP Internal Medicine; Visit Provider Internal Medicine Medical Oncology
DX: Z79.01 Long term (current) use of anticoagulants (principal)

== ENCOUNTER → 2025-04-18 11:00 | Outpatient (BNVA) | payer OTHER, SELFPAY | PROVIDERS: PCP Internal Medicine; Visit Provider Internal Medicine Medical Oncology | DX: I63.9 Cerebral infarction, unspecified (principal); Z51.81 Encounter for therapeutic drug level monitoring; Z79.01 Long term (current) use of anticoagulants | CPT/HCPCS: 85610; 99211 ==